=== PATIENT | male | born 1955 | race Caucasian/White ===

== ENCOUNTER → 2020-04-30 | Outpatient (CLI) | payer OTHER ==
[2020-04-30 15:14] LABS: HCT 44.2 % (39.0-53.0); HGB 14.6 gm/dL (13.0-17.5); MCV 100.1 fL (80.0-100.0); Mean Platelet Volume 7.8; Platelet Count 273 k/uL (150-450); RBC 4.41 m/uL (4.30-5.90); RDW 12.7 % (11.5-15.5); WBC 6.7 k/uL (3.8-10.6)
[2020-04-30 15:18] LABS: African American GFR (CKD) >90 (>60 ml/min/1.73 sqM); Anion Gap 7 mmol/L; Blood Urea Nitrogen 15 mg/dL (9-20); Carbon Dioxide 26 mmol/L (22-30); Chloride 104 mmol/L (98-107); Non-African American GFR(CKD) 88 (>60 ml/min/1.73 sqM); Potassium 4.6 mmol/L (3.5-5.1); Sodium 137 mmol/L (137-145)
== END | disposition home or self-care (01) ==
LOC: LABPAT 14:43
PROVIDERS: ATTEND Internal Medicine Interventional Cardiology
DX: Z01.818 Encounter for other preprocedural examination (principal); I65.21 Occlusion and stenosis of right carotid artery; I73.9 Peripheral vascular disease, unspecified; Z20.828 Contact with and (suspected) exposure to other viral communicable diseases
CPT/HCPCS: 80051; 82565; 84520; 85027; U0003

== ENCOUNTER 2020-05-05 06:26 | Inpatient (IN) | payer OTHER ==
[2020-05-03 09:01] VITALS: BMI 21.2
[~2020-05-05 06:26] MED LIST: ALPRAZolam 0.25 MG TAB PO PRN; ALPRAZolam 0.5 MG TAB PO PRN; CLOPIDOGREL 75 MG TAB PO STA; NITROGLYCERIN SL TABS 0.4 MG TAB SUBLINGUAL PRN; SODIUM CHLORIDE 0.9% 1,000 ML in EMPTY BAG 1 BAG IV ONE
[2020-05-05] MEDS ORDERED: ASPIRIN 325 MG TAB PO ONE (07:00)
[2020-05-05] MEDS: LIDOCAINE 1% INJ 10MG/ML (20 ML MDV) SQ ONE ×2 (08:19→08:21)
[2020-05-05] MEDS ORDERED: HEPARIN SODIUM 1,000 UN/ML (10ML VL) IV ONE (08:33)
[2020-05-05] MEDS ORDERED: fentaNYL (PF) 50 MCG/ML 2 ML AMP IVP ONE (09:03)
[2020-05-05] MEDS ORDERED: IOPAMIDOL-250 100ML BTL INTRAARTER ONE ×2 (10:04→10:07)
[2020-05-05] MEDS ORDERED: CLOPIDOGREL 75 MG TAB PO ONE (10:05)
[2020-05-05] MEDS ORDERED: MAG HYDROX/AL HYDROX/SIMETH 30 ML CUP PO PRN (10:22)
[2020-05-05] MEDS ORDERED: ATROPINE SULFATE 0.1 MG/ML 10ML SYRINGE IV PRN (10:22)
[2020-05-05] MEDS ORDERED: RX INFO: IV CONTRAST WAS GIVEN 1 EACH MISC MISCELLANE PRN (10:22)
[2020-05-05] MEDS ORDERED: SODIUM CHLORIDE 0.9% 1,000 ML IV SCH (10:30)
[2020-05-05 10:37] LABS: Glucose,Whole Blood 105 mg/dL (75-99)
--- NOTE | 2020-05-05 13:39 | P.PCN ---
Date of Procedure: 05/05/20 Operative Findings: CAROTID STENT PROCEDURE Performing physician Demarcus Caballero MD, RPVI Procedure performed 1. Successful stenting of the right internal carotid artery using 68 mm x 30 mm Acculink carotid stent with adjunctive use of Emboshield NAV6 (5.0mm) 2. Selective right common and right internal carotid angiogram 3. Intracranial angiogram 4. An aortic arch angiogram 5. 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 Approach Right femoral artery Complications None Level of sedation The procedure was performed without sedation. The procedure length was 108 minutes Procedure description After obtaining an informed consent the patient was brought to cardiac laborer [facility]. The right common femoral artery was cannulated using micropuncture technique, the micropuncture wire passed easily and subsequently I placed the 90 cm 6- [place] shuttle sheath where the sheath was advanced all the way to the descending aorta. At that point anticoagulation was initiated using heparin where the patient was given an 8000 of heparin at the beginning of the procedure with continuous ACT monitoring throughout the procedure. Subsequently I did an aortic arch angiogram which revealed type II-III aortic arch. At that point I had hard time advancing an 035 glide advantage wire into the right common carotid. I was able to engage the innominate better using VTK catheter and subsequently with the use of supercore wire and I was able to advance the sheath over the wire as well as the VTK catheter to the proximal right common carotid artery. At that point I didn't selective right common and right internal carotid angiogram which revealed critical lesion involving the right internal carotid artery right after the takeoff from the right common carotid artery. I decided to pursue with an intervention. At that point I did prep my equipment including initially the retrieval of the filter, the postdilatation balloon, the stent, the predilatation balloon, and the filter wire. After prepping the filter wire and making sure there is no bubbles, I did advance the filter wire all the way to the distal right internal carotid artery where I crossed the lesion. The filter I used was the Emboshield NAV6 system. After that I did a predilatation of the lesion using 4.0 x 20 mm balloon which was inflated under 8 cas for 5 seconds. Subsequently I deployed a 68 mm x 30 mm Acculink stent where the stent was positioned under fluoroscopy guidance and deployed under fluoroscopy guidance. Please note that careful attention of the wire and filter was performed throughout the procedure. Postdilatation of the stent was performed using 5.0 x 20 mm balloon which was inflated under 8 cas for 5 seconds. The following angiogram showed an excellent angiographic results. After that I did retrieve the filter under fluoroscopy guidance with careful crossing of the retrieval through the stent. The final angiogram showed excellent angiographic results and the procedure was completed without any complications Also by the end I did perform intracranial angiogram. Subsequently I did exchange my long sheath into short sheath using 035 glide advantage wire. The procedure was completed at that point without any complications When I did selective right common femoral artery angiogram and he noticed that there was no flow in the right common femoral artery. I was able to restore the flow by pulling the sheath about half length. The following angiogram showed an intermediate to severe lesion involving the right external iliac artery which I decided to treat medically. Postprocedure management #1 monitor the blood pressure and heart rate in the intensive care unit #2 standard groin care #3 dual antiplatelet therapy #4 discharged in the next 24 hours
--- NOTE | 2020-05-05 14:51 | IR ---
EXAMINATION TYPE: IR stent intravas non coronary DATE OF EXAM: 05/05/2020 COMPARISON: NONE HISTORY: Fluoroscopy time. Fluoroscopy was provided to the referring clinician.
[2020-05-05] MEDS ORDERED: HYDROmorphone 1 MG/ML 1 ML SYRINGE IVP PRN (17:39)
[2020-05-05] MEDS: HYDROmorphone 0.5 MG/0.5 ML SYRINGE IVP PRN ×2 (18:15→22:08)
[2020-05-05] MEDS ORDERED: ATORVASTATIN 40 MG TAB PO SCH (21:00)
[2020-05-06] MEDS: HYDROmorphone 0.5 MG/0.5 ML SYRINGE IVP PRN (05:13)
[2020-05-06 05:33] LABS: Basophils % (A) 1 %; Eosinophils # (A) 0.2 k/uL (0-0.7); Eosinophils % (A) 3 %; HCT 38.4 % (39.0-53.0); HGB 12.6 gm/dL (13.0-17.5); Lymphocytes # (A) 1.2 k/uL (1.0-4.8); Lymphocytes % (A) 23 %; MCH 32.8 pg (25.0-35.0); MCHC 32.8 g/dL (31.0-37.0); Mean Platelet Volume 8.3; Monocytes # (A) 0.4 k/uL (0-1.0); Monocytes % (A) 7 %; Neutrophils # (A) 3.6 k/uL (1.3-7.7); Neutrophils % (A) 65 %; Platelet Count 203 k/uL (150-450); RBC 3.84 m/uL (4.30-5.90); RDW 12.6 % (11.5-15.5); WBC 5.5 k/uL (3.8-10.6)
[2020-05-06 05:49] LABS: African American GFR (CKD) >90 (>60 ml/min/1.73 sqM); Anion Gap 4 mmol/L; Blood Urea Nitrogen 13 mg/dL (9-20); Calcium 8.8 mg/dL (8.4-10.2); Carbon Dioxide 25 mmol/L (22-30); Chloride 104 mmol/L (98-107); Glucose 99 mg/dL (74-99); Non-African American GFR(CKD) >90 (>60 ml/min/1.73 sqM); Potassium 4.1 mmol/L (3.5-5.1); Sodium 133 mmol/L (137-145)
[2020-05-06 08:46] VITALS: TEMP 97.4
[2020-05-06] MEDS ORDERED: ASPIRIN 325 MG TAB PO SCH (09:00)
--- NOTE | 2020-05-06 10:07 | P.DS ---
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 He underwent yesterday successful stenting of the right internal carotid artery from right groin approach. The patient was seen this morning. He is asymptomatic from the cardiovascular standpoint overview. The right groin is soft and nontender and without any bruises. The right foot is warm as well. He is going to be discharged home on dual antiplatelet therapy and I'll follow- up with the patient next week in the office Plan - Discharge Summary Discharge Rx Participant: No New Discharge Prescriptions: Continue Lisinopril [Zestril] 10 mg PO DAILY Atorvastatin [Lipitor] 20 mg PO HS Apixaban [Eliquis] 5 mg PO BID Folic Acid 1 mg PO DAILY amLODIPine [Norvasc] 5 mg PO DAILY Clopidogrel [Plavix] 75 mg PO DAILY Discharge Medication List Apixaban [Eliquis] 5 mg PO BID 05/03/20 [History] Atorvastatin [Lipitor] 20 mg PO HS 05/03/20 [History] Clopidogrel [Plavix] 75 mg PO DAILY 05/03/20 [History] Folic Acid 1 mg PO DAILY 05/03/20 [History] Lisinopril [Zestril] 10 mg PO DAILY 05/03/20 [History] amLODIPine [Norvasc] 5 mg PO DAILY 05/03/20 [History] Follow up Appointment(s)/Referral(s): Demarcus Caballero MD [STAFF PHYSICIAN] - 1 Week
[2020-05-06 10:12] VITALS: BP 115/65; PULSE 61; RESP 10
[2020-05-06] MEDS ORDERED: CLOPIDOGREL 75 MG TAB PO SCH (10:22)
== END 2020-05-06 11:04 | disposition home or self-care (01) | DRG 35 ==
LOC: 2ORMAIN 06:26 → 2SICU 10:15
PROVIDERS: ADMIT Internal Medicine Interventional Cardiology; ATTEND Internal Medicine Interventional Cardiology
PROC: 037K3DZ Dilation of Right Internal Carotid Artery with Intraluminal Device, Percutaneous Approach (ICD-10-PCS; principal; 2020-05-05 07:30)
PROC: B31R1ZZ Fluoroscopy of Intracranial Arteries using Low Osmolar Contrast (ICD-10-PCS; principal; 2020-05-05 07:30)
PROC: B4101ZZ Fluoroscopy of Abdominal Aorta using Low Osmolar Contrast (ICD-10-PCS; principal; 2020-05-05 07:30)
PROC: B3161ZZ Fluoroscopy of Right Internal Carotid Artery using Low Osmolar Contrast (ICD-10-PCS; principal; 2020-05-05 07:30)
DX: I65.21 Occlusion and stenosis of right carotid artery (principal); I82.B22 Chronic embolism and thrombosis of left subclavian vein; I73.9 Peripheral vascular disease, unspecified; I10 Essential (primary) hypertension; E78.5 Hyperlipidemia, unspecified; R40.2143 Coma scale, eyes open, spontaneous, at hospital admission; R40.2363 Coma scale, best motor response, obeys commands, at hospital admission; R40.2253 Coma scale, best verbal response, oriented, at hospital admission; Z79.01 Long term (current) use of anticoagulants; Z79.02 Long term (current) use of antithrombotics/antiplatelets; Z79.899 Other long term (current) drug therapy; Z87.891 Personal history of nicotine dependence; Z86.718 Personal history of other venous thrombosis and embolism; Z95.828 Presence of other vascular implants and grafts
CPT/HCPCS: 37215; 80048; 85025; 85347

== ENCOUNTER → 2020-05-24 | Day surgery (SDC) | payer OTHER ==
[2020-05-21 10:13] VITALS: BMI 21.2
[~2020-05-24] MED LIST changes: -ALPRAZolam 0.5 MG TAB PO PRN; +ASPIRIN 325 MG TAB PO ONE; -CLOPIDOGREL 75 MG TAB PO STA; +HEPARIN SODIUM 1,000 UN/ML (10ML VL) IV ONE; +IOPAMIDOL-250 100ML BTL INTRAARTER ONE; +IOPAMIDOL-250 50ML BTL INTRAARTER ONE; +LIDOCAINE 1% INJ 10MG/ML (20 ML MDV) SQ ONE; -NITROGLYCERIN SL TABS 0.4 MG TAB SUBLINGUAL PRN; +SODIUM CHLORIDE 0.9% 1,000 ML IV ONE; +SODIUM CHLORIDE 0.9% 1,000 ML IV SCH
[2020-05-24 07:13] VITALS: RESP 16; TEMP 98.5
[2020-05-24] MEDS: VERAPAMIL SYRINGE (5 MG/10 ML) INTRAARTER ONE ×2 (07:54→08:09)
--- NOTE | 2020-05-24 11:10 | AN ---
ANGIOGRAPHY REPORT DATE OF SERVICE: May 24, 2020 PERFORMING PHYSICIAN: Demarcus Caballero MD. PROCEDURE PERFORMED: 1. An abdominal aortogram. 2. Bilateral lower extremities runoff. INDICATION: This is a 64-year-old gentleman with peripheral arterial disease as well as carotid disease who underwent in the past out of the town at [facility], right common femoral endarterectomy as well as stenting of the right iliac artery was experiencing bilateral lower extremities intermittent claudication, Fontan class 2A, seems to be worse on the left side than the right side without any evidence of critical limb ischemia. An aortogram with runoff was advised. APPROACH: Right radial artery. COMPLICATION: None. LEVEL OF SEDATION: Moderate with sedation length of 20 minutes. PROCEDURE DESCRIPTION: After obtaining an informed consent, the patient was brought to the cardiac chemical laboratory chief. The. The right radial artery was cannulated using micropuncture technique, the micropuncture wire passed easily, then I placed a 5-Tamazight sheath at the right radial artery. An abdominal aortogram and bilateral lower extremities runoff performed using 5-Tamazight pigtail catheter which was initially placed at the level of the renal arteries, then it was advanced into the bifurcation of the aorta into right and left common iliac arteries. The procedure was completed without any complication. SELECTIVE PERIPHERAL ANGIOGRAM: 1. The aorta is appeared to be dilated. It appeared to have also mild occlusive disease. 2. Renal arteries: The right and left renal arteries appeared to have mild to moderate disease only. 3. Common iliac arteries: The right common iliac artery is stented and the stent is patent and the left common iliac artery appeared to have mild disease only. 4. Internal iliac arteries: The right and left internal iliac arteries were not opacified. The right internal iliac artery appeared to be small and the left internal iliac artery was working as a collateral. 5. External iliac arteries: The right external iliac artery appeared to have a tight lesion in the range of 70% to 80%. The left external iliac artery is occluded. 6. Common femoral arteries: The right common femoral artery appeared to have mild to moderate diffuse disease. 7. The left common femoral artery appeared to have mild to moderate diffuse disease as well. 8. Profunda: Both profunda are patent. 9. SFA: Both SFA are occluded. 10.Popliteal: The right and left popliteal appeared to be patent. 11.Below the knee: There are 3 vessel runoff below the knee bilaterally. CONCLUSION: 1. Mildly dilated infrarenal aorta. The CTA is recommended for further clarification. 2. Patent severe femoral-popliteal disease with severe disease involving the right external iliac artery and occluded left external iliac artery. 3. Severe femoral-popliteal disease with occluded bilateral SFA. 4. Three vessel runoff below the knee bilaterally. POSTPROCEDURE MANAGEMENT: The patient will need to undergo a FACIALIST of the right external iliac artery and left external iliac artery to be performed in the next few weeks. MMODL / IJN: [id number] /
[2020-05-24 13:24] VITALS: BP 90/62; PULSE 76
--- NOTE | 2020-05-24 17:00 | IR ---
Fluoroscopy HISTORY: Peripheral vascular disease 5minutes fluoroscopy time supplied to the referring clinician. 199 intraoperative C-arm images docum ent the procedure. See dictated report from cardiology.
== END ==
LOC: CATHCVL 06:23
PROVIDERS: ATTEND Internal Medicine Interventional Cardiology
DX: I70.213 Atherosclerosis of native arteries of extremities with intermittent claudication, bilateral legs (principal); I77.811 Abdominal aortic ectasia; I74.5 Embolism and thrombosis of iliac artery; I65.21 Occlusion and stenosis of right carotid artery; E78.5 Hyperlipidemia, unspecified; I10 Essential (primary) hypertension; Z95.820 Peripheral vascular angioplasty status with implants and grafts; Z95.828 Presence of other vascular implants and grafts; Z72.0 Tobacco use; Z79.899 Other long term (current) drug therapy; Z79.01 Long term (current) use of anticoagulants; Z79.02 Long term (current) use of antithrombotics/antiplatelets
CPT/HCPCS: 36200; 75625; 75716; C1769 ×5; C1894; J2001; J1644; Q9966 ×2

== ENCOUNTER → 2020-06-10 | Outpatient (CLI) | payer OTHER ==
[2020-06-10 11:16] LABS: HCT 43.1 % (39.0-53.0); HGB 14.1 gm/dL (13.0-17.5); MCH 32.1 pg (25.0-35.0); MCHC 32.7 g/dL (31.0-37.0); MCV 97.9 fL (80.0-100.0); Mean Platelet Volume 7.7; Platelet Count 275 k/uL (150-450); RDW 12.4 % (11.5-15.5); WBC 6.4 k/uL (3.8-10.6)
[2020-06-10 11:55] LABS: African American GFR (CKD) >90 (>60 ml/min/1.73 sqM); Anion Gap 5 mmol/L; Blood Urea Nitrogen 13 mg/dL (9-20); Carbon Dioxide 26 mmol/L (22-30); Chloride 103 mmol/L (98-107); Non-African American GFR(CKD) 79 (>60 ml/min/1.73 sqM); Potassium 4.9 mmol/L (3.5-5.1); Sodium 134 mmol/L (137-145)
== END | disposition home or self-care (01) ==
LOC: LABPAT 10:32
PROVIDERS: ATTEND Internal Medicine Interventional Cardiology
DX: Z01.818 Encounter for other preprocedural examination (principal); I70.213 Atherosclerosis of native arteries of extremities with intermittent claudication, bilateral legs
CPT/HCPCS: 80051; 82565; 84520; 85027

== ENCOUNTER 2020-06-16 08:24 | Observation (INO) | payer OTHER ==
[2020-06-10 11:52] VITALS: BMI 21.2
[~2020-06-16 08:24] MED LIST changes: -HEPARIN SODIUM 1,000 UN/ML (10ML VL) IV ONE; -IOPAMIDOL-250 100ML BTL INTRAARTER ONE; -IOPAMIDOL-250 50ML BTL INTRAARTER ONE; -LIDOCAINE 1% INJ 10MG/ML (20 ML MDV) SQ ONE; -SODIUM CHLORIDE 0.9% 1,000 ML IV ONE; -SODIUM CHLORIDE 0.9% 1,000 ML IV SCH
[2020-06-16] MEDS ORDERED: SODIUM CHLORIDE 0.9% 1,000 ML IV ONE (08:37)
[2020-06-16] MEDS: MIDAZOLAM 2 MG/2 ML VIAL IVP ONE ×2 (11:25→11:30)
[2020-06-16] MEDS ORDERED: LIDOCAINE 1% INJ 10MG/ML (20 ML MDV) SQ ONE (11:28)
[2020-06-16] MEDS ORDERED: VERAPAMIL SYRINGE (5 MG/10 ML) INTRAARTER ONE (11:30)
[2020-06-16] MEDS: HEPARIN SODIUM 1,000 UN/ML (10ML VL) IV ONE ×2 (11:32→13:25)
[2020-06-16] MEDS ORDERED: HYDROmorphone 1 MG/ML 1 ML SYRINGE IVP ONE (12:16)
[2020-06-16] MEDS ORDERED: fentaNYL (PF) 50 MCG/ML 2 ML AMP IVP ONE (12:55)
[2020-06-16] MEDS ORDERED: CLOPIDOGREL 75 MG TAB PO ONE (13:55)
[2020-06-16] MEDS ORDERED: IOPAMIDOL-370 100ML BTL INJ ONE (13:56)
[2020-06-16] MEDS ORDERED: SODIUM CHLORIDE 0.9% 1,000 ML IV SCH (13:56)
[2020-06-16] MEDS: HYDROmorphone 1 MG/ML 1 ML SYRINGE IVP PRN ×2 (16:30→20:12)
[2020-06-16 19:54] VITALS: RESP 18
[2020-06-16] MEDS ORDERED: ATORVASTATIN 20 MG TAB PO SCH (21:00)
--- NOTE | 2020-06-16 23:00 | AN ---
ANGIOGRAPHY REPORT DATE OF SERVICE: June 16, 2020. PERFORMING PHYSICIAN: Demarcus Caballero MD. PROCEDURE PERFORMED: 1. Successful stenting of the right common iliac artery using 8.0 x 60 mm Absolute Pro self expandable stent with an excellent angiographic results. 2. Successful balloon angioplasty of the right external iliac artery using 6 x 60 mm Impact drug-coated balloon with an excellent angiographic results. 3. Selective right common iliac artery and right external iliac artery and right common femoral artery. 4. Selective left common iliac artery. INDICATION: This is a 64-year-old gentleman with peripheral arterial disease who was experiencing bilateral lower extremities intermittent claudication and underwent an angiogram which revealed occluded left iliac and severe disease involving the right common and right external iliac artery. He was brought today to undergo an intervention. APPROACH: Right common femoral artery and right radial artery. COMPLICATION: None. LEVEL OF SEDATION: Moderate with sedation length of 137 minutes. PROCEDURE DESCRIPTION: After obtaining an informed consent, the patient was brought to the cardiac laboratory phlebotomist. I accessed the right radial artery using micropuncture technique, and I placed initially a 6-[place]izen [place] 11 cm sheath at the right radial artery. After that I did give the patient 2 mg of verapamil IA and 6000 units of heparin IV. I exchanged my 11 cm 6-[place] sheath into 110 cm 6-[place] sheath over a 035 super core wire. I advanced the sheath all the way to the distal aorta. Unfortunately, the sheath did not reach the bifurcation of the aorta into right and left common iliac arteries. 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 Multiple attempts were unsuccessful and I ended in the subintimal space. Because of that, I decided to fix the right iliac system. Because the sheath was not reaching the bifurcation and I was running short because of the length of the sheath and the length of the equipment, I decided to access the right femoral artery. At that point, the right common femoral artery was cannulated using micropuncture technique and a micropuncture wire passed easily. Then I placed 11 cm 6- [place] sheath in the right common femoral artery. That was performed under fluoroscopy guidance. After that I did selective right common and right external iliac artery angiogram. Balloon angioplasty at that point was performed using a Chocolate balloon which was 6 x 40 mm. After that, I did stenting of the right common iliac artery where I did deploy 8 x 60 mm Absolute Pro self expandable stent under fluoroscopy guidance and I post-dilated the stent using 7 mm balloon. For the right external iliac artery, I did balloon angioplasty using 6 x 60 mm Impact drug-coated balloon where the balloon was inflated under 3 minutes for 6 atmospheres. The final angiogram showed excellent angiographic results and the procedure was completed without any complication. By the end, I did selective right common femoral artery angiogram. After that, I did remove the right radial sheath and I placed a TR band. POSTPROCEDURE MANAGEMENT: 1. Dual anti-platelet therapy. 2. Risk factors modifications. 3. Follow up with the patient. MMODL / IJN: [id number] /
[2020-06-17] MEDS: HYDROmorphone 1 MG/ML 1 ML SYRINGE IVP PRN (06:01)
[2020-06-17 07:07] LABS: Basophils % (A) 1 %; Eosinophils # (A) 0.2 k/uL (0-0.7); Eosinophils % (A) 2 %; HCT 39.5 % (39.0-53.0); HGB 12.6 gm/dL (13.0-17.5); Lymphocytes # (A) 1.1 k/uL (1.0-4.8); Lymphocytes % (A) 16 %; MCH 31.5 pg (25.0-35.0); MCHC 31.8 g/dL (31.0-37.0); MCV 99.1 fL (80.0-100.0); Mean Platelet Volume 7.7; Monocytes # (A) 0.4 k/uL (0-1.0); Monocytes % (A) 7 %; Neutrophils # (A) 4.8 k/uL (1.3-7.7); Neutrophils % (A) 73 %; Platelet Count 211 k/uL (150-450); RBC 3.99 m/uL (4.30-5.90); RDW 12.6 % (11.5-15.5); WBC 6.7 k/uL (3.8-10.6)
[2020-06-17 07:25] LABS: African American GFR (CKD) >90 (>60 ml/min/1.73 sqM); Anion Gap 6 mmol/L; Blood Urea Nitrogen 10 mg/dL (9-20); Calcium 8.7 mg/dL (8.4-10.2); Carbon Dioxide 23 mmol/L (22-30); Chloride 105 mmol/L (98-107); Glucose 94 mg/dL (74-99); Non-African American GFR(CKD) >90 (>60 ml/min/1.73 sqM); Potassium 4.4 mmol/L (3.5-5.1); Sodium 134 mmol/L (137-145)
[2020-06-17 07:57] VITALS: PULSE 75; TEMP 98.8
[2020-06-17 07:59] VITALS: BP 97/54
--- NOTE | 2020-06-17 08:14 | P.CONS ---
History of Present Illness - Reason for Consult Consult date: 06/17/20 - Chief Complaint Athersclerosis - History of Present Illness The patient is a 64-year-old white male with known history of carotid stenosis who is postop day #1 for stenting. The patient states no new complaints. No significant chest pressure. No fever or chills. No nausea, vomiting or diarr hea. Consulted for medical management. We'll reconcile medications. The patient states no sleep issues no voiding difficulties. Review of Systems Constitutional: Denies chills, Denies fever Eyes: denies blurred vision, denies pain Ears, nose, mouth and throat: Denies headache, Denies sore throat Cardiovascular: Denies chest pain, Denies shortness of breath Respiratory: Denies cough Gastrointestinal: Denies abdominal pain, Denies diarrhea, Denies nausea, Denies vomiting Past Medical History Past Medical History: Cancer Additional Past Medical History / Comment(s): See Dr Caballero's H&P. SKIN CANCER. History of Any Multi-Drug Resistant Organisms: None Reported Past Surgical History: Heart Catheterization Additional Past Surgical History / Comment(s): "RIGHT LEG FOR CIRCULATION WITH 2 STENTS." Right internal carotid stent 05/05/20. Past Anesthesia/Blood Transfusion Reactions: No Reported Reaction Past Psychological History: No Psychological Hx Reported Smoking Status: Former smoker Past Alcohol Use History: Rare Additional Past Alcohol Use History / Comment(s): STARTED SMOKING AT AGE 17, QUIT 2019, SMOKED 1/2 - 1 PPD. Past Drug Use History: None Reported - Past Family History Father Family Medical History: Cancer Additional Family Medical History / Comment(s): THROAT CANCER. Brother(s) Family Medical History: Cancer Additional Family Medical History / Comment(s): THROAT CANCER. Medications and Allergies Home Medications Medication Instructions Recorded Confirmed Type Apixaban [Eliquis] 5 mg PO BID 05/03/20 06/16/20 History Atorvastatin [Lipitor] 20 mg PO HS 05/03/20 06/16/20 History Clopidogrel [Plavix] 75 mg PO DAILY 05/03/20 06/16/20 History Folic Acid 1 mg PO DAILY 05/03/20 06/16/20 History amLODIPine [Norvasc] 5 mg PO DAILY 05/03/20 06/16/20 History lisinopriL [Zestril] 10 mg PO DAILY 05/03/20 06/16/20 History Aspirin 325 mg PO DAILY 05/24/20 06/16/20 History Allergies Allergy/AdvReac Type Severity Reaction Status Date / Time No Known Allergies Allergy Verified 06/16/20 08:44 Physical Exam Vitals: Vital Signs Temp Pulse Pulse Resp BP BP BP 06/17/20 07:51 98.8 F 75 18 126/72 06/17/20 03:05 98.1 F 70 18 102/59 06/16/20 23:04 98 F 55 L 18 95/50 06/16/20 19:30 97.4 F L 65 18 96/57 06/16/20 18:45 65 16 98/58 06/16/20 18:15 65 16 97/54 06/16/20 17:45 65 16 105/61 06/16/20 17:30 66 16 101/56 06/16/20 17:15 96.6 F L 66 16 105/67 06/16/20 16:41 65 16 96/61 06/16/20 16:39 70 16 93/51 06/16/20 16:34 16 101/61 06/16/20 15:41 67 16 95/59 06/16/20 15:11 68 16 98/60 06/16/20 14:41 60 16 96/54 06/16/20 14:26 63 16 98/60 06/16/20 14:11 61 16 95/63 06/16/20 13:56 62 16 98/60 06/16/20 09:01 97.9 F 80 16 97/54 159/80 Pulse Ox 06/17/20 07:51 95 06/17/20 03:05 93 L 06/16/20 23:04 94 L 06/16/20 19:30 97 06/16/20 18:45 96 06/16/20 18:15 97 06/16/20 17:45 96 06/16/20 17:30 95 06/16/20 17:15 95 06/16/20 16:41 95 06/16/20 16:39 97 06/16/20 16:34 97 06/16/20 15:41 95 06/16/20 15:11 98 06/16/20 14:41 98 06/16/20 14:26 95 06/16/20 14:11 96 06/16/20 13:56 98 06/16/20 09:01 98 Intake and Output 06/16/20 06/17/20 06/17/20 22:59 06:59 14:59 Intake Total 800 Output Total 300 Balance 500 Intake: IV 500 Oral 300 Output: Urine 300 Other: Voiding Method Urinal Urinal # Voids 1 - Constitutional General appearance: no acute distress - EENT Eyes: EOMI - Neck Neck: no lymphadenopathy - Respiratory Respiratory: bilateral: CTA - Cardiovascular Rhythm: regular Heart sounds: normal: S1, S2 Abnormal Heart Sounds: no S3 Gallop - Gastrointestinal General gastrointestinal: soft, no tenderness - Integumentary Integumentary: normal - Neurologic Neurologic: CNII-XII intact Results CBC & Chem 7: 06/17/20 06:34 06/17/20 06:34 Labs: Abnormal Lab Results - Last 24 Hours (Table) 06/17/20 06/17/20 Range/Units 06:34 06:34 RBC 3.99 L (4.30-5.90) m/uL Hgb 12.6 L (13.0-17.5) gm/dL Sodium 134 L (137-145) mmol/L Assessment and Plan (1) Carotid stenosis Current Visit: No Status: Acute Code(s): I65.29 - OCCLUSION AND STENOSIS OF UNSPECIFIED CAROTID ARTERY SNOMED Code(s): 25546835 Plan: The patient is doing well postoperatively with no neurologic findings. Reconcile medications. Anticipate discharge later today.
--- NOTE | 2020-06-17 08:57 | IR ---
EXAMINATION TYPE: IR stent intravas non coronary DATE OF EXAM: 06/16/2020 CLINICAL HISTORY: Peripheral vascular disease. TECHNIQUE: Fluoroscopy. COMPARISON: None. FINDINGS: Fluoroscopic guidance was provided during angiogram with stent insertion procedure perform ed by Dr. Caballero. A total of 51.2 minutes of fluoroscopic time was utilized during the procedure and m ultiple cine images are acquired. Please refer to procedure note for further details as I was not pre sent nor performed procedure. IMPRESSION: As Above.
[2020-06-17] MEDS ORDERED: amLODIPine 5 MG TAB PO SCH (09:00)
[2020-06-17] MEDS ORDERED: FOLIC ACID 1 MG TAB PO SCH (09:00)
[2020-06-17] MEDS ORDERED: ASPIRIN 325 MG TAB PO SCH (09:00)
[2020-06-17] MEDS ORDERED: lisinopriL 10 MG TAB PO SCH (09:00)
[2020-06-17] MEDS ORDERED: APIXABAN 5 MG TAB PO SCH (09:00)
[2020-06-17] MEDS ORDERED: CLOPIDOGREL 75 MG TAB PO SCH (09:00)
--- NOTE | 2020-06-17 10:57 | P.DS ---
Providers Date of admission: 06/17/20 06:55 Attending physician: Demarcus Caballero Primary care physician: [facility] Course: This is a 64-year-old gentleman who underwent yesterday successful stenting of the right common and right external iliac artery. He was seen this morning. Overall he is asymptomatic from a cardiovascular standpoint of view. Both sites the right radial and right common femoral arteries are soft and nontender and without any bruises. The patient is going to discharge home on antiplatelet and anticoagulation as well as a statin. Plan - Discharge Summary Discharge Rx Participant: Yes New Discharge Prescriptions: Continue lisinopriL [Zestril] 10 mg PO DAILY Atorvastatin [Lipitor] 20 mg PO HS Apixaban [Eliquis] 5 mg PO BID Folic Acid 1 mg PO DAILY amLODIPine [Norvasc] 5 mg PO DAILY Clopidogrel [Plavix] 75 mg PO DAILY Aspirin 325 mg PO DAILY Discharge Medication List Apixaban [Eliquis] 5 mg PO BID 05/03/20 [History] Atorvastatin [Lipitor] 20 mg PO HS 05/03/20 [History] Clopidogrel [Plavix] 75 mg PO DAILY 05/03/20 [History] Folic Acid 1 mg PO DAILY 05/03/20 [History] amLODIPine [Norvasc] 5 mg PO DAILY 05/03/20 [History] lisinopriL [Zestril] 10 mg PO DAILY 05/03/20 [History] Aspirin 325 mg PO DAILY 05/24/20 [History] Follow up Appointment(s)/Referral(s): Demarcus Caballero MD [STAFF PHYSICIAN] - 06/25/20 4:45 pm (follow up is on Sunday at 4:45 PM) Patient Instructions/Handouts: *Surgery [facility] - Lung, Liver, Kidney, Adrenal Gland Biopsy Discharge Instructions, Percutaneous Liver Biopsy (DC) Activity/Diet/Wound Care/Special Instructions: Follow up as previously instructed Activity restrictions No changes with medications Rest for today Remove band-aid after 24 hours, may shower For discomfort Tylenol
== END 2020-06-17 12:20 | disposition home or self-care (01) ==
LOC: CATHCVL 08:24 → 3SCARD 13:42 → CATHCVL 06-17 06:49 → 3SCARD 06-17 06:55
PROVIDERS: ADMIT Internal Medicine Interventional Cardiology; ATTEND Internal Medicine Interventional Cardiology
DX: I70.8 Atherosclerosis of other arteries (principal); I65.21 Occlusion and stenosis of right carotid artery; I10 Essential (primary) hypertension; E78.5 Hyperlipidemia, unspecified; Z79.01 Long term (current) use of anticoagulants; Z79.02 Long term (current) use of antithrombotics/antiplatelets; Z79.82 Long term (current) use of aspirin; Z79.899 Other long term (current) drug therapy; Z95.820 Peripheral vascular angioplasty status with implants and grafts; Z86.718 Personal history of other venous thrombosis and embolism; Z87.891 Personal history of nicotine dependence; Z85.828 Personal history of other malignant neoplasm of skin; Z80.8 Family history of malignant neoplasm of other organs or systems
CPT/HCPCS: 37221; 37222; 85347; 80048; 85025; G0378; C1894 ×3; C1769 ×10; C1725 ×2; C1876; C1887; C2623; J2250; J2001; J3010; J1644; J1170 ×2; Q9967

== ENCOUNTER → 2020-07-14 | Outpatient (CLI) | payer OTHER | END | disposition home or self-care (01) | LOC: LABPAT 11:22 | PROVIDERS: ATTEND Internal Medicine Interventional Cardiology | DX: Z53.9 Procedure and treatment not carried out, unspecified reason (principal) ==

== ENCOUNTER 2020-07-21 07:48 | Day surgery (SDC) | payer OTHER ==
[2020-07-14 13:05] LABS: HCT 42.5 % (39.0-53.0); HGB 13.6 gm/dL (13.0-17.5); MCH 31.4 pg (25.0-35.0); MCV 98.1 fL (80.0-100.0); Mean Platelet Volume 7.4; Platelet Count 259 k/uL (150-450); RBC 4.33 m/uL (4.30-5.90); RDW 12.8 % (11.5-15.5); WBC 5.6 k/uL (3.8-10.6)
[2020-07-14 13:17] LABS: African American GFR (CKD) >90 (>60 ml/min/1.73 sqM); Anion Gap 6 mmol/L; Blood Urea Nitrogen 20 mg/dL (9-20); Carbon Dioxide 27 mmol/L (22-30); Chloride 104 mmol/L (98-107); Non-African American GFR(CKD) 80 (>60 ml/min/1.73 sqM); Potassium 4.9 mmol/L (3.5-5.1); Sodium 137 mmol/L (137-145)
[2020-07-15 11:10] VITALS: BMI 21.2
[~2020-07-21 07:48] MED LIST changes: -ASPIRIN 325 MG TAB PO ONE; +ASPIRIN 325 MG TAB PO STA; +ZOLPIDEM 5 MG TAB PO PRN
[2020-07-21] MEDS ORDERED: LIDOCAINE 1% INJ 10MG/ML (20 ML MDV) SQ ONE (09:22)
[2020-07-21] MEDS ORDERED: SODIUM CHLORIDE 0.9% 500 ML 500 ML with niCARdipine 6.25 MG, NITROGLYCERIN-D5W PMX 0.05... IV ONE ×8 (09:29→11:30)
[2020-07-21] MEDS ORDERED: MIDAZOLAM 2 MG/2 ML VIAL IVP ONE (09:36)
[2020-07-21] MEDS ORDERED: HYDROmorphone 1 MG/ML 1 ML SYRINGE IVP ONE ×2 (09:40→10:17)
[2020-07-21] MEDS ORDERED: HEPARIN SODIUM 1,000 UN/ML (10ML VL) IV ONE ×2 (09:40→11:52)
[2020-07-21] MEDS ORDERED: fentaNYL (PF) 50 MCG/ML 2 ML AMP IVP ONE (12:44)
[2020-07-21] MEDS ORDERED: SODIUM CHLORIDE 0.9% 1,000 ML in EMPTY BAG 1 BAG IV SCH (12:45)
[2020-07-21] MEDS ORDERED: hydrALAZINE HCL 20 MG/ML 1 ML VIAL IVP PRN (14:48)
[2020-07-21] MEDS ORDERED: fentaNYL (PF) 50 MCG/ML 2 ML AMP IVP PRN ×2 (14:48→14:49)
--- NOTE | 2020-07-21 15:41 | LTR ---
DATE OF SERVICE: 07/21/2020 RE: Cezar Terry Dear Dr. Obrien; Mr. Freddy Terry underwent today successful balloon angioplasty of the left iliac artery with an excellent angiographic results and without any complication. Thank you for allowing us to participate in his care and please do not hesitate to call if you have any question or concern. Sincerely, Demarcus Caballero MD MMARIS / PURNIMAN: [id number] /
[2020-07-21] MEDS: HYDROmorphone 0.5 MG/0.5 ML SYRINGE IVP PRN ×2 (15:55→20:56)
[2020-07-21] MEDS ORDERED: ATROPINE SULFATE 0.1 MG/ML 10ML SYRINGE ONE (16:34)
--- NOTE | 2020-07-21 17:14 | AN ---
ANGIOGRAPHY REPORT PERFORMING PHYSICIAN: Demarcus Caballero MD. PROCEDURE PERFORMED: 1. Successful stenting of the left common iliac artery using 8 x 59 balloon expandable stent with an excellent angiographic results. 2. Successful stenting of the left external iliac artery using 7 x 60 mm self expandable stent with an excellent angiographic results. 3. Selective left posterior tibial angiogram. 4. Selective left common iliac artery, external iliac artery and common femoral artery angiogram. 5. An aortogram. INDICATION: This is a very pleasant 64-year-old gentleman with peripheral arterial disease and prior peripheral angioplasty and stenting, who was experiencing bilateral lower extremities intermittent claudication, worse on the left side than the right side. He underwent an angiogram recently and that revealed occluded left iliac artery as well as occluded bilateral SFA. He underwent a few weeks ago an attempted balloon angioplasty of the left external iliac artery and that was unsuccessful. He was brought today to undergo an attempt from the retrograde approach. APPROACH: 1. Right common femoral artery. 2. Left common femoral artery. 3. Left posterior tibial artery. COMPLICATION: None. LEVEL OF SEDATION: Moderate with sedation length of 196 minutes. PROCEDURE DESCRIPTION: After obtaining an informed consent, the patient was brought to the cardiac greenskeeper laborer. Initially, I accessed the right common femoral artery and I placed a 5-Maldivian 11 cm sheath at the level of the right common femoral artery. At that point, I did place a 5- Maldivian pigtail catheter in the distal aorta just above the bifurcation of the aorta to right and left common iliac arteries. I did an aortogram and non selective bilateral iliac and femoral angiogram. The angiogram revealed that the left common femoral artery, re-opacify just to the level of the inguinal ligament on the left side. Because of that and because I was able to opacify the left common femoral artery, I decided to pursue with an intervention. I accessed the left posterior tibial artery under ultrasound guidance and I placed a slender 5/6-Maldivian sheath at the left posterior tibial artery. Subsequently, anticoagulation was initiated using heparin where the patient was given a weight-based heparin with continuous ACT monitoring throughout the procedure and then I did also connect the side-arm of the sheath with a cocktail containing heparin, nitroglycerin, as well as verapamil. Attempting crossing the SFA from a retrograde technique was unsuccessful using 0.18 wire as well as 0.35 wire because there was stented segment in the left SFA and the wire was going behind the stent struts. Because of that, I decided to abort the retrograde technique and try to the retrograde technique from left common femoral artery sheath. At that point, I placed the sheath at the left common femoral artery and the sheath was advanced only for about 2 cm and the rest of the sheath was outside the artery. After that, I did attempt crossing the MARKETING PROPOSAL COORDINATOR of the left external iliac artery and left common iliac artery using a 0.035 stiff Glidewire with 0.035 CXI catheter. That was unsuccessful where I ended in subintimal space. At that point, I decided to access the MARKETING PROPOSAL COORDINATOR in antegrade technique coming from the right side to the left side. That was performed using an Omni Flush catheter with 0.035 stiff Glidewire. With that, I was able to cross the MARKETING PROPOSAL COORDINATOR and I advanced the wire all the way to the left profunda. Subsequently, balloon angioplasty was performed using 6 mm balloon. After that, I deployed in the left common iliac artery, 8 x 60 mm balloon expandable stent and in the distal and in the left external iliac artery, I deployed the 7 x 60 mm balloon self expandable stents. After that post stent, I did both stents were dilated postdilated using a 7 mm balloon. The final angiogram showed excellent angiographic results and the procedure at that point was finished. Subsequently I did pull my long sheath, which was a 6-Maldivian Eduardo sheath all the way to the right common femoral artery and I did selective left external iliac artery angiogram because I had a concern about the stent in the right external iliac artery and that was patent and because of that I decided to stop. I did exchange my long sheath into short sheath and the procedure was completed without any complication. POSTPROCEDURE MANAGEMENT: 1. SHAFT TENDER of the left SFA. 2. Follow up with the patient. MMODL / IJN: [id number] /
[2020-07-21] MEDS ORDERED: ATORVASTATIN 20 MG TAB PO SCH (21:00)
[2020-07-22 06:48] LABS: Basophils % (A) 1 %; Eosinophils # (A) 0.1 k/uL (0-0.7); Eosinophils % (A) 2 %; HCT 40.6 % (39.0-53.0); HGB 13.3 gm/dL (13.0-17.5); Lymphocytes # (A) 1.1 k/uL (1.0-4.8); Lymphocytes % (A) 17 %; MCH 32.3 pg (25.0-35.0); MCHC 32.7 g/dL (31.0-37.0); MCV 98.8 fL (80.0-100.0); Mean Platelet Volume 7.9; Monocytes # (A) 0.5 k/uL (0-1.0); Monocytes % (A) 8 %; Neutrophils # (A) 4.6 k/uL (1.3-7.7); Neutrophils % (A) 72 %; Platelet Count 210 k/uL (150-450); RBC 4.11 m/uL (4.30-5.90); WBC 6.4 k/uL (3.8-10.6)
[2020-07-22 07:01] LABS: African American GFR (CKD) >90 (>60 ml/min/1.73 sqM); Anion Gap 8 mmol/L; Blood Urea Nitrogen 10 mg/dL (9-20); Calcium 8.9 mg/dL (8.4-10.2); Carbon Dioxide 24 mmol/L (22-30); Chloride 105 mmol/L (98-107); Glucose 83 mg/dL (74-99); Non-African American GFR(CKD) >90 (>60 ml/min/1.73 sqM); Sodium 137 mmol/L (137-145)
[2020-07-22] MEDS ORDERED: lisinopriL 10 MG TAB PO SCH (09:00)
[2020-07-22] MEDS ORDERED: amLODIPine 5 MG TAB PO SCH ×2 (09:00→21:00)
[2020-07-22] MEDS ORDERED: CLOPIDOGREL 75 MG TAB PO SCH (09:00)
[2020-07-22] MEDS ORDERED: FOLIC ACID 1 MG TAB PO SCH (09:00)
[2020-07-22] MEDS ORDERED: ASPIRIN 325 MG TAB PO SCH (09:00)
--- NOTE | 2020-07-22 10:07 | DS ---
DISCHARGE SUMMARY ADMISSION DATE: 07/21/2020 DISCHARGE DATE: 07/22/2020 BRIEF HISTORY: This is a 64-year-old gentleman who underwent yesterday successful stenting of the left iliac artery from right and left groin approach as well as left pedal approach. All sites are looking good and without any hematoma. The patient is going to be discharged home on dual anti-platelet therapy and I will follow up with the patient next week in the office. BRO / BRANDY: [id number] /
[2020-07-22] MEDS ORDERED: amLODIPine 5 MG TAB PO STA (11:08)
[2020-07-22 12:29] VITALS: BP 148/78; PULSE 84; RESP 12; TEMP 98
--- NOTE | 2020-07-22 15:56 | IR ---
EXAMINATION TYPE: IR cryptanalyst iliac DATE OF EXAM: 07/21/2020 COMPARISON: NONE HISTORY: Fluoroscopy time. Fluoroscopy was provided to the referring clinician. 76 minutes of fluoroscopy provided.
== END 2020-07-22 13:03 | disposition home or self-care (01) ==
LOC: CATHCVL 07:48 → 3SCARD 12:36 → CATHCVL 07-22 13:03
PROVIDERS: ATTEND Internal Medicine Interventional Cardiology
DX: I70.213 Atherosclerosis of native arteries of extremities with intermittent claudication, bilateral legs (principal); I10 Essential (primary) hypertension; E78.5 Hyperlipidemia, unspecified; Z72.0 Tobacco use; Z95.820 Peripheral vascular angioplasty status with implants and grafts; Z79.01 Long term (current) use of anticoagulants; Z79.02 Long term (current) use of antithrombotics/antiplatelets; Z79.818 Long term (current) use of other agents affecting estrogen receptors and estrogen levels; Z79.899 Other long term (current) drug therapy
CPT/HCPCS: 37221; 37223; 80051; 80048; 82565; 84520; 85025; 85027; 36415; C1894 ×5; C1769 ×9; C1725; C1876; C1874; J2250; J0360; J1644 ×2; J2001; J3010; J1170 ×2

== ENCOUNTER 2020-08-18 07:50 | Day surgery (SDC) | payer OTHER ==
[2020-08-13 14:34] VITALS: BMI 21.2
[2020-08-18] MEDS ORDERED: SODIUM CHLORIDE 0.9% 1,000 ML IV ONE (08:27)
[2020-08-18] MEDS ORDERED: SODIUM CHLORIDE 0.9% 500 ML 500 ML with niCARdipine 6.25 MG, NITROGLYCERIN-D5W PMX 0.05... IV ONE ×12 (09:51→12:50)
[2020-08-18] MEDS ORDERED: MIDAZOLAM 2 MG/2 ML VIAL IVP ONE (09:56)
[2020-08-18] MEDS: fentaNYL (PF) 50 MCG/ML 2 ML AMP IVP ONE ×2 (09:56→10:44)
[2020-08-18] MEDS: LIDOCAINE 1% INJ 10MG/ML (20 ML MDV) SQ ONE ×2 (09:56→10:57)
[2020-08-18] MEDS: HEPARIN SODIUM 1,000 UN/ML (10ML VL) IV ONE ×2 (09:59→13:33)
[2020-08-18] MEDS: MIDAZOLAM 2 MG/2 ML VIAL IVP ONE ×2 (10:56→11:24)
[2020-08-18] MEDS ORDERED: HYDROmorphone 0.5 MG/0.5 ML SYRINGE IVP ONE (12:06)
[2020-08-18] MEDS: fentaNYL (PF) 50 MCG/ML 2 ML AMP IV ONE ×2 (12:40→14:08)
[2020-08-18] MEDS ORDERED: SODIUM CHLORIDE 0.9% 500 ML 500 ML IV ONE (13:48)
[2020-08-18] MEDS ORDERED: NITROGLYCERIN 1000MCG/10ML SYRINGE INTRAARTER ONE (14:29)
[2020-08-18] MEDS ORDERED: SODIUM CHLORIDE 0.9% 1,000 ML in EMPTY BAG 1 BAG IV SCH (14:45)
[2020-08-18] MEDS ORDERED: CLOPIDOGREL 75 MG TAB PO ONE (14:50)
[2020-08-18] MEDS ORDERED: IOPAMIDOL-250 100ML BTL INTRAARTER ONE (14:51)
--- NOTE | 2020-08-18 15:29 | IR ---
EXAMINATION TYPE: IR stent intravas non coronary DATE OF EXAM: 08/18/2020 COMPARISON: NONE HISTORY: Peripheral vascular disease TECHNIQUE: Fluoroscopy. FINDINGS: Fluoroscopic guidance was provided during procedure performed by Dr. Caballero. A total of 109 .1 minutes of fluoroscopic time was utilized during the procedure and 533 images was acquired. Please see operative report for additional details. IMPRESSION: As Above.
[2020-08-18 15:30] LABS: Basophils # (A) 0.1 k/uL (0-0.2); Basophils % (A) 0 %; Eosinophils # (A) 0.2 k/uL (0-0.7); Eosinophils % (A) 1 %; HCT 37.7 % (39.0-53.0); Lymphocytes # (A) 1.8 k/uL (1.0-4.8); Lymphocytes % (A) 14 %; MCH 31.3 pg (25.0-35.0); MCHC 31.8 g/dL (31.0-37.0); MCV 98.4 fL (80.0-100.0); Mean Platelet Volume 7.9; Monocytes # (A) 0.7 k/uL (0-1.0); Monocytes % (A) 5 %; Neutrophils # (A) 10.4 k/uL (1.3-7.7); Neutrophils % (A) 78 %; Platelet Count 232 k/uL (150-450); RBC 3.83 m/uL (4.30-5.90); RDW 13.1 % (11.5-15.5); WBC 13.3 k/uL (3.8-10.6)
[2020-08-18 16:09] LABS: African American GFR (CKD) >90 (>60 ml/min/1.73 sqM); Anion Gap 8 mmol/L; Blood Urea Nitrogen 13 mg/dL (9-20); Carbon Dioxide 17 mmol/L (22-30); Chloride 113 mmol/L (98-107); Glucose 132 mg/dL (74-99); Non-African American GFR(CKD) >90 (>60 ml/min/1.73 sqM); Potassium 3.8 mmol/L (3.5-5.1); Sodium 138 mmol/L (137-145)
[2020-08-18] MEDS ORDERED: ATORVASTATIN 20 MG TAB PO SCH (21:00)
--- NOTE | 2020-08-18 21:02 | PCN ---
PROCEDURE NOTE DATE OF SERVICE: 08/18/2020 PERFORMING PHYSICIAN: Demarcus Caballero M.D. PROCEDURES PERFORMED: 1. Successful stenting of the right SFA using a 7 x 140 and 7 x 140 mm Zilver PTX drug- coated stent with an excellent angiographic result. 2. Successful balloon angioplasty of the right popliteal using a drug-coated balloon with an excellent angiographic result. 3. Atherectomy of the right SFA using the orbital atherectomy device and using 1.5 mm lorelei. 4. Intravascular ultrasound (IVUS) of the right SFA and right popliteal. INDICATION: This is a 64-year-old gentleman with peripheral arterial disease and known occluded bilateral SFA as well as severe disease involving the right iliac and occluded left iliac who underwent recently BUTTON MACHINE OPERATOR of the right and left iliac and was brought today to undergo a BUTTON MACHINE OPERATOR of the right SFA. APPROACH: Right brachial artery and right posterior tibial artery. COMPLICATIONS: None. LEVEL OF SEDATION: Moderate, with sedation length of 284 minutes. PROCEDURE DESCRIPTION: After obtaining informed consent, the patient was brought to the cardiac laboratory associate. I accessed the right posterior tibial artery using micropuncture technique under ultrasound guidance. The micropuncture wire passed easily. Then I placed a slender 6/5 Rwandan sheath in the right posterior tibial artery. At that point anticoagulation was initiated using heparin and also continuous infusion of heparin as well as verapamil and nitroglycerin was initiated. After that I attempted to cross the chronic total occlusion of the right SFA from pedal approach in retrograde technique, but that was unsuccessful because I ended in the subintimal space. That was attempted using an 0.014 wire, an 0.018 wire and an 0.035 system as well. Because of that I decided to access the SCALLOPER using an antegrade technique from a brachial approach. The patient does not have any right radial pulse. Because of that I accessed the right brachial artery using micropuncture technique under ultrasound guidance. The micropuncture wire passed easily. Then I placed a 6-Rwandan sheath 120 cm in the right brachial artery and the sheath was advanced all the way to the right common femoral artery. I attempted to access the chronic total occlusion of the right SFA using an antegrade technique and was successful. I advanced the wire all the way to the right popliteal. I did snare the wire from the right pedal artery, and the wire after that was exchanged for a new wire using a catheter. I did after that intravascular ultrasound of the right SFA where I was in the true lumen in the very proximal to mid portion and I was in subintimal space in the mid to distal portion. I did after that atherectomy of the right SFA using the orbital atherectomy device from [facility] and using 1.5 mm lorelei. After that I did balloon angioplasty using 4 mm and then 5 mm balloon. The following angiogram showed a long area of dissection in the proximal and mid SFA, but the popliteal had some dissection that did not seem to be flow-limiting. I did stent the proximal and mid right SFA using 7 x 140 mm Zilver PTX drug-coated stent where I placed 2 stents and the stents were dilated using a 6 mm balloon. For the right popliteal, I did place the Tack device where I placed 6 clips. Then I post- dilated using a 6 mm drug-coated balloon. The final angiogram showed good angiographic results. There was an area by the Inder canal that appeared to be diseased in the range of 50%, which I decided to leave alone. After that I pulled the pedal sheath and I did exchange my long sheath for a short sheath in the brachial artery using an 0.035 wire. The procedure was completed without any complication. POST-PROCEDURE MANAGEMENT: 1. Dual anti-platelet therapy. 2. Risk factor modifications. 3. Follow up with the patient. MMODL / IJN: [id number] /
[2020-08-19 07:58] VITALS: BP 141/70; PULSE 82; RESP 17; TEMP 98.1
[2020-08-19] MEDS ORDERED: CLOPIDOGREL 75 MG TAB PO SCH (09:00)
[2020-08-19] MEDS ORDERED: ASPIRIN 325 MG TAB PO SCH (09:00)
[2020-08-19] MEDS ORDERED: amLODIPine 5 MG TAB PO SCH (09:00)
[2020-08-19] MEDS ORDERED: lisinopriL 10 MG TAB PO SCH (09:00)
[2020-08-19] MEDS ORDERED: FOLIC ACID 1 MG TAB PO SCH (09:00)
[2020-08-19 09:10] LABS: Basophils % (A) 1 %; Eosinophils # (A) 0.1 k/uL (0-0.7); Eosinophils % (A) 1 %; HCT 34.2 % (39.0-53.0); HGB 10.8 gm/dL (13.0-17.5); Lymphocytes # (A) 1.2 k/uL (1.0-4.8); Lymphocytes % (A) 18 %; MCHC 31.6 g/dL (31.0-37.0); MCV 97.9 fL (80.0-100.0); Monocytes # (A) 0.5 k/uL (0-1.0); Monocytes % (A) 7 %; Neutrophils # (A) 5.1 k/uL (1.3-7.7); Neutrophils % (A) 72 %; Platelet Count 183 k/uL (150-450); RBC 3.49 m/uL (4.30-5.90); RDW 13.1 % (11.5-15.5); WBC 7.1 k/uL (3.8-10.6)
[2020-08-19 09:24] LABS: African American GFR (CKD) >90 (>60 ml/min/1.73 sqM); Anion Gap 3 mmol/L; Blood Urea Nitrogen 10 mg/dL (9-20); Calcium 8.4 mg/dL (8.4-10.2); Carbon Dioxide 28 mmol/L (22-30); Chloride 105 mmol/L (98-107); Glucose 100 mg/dL (74-99); Non-African American GFR(CKD) >90 (>60 ml/min/1.73 sqM); Potassium 4.1 mmol/L (3.5-5.1); Sodium 136 mmol/L (137-145)
--- NOTE | 2020-08-19 11:33 | DS ---
DISCHARGE SUMMARY DATE OF ADMISSION: 08/18/2020. DATE OF DISCHARGE: 08/19/2020 BRIEF HISTORY: This is a pleasant 64-year-old gentleman who underwent yesterday successful angioplasty of the right SFA with very complex and long procedure from right brachial and right pedal approach. He was seen this morning. Both sides are soft and nontender and without any bruises and with palpable pulse in the foot. The patient is going to be discharged home on dual anti-platelet therapy and I will follow up with the patient in the office. MMODL / IJN: [id number] /
== END 2020-08-19 10:35 | disposition home or self-care (01) ==
LOC: CATHCVL 07:50 → 3SCARD 15:04 → CATHCVL 08-19 10:35
PROVIDERS: ATTEND Internal Medicine Interventional Cardiology
DX: I70.213 Atherosclerosis of native arteries of extremities with intermittent claudication, bilateral legs (principal); I10 Essential (primary) hypertension; E78.5 Hyperlipidemia, unspecified; F17.210 Nicotine dependence, cigarettes, uncomplicated; Z79.01 Long term (current) use of anticoagulants; Z79.02 Long term (current) use of antithrombotics/antiplatelets; Z79.899 Other long term (current) drug therapy
CPT/HCPCS: 37227; 85347; 37252; 80048 ×2; 85025 ×2; C1773; C1894 ×3; C1769 ×9; C1714; C1725 ×4; C1887 ×2; C1753; C2623; C1874; C1876; J2250; J1644 ×2; J2001; J3010; J1170; Q9966

== ENCOUNTER → 2020-10-13 | Outpatient (CLI) | payer OTHER ==
[2020-10-13 11:46] LABS: HCT 45.5 % (39.0-53.0); MCH 31.5 pg (25.0-35.0); MCHC 32.3 g/dL (31.0-37.0); MCV 97.6 fL (80.0-100.0); Mean Platelet Volume 7.8; Platelet Count 266 k/uL (150-450); RBC 4.66 m/uL (4.30-5.90); RDW 12.9 % (11.5-15.5)
[2020-10-13 12:00] LABS: HGB 14.7 gm/dL (13.0-17.5)
== END | disposition home or self-care (01) ==
LOC: LABPAT 10:26
PROVIDERS: ATTEND Internal Medicine Interventional Cardiology
DX: Z01.818 Encounter for other preprocedural examination (principal); I73.9 Peripheral vascular disease, unspecified
CPT/HCPCS: 36415; 80051; 82565; 84520; 85027

== ENCOUNTER 2020-10-20 09:54 | Day surgery (SDC) | payer OTHER ==
[2020-10-18 12:28] VITALS: BMI 20.9
[~2020-10-20 09:54] MED LIST changes: +ASPIRIN 325 MG TAB PO PRN; -ASPIRIN 325 MG TAB PO STA; -ZOLPIDEM 5 MG TAB PO PRN
[2020-10-20] MEDS ORDERED: SODIUM CHLORIDE 0.9% 500 ML 500 ML with niCARdipine 6.25 MG, NITROGLYCERIN-D5W PMX 0.05... IV ONE ×8 (11:02→13:00)
[2020-10-20] MEDS ORDERED: MIDAZOLAM 2 MG/2 ML VIAL IV ONE ×2 (11:12→12:39)
[2020-10-20] MEDS ORDERED: LIDOCAINE 1% INJ 10MG/ML (20 ML MDV) SQ ONE (11:13)
[2020-10-20] MEDS: HEPARIN SODIUM 1,000 UN/ML (10ML VL) IV ONE ×2 (11:40→12:44)
[2020-10-20] MEDS: MIDAZOLAM 2 MG/2 ML VIAL IV ONE ×2 (11:43→12:28)
[2020-10-20] MEDS: fentaNYL (PF) 50 MCG/ML 2 ML AMP IV ONE ×2 (11:43→11:50)
[2020-10-20] MEDS ORDERED: NITROGLYCERIN 1000MCG/10ML SYRINGE INTRAARTER ONE (13:40)
[2020-10-20] MEDS ORDERED: niCARdipine Syringe (1,000 mcg/10 mL) INTRAARTER ONE (13:40)
[2020-10-20] MEDS ORDERED: IOPAMIDOL-250 100ML BTL INTRAARTER ONE (13:57)
[2020-10-20] MEDS ORDERED: CLOPIDOGREL 75 MG TAB PO ONE (14:04)
[2020-10-20] MEDS ORDERED: SODIUM CHLORIDE 0.9% 1,000 ML in EMPTY BAG 1 BAG IV SCH (14:30)
--- NOTE | 2020-10-20 14:38 | IR ---
EXAMINATION TYPE: IR stent intravas non coronary DATE OF EXAM: 10/20/2020 COMPARISON: NONE HISTORY: Fluoroscopy time. Fluoroscopy was provided to the referring clinician.
[2020-10-20] MEDS ORDERED: hydrALAZINE HCL 20 MG/ML 1 ML VIAL IVP PRN (15:08)
[2020-10-20] MEDS ORDERED: HYDROmorphone 0.5 MG/0.5 ML SYRINGE IVP STA (15:12)
[2020-10-20] MEDS ORDERED: ATROPINE SULFATE 0.1 MG/ML 10ML SYRINGE ONE (15:43)
--- NOTE | 2020-10-20 16:42 | LTR ---
October 20, 2020 To: Dr. Odin Obrien Re: Cezar Terry (57) Dear Dr. Obrien: Mr. Cezar Terry underwent successful angioplasty of the left femoral artery with good angiographic results and without any complication. I want to thank you for allowing us to participate in his care. Please do not hesitate to call if you have any question or concern. Sincerely, Demarcus Caballero M.D. BRO / BRANDY: [id number] /
--- NOTE | 2020-10-20 20:48 | PCN ---
PROCEDURE NOTE DATE OF SERVICE: 10/20/2020 PERFORMING PHYSICIAN: Demarcus Caballero M.D. PROCEDURES PERFORMED: 1. Atherectomy of the left SFA using the TurboHawk device. 2. Intravascular ultrasound (IVUS) of the left SFA and left popliteal as well as left common femoral artery. 3. Successful balloon angioplasty of the left popliteal and left SFA. 4. Successful stenting of the left SFA using a 7.0 x 140 mm Zilver PTX drug-coated stent with excellent angiographic results. 5. Successful balloon angioplasty of the left common femoral artery. 6. Left lower extremity angiogram. 7. Right common femoral artery angiogram. INDICATION: This is a 64-year-old gentleman with peripheral arterial disease as well as carotid disease as well as hypertension and dyslipidemia who underwent in the past an angioplasty of bilateral iliacs as well as right SFA, who continues to have left lower extremity intermittent claudication. He is known to have left SFA occlusion. He was brought today to undergo an intervention. APPROACH: Left anterior tibial artery and right common femoral artery. COMPLICATIONS: None. LEVEL OF SEDATION: Moderate, with sedation length of 113 minutes. PROCEDURE DESCRIPTION: After obtaining informed consent, the patient was brought to the cardiac laboratory technician. Initially I tried to access the left posterior tibial artery, but I was unsuccessful. But I was able to access the left anterior tibial artery using micropuncture technique under ultrasound guidance. The micropuncture wire passed easily. Then I placed a slender 5/6-Bahraini sheath at the left anterior tibial artery. I attempted crossing the chronic total occlusion of the left SFA in retrograde technique from the sheath in the left anterior tibial artery, but I was unsuccessful, and I ended in subintimal space. Because of that I decided to access the right common femoral artery. Please note that I tried an 0.018 shaft and an 0.035 shaft. I accessed the right common femoral artery using micropuncture technique under ultrasound guidance, and I placed a 6-Bahraini 70 cm sheath at the right common femoral artery. Subsequently I was able to go up and over using 5-Bahraini RIM catheter and 0.035 stiff Glidewire. Please note that anticoagulation was initiated at the beginning of the case and after the sheath was placed. I was able to advance the 70 cm 6-Bahraini Raabe sheath over the 0.[address] way to the left external iliac artery. I was able to cross the chronic total occlusion of the left SFA using an 0.018 vela- tipped Glidewire in antegrade technique. I did exchange my 0.018 wire for an 0.014 wire. Subsequently I performed intravascular ultrasound which showed that I was in subintimal space in the area of the left common femoral artery. I injected contrast and clearly it seemed that I was behind a plaque in the left common femoral artery. At that point I decided to pull the wire out all the way to the sheath and then try to cross the left common femoral artery in a true lumen, which I was able to do. Subsequently I was able to cross the CONCRETE PANEL INSTALLER of the left SFA using an 0.018 vela-tipped Glidewire, and I advanced the wire all the way to the left popliteal. Subsequently I advanced an 0.018 catheter following the wire to the left popliteal. I injected contrast through the catheter to prove that I was in the true lumen. Subsequently I exchanged my 0.018 wire for an 0.014 wire, and I did intravascular ultrasound which proved that I was in the true lumen. At that point I decided to do atherectomy, which I did using the TurboHawk device, with extraction of significant amount of plaque. Subsequently balloon angioplasty of the left SFA and left popliteal was performed using a 6 x 120 mm Chocolate balloon. After that, the angiogram showed that the distal left SFA and the proximal left popliteal appeared to be good. At that point I decided to stent the proximal left SFA. I deployed in the proximal to mid left SFA a 7.0 x 140 mm Zilver PTX drug-coated stent. In the mid left SFA I deployed 6F Tack device with 6 clips under fluoroscopic guidance. Post dilatation was performed using a 6 mm balloon. The SFA itself looks great. For the area in the left common femoral artery, I did balloon angioplasty using a Chocolate balloon which was 6 mm, and then I did a 6 mm drug-coated balloon. The following angiogram showed excellent angiographic results and the procedure was completed without any complication. After that I did exchange my long sheath for a short sheath using an 0.035 stiff Glidewire before I did selective right common femoral artery angiogram. Please note that a left lower extremity angiogram was performed and showed 3-vessel runoff below the knee. POST-PROCEDURE MANAGEMENT: 1. Anticoagulation and antiplatelet. 2. Risk factor modifications. 3. Follow up with the patient. MMODL / IJN: [id number] /
[2020-10-20] MEDS ORDERED: ATORVASTATIN 20 MG TAB PO SCH (21:00)
[2020-10-21 08:30] VITALS: BP 130/63; PULSE 91; RESP 20; TEMP 98.2
[2020-10-21 08:33] LABS: Basophils % (A) 1 %; Eosinophils # (A) 0.1 k/uL (0-0.7); Eosinophils % (A) 2 %; HCT 42.2 % (39.0-53.0); HGB 13.9 gm/dL (13.0-17.5); Lymphocytes % (A) 16 %; MCH 31.2 pg (25.0-35.0); MCHC 32.9 g/dL (31.0-37.0); MCV 94.7 fL (80.0-100.0); Mean Platelet Volume 7.5; Monocytes # (A) 0.5 k/uL (0-1.0); Monocytes % (A) 8 %; Neutrophils # (A) 4.7 k/uL (1.3-7.7); Neutrophils % (A) 73 %; Platelet Count 215 k/uL (150-450); RBC 4.46 m/uL (4.30-5.90); RDW 12.7 % (11.5-15.5); WBC 6.4 k/uL (3.8-10.6)
[2020-10-21 08:44] LABS: African American GFR (CKD) >90 (>60 ml/min/1.73 sqM); Anion Gap 5 mmol/L; Blood Urea Nitrogen 10 mg/dL (9-20); Calcium 8.8 mg/dL (8.4-10.2); Carbon Dioxide 24 mmol/L (22-30); Chloride 107 mmol/L (98-107); Glucose 139 mg/dL (74-99); Non-African American GFR(CKD) >90 (>60 ml/min/1.73 sqM); Potassium 4.1 mmol/L (3.5-5.1); Sodium 136 mmol/L (137-145)
[2020-10-21] MEDS ORDERED: CLOPIDOGREL 75 MG TAB PO SCH (09:00)
[2020-10-21] MEDS ORDERED: FOLIC ACID 1 MG TAB PO SCH (09:00)
[2020-10-21] MEDS ORDERED: amLODIPine 5 MG TAB PO SCH (09:00)
[2020-10-21] MEDS ORDERED: lisinopriL 10 MG TAB PO SCH (09:00)
--- NOTE | 2020-10-21 12:07 | DS ---
DISCHARGE SUMMARY ADMISSION DATE: 10/20/2020 DISCHARGE DATE: 10/21/2020 BRIEF HISTORY: This is a pleasant 64-year-old gentleman who underwent yesterday successful recanalizing, chronically occluded left SFA. The procedure was performed from the right groin. The right groin is soft and nontender and without any bruises. The patient is going to be discharged home and I will follow up with him next week in the office. MMARIS / PURNIMAN: [id number] /
== END 2020-10-21 10:51 | disposition home or self-care (01) ==
LOC: CATHCVL 09:54 → 3SCARD 14:00 → CATHCVL 10-21 10:51
PROVIDERS: ATTEND Internal Medicine Interventional Cardiology
DX: I70.213 Atherosclerosis of native arteries of extremities with intermittent claudication, bilateral legs (principal); I70.92 Chronic total occlusion of artery of the extremities; I65.21 Occlusion and stenosis of right carotid artery; I82.812 Embolism and thrombosis of superficial veins of left lower extremity; I10 Essential (primary) hypertension; E78.5 Hyperlipidemia, unspecified; Z87.891 Personal history of nicotine dependence; Z79.01 Long term (current) use of anticoagulants; Z79.02 Long term (current) use of antithrombotics/antiplatelets; Z79.899 Other long term (current) drug therapy; Z95.820 Peripheral vascular angioplasty status with implants and grafts
CPT/HCPCS: 37227; 85347; 37252; 80048; 85025; C1894 ×3; C1769 ×6; C1725 ×3; C1714; C1753; C2623; C1874; C1876; J2250; J0360; J1644 ×2; J2001; J3010; J1170; Q9966

== ENCOUNTER → 2021-01-04 | Outpatient (CLI) | payer OTHER ==
[2021-01-04 18:18] LABS: Chol/HDL Ratio 3.04; LDL Cholesterol,Calculated 81.4 mg/dL (0.0-131.0); VLDL Calculation 24.6 mg/dL (5.00-40.00)
== END | disposition home or self-care (01) ==
LOC: LABWHC1 09:40
PROVIDERS: ATTEND Nurse Practitioner Adult Health
DX: E78.5 Hyperlipidemia, unspecified (principal)
CPT/HCPCS: 36415; 80061

== ENCOUNTER 2021-09-19 15:14 | Inpatient (IN) | payer OTHER ==
[2021-09-19] MEDS ORDERED: MORPHINE SULFATE 4 MG/ML SYRINGE IV STA (16:01)
[2021-09-19] MEDS ORDERED: HEPARIN SODIUM 1,000 UN/ML (10ML VL) IV PRN (16:02)
[2021-09-19] MEDS ORDERED: HEPARIN SODIUM 1,000 UN/ML (10ML VL) IV ONE (16:02)
[2021-09-19] MEDS ORDERED: RX INFO: IV CONTRAST WAS GIVEN 1 EACH MISC MISCELLANE PRN (16:05)
--- NOTE | 2021-09-19 16:09 | ED ---
General Adult HPI - General Chief complaint: Extremity Problem,Nontraumatic Stated complaint: Right leg pain Time Seen by Provider: 09/19/21 15:37 Source: patient, RN/MD, RN notes reviewed Mode of arrival: wheelchair Limitations: no limitations - History of Present Illness Initial comments: Patient is a pleasant 61-year-old male presenting to the emergency Department with complaints of right leg pain. Onset of symptoms was 2 days ago. Patient did go see Dr. Caballero in the office. He did call. He does have concern for right leg: Below the knee and absent pulse. He would like CTA done as well as IV heparin and admission. He will consult. Patient states discomfort is mild to moderate at rest however somewhat severe with attempted ambulation. No chest pain or dyspnea. Patient does have history of similar symptoms previously including previous procedures. - Related Data Home Medications Medication Instructions Recorded Confirmed Apixaban [Eliquis] 2.5 mg PO BID 05/03/20 10/20/20 Atorvastatin [Lipitor] 20 mg PO HS 05/03/20 10/20/20 Clopidogrel [Plavix] 75 mg PO DAILY 05/03/20 10/20/20 Folic Acid 1 mg PO DAILY 05/03/20 10/18/20 amLODIPine [Norvasc] 5 mg PO DAILY 05/03/20 10/20/20 lisinopriL [Zestril] 10 mg PO DAILY 05/03/20 10/20/20 Allergies Allergy/AdvReac Type Severity Reaction Status Date / Time No Known Allergies Allergy Verified 09/19/21 15:33 Review of Systems ROS Statement: Those systems with pertinent positive or pertinent negative responses have been documented in the HPI. ROS Other: All systems not noted in ROS Statement are negative. Constitutional: Denies: fever Eyes: Denies: eye pain ENT: Denies: ear pain Respiratory: Denies: cough, dyspnea Cardiovascular: Denies: chest pain Endocrine: Denies: fatigue Gastrointestinal: Denies: abdominal pain Genitourinary: Denies: dysuria Musculoskeletal: Reports: as per HPI Skin: Denies: rash Neurological: Denies: weakness Past Medical History Past Medical History: Cancer, Hyperlipidemia, Hypertension, Vascular Disorder Additional Past Medical History / Comment(s): SKIN CANCER. 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 History of Any Multi-Drug Resistant Organisms: None Reported Past Surgical History: Heart Catheterization, Heart Catheterization With Stent Additional Past Surgical History / Comment(s): "RIGHT LEG FOR CIRCULATION WITH 2 STENTS " rt internal carotid stent 05/05/20, 07/21/20-PTBA, 08/18/2020 stent x3 left SFA Past Anesthesia/Blood Transfusion Reactions: No Reported Reaction Date of Last Stent Placement:: 08/18/2020 Past Psychological History: No Psychological Hx Reported Smoking Status: Former smoker Past Alcohol Use History: Rare Past Drug Use History: None Reported - Past Family History Father Family Medical History: Cancer Additional Family Medical History / Comment(s): throat cancer Brother(s) Family Medical History: Cancer Additional Family Medical History / Comment(s): THROAT CANCER. Mother Family Medical History: No Reported History General Exam Limitations: no limitations General appearance: alert, in no apparent distress Head exam: Present: normocephalic Eye exam: Present: normal appearance Neck exam: Present: normal inspection Respiratory exam: Present: normal lung sounds bilaterally Cardiovascular Exam: Present: tachycardia Expanded Peripheral pulses: 0: Femoral (R), Posterior Tibialis (R), Dorsalis Pedis (R), 1+: Posterior Tibialis (L), Dorsalis Pedis (L), 2+: Femoral (L) GI/Abdominal exam: Present: soft. Absent: tenderness, pulsatile mass Extremities exam: Present: other (Right lower leg below the knee with coolness and mild pallor.) Neurological exam: Present: alert. Absent: motor sensory deficit Psychiatric exam: Present: normal affect, normal mood Skin exam: Absent: erythema Course Vital Signs 09/19/21 15:28 Temperature 99.4 F Pulse Rate 122 H Respiratory 20 Rate Blood Pressure 163/91 O2 Sat by Pulse 97 Oximetry EKG Findings - EKG Comments: EKG Findings:: Neuro complex with tachycardia rate 123. This does appear regular. W[place] 148. QRS 78. QT 304. QTC 435. Normal axis. Right ventricular conduction delay. Nonspecific ST-T. Medical Decision Making - Medical Decision Making Patient made aware of plan. Case was also discussed with Dr. Obrien who will admit his patient. IV heparin has been started. - Lab Data Result diagrams: 09/19/21 16:42 09/19/21 16:42 Lab Results 09/19/21 09/19/21 09/19/21 Range/Units 16:42 16:42 16:42 WBC 9.9 (3.8-10.6) k/uL RBC 4.66 (4.30-5.90) m/uL Hgb 16.5 (13.0-17.5) gm/dL Hct 44.5 (39.0-53.0) % MCV 95.5 (80.0-100.0) fL MCH 35.5 H (25.0-35.0) pg MCHC 37.2 H (31.0-37.0) g/dL RDW 13.8 (11.5-15.5) % Plt Count 261 (150-450) k/uL MPV 7.8 Neutrophils % 78 % Lymphocytes % 13 % Monocytes % 6 % Eosinophils % 1 % Basophils % 0 % Neutrophils # 7.8 H (1.3-7.7) k/uL Lymphocytes # 1.3 (1.0-4.8) k/uL Monocytes # 0.6 (0-1.0) k/uL Eosinophils # 0.1 (0-0.7) k/uL Basophils # 0.0 (0-0.2) k/uL PT 9.8 (9.0-12.0) sec INR 0.9 (<1.2) APTT 23.3 (22.0-30.0) sec Sodium 135 L (137-145) mmol/L Potassium 4.4 (3.5-5.1) mmol/L Chloride 101 (98-107) mmol/L Carbon Dioxide 22 (22-30) mmol/L Anion Gap 12 mmol/L BUN 10 (9-20) mg/dL Creatinine 0.91 (0.66-1.25) mg/dL Est GFR (CKD-EPI)AfAm >90 (>60 ml/min/1.73 sqM) Est GFR (CKD-EPI)NonAf 89 (>60 ml/min/1.73 sqM) Glucose 113 H (74-99) mg/dL Plasma Lactic Acid Alex (0.7-2.0) mmol/L Calcium 9.7 (8.4-10.2) mg/dL Total Bilirubin 0.4 (0.2-1.3) mg/dL AST 70 H (17-59) U/L ALT 22 (4-49) U/L Alkaline Phosphatase 155 H (38-126) U/L Troponin I (0.000-0.034) ng/mL Total Protein 8.4 H (6.3-8.2) g/dL Albumin 4.4 (3.5-5.0) g/dL 09/19/21 09/19/21 Range/Units 16:42 16:52 WBC (3.8-10.6) k/uL RBC (4.30-5.90) m/uL Hgb (13.0-17.5) gm/dL Hct (39.0-53.0) % MCV (80.0-100.0) fL MCH (25.0-35.0) pg MCHC (31.0-37.0) g/dL RDW (11.5-15.5) % Plt Count (150-450) k/uL MPV Neutrophils % % Lymphocytes % % Monocytes % % Eosinophils % % Basophils % % Neutrophils # (1.3-7.7) k/uL Lymphocytes # (1.0-4.8) k/uL Monocytes # (0-1.0) k/uL Eosinophils # (0-0.7) k/uL Basophils # (0-0.2) k/uL PT (9.0-12.0) sec INR (<1.2) APTT (22.0-30.0) sec Sodium (137-145) mmol/L Potassium (3.5-5.1) mmol/L Chloride (98-107) mmol/L Carbon Dioxide (22-30) mmol/L Anion Gap mmol/L BUN (9-20) mg/dL Creatinine (0.66-1.25) mg/dL Est GFR (CKD-EPI)AfAm (>60 ml/min/1.73 sqM) Est GFR (CKD-EPI)NonAf (>60 ml/min/1.73 sqM) Glucose (74-99) mg/dL Plasma Lactic Acid Alex 1.4 (0.7-2.0) mmol/L Calcium (8.4-10.2) mg/dL Total Bilirubin (0.2-1.3) mg/dL AST (17-59) U/L ALT (4-49) U/L Alkaline Phosphatase (38-126) U/L Troponin I 0.023 (0.000-0.034) ng/mL Total Protein (6.3-8.2) g/dL Albumin (3.5-5.0) g/dL Critical Care Time Critical Care Time: Yes Total Critical Care Time: 34 Disposition Clinical Impression: Arterial occlusion Disposition: ADMITTED IP TO THIS HOSP Is patient prescribed a controlled substance at d/c from ED?: No Referrals: Odin Obrien MD [Primary Care Provider] - 1-2 days Decision Time: 17:30
[2021-09-19 16:58] LABS: ALT 22 U/L (4-49); AST 70 U/L (17-59); African American GFR (CKD) >90 (>60 ml/min/1.73 sqM); Albumin 4.4 g/dL (3.5-5.0); Alkaline Phosphatase 155 U/L (38-126); Anion Gap 12 mmol/L; Blood Urea Nitrogen 10 mg/dL (9-20); Calcium 9.7 mg/dL (8.4-10.2); Carbon Dioxide 22 mmol/L (22-30); Chloride 101 mmol/L (98-107); Glucose 113 mg/dL (74-99); Non-African American GFR(CKD) 89 (>60 ml/min/1.73 sqM); Potassium 4.4 mmol/L (3.5-5.1); Sodium 135 mmol/L (137-145); Total Bilirubin 0.4 mg/dL (0.2-1.3); Total Protein 8.4 g/dL (6.3-8.2)
[2021-09-19 17:00] LABS: INR 0.9 (<1.2); Partial Thromboplastin Time 23.3 sec (22.0-30.0); Prothrombin Time 9.8 sec (9.0-12.0)
[2021-09-19 17:01] LABS: Basophils % (A) 0 %; Eosinophils # (A) 0.1 k/uL (0-0.7); Eosinophils % (A) 1 %; HCT 44.5 % (39.0-53.0); HGB 16.5 gm/dL (13.0-17.5); Lymphocytes # (A) 1.3 k/uL (1.0-4.8); Lymphocytes % (A) 13 %; MCH 35.5 pg (25.0-35.0); MCHC 37.2 g/dL (31.0-37.0); MCV 95.5 fL (80.0-100.0); Mean Platelet Volume 7.8; Monocytes # (A) 0.6 k/uL (0-1.0); Monocytes % (A) 6 %; Neutrophils # (A) 7.8 k/uL (1.3-7.7); Neutrophils % (A) 78 %; Platelet Count 261 k/uL (150-450); RBC 4.66 m/uL (4.30-5.90); RDW 13.8 % (11.5-15.5); WBC 9.9 k/uL (3.8-10.6)
[2021-09-19] MEDS ORDERED: ACETAMINOPHEN TAB 325 MG TAB PO PRN (17:31)
[2021-09-19] MEDS ORDERED: NALOXONE 0.4 MG/ML 1 ML VIAL IV PRN (17:31)
[2021-09-19] MEDS: HEPARIN SOD,PORK IN 0.45% NACL 25,000 UNIT in 0.45% NACL 1 250ML.BAG IV SCH (17:49)
--- NOTE | 2021-09-19 18:36 | CT ---
EXAMINATION TYPE: CT angio abd aorta w/Runoff DATE OF EXAM: 09/19/2021 COMPARISON: HISTORY: Left leg cold and numb below knee. CT DLP: 1814.3 mGycm Automated exposure control for dose reduction was used. CONTRAST: Performed without and with IV Contrast, patient injected with 100 mL of Isovue 370. Images were obtained from the level of the kidneys to the bottom of the feet with IV contrast. There are 3-D post processed images. Additional noncontrast images were obtained from the kidneys to the fl oor the pelvis. FINDINGS: Visualized liver spleen stomach pancreas gallbladder appear intact. Bile ducts are nondilated. There is no adrenal mass. Kidneys show satisfactory contrast opacification. There is no hydronephrosis. Ure ters are not dilated. There is no retroperitoneal adenopathy. There is no evidence of a pelvic mass. Bladder distends smoothly. There is no free fluid in the pelvis. There is arterial flow in the superior mesenteric artery and the celiac artery with plaque formation at the origins and approximate 50% stenosis. There is bilateral arterial flow in the renal arteries. There is fusiform aneurysm of the lower abdominal aorta that measures up to 4.2 cm in diameter. There is thrombus on the wall that measures up to 2 cm. There are bilateral iliac artery stents noted. Lef t external iliac artery stent appears to show arterial flow. There is stent in the left proximal femo ral artery which is not opacified with contrast. There is arterial flow in the left profunda femoris artery and collateral vessels with reconstitution of the popliteal artery and the tibial artery at th e left knee. On the right side there is apparent thrombosis of the right common iliac artery stent. There are some collateral vessels in the pelvis reconstituting the right side profunda femoris artery. There is thr ombosis of the entire right femoral artery. There is thrombosis of the entire left femoral artery. There is arterial flow in the left tibial artery and the tibial artery trifurcation. There is apparen t contrast in the right posterior tibial artery at the ankle. There is suboptimal amount of contrast in the right lower leg for evaluation. On the left side there is arterial flow in the dorsalis pedis artery and the posterior tibial artery at the ankle. There is posterior tibial artery flow to the dis adan metatarsals. On the right side is arterial flow in the posterior tibial artery to the mid metatar sals. No significant flow demonstrated in the right dorsalis pedis artery. IMPRESSION: The exam shows thrombosis of the left iliac artery stent. There is patency of the right iliac artery stent. There is thrombosis of the right and left femoral artery stents with collateral vessels from t he profunda femoris artery reconstituting the tibial arteries bilaterally. There is diminished arteri al flow in the right lower leg compared to the left. There is fusiform aneurysm of the lower abdominal aorta.
[2021-09-19] MEDS: SODIUM CHLORIDE 0.9% 1,000 ML IV SCH (19:31)
[2021-09-19 20:06] LABS: Appearance,Urine Clear (Clear); Bilirubin,Urine Negative (Negative); Blood,Urine Trace (Negative); Color,Urine Yellow; Glucose,Urine (UA) Negative (Negative); Granular Casts,Urine 4 /lpf (0); Hyaline Casts,Urine 5 /lpf (0-2); Ketones,Urine Negative (Negative); Leukocyte Esterase,Urine Negative (Negative); Mucus,Urine Rare /hpf; Nitrite,Urine Negative (Negative); PH, Urine 5.5 (5.0-8.0); Protein,Urine Trace (Negative); RBC,Urine 1 /hpf (0-5); Urobilinogen,Urine <2.0 mg/dL (<2.0); WBC,Urine <1 /hpf (0-5)
[2021-09-19] MEDS: MORPHINE SULFATE 4 MG/ML SYRINGE IV PRN (22:04)
[2021-09-20 04:26] LABS: Basophils # (A) 0.1 k/uL (0-0.2); Basophils % (A) 1 %; Eosinophils # (A) 0.1 k/uL (0-0.7); Eosinophils % (A) 1 %; HCT 41.6 % (39.0-53.0); HGB 13.9 gm/dL (13.0-17.5); Lymphocytes # (A) 1.6 k/uL (1.0-4.8); Lymphocytes % (A) 24 %; MCH 32.6 pg (25.0-35.0); MCHC 33.3 g/dL (31.0-37.0); MCV 97.9 fL (80.0-100.0); Monocytes # (A) 0.5 k/uL (0-1.0); Monocytes % (A) 8 %; Neutrophils # (A) 4.5 k/uL (1.3-7.7); Neutrophils % (A) 65 %; Platelet Count 208 k/uL (150-450); RBC 4.25 m/uL (4.30-5.90); RDW 13.1 % (11.5-15.5); WBC 6.9 k/uL (3.8-10.6)
[2021-09-20] MEDS: MORPHINE SULFATE 4 MG/ML SYRINGE IV PRN ×3 (04:34→19:44)
[2021-09-20] MEDS: PANTOPRAZOLE 40 MG/10 ML VIAL IV SCH (09:41)
[2021-09-20] MEDS: HEPARIN SOD,PORK IN 0.45% NACL 25,000 UNIT in 0.45% NACL 1 250ML.BAG IV SCH (09:42)
[2021-09-20] MEDS: SODIUM CHLORIDE 0.9% 1,000 ML IV SCH ×2 (09:47→22:48)
[2021-09-20] MEDS ORDERED: ALPRAZolam 0.25 MG TAB PO PRN (14:43)
--- NOTE | 2021-09-20 15:32 | HP ---
HISTORY AND PHYSICAL I am covering for Dr. Obrien. DATE OF SERVICE: 09/20/2021 CHIEF COMPLAINT: Right leg pain. HISTORY OF PRESENT ILLNESS: This 65-year-old gentleman with a past medical history of multiple medical problems, including hypertension, hyperlipidemia, history of peripheral artery disease, history of bilateral peripheral neuropathy, history of CAD, stent, being followed by Dr. Obrien and Dr. Caballero in the outpatient setting, was complaining of right leg pain. The patient's symptoms are mostly in the calf area which started about 2 days ago, and the patient was admitted after a CT angio. Patient was started on IV heparin. The CT angio of the leg showed thrombosis of the left iliac artery stent. Some patency of the right iliac artery stent was also noted. There was some thrombosis of the right and left femoral artery stents with collaterals also noted. Please refer to the radiology note for further details. Patient was admitted for further evaluation and treatment. After heparin the patient had some relief. The right leg is still slightly colder to touch and also pulses are diminished. There is no history of any fever, rigors or chills. No history of headache, loss of consciousness, seizures. PAST MEDICAL HISTORY: History of hypertension, hyperlipidemia, history of vascular disorder, history of skin cancer, history of bilateral peripheral neuropathy, history of CAD, stent. HOME MEDICATIONS: Lisinopril, Norvasc, Plavix, Lipitor. Doses are reviewed. ALLERGIES: NONE. FAMILY HISTORY: History of throat cancer in the family. SOCIAL HISTORY: No history of current smoking. Previous history of smoking. No history of alcohol intake. REVIEW OF SYSTEMS: ENT: No diminished hearing. No diminished vision. CARDIOVASCULAR SYSTEM: No angina, palpitations. RESPIRATORY SYSTEM: As mentioned earlier. GI: As mentioned earlier. : No dysuria. NERVOUS SYSTEM: No numbness, weakness. ALLERGY/IMMUNOLOGY: No asthma or hay fever. MUSCULOSKELETAL: As mentioned earlier. HEMATOLOGY/ONCOLOGY: No history of anemia. ENDOCRINE: No history of diabetes. CONSTITUTIONAL: As mentioned earlier. DERMATOLOGY: Negative. RHEUMATOLOGY: Negative. PSYCHIATRY: As mentioned earlier. PHYSICAL EXAMINATION: Patient is alert, oriented x3. Pulse is 87, blood pressure 130/89, respiration 18, temperature 97.2, pulse ox 97% on room air. HEENT: Conjunctivae normal. NECK: No jugular venous distention. CARDIOVASCULAR: S1, S2 muffled. RESPIRATION: Breath sounds diminished at the bases. No rhonchi. No crackles. ABDOMEN: Soft, obese, non-tender. No mass palpable. LEGS: Right leg has some minimal pain, cold to touch. No discoloration noted. Pulses are diminished on the right side. NERVOUS SYSTEM: Higher functions as mentioned earlier. Moves all 4 limbs. No focal motor or sensory deficit. LYMPHATICS: No lymph node palpable in neck, axillae or groin. JOINTS: No active deforming arthropathy. LABS: WBC 6.9, hemoglobin 13.9. APTT 60.7. ASSESSMENT: 1. Peripheral vascular disease and acute ischemic of the right leg with some thrombosis of the left iliac artery stent and other findings on the CT scan. 2. Heparin monitoring. 3. History of hypertension. 4. Hyperlipidemia. 5. History of skin cancer. 6. History of bilateral peripheral neuropathy. 7. History of coronary artery disease, stent. 8. Remote history of nicotine dependence. 9. FULL CODE. RECOMMENDATIONS AND DISCUSSION: In this 65-year-old gentleman who presented with multiple complex medical issues, we will monitor the patient closely, continue the current medications, continue symptomatic treatment. I recommend continuing the IV heparin. Will resume the antiplatelet agents also. Otherwise, resume the home medications. The prognosis is guarded because of the multiple complex medical issues. Further recommendations to follow. A copy of this dictation is being forwarded to Dr. Obrien, who is the primary physician. BRO / BRANDY: [id number] / MTDD
[2021-09-20] MEDS: CLOPIDOGREL 75 MG TAB PO SCH (16:18)
[2021-09-20] MEDS: amLODIPine 5 MG TAB PO SCH (16:18)
[2021-09-20] MEDS: lisinopriL 10 MG TAB PO SCH (16:18)
[2021-09-20] MEDS: HYDROcodone/APAP 5-325MG 1 EACH TAB PO PRN ×2 (16:20→22:45)
[2021-09-20] MEDS ORDERED: TEMAZEPAM 15 MG CAP PO PRN (21:00)
[2021-09-20] MEDS: hydrALAZINE HCL 20 MG/ML 1 ML VIAL IVP PRN (22:46)
[2021-09-20] MEDS: ATORVASTATIN 10 MG TAB PO SCH (22:48)
[2021-09-21] MEDS: HEPARIN SOD,PORK IN 0.45% NACL 25,000 UNIT in 0.45% NACL 1 250ML.BAG IV SCH ×2 (02:24→09:19)
[2021-09-21] MEDS: MORPHINE SULFATE 4 MG/ML SYRINGE IV PRN ×3 (06:16→16:24)
[2021-09-21 06:29] LABS: Basophils % (A) 0 %; Eosinophils # (A) 0.1 k/uL (0-0.7); Eosinophils % (A) 1 %; HCT 42.7 % (39.0-53.0); HGB 14.1 gm/dL (13.0-17.5); Lymphocytes % (A) 12 %; MCH 32.4 pg (25.0-35.0); MCHC 33.1 g/dL (31.0-37.0); MCV 98.1 fL (80.0-100.0); Monocytes # (A) 0.5 k/uL (0-1.0); Monocytes % (A) 6 %; Neutrophils # (A) 6.8 k/uL (1.3-7.7); Neutrophils % (A) 80 %; Platelet Count 217 k/uL (150-450); RBC 4.35 m/uL (4.30-5.90); RDW 13.2 % (11.5-15.5); WBC 8.5 k/uL (3.8-10.6)
[2021-09-21 06:48] LABS: African American GFR (CKD) >90 (>60 ml/min/1.73 sqM); Anion Gap 11 mmol/L; Blood Urea Nitrogen 11 mg/dL (9-20); Calcium 9.1 mg/dL (8.4-10.2); Carbon Dioxide 22 mmol/L (22-30); Chloride 103 mmol/L (98-107); Glucose 91 mg/dL (74-99); Non-African American GFR(CKD) >90 (>60 ml/min/1.73 sqM); Potassium 3.7 mmol/L (3.5-5.1); Sodium 136 mmol/L (137-145)
[2021-09-21] MEDS ORDERED: IV FLUID CONTINUATION 950 ML IV ONE (07:25)
[2021-09-21] MEDS ORDERED: ALTEPLASE 2 MG VIAL (CATHFLO) IV STA (07:32)
[2021-09-21] MEDS ORDERED: MIDAZOLAM 2 MG/2 ML VIAL IV ONE (07:35)
[2021-09-21] MEDS ORDERED: fentaNYL (PF) 50 MCG/ML 2 ML AMP IV ONE (07:36)
[2021-09-21] MEDS ORDERED: LIDOCAINE 1% INJ 10MG/ML (20 ML MDV) SQ ONE (07:38)
[2021-09-21] MEDS ORDERED: HEPARIN SODIUM 1,000 UN/ML (10ML VL) IV ONE (07:52)
[2021-09-21] MEDS ORDERED: ALTEPLASE 10 MG in SODIUM CHLORIDE 0.9% 100 ML IA ONE (08:00)
[2021-09-21] MEDS ORDERED: SODIUM CHLORIDE 0.9% 500 ML 500 ML with niCARdipine 6.25 MG, NITROGLYCERIN-D5W PMX 0.05... IV ONE ×4 (08:22)
[2021-09-21] MEDS ORDERED: IOPAMIDOL-300 100ML BTL INJ ONE (09:18)
--- NOTE | 2021-09-21 09:27 | IR ---
EXAMINATION TYPE: IR transcath infusion therapy DATE OF EXAM: 09/21/2021 COMPARISON: NONE HISTORY: Fluoroscopy time. Fluoroscopy was provided to the referring clinician.
[2021-09-21 11:25] LABS: Glucose,Whole Blood 86 mg/dL (75-99)
[2021-09-21] MEDS: amLODIPine 5 MG TAB PO SCH (11:49)
[2021-09-21] MEDS: lisinopriL 10 MG TAB PO SCH (11:49)
[2021-09-21] MEDS: PANTOPRAZOLE 40 MG/10 ML VIAL IV SCH (12:00)
[2021-09-21] MEDS: CLOPIDOGREL 75 MG TAB PO SCH (12:00)
[2021-09-21] MEDS: hydrALAZINE HCL 20 MG/ML 1 ML VIAL IVP PRN ×2 (12:05→19:07)
[2021-09-21] MEDS: HYDROcodone/APAP 5-325MG 1 EACH TAB PO PRN ×2 (13:32→20:37)
[2021-09-21] MEDS: ALTEPLASE 10 MG in SODIUM CHLORIDE 0.9% 100 ML IA SCH (16:37)
[2021-09-21 18:02] LABS: Glucose,Whole Blood 125 mg/dL (75-99)
--- NOTE | 2021-09-21 20:16 | PN ---
PROGRESS NOTE I am covering for Dr. Obrien. DATE OF SERVICE: 09/21/2021 This 65-year-old gentleman who was admitted with significant vascular issues involving the right limb is being followed by Dr. Caballero. Patient underwent percutaneous vascular intervention as well as tPA. Creatine kinase is slightly elevated. Patient is being closely monitored in ICU at this time. The right limb is slightly colder with diminished pulse at this time. The mottling seems to be improving at this time. There is no history of any fever or rigors. Past medical history reviewed. REVIEW OF SYSTEMS: CARDIOVASCULAR SYSTEM: No angina. RESPIRATION: As mentioned earlier. GI: As mentioned earlier. : No dysuria. NERVOUS SYSTEM: No numbness, weakness. CURRENT MEDICATIONS: Reviewed. They include Tylenol, [place], Xanax, alteplase, Lipitor, Plavix. The rest of the medications and doses are reviewed. PHYSICAL EXAMINATION: Patient is alert and oriented x3. Pulse 106, blood pressure 159/88, respirations 16, temperature 98.8, pulse ox 91% on room air. HEENT: Conjunctivae normal. NECK: No jugular venous distention. CARDIOVASCULAR: S1, S2 muffled. RESPIRATION: Breath sounds diminished at the bases. A few scattered rhonchi. ABDOMEN: Soft, nontender. LEGS: Right leg mottling and diminished pulsations status post present. NERVOUS SYSTEM: No focal deficit. LABS AT THIS TIME: WBC 8.2, hemoglobin 14.1. APTT noted. Other labs are also noted. ASSESSMENT: 1. Peripheral vascular disease and acute ischemia of the right leg with some thrombosis of the left iliac artery and stent and other findings on the CT scan, status post percutaneous procedure. 2. Heparin monitoring. 3. Status post tPA. 4. History of hypertension. 5. Hyperlipidemia. 6. Elevated creatine kinase, possibly rhabdomyolysis, mild. 7. History of skin cancer. 8. History of bilateral peripheral neuropathy. 9. History of coronary artery disease, stent. 10.Remote history of nicotine dependence. 11.FULL CODE. RECOMMENDATIONS AND DISCUSSION: I recommend to continue current medications, continue with symptomatic treatment. Continue IV fluids. Continue with tPA infusion and heparin infusion per Dr. Caballero. Please refer to Dr. Caballero's notes for further details. Prognosis guarded. Further recommendations to follow. I also recommend close followup with Dr. Obrien after discharge. MMODL / IJN: [id number] / MTDD
--- NOTE | 2021-09-21 20:28 | PCN ---
PROCEDURE NOTE PERIPHERAL PROCEDURE: DATE OF SERVICE: 09/21/2021 PERFORMING PHYSICIAN: Demarcus Caballero M.D. PROCEDURES PERFORMED: 1. Successful placement of infusion catheter in the right SFA and right iliac artery. 2. Ultrasound-guided access of the left common femoral artery. INDICATION: Acute limb ischemia in this 65-year-old gentleman who underwent a CTA that revealed large thrombus burden involving the right iliac and right SFA. COMPLICATIONS: None. LEVEL OF SEDATION: Moderate, with sedation length of 73 minutes. PROCEDURE DESCRIPTION: After obtaining informed consent, the patient was brought to the cardiac dock or pier laborer. The left common femoral artery was cannulated using micropuncture technique under ultrasound guidance. The micropuncture wire passed easily. Then I placed a 6-Spanish sheath at the left common femoral artery. Subsequently, using an Omni Flush catheter, I was able to cross the occlusion of the right iliac and advance the wire all the way to the right SFA. Then I did exchange my long sheath for a short sheath using 0.035 stiff Glidewire. I did advance an 0.035 stiff Glidewire to the right popliteal artery and injected contrast to prove that I was in the true lumen. Attempting to advance an infusion catheter was unsuccessful, and I had to do balloon angioplasty using a 5 mm balloon. With that I was able to advance the infusion catheter to the right SFA and right iliac, where tPA will be started. The patient will be brought today to undergo a second look. MMODL / IJN: [id number] /
[2021-09-21] MEDS: ATORVASTATIN 10 MG TAB PO SCH (20:37)
[2021-09-22] MEDS: MORPHINE SULFATE 4 MG/ML SYRINGE IV PRN ×3 (00:13→23:20)
[2021-09-22] MEDS: ALTEPLASE 10 MG in SODIUM CHLORIDE 0.9% 100 ML IA SCH ×2 (02:40→16:05)
[2021-09-22] MEDS: HYDROcodone/APAP 5-325MG 1 EACH TAB PO PRN ×3 (03:45→18:52)
[2021-09-22 04:54] LABS: Basophils % (A) 0 %; Eosinophils # (A) 0.1 k/uL (0-0.7); Eosinophils % (A) 1 %; HCT 41.6 % (39.0-53.0); HGB 14.1 gm/dL (13.0-17.5); Lymphocytes # (A) 0.7 k/uL (1.0-4.8); Lymphocytes % (A) 8 %; MCH 32.6 pg (25.0-35.0); MCHC 33.9 g/dL (31.0-37.0); MCV 96.1 fL (80.0-100.0); Mean Platelet Volume 8.1; Monocytes # (A) 0.6 k/uL (0-1.0); Monocytes % (A) 7 %; Neutrophils # (A) 7.6 k/uL (1.3-7.7); Neutrophils % (A) 83 %; Platelet Count 207 k/uL (150-450); RBC 4.33 m/uL (4.30-5.90); RDW 13.9 % (11.5-15.5); WBC 9.1 k/uL (3.8-10.6)
[2021-09-22] MEDS: HEPARIN SOD,PORK IN 0.45% NACL 25,000 UNIT in 0.45% NACL 1 250ML.BAG IV SCH (05:23)
[2021-09-22 05:24] LABS: African American GFR (CKD) >90 (>60 ml/min/1.73 sqM); Anion Gap 12 mmol/L; Blood Urea Nitrogen 9 mg/dL (9-20); Calcium 8.7 mg/dL (8.4-10.2); Carbon Dioxide 19 mmol/L (22-30); Chloride 102 mmol/L (98-107); Glucose 98 mg/dL (74-99); Non-African American GFR(CKD) >90 (>60 ml/min/1.73 sqM); Potassium 3.6 mmol/L (3.5-5.1); Sodium 133 mmol/L (137-145)
[2021-09-22] MEDS: hydrALAZINE HCL 20 MG/ML 1 ML VIAL IVP PRN (05:29)
[2021-09-22] MEDS: POTASSIUM CHLORIDE 10 MEQ in WATER FOR INJECTION 1 100ML.BAG IVPB SCH ×2 (05:54→06:52)
[2021-09-22] MEDS ORDERED: IV FLUID CONTINUATION 1,000 ML IV ONE (07:25)
[2021-09-22] MEDS ORDERED: LIDOCAINE 1% INJ 10MG/ML (20 ML MDV) ONE (07:28)
[2021-09-22] MEDS ORDERED: HYDROmorphone 0.5 MG/0.5 ML SYRINGE IVP ONE (07:35)
[2021-09-22] MEDS ORDERED: MIDAZOLAM 2 MG/2 ML VIAL IV ONE (07:36)
--- NOTE | 2021-09-22 08:12 | XR ---
EXAMINATION TYPE: XR chest 1V portable DATE OF EXAM: 09/22/2021 COMPARISON: None INDICATION: Congestive heart failure TECHNIQUE: Single frontal view of the chest is obtained. FINDINGS: The heart size is normal. The pulmonary vasculature is normal. The lungs are clear. Scoliosis is present. IMPRESSION: 1. No acute pulmonary process.
[2021-09-22] MEDS ORDERED: fentaNYL (PF) 50 MCG/ML 2 ML AMP ONE (08:14)
[2021-09-22] MEDS ORDERED: niCARdipine Syringe (1,000 mcg/10 mL) INTRAARTER ONE (08:17)
[2021-09-22] MEDS ORDERED: NITROGLYCERIN 1000MCG/10ML SYRINGE INTRAARTER ONE (08:17)
[2021-09-22] MEDS ORDERED: fentaNYL (PF) 50 MCG/ML 2 ML AMP IV ONE (08:17)
[2021-09-22] MEDS ORDERED: IOPAMIDOL-250 100ML BTL INTRAARTER ONE (08:54)
--- NOTE | 2021-09-22 09:32 | IR ---
EXAMINATION TYPE: IR transcath infusion therapy DATE OF EXAM: 09/22/2021 COMPARISON: NONE HISTORY: Fluoroscopy time. Fluoroscopy was provided to the referring clinician.
[2021-09-22] MEDS: PANTOPRAZOLE 40 MG/10 ML VIAL IV SCH (10:36)
[2021-09-22] MEDS: lisinopriL 10 MG TAB PO SCH (10:36)
[2021-09-22] MEDS: CLOPIDOGREL 75 MG TAB PO SCH (10:36)
[2021-09-22] MEDS: amLODIPine 5 MG TAB PO SCH (10:37)
[2021-09-22] MEDS: SODIUM CHLORIDE 0.9% 1,000 ML in EMPTY BAG 1 BAG IV SCH ×2 (10:37→20:59)
--- NOTE | 2021-09-22 10:49 | AN ---
ANGIOGRAPHY REPORT DATE OF SERVICE: September 22, 2021 PERFORMING PHYSICIAN: Demarcus Caballero MD. PROCEDURE PERFORMED: 1. Right lower extremity angiogram. 2. Placement of infusion catheter in the right SFA. INDICATION: This is a 65-year-old gentleman who was diagnosed with acute limb ischemia recently and he was placed on tPA infusion in the right SFA through the catheter yesterday. He was brought today for second-look, but unfortunately he continues to have large thrombus burden and because of that, I want to continue the infusion for 1 more day. APPROACH: Left common femoral artery. COMPLICATION: None. LEVEL OF SEDATION: Moderate with sedation length of an hour and 14 minutes. PROCEDURE DESCRIPTION: Please refer to my procedure yesterday. I placed a 035 catheter in the infusion catheter and I pulled the catheter out. An angiogram revealed large thrombus burden in the right SFA and right popliteal. I did place a filter wire in the right popliteal artery and I did balloon angioplasty using 5 mm balloon with inadequate angiographic results. Because of that, I decided to place an infusion catheter in the SFA slightly lower than yesterday and drip him with tPA overnight. The procedure was completed without any complication. POSTPROCEDURE MANAGEMENT: 1. Continue the tPA along with heparin. 2. Continue monitoring the PTT. 3. Bring the patient tomorrow for second-look. MMODL / IJN: [id number] /
[2021-09-22] MEDS ORDERED: HEPARIN SODIUM 1,000 UN/ML (10ML VL) ONE (11:10)
[2021-09-22] MEDS ORDERED: DILTIAZEM DRIP BOLUS FROM BAG 1 MG SOLN IV ONE (16:57)
[2021-09-22] MEDS: DILTIAZEM 125 MG in SODIUM CHLORIDE 0.9% 100 ML IV SCH (17:26)
[2021-09-22 20:25] LABS: Creatine Kinase 4961 U/L (55-170)
--- NOTE | 2021-09-22 20:31 | PN ---
PROGRESS NOTE DATE OF SERVICE: 09/22/2021 I am covering for Dr. Obrien. This 65-year-old gentleman admitted with significant peripheral vascular disease, underwent angiogram. The patient received heparin and as well as alteplase. The patient underwent angiogram by Dr. Caballero and the patient also had an infusion catheter placed in the right SFA. The patient is closely monitored in ICU. The patient is receiving TPA along with heparin. The patient also has some mild rhabdomyolysis. CK elevated up to 4409. There is no history of fever, rigors or chills at this time. PAST MEDICAL HISTORY: Reviewed. REVIEW OF SYSTEMS: Cardiovascular: No angina. Respiration: As mentioned earlier. GI: As mentioned earlier. : No dysuria. Nervous system: No numbness or weakness. CURRENT MEDICATIONS: Reviewed and include: Tylenol, [place], Xanax, alteplase, Norvasc, Lipitor, dose and other medications reviewed. PHYSICAL EXAMINATION: Patient is alert, oriented times three. Pulse is 146, blood pressure is 150/84. Respirations 16. Temperature normal. HEENT: Conjunctivae normal. Neck: No JVD. Cardiovascular: S1, S2 muffled. Respiration: Breath sounds diminished in the bases. A few scattered rhonchi and crackles. Abdomen: Soft, nontender. Legs are no edema. No swelling. Nervous system: No focal deficits. LABS: Sodium 133. ASSESSMENT: 1. Peripheral vascular disease with acute ischemia of the right leg with some thrombosis of the left iliac artery and stent and other findings on the CT scan, status post percutaneous procedure and as well as infusion catheter placement SFA. 2. On TPN and heparin. 3. Heparin monitoring. 4. Tachycardia. 5. Elevated creatine kinase, possible rhabdomyolysis. 6. Hypertension. 7. Hyperlipidemia. 8. Elevated creatinine kinase and possibly rhabdomyolysis. 9. Skin cancer. 10.History of bilateral peripheral neuropathy. 11.History of coronary artery disease/ stent. 12.Remote history of nicotine dependence. 13.FULL CODE. RECOMMENDATIONS AND DISCUSSION: Recommend to continue current medications, symptomatic treatment. Otherwise, I would also recommend continue with tPA. Also recommend consultation with Dr. Silvestre for ICU management. The prognosis guarded because of multiple complex medical issues. Further recommendations to follow. Check a CT also tomorrow. I would also recommend repeat cultures as well. MMODL / IJN: [id number] /
[2021-09-22] MEDS: ATORVASTATIN 10 MG TAB PO SCH (20:59)
[2021-09-23] MEDS: DILTIAZEM 125 MG in SODIUM CHLORIDE 0.9% 100 ML IV SCH ×4 (00:08→23:34)
[2021-09-23] MEDS: ALTEPLASE 10 MG in SODIUM CHLORIDE 0.9% 100 ML IA SCH ×2 (00:10→18:18)
[2021-09-23] MEDS: HYDROcodone/APAP 5-325MG 1 EACH TAB PO PRN ×3 (01:49→16:28)
[2021-09-23] MEDS: MORPHINE SULFATE 4 MG/ML SYRINGE IV PRN ×2 (03:03→18:00)
[2021-09-23 06:35] LABS: Basophils % (A) 0 %; Eosinophils # (A) 0.1 k/uL (0-0.7); Eosinophils % (A) 1 %; HCT 39.3 % (39.0-53.0); HGB 12.9 gm/dL (13.0-17.5); Lymphocytes # (A) 1.1 k/uL (1.0-4.8); Lymphocytes % (A) 10 %; MCH 32.4 pg (25.0-35.0); MCHC 32.7 g/dL (31.0-37.0); Mean Platelet Volume 9.1; Monocytes # (A) 0.7 k/uL (0-1.0); Monocytes % (A) 7 %; Neutrophils # (A) 8.5 k/uL (1.3-7.7); Neutrophils % (A) 80 %; Platelet Count 169 k/uL (150-450); RBC 3.97 m/uL (4.30-5.90); RDW 13.3 % (11.5-15.5); WBC 10.6 k/uL (3.8-10.6)
[2021-09-23 06:52] LABS: African American GFR (CKD) >90 (>60 ml/min/1.73 sqM); Anion Gap 12 mmol/L; Blood Urea Nitrogen 10 mg/dL (9-20); Calcium 8.9 mg/dL (8.4-10.2); Carbon Dioxide 21 mmol/L (22-30); Chloride 103 mmol/L (98-107); Glucose 95 mg/dL (74-99); Non-African American GFR(CKD) >90 (>60 ml/min/1.73 sqM); Potassium 3.9 mmol/L (3.5-5.1); Sodium 136 mmol/L (137-145)
[2021-09-23 07:24] LABS: Creatine Kinase 2942 U/L (55-170)
[2021-09-23] MEDS: amLODIPine 5 MG TAB PO SCH (09:48)
[2021-09-23] MEDS: lisinopriL 10 MG TAB PO SCH (09:48)
[2021-09-23] MEDS: PANTOPRAZOLE 40 MG/10 ML VIAL IV SCH (09:48)
[2021-09-23] MEDS: HEPARIN SOD,PORK IN 0.45% NACL 25,000 UNIT in 0.45% NACL 1 250ML.BAG IV SCH ×2 (09:48→21:25)
--- NOTE | 2021-09-23 09:54 | P.CNPUL ---
History of Present Illness Consult date: 09/23/21 Requesting physician: Cat Alvares Reason for consult: other (Critical care management) Chief complaint: Right lower extremity pain History of present illness: This is a pleasant 65-year-old gentleman with a known history of hypertension, hyperlipidemia, coronary artery disease with previous stent placement, carotid artery disease with previous right stent placement, peripheral vascular disease with multiple stents in the left lower extremity SFA. He is a former smoker. He presented here to the emergency room on 09/19/2021 with right lower extremity pain. He apparently has been noncompliant with his anticoagulants in the form of Eliquis. He was found to have absent pulses from the knee on down. He was sent over from Dr. Caballero's office for CT angiogram and heparin infusion. CT raeann ogram revealed thrombosis of the left iliac artery stent. There is patency of the right iliac artery stent. There is thrombosis of the right and left femoral artery stents. Collateral circulation from the profunda femoris artery reconstituting the tibial arteries bilaterally. There is diminished arterial flow in the right lower extremity compared to the left. On 09/21/2021 he had undergone successful placement of infusion catheter in the right SFA and right iliac artery. Ultrasound-guided access of the left common femoral artery. He is receiving TPA infusion in the right SFA. He continued to have a large thrombus on angiogram yesterday. He also developed atrial fibrillation with rap id ventricular response and initiated on a Cardizem drip currently at any milligrams per hour. He is seen today in consultation in the ICU. He is currently resting flat in bed. Awake and alert in no acute distress. No worsening shortness of breath, cough or congestion. Maintaining O2 saturations in the 90s on 2 L/m per nasal cannula. He is afebrile. Hemodynamically stable. TPA is infusing at 1 mg per hour. Heparin drip remains. Rate is better controlled currently in the 80s. Plan is to return to the [facility] today for further evaluation and possible intervention. White count 10.6. Hemoglobin 12.9. Sodium 136. Potassium 3.9. Bicarb 21. Creatinine 0.80. CK level 2942. Review of Systems REVIEW OF SYSTEMS: CONSTITUTIONAL: Denies any recent significant weight loss or weight gain. EYES: Denies change in vision. EARS, NOSE, MOUTH, THROAT: Denies headaches, denies sore throat. CARDIOVASCULAR: Denies chest pain, palpitations or syncopal episodes. RESPIRATORY: Denies shortness of breath, cough, congestion or hemoptysis. GASTROINTESTINAL: Denies change in appetite, denies abdominal pain GENITOURINARY: Denies hematuria, denies infections. MUSKULOSKELETAL: Positive for right lower extremity pain INTEGUMENTARY: Denies rash, denies eczema. NEUROLOGICAL: Denies recent memory loss, no recent seizure activity. PSYCHIATRIC: Denies anxiety, denies depression. HEMATOLOGIC/LYMPHATIC: Denies anemia, denies enlarged lymph nodes. Past Medical History Past Medical History: Cancer, Hyperlipidemia, Hypertension, Vascular Disorder Additional Past Medical History / Comment(s): SKIN CANCER. 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 History of Any Multi-Drug Resistant Organisms: None Reported Past Surgical History: Heart Catheterization, Heart Catheterization With Stent Additional Past Surgical History / Comment(s): "RIGHT LEG FOR CIRCULATION WITH 2 STENTS " rt internal carotid stent 05/05/20, 07/21/20-PTBA, 08/18/2020 stent x3 left SFA Past Anesthesia/Blood Transfusion Reactions: No Reported Reaction Date of Last Stent Placement:: 08/18/2020 Past Psychological History: No Psychological Hx Reported Smoking Status: Former smoker Past Alcohol Use History: Rare Past Drug Use History: None Reported - Past Family History Father Family Medical History: Cancer Additional Family Medical History / Comment(s): throat cancer Brother(s) Family Medical History: Cancer Additional Family Medical History / Comment(s): THROAT CANCER. Mother Family Medical History: No Reported History Medications and Allergies Home Medications Medication Instructions Recorded Confirmed Type Atorvastatin [Lipitor] 10 mg PO HS 05/03/20 09/20/21 History Clopidogrel [Plavix] 75 mg PO DAILY 05/03/20 09/20/21 History amLODIPine [Norvasc] 5 mg PO DAILY 05/03/20 09/20/21 History lisinopriL [Zestril] 10 mg PO DAILY 05/03/20 09/20/21 History Apixaban [Eliquis] 5 mg PO BID 30 Days #60 tab 09/22/21 Rx Allergies Allergy/AdvReac Type Severity Reaction Status Date / Time No Known Allergies Allergy Verified 09/20/21 09:03 Physical Exam Vitals: Vital Signs Temp Pulse Resp BP Pulse Ox 09/23/21 07:45 97 09/23/21 07:00 95 13 132/74 92 L 09/23/21 06:00 101 H 15 120/68 98 09/23/21 05:00 90 11 L 138/72 97 09/23/21 04:00 98.4 F 89 18 160/95 95 09/23/21 03:00 114 H 19 147/76 98 09/23/21 02:00 96 18 107/74 98 09/23/21 01:00 99 12 151/88 98 09/23/21 00:00 98.8 F 117 H 12 127/93 97 09/22/21 23:00 123 H 18 131/95 99 09/22/21 22:30 135 H 20 131/95 92 L 09/22/21 22:00 112 H 18 141/84 94 L 09/22/21 21:30 130 H 20 141/84 95 09/22/21 21:00 133 H 22 112/79 91 L 09/22/21 20:30 140 H 11 L 112/79 92 L 09/22/21 20:00 99.2 F 149 H 17 150/95 91 L 09/22/21 19:30 149 H 22 93 L 09/22/21 19:00 142 H 14 150/95 93 L 09/22/21 18:30 146 H 16 92 L 09/22/21 18:00 152 H 19 153/84 92 L 09/22/21 17:30 142 H 16 93 L 09/22/21 17:00 147 H 16 126/80 92 L 09/22/21 16:30 152 H 11 L 91 L 09/22/21 16:00 141 H 18 161/93 90 L 09/22/21 15:30 15 91 L 09/22/21 15:00 101 H 10 L 156/87 90 L 09/22/21 14:30 105 H 9 L 88 L 09/22/21 14:00 107 H 9 L 165/82 92 L 09/22/21 13:30 105 H 11 L 169/105 90 L 09/22/21 13:00 107 H 14 178/83 93 L 09/22/21 12:30 106 H 15 159/97 92 L 09/22/21 12:00 117 H 14 154/94 94 L 09/22/21 11:30 105 H 15 149/96 92 L 09/22/21 11:00 109 H 19 194/93 92 L 09/22/21 10:30 100 9 L 177/96 93 L 09/22/21 10:00 103 H 17 183/89 91 L 09/22/21 09:45 14 Intake and Output 09/22/21 09/23/21 09/23/21 22:59 06:59 14:59 Intake Total 891.334 841.500 75 Output Total 425 375 0 Balance 466.334 466.500 75 Intake: IV 600 600 75 0.9 NS @ 75ml/hr 600 600 75 Intake, IV Titration 41.334 241.500 Amount Alteplase 10 mg In Sodium 80.833 Chloride 0.9% 100 ml @ 1 MG/HR 10 mls/hr IA .Q10H [facility] Rx#:[id number] Diltiazem 125 mg In 41.334 160.667 Sodium Chloride 0.9% 100 ml @ Per Protocol IV .Q0M [facility] Rx#:[id number] Oral 250 Output: Urine 425 375 0 Other: Voiding Method Urinal Urinal Weight 88.3 kg GENERAL EXAM: Alert, doesn't 65-year-old gentleman, on 2 L nasal cannula, comfortable in no apparent distress. HEAD: Normocephalic. EYES: Normal reaction of pupils, equal size. NOSE: Clear with pink turbinates. THROAT: No erythema or exudates. NECK: No masses, no JVD. CHEST: No chest wall deformity. LUNGS: Equal air entry with no crackles, wheeze, rhonchi or dullness. Diminished. CVS: S1 and S2 normal with no audible murmur, irregular rhythm. ABDOMEN: No hepatosplenomegaly, normal bowel sounds, no guarding or rigidity. SPINE: No scoliosis or deformity SKIN: No rashes CENTRAL NERVOUS SYSTEM: No focal deficits, tone is normal in all 4 extremities. EXTREMITIES: Left common femoral catheter in place across to the right lower extremity. Right lower extremity with Doppler posttibial pulses. No pedal pulses. Cool dusky foot. Left pedal pulse palpable. There is trace peripheral edema. No clubbing, no cyanosis. Results - Laboratory Findings CBC and BMP: 09/23/21 05:07 09/23/21 05:07 PT/INR, D-dimer PT 9.8 sec (9.0-12.0) 09/19/21 16:42 INR 0.9 (<1.2) 09/19/21 16:42 Abnormal lab findings: Abnormal Labs 09/19/21 09/19/21 09/19/21 16:42 16:42 19:34 RBC Hgb MCH 35.5 H MCHC 37.2 H Neutrophils # 7.8 H Lymphocytes # APTT Sodium 135 L Carbon Dioxide Glucose 113 H POC Glucose (mg/dL) AST 70 H Alkaline Phosphatase 155 H Creatine Kinase Total Protein 8.4 H Ur Specific Muir 1.050 H Urine Protein Trace H Urine Blood Trace H Hyaline Casts 5 H Urine Mucus Rare H 09/19/21 09/20/21 09/20/21 22:30 03:26 03:26 RBC 4.25 L Hgb MCH MCHC Neutrophils # Lymphocytes # APTT 60.7 H 45.6 H Sodium Carbon Dioxide Glucose POC Glucose (mg/dL) AST Alkaline Phosphatase Creatine Kinase Total Protein Ur Specific Muir Urine Protein Urine Blood Hyaline Casts Urine Mucus 09/21/21 09/21/21 09/21/21 05:51 05:51 05:57 RBC Hgb MCH MCHC Neutrophils # Lymphocytes # APTT 55.9 H Sodium 136 L Carbon Dioxide Glucose POC Glucose (mg/dL) AST Alkaline Phosphatase Creatine Kinase 4409 H* Total Protein Ur Specific Muir Urine Protein Urine Blood Hyaline Casts Urine Mucus 09/21/21 09/22/21 09/22/21 18:00 04:30 04:30 RBC Hgb MCH MCHC Neutrophils # Lymphocytes # 0.7 L APTT 33.9 H Sodium Carbon Dioxide Glucose POC Glucose (mg/dL) 125 H AST Alkaline Phosphatase Creatine Kinase Total Protein Ur Specific Muir Urine Protein Urine Blood Hyaline Casts Urine Mucus 09/22/21 09/22/21 09/23/21 04:30 04:30 05:07 RBC Hgb MCH MCHC Neutrophils # Lymphocytes # APTT 30.8 H Sodium 133 L Carbon Dioxide 19 L Glucose POC Glucose (mg/dL) AST Alkaline Phosphatase Creatine Kinase 4961 H* Total Protein Ur Specific Muir Urine Protein Urine Blood Hyaline Casts Urine Mucus 09/23/21 09/23/21 05:07 05:07 RBC 3.97 L Hgb 12.9 L MCH MCHC Neutrophils # 8.5 H Lymphocytes # APTT Sodium 136 L Carbon Dioxide 21 L Glucose POC Glucose (mg/dL) AST Alkaline Phosphatase Creatine Kinase 2942 H* Total Protein Ur Specific Muir Urine Protein Urine Blood Hyaline Casts Urine Mucus Assessment and Plan Assessment: 1 Acute ischemic right lower extremity as well as thrombus in the left iliac stent in a patient with known history of significant peripheral vascular disease and noncompliant with home Eliquis 2 Status post right lower extremity angiogram x 2 with placement of infusion catheter in the right SFA currently has TPA running. On 09/22/2021 there was still a large thrombus noted. To be returned to the [facility] today for further evaluation progress 3 Previous history of peripheral vascular occlusive disease in the right with 2 stent placements, stents 3 to a left SFA in August 2020 4 New onset atrial fibrillation, currently on a heparin drip, Cardizem drip 5 Carotid artery disease with previous right carotid stent placement in April 2020 6 History of coronary artery disease with previous stent placement 7 Hypertension 8 Hyperlipidemia 9 History of skin cancer 10 History of smoking 11 History of medication noncompliance Plan: The patient was seen and evaluated by Dr. Silvestre Chest x-ray and labs reviewed No acute pulmonary process Titrate the FiO2 as tolerated Remains on TPA infusion via the left groin to the right lower extremity Continue with heparin drip Continue Cardizem drip for rate control Plan is to return to the [facility] today We will continue to follow and make further recommendations based on his clinical status I, the cosigning physician, performed a history & physical examination of the patient. Lungs sounds are jonelle, diminished. Maintaining good O2 saturations in the 90s on 2 L/m per nasal cannula. I discussed the assessment and plan of care with my nurse practitioner, Aixa Glasgow. I attest to the above note as dictated by her. Time with Patient: Greater than 30
[2021-09-23] MEDS ORDERED: LIDOCAINE 1% INJ 10MG/ML (20 ML MDV) ONE (11:53)
[2021-09-23] MEDS ORDERED: fentaNYL (PF) 50 MCG/ML 2 ML AMP ONE (12:08)
[2021-09-23] MEDS ORDERED: fentaNYL (PF) 50 MCG/ML 2 ML AMP IV ONE (13:28)
[2021-09-23] MEDS ORDERED: HEPARIN SODIUM 1,000 UN/ML (10ML VL) ONE (13:36)
[2021-09-23] MEDS: HEPARIN SODIUM 1,000 UN/ML (10ML VL) IV ONE ×3 (13:37→15:00)
[2021-09-23] MEDS ORDERED: SODIUM CHLORIDE 0.9% 500 ML 500 ML with niCARdipine 6.25 MG, NITROGLYCERIN-D5W PMX 0.05... IV ONE ×4 (13:55)
[2021-09-23] MEDS ORDERED: LIDOCAINE 1% INJ 10MG/ML (20 ML MDV) SQ ONE ×2 (13:58→14:10)
[2021-09-23] MEDS ORDERED: MIDAZOLAM 2 MG/2 ML VIAL IV ONE (14:14)
--- NOTE | 2021-09-23 15:25 | P.PN ---
Subjective Progress Note Date: 09/23/21 65-year-old gentleman with a known history of hypertension, hyperlipidemia, coronary artery disease with previous stent placement, carotid artery disease with previous right stent placement, peripheral vascular disease with multiple stents in the left lower extremity SFA; presented here to the emergency room on 09/19/2021 with right lower extremity pain; has been noncompliant with his anticoagulants in the form of Eliquis. He was found to have absent pulses from the knee on down. He was sent over from Dr. Caballero's office for CT angiogram and heparin infusion. CT angiogram revealed thrombosis of the left iliac artery stent; thrombosis of the right and left femoral artery stents. Collateral circulation from the profunda femoris artery reconstituting the tibial arteries bilaterally. There is diminished arterial flow in the right lower extremity compared to the left. On 09/21/2021 he had undergone successful placement of infusion catheter in the right SFA and right iliac artery. Ultrasound-guided access of the left common femoral artery. He is receiving TPA infusion in the right SFA. He continued to have a large thrombus on angiogram yesterday. He also Patient developed atrial fibrillation with rapid ventricular response and initiated on a Cardizem drip currently at any milligrams per hour. Plan is to return to the [facility] today for further evaluation and possible intervention. Objective - Vital Signs Vital signs: Vital Signs Temp 98.4 F 09/23/21 04:00 Pulse 95 09/23/21 07:00 Resp 13 09/23/21 07:00 BP 132/74 09/23/21 07:00 Pulse Ox 97 09/23/21 07:45 Intake & Output 09/22/21 09/23/21 09/23/21 18:59 06:59 18:59 Intake Total 6024.865 5457.167 217.083 Output Total 425 375 0 Balance 876.667 801.167 217.083 Weight 88.3 kg Intake: IV 745 900 75 0.9 NS @ 75ml/hr 695 900 75 Intake, IV Titration 106.667 276.167 142.083 Amount Alteplase 10 mg In Sodium 100 80.833 Chloride 0.9% 100 ml @ 1 MG/HR 10 mls/hr IA .Q10H [facility] Rx#:[id number] Diltiazem 125 mg In 6.667 195.334 Sodium Chloride 0.9% 100 ml @ Per Protocol IV .Q0M [facility] Rx#:[id number] Heparin Sod,Pork in 0.45% 142.083 NaCl 25,000 unit In 0.45 % NaCl 1 250ml.bag @ 5 mls/hr IV .Q24H [facility] Rx#: [id number] Oral 450 Output: Urine 425 375 0 Other: Voiding Method Urinal Urinal - Exam PHYSICAL EXAMINATION: GENERAL: The patient is alert and oriented x3, not in any acute distress. Well developed, well nourished. HEENT: Pupils are round and equally reacting to light. EOMI. No scleral icterus. No conjunctival pallor. Normocephalic, atraumatic. No pharyngeal erythema. No thyromegaly. CARDIOVASCULAR: S1 and S2 present. No murmurs, rubs, or gallops. PULMONARY: Chest is clear to auscultation, no wheezing or crackles. ABDOMEN: Soft, nontender, nondistended, normoactive bowel sounds. No palpable organomegaly. MUSCULOSKELETAL: No joint swelling or deformity. EXTREMITIES: No cyanosis, clubbing, or pedal edema. NEUROLOGICAL: Gross neurological examination did not reveal any focal deficits. SKIN: No rashes. - Labs CBC & Chem 7: 09/23/21 05:07 09/23/21 05:07 Labs: Abnormal Lab Results - Last 24 Hours (Table) 09/22/21 09/23/21 09/23/21 Range/Units 04:30 05:07 05:07 RBC 3.97 L (4.30-5.90) m/uL Hgb 12.9 L (13.0-17.5) gm/dL Neutrophils # 8.5 H (1.3-7.7) k/uL APTT 30.8 H (22.0-30.0) sec Sodium (137-145) mmol/L Carbon Dioxide (22-30) mmol/L Creatine Kinase 4961 H* (55-170) U/L 09/23/21 Range/Units 05:07 RBC (4.30-5.90) m/uL Hgb (13.0-17.5) gm/dL Neutrophils # (1.3-7.7) k/uL APTT (22.0-30.0) sec Sodium 136 L (137-145) mmol/L Carbon Dioxide 21 L (22-30) mmol/L Creatine Kinase 2942 H* (55-170) U/L Assessment and Plan Assessment: 1. Ischemic Limb; significant PVD - Acute ischemia right lower extremity along with thrombosis of left iliac stent - patient is status post right lower extremity angiogram x 2 with placement of infusion catheter in the right SFA currently has TPA running. On 09/22/2021 there was still a large thrombus noted; patient is to return to the [facility] today for further evaluation progress - Previous history of peripheral vascular occlusive disease in the right with 2 stent placements, stents 3 to a left SFA in August 2020 2. New-onset atrial fibrillation; patient remains on Cardizem infusion along with IV heparin; remains adequately rate controlled 3. Hypertension; amlodipine 5 mg daily, lisinopril 10 mg daily, hydralazine 10 mg IV every 4 hours when necessary 4. Hyperlipidemia; Lipitor 10 mg by mouth daily at bedtime 5. CAD/previous stent placement; patient remains on Plavix 75 mg daily 6. History of carotid stenosis with previous right carotid stent placement DVT prophylaxis; SCDs/IV heparin CODE STATUS; full code
[2021-09-23] MEDS ORDERED: SODIUM CHLORIDE 0.9% 250 ML IV ONE (15:37)
[2021-09-23] MEDS ORDERED: IOPAMIDOL-370 100ML BTL INJ ONE (15:38)
[2021-09-23] MEDS ORDERED: SODIUM CHLORIDE 0.9% 1,000 ML in EMPTY BAG 1 BAG IV SCH (15:45)
[2021-09-23 16:04] LABS: Glucose,Whole Blood 102 mg/dL (75-99)
[2021-09-23] MEDS: SODIUM CHLORIDE 0.9% 1,000 ML in EMPTY BAG 1 BAG IV SCH (16:13)
[2021-09-23] MEDS: hydrALAZINE HCL 20 MG/ML 1 ML VIAL IVP PRN (16:45)
--- NOTE | 2021-09-23 18:27 | P.GSCN ---
History of Present Illness Consult date: 09/23/21 History of present illness: Cezar is a 65-year-old male we are asked to see regarding right lower extremity ischemia.He is a patient of Dr. Caballero who has performed multiple interventions for his peripheral arterial disease, the most recent on the lower extremities was approximate 1 year ago. He was recently seen in the office and was doing relatively well. Subsequently about 2 weeks ago he began having increasing pain in his lower extremity after discontinuing some of his medications that he had run out of and not refilled. He was seen in the office and was noted to have coolness to his right lower extremity. At that point he was sent in for CT and further anticoagulation and workup. He presented to the hospital with this on 2020. There was noted to be occlusion in his right iliac and femoral artery stents with decreased contrast flow to the right lower extremity. He was subsequently taken on 09/21/2021 for angiogram. At that time there was some noted difficulty in crossing the area of the stent however they were able to place a thrombolytic catheter. He was brought back to the [facility] for re- evaluation on 1111 and at that point there was noted to be continued area of thrombus therefore thrombolysis was continued. The iliac component was effectively open at that point. Repeat imaging today showed some improvement but continued lack of flow through the superficial femoral artery. There are images were the below-knee popliteal artery appears patent with the peroneal runoff, but difficult to see any further vessels. There are significant collateralizations. We are asked to see the patient regarding any further assistance or open therapies that may benefit the patient. The patient is currently in the ICU upon my consultation. He is laying flat and has a sheath still in his left groin. He states the pain in his right lower extremity is similar to that has been for the past few weeks. Per himself and his family member at the bedside, there is some improvement of the coloration of his foot. He is still able to move it although slightly diminished from his left lower extremity. There is some swelling into the foot as well. Past Medical History Past Medical History: Cancer, Hyperlipidemia, Hypertension, Vascular Disorder Additional Past Medical History / Comment(s): SKIN CANCER. 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 History of Any Multi-Drug Resistant Organisms: None Reported Past Surgical History: Heart Catheterization, Heart Catheterization With Stent Additional Past Surgical History / Comment(s): "RIGHT LEG FOR CIRCULATION WITH 2 STENTS " rt internal carotid stent 05/05/20, 07/21/20-PTBA, 08/18/2020 stent x3 left SFA Past Anesthesia/Blood Transfusion Reactions: No Reported Reaction Date of Last Stent Placement:: 08/18/2020 Past Psychological History: No Psychological Hx Reported Smoking Status: Former smoker Past Alcohol Use History: Rare Past Drug Use History: None Reported - Past Family History Father Family Medical History: Cancer Additional Family Medical History / Comment(s): throat cancer Brother(s) Family Medical History: Cancer Additional Family Medical History / Comment(s): THROAT CANCER. Mother Family Medical History: No Reported History Medications and Allergies Home Medications Medication Instructions Recorded Confirmed Type Atorvastatin [Lipitor] 10 mg PO HS 05/03/20 09/20/21 History Clopidogrel [Plavix] 75 mg PO DAILY 05/03/20 09/20/21 History amLODIPine [Norvasc] 5 mg PO DAILY 05/03/20 09/20/21 History lisinopriL [Zestril] 10 mg PO DAILY 05/03/20 09/20/21 History Apixaban [Eliquis] 5 mg PO BID 30 Days #60 tab 09/22/21 Rx Allergies Allergy/AdvReac Type Severity Reaction Status Date / Time No Known Allergies Allergy Verified 09/20/21 09:03 Surgical - Exam Vital Signs Temp Pulse Resp BP Pulse Ox 99.4 F 122 H 20 163/91 97 09/19/21 15:28 09/19/21 15:28 09/19/21 15:28 09/19/21 15:28 09/19/21 15:28 Gen. is a pleasant and cooperative male in no acute distress. HEENT is normocephalic, atraumatic, extraocular motion intact. Heart is irregularly irregular. Lungs are clear although diminished bilaterally. Abdomen is soft, nontender nondistended. Extremity show no clubbing. There is a sheath in the left femoral site. Left lower extremity is warm and dry. Right lower extremity slightly cool. Some ischemic-appearing changes to the distal toes however there is capillary refill although slightly delayed, 3-4 seconds. Calf and compartments are soft. Motor is intact although slightly diminished in the right lower extremity. There is a palpable femoral pulse. There is a strong monophasic to biphasic popliteal signal. There is a weak monophasic signal to the posterior tibial and dorsalis pedis. Results Computed tomography scan as well as catheter directed images are reviewed - Labs 09/23/21 05:07 09/23/21 05:07 Abnormal Lab Results - Last 24 Hours (Table) 09/22/21 09/23/21 09/23/21 Range/Units 04:30 05:07 05:07 RBC 3.97 L (4.30-5.90) m/uL Hgb 12.9 L (13.0-17.5) gm/dL Neutrophils # 8.5 H (1.3-7.7) k/uL APTT 30.8 H (22.0-30.0) sec Sodium (137-145) mmol/L Carbon Dioxide (22-30) mmol/L POC Glucose (mg/dL) (75-99) mg/dL Creatine Kinase 4961 H* (55-170) U/L 09/23/21 09/23/21 Range/Units 05:07 16:02 RBC (4.30-5.90) m/uL Hgb (13.0-17.5) gm/dL Neutrophils # (1.3-7.7) k/uL APTT (22.0-30.0) sec Sodium 136 L (137-145) mmol/L Carbon Dioxide 21 L (22-30) mmol/L POC Glucose (mg/dL) 102 H (75-99) mg/dL Creatine Kinase 2942 H* (55-170) U/L Diabetes panel 09/23/21 Range/Units 05:07 Sodium 136 L (137-145) mmol/L Potassium 3.9 (3.5-5.1) mmol/L Chloride 103 (98-107) mmol/L Carbon Dioxide 21 L (22-30) mmol/L BUN 10 (9-20) mg/dL Creatinine 0.80 (0.66-1.25) mg/dL Glucose 95 (74-99) mg/dL Calcium 8.9 (8.4-10.2) mg/dL Thyroid panel 09/22/21 Range/Units 04:30 TSH 2.920 (0.465-4.680) mIU/L Calcium panel 09/23/21 Range/Units 05:07 Calcium 8.9 (8.4-10.2) mg/dL Pituitary panel 09/22/21 09/23/21 Range/Units 04:30 05:07 Sodium 136 L (137-145) mmol/L Potassium 3.9 (3.5-5.1) mmol/L Chloride 103 (98-107) mmol/L Carbon Dioxide 21 L (22-30) mmol/L BUN 10 (9-20) mg/dL Creatinine 0.80 (0.66-1.25) mg/dL Glucose 95 (74-99) mg/dL Calcium 8.9 (8.4-10.2) mg/dL TSH 2.920 (0.465-4.680) mIU/L Adrenal panel 09/23/21 Range/Units 05:07 Sodium 136 L (137-145) mmol/L Potassium 3.9 (3.5-5.1) mmol/L Chloride 103 (98-107) mmol/L Carbon Dioxide 21 L (22-30) mmol/L BUN 10 (9-20) mg/dL Creatinine 0.80 (0.66-1.25) mg/dL Glucose 95 (74-99) mg/dL Calcium 8.9 (8.4-10.2) mg/dL Assessment and Plan Assessment: right lower extremity ischemia Status post partial revascularization Atrial fibrillation with RVR Elevated creatine kinase, improving Plan: At this point the patient does not complain of any worsened pain. He continues to stated a similar to what it was a few weeks ago. He is still motor sensory intact. Questionable regarding the timing of our involvement in the case if his pain and discoloration is due to the ischemic time versus the partial revascularization pain. We will need to keep a close eye and monitor him for possible compartment syndrome versus worsening of his foot ischemia. Per the family does sound his coloration is improving. We still discussed the po ssibility of need for surgical intervention in the form of a possible femoral to below-knee popliteal bypass, a possibility of a fasciotomy as well as a possibility of needing some degree of amputation given his limb ischemia. He seemingly understand all of these possiblities. We will heparinize him at this point we will evaluate his veins shell the need arise for a below-knee bypass and again closely monitor him for signs of worsening. He is to move his ankle as much as possible and utilize a sheet to help move through the range of motion.
[2021-09-23 19:20] LABS: Basophils % (A) 0 %; Eosinophils # (A) 0.1 k/uL (0-0.7); Eosinophils % (A) 1 %; HCT 38.1 % (39.0-53.0); HGB 12.6 gm/dL (13.0-17.5); Lymphocytes # (A) 0.8 k/uL (1.0-4.8); Lymphocytes % (A) 9 %; MCH 32.9 pg (25.0-35.0); MCHC 33.1 g/dL (31.0-37.0); MCV 99.2 fL (80.0-100.0); Mean Platelet Volume 8.9; Monocytes # (A) 0.6 k/uL (0-1.0); Monocytes % (A) 6 %; Neutrophils # (A) 7.3 k/uL (1.3-7.7); Neutrophils % (A) 81 %; Platelet Count 177 k/uL (150-450); RBC 3.84 m/uL (4.30-5.90); RDW 13.2 % (11.5-15.5)
[2021-09-23 19:37] LABS: INR 1.1 (<1.2); Partial Thromboplastin Time 29.3 sec (22.0-30.0); Prothrombin Time 11.5 sec (9.0-12.0)
[2021-09-23] MEDS: CLOPIDOGREL 75 MG TAB PO SCH (20:00)
[2021-09-23] MEDS: ATORVASTATIN 10 MG TAB PO SCH (20:00)
[2021-09-24] MEDS: SODIUM CHLORIDE 0.9% 1,000 ML in EMPTY BAG 1 BAG IV SCH ×2 (01:20→14:25)
[2021-09-24] MEDS: HYDROcodone/APAP 5-325MG 1 EACH TAB PO PRN ×4 (02:16→23:11)
[2021-09-24 05:29] LABS: Basophils % (A) 0 %; Eosinophils # (A) 0.1 k/uL (0-0.7); Eosinophils % (A) 1 %; HCT 34.9 % (39.0-53.0); HGB 11.9 gm/dL (13.0-17.5); Lymphocytes # (A) 0.9 k/uL (1.0-4.8); Lymphocytes % (A) 10 %; MCHC 34.1 g/dL (31.0-37.0); MCV 96.8 fL (80.0-100.0); Mean Platelet Volume 8.6; Monocytes # (A) 0.6 k/uL (0-1.0); Monocytes % (A) 6 %; Neutrophils # (A) 7.4 k/uL (1.3-7.7); Neutrophils % (A) 80 %; Platelet Count 214 k/uL (150-450); RBC 3.61 m/uL (4.30-5.90); RDW 13.9 % (11.5-15.5); WBC 9.2 k/uL (3.8-10.6)
[2021-09-24 05:37] LABS: African American GFR (CKD) >90 (>60 ml/min/1.73 sqM); Non-African American GFR(CKD) >90 (>60 ml/min/1.73 sqM)
[2021-09-24] MEDS: DILTIAZEM 125 MG in SODIUM CHLORIDE 0.9% 100 ML IV SCH ×2 (05:47→17:05)
[2021-09-24] MEDS: HEPARIN SODIUM 1,000 UN/ML (10ML VL) IV PRN ×2 (05:47→14:19)
[2021-09-24] MEDS: MORPHINE SULFATE 4 MG/ML SYRINGE IV PRN (06:59)
--- NOTE | 2021-09-24 08:13 | P.PN ---
Subjective Progress Note Date: 09/24/21 This is a pleasant 65-year-old gentleman with a known history of hypertension, hyperlipidemia, coronary artery disease with previous stent placement, carotid artery disease with previous right stent placement, peripheral vascular disease with multiple stents in the left lower extremity SFA. He is a former smoker. He presented here to the emergency room on 09/19/2021 with right lower extremity pain. He apparently has been noncompliant with his anticoagulants in the form of Eliquis. He was found to have absent pulses from the knee on down. He was sent over from Dr. Caballero's office for CT angiogram and heparin infusion. CT angiogram revealed thrombosis of the left iliac artery stent. There is patency of the right iliac artery stent. There is thrombosis of the right and left femoral artery stents. Collateral circulation from the profunda femoris artery reconstituting the tibial arteries bilaterally. There is diminished arterial flow in the right lower extremity compared to the left. On 09/21/2021 he had undergone successful placement of infusion catheter in the right SFA and right iliac artery. Ultrasound-guided access of the left common femoral artery. He is receiving TPA infusion in the right SFA. He continued to have a large thrombus on angiogram yesterday. He also developed atrial fibrillation with rapid ventricular response and initiated on a Cardizem drip currently at any milligrams per hour. He is seen today in consultation in the ICU. He is currently resting flat in bed. Awake and alert in no acute distress. No worsening shortness of breath, cough or congestion. Maintaining O2 saturations in the 90s on 2 L/m per nasal cannula. He is afebrile. Hemodynamically stable. TPA is infusing at 1 mg per hour. Heparin drip remains. Rate is better controlled currently in the 80s. Plan is to return to the [facility] today for further evaluation and possible intervention. White count 10.6. Hemoglobin 12.9. Sodium 136. Potassium 3.9. Bicarb 21. Creatinine 0.80. CK level 2942. 05/24/2021, the patient is being seen for a follow-up. As mentioned earlier, the patient has diffuse atherosclerosis with severe peripheral vascular disease and an ischemic limb involving the right lower extremity. The patient was receiving local intra-arterial thrombolytic therapy. The patient had a subsequent angiogram yesterday by Dr. Hewitt and the findings were essentially unchanged. Based on that, a vascular surgery consultation was obtained. The patient was seen by Dr. Brown. The patient will be considered for fem-pop bypass at the later stage with a possible fissurectomy and subsequent amputation of some of the ischemic toes. Nevertheless, the timing of the procedure has not been set yet. The patient is still being treated medically. The patient is still on IV heparin. He continues to have pain in his so and the toes are essentially ischemic mottled and cyanotic at this point in time. In terms of his pedal pulses, the patient does not have any pulses are than some posterior tibialis that can be obtained by Doppler signal on the right. His CPK level was elevated. White cell count is at 9.2. Hemoglobin is 11.5. In terms of his cardiac status, the patient cardiac rhythm is sinus. He seems to have converted from atrial fibrillation. He was on a Cardizem drip at 20 mg an hour. His blood work from today showing a white cell count 9.2 with a hemoglobin of 11.9. Platelet counts are stable at 214. PTT is subtherapeutic and needs to be adjusted. Renal function is stable for now. Objective - Vital Signs Vital signs: Vital Signs Temp 98.2 F 09/24/21 04:00 Pulse 92 09/24/21 07:00 Resp 14 09/24/21 07:00 BP 147/81 09/24/21 07:00 Pulse Ox 98 09/24/21 07:00 Intake & Output 09/23/21 09/24/21 09/24/21 18:59 06:59 18:59 Intake Total 9967.173 7307.200 75 Output Total 200 325 375 Balance 1020.083 945.200 -300 Weight 87.6 kg Intake: IV 853 900 75 0.9 NS @ 75ml/hr 603 900 75 Intake, IV Titration 267.083 320.200 Amount Diltiazem 125 mg In 125 235.333 Sodium Chloride 0.9% 100 ml @ Per Protocol IV .Q0M [facility] Rx#:[id number] Heparin Sod,Pork in 0.45% 84.867 NaCl 25,000 unit In 0.45 % NaCl 1 250ml.bag @ 11. 33 UNITS/KG/HR 10.004 mls /hr IV .Q24H [facility] Rx#: [id number] Heparin Sod,Pork in 0.45% 142.083 NaCl 25,000 unit In 0.45 % NaCl 1 250ml.bag @ 5 mls/hr IV .Q24H [facility] Rx#: [id number] Oral 100 50 Output: Urine 200 325 375 Other: Voiding Method Urinal Urinal # Voids 1 1 - Exam GENERAL EXAM: Alert, doesn't 65-year-old gentleman, on 2 L nasal cannula, comfortable in no apparent distress. HEAD: Normocephalic. EYES: Normal reaction of pupils, equal size. NOSE: Clear with pink turbinates. THROAT: No erythema or exudates. NECK: No masses, no JVD. CHEST: No chest wall deformity. LUNGS: Equal air entry with no crackles, wheeze, rhonchi or dullness. Diminished. CVS: S1 and S2 normal with no audible murmur, regular rhythm. ABDOMEN: No hepatosplenomegaly, normal bowel sounds, no guarding or rigidity. SPINE: No scoliosis or deformity SKIN: No rashes CENTRAL NERVOUS SYSTEM: No focal deficits, tone is normal in all 4 extremities. EXTREMITIES: Left common femoral catheter in place across to the right lower extremity. Right lower extremity with Doppler posttibial pulses. No pedal pulses. Cool dusky foot. Left pedal pulse palpable. There is trace peripheral edema. No clubbing, no cyanosis. - Labs CBC & Chem 7: 09/24/21 04:27 09/24/21 04:27 Labs: Abnormal Lab Results - Last 24 Hours (Table) 09/23/21 09/23/21 09/24/21 Range/Units 16:02 19:08 04:27 RBC 3.84 L (4.30-5.90) m/uL Hgb 12.6 L (13.0-17.5) gm/dL Hct 38.1 L (39.0-53.0) % Lymphocytes # 0.8 L (1.0-4.8) k/uL APTT (22.0-30.0) sec Creatinine 0.63 L (0.66-1.25) mg/dL POC Glucose (mg/dL) 102 H (75-99) mg/dL 09/24/21 09/24/21 Range/Units 04:27 04:27 RBC 3.61 L (4.30-5.90) m/uL Hgb 11.9 L (13.0-17.5) gm/dL Hct 34.9 L (39.0-53.0) % Lymphocytes # 0.9 L (1.0-4.8) k/uL APTT 32.3 H (22.0-30.0) sec Creatinine (0.66-1.25) mg/dL POC Glucose (mg/dL) (75-99) mg/dL Microbiology - Last 24 Hours (Table) 09/22/21 19:51 Blood Culture - Preliminary Blood No Growth after 24 hours Assessment and Plan Plan: 1 Acute ischemic right lower extremity as well as thrombus in the left iliac stent in a patient with known history of significant peripheral vascular disease and noncompliant with home Eliquis. 2 Status post right lower extremity angiogram x 2 with placement of infusion catheter in the right SFA currently has TPA running. On 09/22/2021 there was still a large thrombus noted. The patient was taken to the [facility] again in the subsequent angiogram showed suboptimal slow improvement in the right lower extremity. Clinically the condition the patient continues to have ischemia to his right foot with ongoing pain, cyanosis and development of toe necrosis. As such, ultimately, the patient will need a vascular bypass surgery, possibly a fem-pop bypass with amputation of the ischemic digits. Currently, the patient is under care of cardiology and vascular surgery and the patient remains on IV heparin. 3 Previous history of peripheral vascular occlusive disease in the right with 2 stent placements, stents 3 to a left SFA in August 2020 4 New onset atrial fibrillation, currently on a heparin drip, Cardizem drip, Cardizem drip is still running at 20 mg an hour and the patient converted into normal sinus rhythm. 5 Carotid artery disease with previous right carotid stent placement in April 2020 6 History of coronary artery disease with previous stent placement 7 Hypertension 8 Hyperlipidemia 9 History of skin cancer 10 History of smoking 11 History of medication noncompliance Plan: Continue with heparin drip Continue Cardizem drip for rate control and start the patient on metoprolol 25 mg by mouth 2 times a day and gradually wean off the Cardizem drip. The patient is currently on a sinus rhythm for now. Continue IV heparin. Monitor CPK Monitor the progression of the ischemic right foot, clinically, in my opinion, the patient's foot is less ischemic compared to yesterday and is more warm on today's examination. The toes are less pale and ischemic seemed to be better confused compared to yesterday. Pulses are still absent except for a significant in the dorsalis pedis We will continue to follow and make further recommendations based on his clinical status
[2021-09-24] MEDS: CLOPIDOGREL 75 MG TAB PO SCH (08:39)
[2021-09-24] MEDS: PANTOPRAZOLE 40 MG/10 ML VIAL IV SCH (08:39)
[2021-09-24] MEDS: lisinopriL 10 MG TAB PO SCH (08:39)
[2021-09-24] MEDS: amLODIPine 5 MG TAB PO SCH (08:39)
[2021-09-24] MEDS: METOPROLOL TARTRATE 25 MG TAB PO SCH ×2 (08:39→20:04)
[2021-09-24 10:05] LABS: INR 1.1 (<1.2); Prothrombin Time 11.6 sec (9.0-12.0)
--- NOTE | 2021-09-24 13:21 | P.PN ---
Subjective Progress Note Date: 09/24/21 Principal diagnosis: right lower extremity arterial occlusion Patient seen and examined. Complaining of pain at the right calf and foot. Per nursing patients foot and toes color is improving and motor has improved since the procedure. He denies any fevers, chills, chest pain or shortness of breath. Objective - Vital Signs Vital signs: Vital Signs Temp 99.1 F 09/24/21 12:00 Pulse 93 09/24/21 12:00 Resp 16 09/24/21 12:00 BP 148/75 09/24/21 12:00 Pulse Ox 96 09/24/21 12:00 Intake & Output 09/23/21 09/24/21 09/24/21 18:59 06:59 18:59 Intake Total 5540.683 9958.200 559.667 Output Total 200 325 375 Balance 1020.083 945.200 184.667 Weight 87.6 kg Intake: IV 853 900 510 0.9 NS @ 75ml/hr 603 900 450 Diltiazem 125 mg In 60 Sodium Chloride 0.9% 100 ml @ Per Protocol IV .Q0M [facility] Rx#:[id number] Intake, IV Titration 267.083 320.200 49.667 Amount Diltiazem 125 mg In 125 235.333 49.667 Sodium Chloride 0.9% 100 ml @ Per Protocol IV .Q0M [facility] Rx#:[id number] Heparin Sod,Pork in 0.45% 84.867 NaCl 25,000 unit In 0.45 % NaCl 1 250ml.bag @ 11. 33 UNITS/KG/HR 10.004 mls /hr IV .Q24H [facility] Rx#: [id number] Heparin Sod,Pork in 0.45% 142.083 NaCl 25,000 unit In 0.45 % NaCl 1 250ml.bag @ 5 mls/hr IV .Q24H [facility] Rx#: [id number] Oral 100 50 Output: Urine 200 325 375 Other: Voiding Method Urinal Urinal Urinal # Voids 1 1 - Exam Gen. is a pleasant and cooperative male in no acute distress. HEENT is normocephalic, atraumatic, extraocular motion intact. Heart is irregularly irregular. Lungs are clear although diminished bilaterally. Abdomen is soft, nontender nondistended. Right lower extremity with slowed capillary refill. Biphasic PT signal. Tenderness to palpation at the right calft but soft. 3-5th toes are purple colored with slow refill. Minimal tenderness. Left lower extremity is warm and dry and multiphasic PT signal noted. - Labs CBC & Chem 7: 09/24/21 04:27 09/24/21 04:27 Labs: Abnormal Lab Results - Last 24 Hours (Table) 09/23/21 09/23/21 09/24/21 Range/Units 16:02 19:08 04:27 RBC 3.84 L (4.30-5.90) m/uL Hgb 12.6 L (13.0-17.5) gm/dL Hct 38.1 L (39.0-53.0) % Lymphocytes # 0.8 L (1.0-4.8) k/uL APTT (22.0-30.0) sec Creatinine 0.63 L (0.66-1.25) mg/dL POC Glucose (mg/dL) 102 H (75-99) mg/dL Creatine Kinase (55-170) U/L 09/24/21 09/24/21 09/24/21 Range/Units 04:27 04:27 04:27 RBC 3.61 L (4.30-5.90) m/uL Hgb 11.9 L (13.0-17.5) gm/dL Hct 34.9 L (39.0-53.0) % Lymphocytes # 0.9 L (1.0-4.8) k/uL APTT 32.3 H (22.0-30.0) sec Creatinine (0.66-1.25) mg/dL POC Glucose (mg/dL) (75-99) mg/dL Creatine Kinase 1406 H* (55-170) U/L Microbiology - Last 24 Hours (Table) 09/22/21 19:51 Blood Culture - Preliminary Blood No Growth after 24 hours Assessment and Plan Assessment: 1. acute right lower extremity ischemia 2. status post right Iliac artery revascularization and attempted SFA instent thrombolysis 3. Atrial fibrillation with RVR Plan: continue current management with anti-coagulation. Agree that patient may need femoral to below-knee bypass but as of now his foot is improving and we will continue to monitor.
[2021-09-24] MEDS: HEPARIN SOD,PORK IN 0.45% NACL 25,000 UNIT in 0.45% NACL 1 250ML.BAG IV SCH (17:06)
[2021-09-24] MEDS: ATORVASTATIN 10 MG TAB PO SCH (20:04)
[2021-09-25] MEDS: SODIUM CHLORIDE 0.9% 1,000 ML in EMPTY BAG 1 BAG IV SCH ×2 (03:05→16:46)
[2021-09-25] MEDS: HYDROcodone/APAP 5-325MG 1 EACH TAB PO PRN ×3 (05:34→21:57)
--- NOTE | 2021-09-25 07:28 | P.PN ---
Subjective Progress Note Date: 09/25/21 This is a pleasant 65-year-old gentleman with a known history of hypertension, hyperlipidemia, coronary artery disease with previous stent placement, carotid artery disease with previous right stent placement, peripheral vascular disease with multiple stents in the left lower extremity SFA. He is a former smoker. He presented here to the emergency room on 09/19/2021 with right lower extremity pain. He apparently has been noncompliant with his anticoagulants in the form of Eliquis. He was found to have absent pulses from the knee on down. He was sent over from Dr. Caballero's office for CT angiogram and heparin infusion. CT angiogram revealed thrombosis of the left iliac artery stent. There is patency of the right iliac artery stent. There is thrombosis of the right and left femoral artery stents. Collateral circulation from the profunda femoris artery reconstituting the tibial arteries bilaterally. There is diminished arterial flow in the right lower extremity compared to the left. On 09/21/2021 he had undergone successful placement of infusion catheter in the right SFA and right iliac artery. Ultrasound-guided access of the left common femoral artery. He is receiving TPA infusion in the right SFA. He continued to have a large thrombus on angiogram yesterday. He also developed atrial fibrillation with rapid ventricular response and initiated on a Cardizem drip currently at any milligrams per hour. He is seen today in consultation in the ICU. He is currently resting flat in bed. Awake and alert in no acute distress. No worsening shortness of breath, cough or congestion. Maintaining O2 saturations in the 90s on 2 L/m per nasal cannula. He is afebrile. Hemodynamically stable. TPA is infusing at 1 mg per hour. Heparin drip remains. Rate is better controlled currently in the 80s. Plan is to return to the [facility] today for further evaluation and possible intervention. White count 10.6. Hemoglobin 12.9. Sodium 136. Potassium 3.9. Bicarb 21. Creatinine 0.80. CK level 2942. 05/24/2021, the patient is being seen for a follow-up. As mentioned earlier, the patient has diffuse atherosclerosis with severe peripheral vascular disease and an ischemic limb involving the right lower extremity. The patient was receiving local intra-arterial thrombolytic therapy. The patient had a subsequent angiogram yesterday by Dr. Hewitt and the findings were essentially unchanged. Based on that, a vascular surgery consultation was obtained. The patient was seen by Dr. Brown. The patient will be considered for fem-pop bypass at the later stage with a possible fissurectomy and subsequent amputation of some of the ischemic toes. Nevertheless, the timing of the procedure has not been set yet. The patient is still being treated medically. The patient is still on IV heparin. He continues to have pain in his so and the toes are essentially ischemic mottled and cyanotic at this point in time. In terms of his pedal pulses, the patient does not have any pulses are than some posterior tibialis that can be obtained by Doppler signal on the right. His CPK level was elevated. White cell count is at 9.2. Hemoglobin is 11.5. In terms of his cardiac status, the patient cardiac rhythm is sinus. He seems to have converted from atrial fibrillation. He was on a Cardizem drip at 20 mg an hour. His blood work from today showing a white cell count 9.2 with a hemoglobin of 11.9. Platelet counts are stable at 214. PTT is subtherapeutic and needs to be adjusted. Renal function is stable for now. 09/25/2021, the patient is still having pain in his right foot. Examination of the right foot and the right lower extremity essentially the same. The foot remains stable. There is some cyanosis involving the fourth and the fifth toe on the right. There is Doppler significant and the posterior tibialis of the right foot. Otherwise, no other significant interval change. No skin breakdown. Vascular surgery is on the case and there are some plans to consider a vascular bypass surgery probably from and distal bypass to the right lower extremity. He may ultimately need probably some amputation of The toes depending on the extent of necrosis. His CPK levels today have not resulted yet. His CPK levels were improving. He is afebrile. His current blood pressure is elevated and the patient is currently on Cardizem drip at 5 mg an hour and he remains in atrial fibrillation/flutter. He is also on IV heparin and PTT is therapeutic for now. No signs of any bleeding. No signs of any hematoma in his left groin area. Vascular surgeries on the case. Cardiology on the case. Overall respiratory status is stable. Is currently on oxygen at 2 L per minute nasal cannula. No chest pain. No angina. He has severe atherosclerosis including carotid artery disease, coronary artery disease and severe peripheral vascular disease. Objective - Vital Signs Vital signs: Vital Signs Temp 98.2 F 09/25/21 04:00 Pulse 97 09/25/21 07:00 Resp 11 L 09/25/21 07:00 BP 157/79 09/25/21 07:00 Pulse Ox 93 L 09/25/21 07:00 Intake & Output 09/24/21 09/25/21 09/25/21 18:59 06:59 18:59 Intake Total 5261.154 7000.833 75 Output Total 875 725 0 Balance 409.175 474.833 75 Weight 87.9 kg Intake: IV 1010 900 75 0.9 NS @ 75ml/hr 900 900 75 Diltiazem 125 mg In 110 Sodium Chloride 0.9% 100 ml @ Per Protocol IV .Q0M [facility] Rx#:[id number] Intake, IV Titration 274.175 49.833 Amount Diltiazem 125 mg In 125.000 49.833 Sodium Chloride 0.9% 100 ml @ Per Protocol IV .Q0M [facility] Rx#:[id number] Heparin Sod,Pork in 0.45% 149.175 NaCl 25,000 unit In 0.45 % NaCl 1 250ml.bag @ 11. 33 UNITS/KG/HR 10.004 mls /hr IV .Q24H [facility] Rx#: [id number] Oral 250 Output: Urine 875 725 0 Other: Voiding Method Urinal Urinal - Exam GENERAL EXAM: Alert, doesn't 65-year-old gentleman, on 2 L nasal cannula, comfortable in no apparent distress. HEAD: Normocephalic. EYES: Normal reaction of pupils, equal size. NOSE: Clear with pink turbinates. THROAT: No erythema or exudates. NECK: No masses, no JVD. CHEST: No chest wall deformity. LUNGS: Equal air entry with no crackles, wheeze, rhonchi or dullness. Diminished. CVS: S1 and S2 normal with no audible murmur, regular rhythm. ABDOMEN: No hepatosplenomegaly, normal bowel sounds, no guarding or rigidity. SPINE: No scoliosis or deformity SKIN: No rashes CENTRAL NERVOUS SYSTEM: No focal deficits, tone is normal in all 4 extremities. EXTREMITIES: Left common femoral catheter in place across to the right lower extremity. Right lower extremity with Doppler posttibial pulses. No pedal pulses. Cool dusky foot. Left pedal pulse palpable. There is trace peripheral edema. No clubbing, no cyanosis. - Labs CBC & Chem 7: 09/24/21 04:27 09/24/21 04:27 Labs: Abnormal Lab Results - Last 24 Hours (Table) 09/24/21 09/24/21 09/24/21 Range/Units 04:27 13:30 20:50 APTT 34.9 H 45.4 H (22.0-30.0) sec Creatine Kinase 1406 H* (55-170) U/L 09/25/21 Range/Units 04:48 APTT 48.6 H (22.0-30.0) sec Creatine Kinase (55-170) U/L Microbiology - Last 24 Hours (Table) 09/22/21 19:51 Blood Culture - Preliminary Blood No Growth after 48 hours Assessment and Plan Plan: 1 Status post right lower extremity angiogram x 2 with placement of infusion catheter in the right SFA currently has TPA running. On 09/22/2021 there was still a large thrombus noted. The patient was taken to the [facility] again in the subsequent angiogram showed suboptimal slow improvement in the right lower extremity. Clinically the condition the patient continues to have ischemia to his right foot with ongoing pain, cyanosis and development of toe necrosis. As such, ultimately, the patient will need a vascular bypass surgery, possibly a fem-pop bypass with amputation of the ischemic digits. Currently, the patient is under care of cardiology and vascular surgery and the patient remains on IV heparin. For now, his condition is stable. Pulses are unchanged lower extre mity. Vascular surgery is on the case. The patient remains on IV heparin. He continues to have pain in the right lower extremity. At a level needs to be rechecked. 2 Acute ischemic right lower extremity as well as thrombus in the left iliac stent in a patient with known history of significant peripheral vascular disease 3 Previous history of peripheral vascular occlusive disease in the right with 2 stent placements, stents 3 to a left SFA in August 2020 4 New onset atrial fibrillation/flutter and the rate is controlled, currently on a heparin drip, Cardizem drip, Cardizem drip is still running at 5 mg an hour and the patient converted into normal sinus rhythm. 5 Carotid artery disease with previous right carotid stent placement in April 2020 6 History of coronary artery disease with previous stent placement 7 Hypertension 8 Hyperlipidemia 9 History of skin cancer 10 History of smoking 11 History of medication noncompliance Plan: Continue with heparin drip Increase Norvasc up to 10 mg by mouth daily Continue lisinopril 10 mg by mouth daily Increase metoprolol to 50 mg by mouth twice a day and discontinue the Cardizem drip Continue IV heparin. Monitor CPK Monitor the progression of the ischemic right foot, clinically, in my opinion, the patient's foot is less ischemic compared to yesterday and is more warm on today's examination. The toes are less pale and ischemic seemed to be better confused compared to yesterday. Pulses are still absent except for a significant in the dorsalis pedis We will continue to follow and make further recommendations based on his clinical status
[2021-09-25] MEDS: CLOPIDOGREL 75 MG TAB PO SCH (07:54)
[2021-09-25] MEDS: lisinopriL 10 MG TAB PO SCH (07:54)
[2021-09-25] MEDS: PANTOPRAZOLE 40 MG/10 ML VIAL IV SCH (07:54)
[2021-09-25] MEDS: METOPROLOL TARTRATE 50 MG TAB PO SCH ×2 (07:56→20:16)
[2021-09-25] MEDS ORDERED: amLODIPine 10 MG TAB PO SCH (09:00)
[2021-09-25] MEDS ORDERED: amLODIPine 5 MG TAB PO SCH (09:00)
[2021-09-25] MEDS: APIXABAN 5 MG TAB PO SCH (12:27)
--- NOTE | 2021-09-25 12:57 | PN ---
PROGRESS NOTE Mr. Terry has a known case of hypertension, hyperlipidemia, coronary artery disease, carotid disease with previous stent placement, peripheral vascular disease with multiple stents in the left lower extremity SFA. The patient presented with right lower extremity pain. Patient has been noncompliant with anticoagulation therapy. Patient had a CT angiogram that showed thrombus of the left iliac artery stent, thrombosis of the right and left femoral artery stents. Patient had tPA infusion for the right SFA. He had a repeat angiogram and apparently patient still has significant clot. He was continued on heparin. Today patient's leg seems to be slightly better. There seems to be some evidence of pulse in the posterior tibials. Patient is still having some discomfort. He was seen by vascular surgeon and they are planning to do possible bypass surgery. Meanwhile, we will continue with the anticoagulation therapy. Will continue heparin until tomorrow and switch to Eliquis. Subsequently patient will be discharged home to have the procedure done as an outpatient. Physical examination reveals a gentleman who was alert and does not appear to be in acute distress. Blood pressure is running in the range of 148/75, pulse is about 93. Respirations are 16. Neck is supple. No JVD. Heart: S1 and S2 heard; regular heart sounds. Abdomen is soft. Extremities: No cyanosis, clubbing or edema. His CPK was high initially, but it is coming down from almost 3000 to 1500 range. His hemoglobin is 11.9. His renal function from yesterday showed a creatinine of 0.8, and today his creatinine is 0.63. PLAN: Continue with the heparin and switch to p.o. anticoagulants tomorrow. Follow the advice of Vascular Surgery. Continue the rest of the medications. I may also increase the dose of the amlodipine to 10 mg for better control of blood pressure. MMODL / IJN: [id number] / NADJA
[2021-09-25] MEDS: DILTIAZEM ORAL 60 MG TAB PO SCH ×3 (13:21→21:57)
--- NOTE | 2021-09-25 14:32 | P.PN ---
Subjective Progress Note Date: 09/25/21 this patient was brought for treatment of ischemic right leg. Patient had an angiogram by Dr. Hewitt and was noted to have thrombosis of the previously stented in the right SFA. Patient has been on thrombotic and also anticoagulant agents. Angiographically there doesn't seem to be significant improvement. Clinically patient did develop some pulse in the dorsalis pedis area. Patient is currently on heparin. He still complaining of discomfort in the leg. We are going to switch from IV heparin to by mouth anticoagulants. Patient is also being followed by vascular surgeon. They're planning for outpatient revascularization procedure. Patient is in atrial fibrillation. His heart rate has gone up since discontinuing IV Cardizem. I'm going to restart by mouth Cardizem at 60 mg by mouth 3 times a day. The dose of the metoprolol is already increased. Further recommendations depend upon the clinical course Objective - Vital Signs Vital signs: Vital Signs Temp 98.0 F 09/25/21 08:00 Pulse 101 H 09/25/21 13:00 Resp 16 09/25/21 13:00 BP 120/77 09/25/21 13:00 Pulse Ox 91 L 09/25/21 13:00 Intake & Output 09/24/21 09/25/21 09/25/21 18:59 06:59 18:59 Intake Total 2132.549 6481.833 825 Output Total 875 725 475 Balance 409.175 474.833 350 Weight 87.9 kg Intake: IV 1010 900 525 0.9 NS @ 75ml/hr 900 900 525 Diltiazem 125 mg In 110 Sodium Chloride 0.9% 100 ml @ Per Protocol IV .Q0M [facility] Rx#:[id number] Intake, IV Titration 274.175 49.833 Amount Diltiazem 125 mg In 125.000 49.833 Sodium Chloride 0.9% 100 ml @ Per Protocol IV .Q0M [facility] Rx#:[id number] Heparin Sod,Pork in 0.45% 149.175 NaCl 25,000 unit In 0.45 % NaCl 1 250ml.bag @ 11. 33 UNITS/KG/HR 10.004 mls /hr IV .Q24H [facility] Rx#: [id number] Oral 250 300 Output: Urine 875 725 475 Other: Voiding Method Urinal Urinal Urinal # Voids 1 - Exam GENERAL EXAM: Patient is alert and oriented and appears to be in mild pain HEENT: Normocephalic. Normal reaction of pupils, equal size, normal range of extraocular motion. No erythema or exudates in the throat. NECK: No masses, no nuchal rigidity. CHEST: No chest wall deformity. LUNGS: diminished breath sounds HEART: [rapid irregular heart sounds ABDOMEN: No hepatosplenomegaly, normal bowel sounds, no guarding or rigidity. SKIN: No rashes CENTRAL NERVOUS SYSTEM: No focal deficits. EXTREMITIES: [ischemic right leg and foot - Labs CBC & Chem 7: 09/24/21 04:27 09/24/21 04:27 Labs: Abnormal Lab Results - Last 24 Hours (Table) 09/24/21 09/25/21 Range/Units 20:50 04:48 APTT 45.4 H 48.6 H (22.0-30.0) sec Microbiology - Last 24 Hours (Table) 09/22/21 19:51 Blood Culture - Preliminary Blood No Growth after 48 hours Assessment and Plan (1) Atrial fibrillation with RVR Current Visit: Yes Status: Acute Code(s): I48.91 - UNSPECIFIED ATRIAL FIBRILLATION SNOMED Code(s): 329593040018194 (2) Arterial occlusion Current Visit: Yes Status: Acute Code(s): I70.90 - UNSPECIFIED ATHEROSCLEROSIS SNOMED Code(s): 0570628 (3) Carotid stenosis Current Visit: No Status: Acute Code(s): I65.29 - OCCLUSION AND STENOSIS OF UNSPECIFIED CAROTID ARTERY SNOMED Code(s): 81956220 Plan: switch from IV heparin to Eliquis 5 mg twice daily. Start on by mouth Cardizem. Increase the dose of the metoprolol. Further recommendations will depend upon the clinical course
[2021-09-25] MEDS: HEPARIN SOD,PORK IN 0.45% NACL 25,000 UNIT in 0.45% NACL 1 250ML.BAG IV SCH (14:44)
[2021-09-25] MEDS: ATORVASTATIN 10 MG TAB PO SCH (20:16)
--- NOTE | 2021-09-25 20:36 | P.PN ---
Subjective Progress Note Date: 09/24/21 Principal diagnosis: Ischemic limb- RLE /significant PVD Status post infusion catheter placement for intra-arterial thrombolytics New-onset atrial fibrillation/RVR 65-year-old gentleman with a known history of hypertension, hyperlipidemia, coronary artery disease with previous stent placement, carotid artery disease with previous right stent placement, peripheral vascular disease with multiple stents in the left lower extremity SFA; presented here to the emergency room on 09/19/2021 with right lower extremity pain; has been noncompliant with his a nticoagulants in the form of Eliquis. He was found to have absent pulses from the knee on down. He was sent over from Dr. Caballero's office for CT angiogram and heparin infusion. CT angiogram revealed thrombosis of the left iliac artery stent; thrombosis of the right and left femoral artery stents. Collateral circulation from the profunda femoris artery reconstituting the tibial arteries bilaterally. There is diminished arterial flow in the right lower extremity compared to the left. On 09/21/2021 he had undergone successful placement of infusion catheter in the right SFA and right iliac artery. Ultrasound-guided access of the left common femoral artery. He is receiving TPA infusion in the right SFA. He continued to have a large thrombus on angiogram yesterday. He also Patient developed atrial fibrillation with rapid ventricular response and initiated on a Cardizem drip currently at any milligrams per hour. Plan is to return to the [facility] today for further evaluation and possible intervention. 09/24/2021 patient is seen and evaluated in follow-up. - patient has severe peripheral vascular disease and an ischemic limb involving the right lower extremity; eceiving local intra-arterial thrombolytic therapy. Repeat angiogram remained essentially unchanged. Vascular surgery consultation was obtained. The patient will be considered for fem-pop bypass at the later stage with a possible fissurectomy and subsequent amputation of some of the ischemic toes once clinically stable; patient remains on IV heparin at this time. His CPK level was elevated. White cell count is at 9.2. Hemoglobin is 11.5. In terms of his cardiac status, the patient cardiac rhythm is sinus. He seems to have converted from atrial fibrillation. He was on a Cardizem drip at 20 mg an hour. His blood work from today showing a white cell count 9.2 with a hem oglobin of 11.9. Platelet counts are stable at 214. PTT is subtherapeutic and needs to be adjusted. Renal function is stable for now. We will continue with IV heparin infusion for ischemic limb; remains on IV Cardizem infusion and oral metoprolol at 25 mg twice a day for atrial fibrillation Objective - Vital Signs Vital signs: Vital Signs Temp 99.1 F 09/24/21 12:00 Pulse 93 09/24/21 12:00 Resp 16 09/24/21 12:00 BP 148/75 09/24/21 12:00 Pulse Ox 96 09/24/21 12:00 Intake & Output 09/23/21 09/24/21 09/24/21 18:59 06:59 18:59 Intake Total 8529.276 2026.200 559.667 Output Total 200 325 375 Balance 1020.083 945.200 184.667 Weight 87.6 kg Intake: IV 853 900 510 0.9 NS @ 75ml/hr 603 900 450 Diltiazem 125 mg In 60 Sodium Chloride 0.9% 100 ml @ Per Protocol IV .Q0M [facility] Rx#:[id number] Intake, IV Titration 267.083 320.200 49.667 Amount Diltiazem 125 mg In 125 235.333 49.667 Sodium Chloride 0.9% 100 ml @ Per Protocol IV .Q0M [facility] Rx#:[id number] Heparin Sod,Pork in 0.45% 84.867 NaCl 25,000 unit In 0.45 % NaCl 1 250ml.bag @ 11. 33 UNITS/KG/HR 10.004 mls /hr IV .Q24H [facility] Rx#: [id number] Heparin Sod,Pork in 0.45% 142.083 NaCl 25,000 unit In 0.45 % NaCl 1 250ml.bag @ 5 mls/hr IV .Q24H [facility] Rx#: [id number] Oral 100 50 Output: Urine 200 325 375 Other: Voiding Method Urinal Urinal Urinal # Voids 1 1 - Exam PHYSICAL EXAMINATION: GENERAL: The patient is alert and oriented x3, not in any acute distress. Well developed, well nourished. HEENT: Pupils are round and equally reacting to light. EOMI. No scleral icterus. No conjunctival pallor. Normocephalic, atraumatic. No pharyngeal erythema. No thyromegaly. CARDIOVASCULAR: S1 and S2 present. No murmurs, rubs, or gallops. PULMONARY: Chest is clear to auscultation, no wheezing or crackles. ABDOMEN: Soft, nontender, nondistended, normoactive bowel sounds. No palpable organomegaly. MUSCULOSKELETAL: No joint swelling or deformity. EXTREMITIES: No cyanosis, clubbing, or pedal edema. NEUROLOGICAL: Gross neurological examination did not reveal any focal deficits. SKIN: No rashes. - Labs CBC & Chem 7: 09/24/21 04:27 09/24/21 04:27 Labs: Abnormal Lab Results - Last 24 Hours (Table) 09/23/21 09/23/21 09/24/21 Range/Units 16:02 19:08 04:27 RBC 3.84 L (4.30-5.90) m/uL Hgb 12.6 L (13.0-17.5) gm/dL Hct 38.1 L (39.0-53.0) % Lymphocytes # 0.8 L (1.0-4.8) k/uL APTT (22.0-30.0) sec Creatinine 0.63 L (0.66-1.25) mg/dL POC Glucose (mg/dL) 102 H (75-99) mg/dL Creatine Kinase (55-170) U/L 09/24/21 09/24/21 09/24/21 Range/Units 04:27 04:27 04:27 RBC 3.61 L (4.30-5.90) m/uL Hgb 11.9 L (13.0-17.5) gm/dL Hct 34.9 L (39.0-53.0) % Lymphocytes # 0.9 L (1.0-4.8) k/uL APTT 32.3 H (22.0-30.0) sec Creatinine (0.66-1.25) mg/dL POC Glucose (mg/dL) (75-99) mg/dL Creatine Kinase 1406 H* (55-170) U/L Microbiology - Last 24 Hours (Table) 09/22/21 19:51 Blood Culture - Preliminary Blood No Growth after 24 hours Assessment and Plan Assessment: 1. Ischemic Limb; significant PVD - Acute ischemia right lower extremity along with thrombosis of left iliac stent - patient is status post right lower extremity angiogram x 2 with placement of infusion catheter in the right SFA currently has TPA running. On 09/22/2021 there was still a large thrombus noted; patient is to return to the [facility] today for further evaluation progress - Previous history of peripheral vascular occlusive disease in the right with 2 stent placements, stents 3 to a left SFA in August 2020 2. New-onset atrial fibrillation; patient remains on Cardizem infusion along with IV heparin; remains adequately rate controlled 3. Hypertension; amlodipine 5 mg daily, lisinopril 10 mg daily, hydralazine 10 mg IV every 4 hours when necessary 4. Hyperlipidemia; Lipitor 10 mg by mouth daily at bedtime 5. CAD/previous stent placement; patient remains on Plavix 75 mg daily 6. History of carotid stenosis with previous right carotid stent placement DVT prophylaxis; SCDs/IV heparin CODE STATUS; full code
--- NOTE | 2021-09-25 20:38 | P.PN ---
Subjective Progress Note Date: 09/25/21 Principal diagnosis: Ischemic limb- RLE /significant PVD Status post infusion catheter placement for intra-arterial thrombolytics New-onset atrial fibrillation/RVR 65-year-old gentleman with a known history of hypertension, hyperlipidemia, coronary artery disease with previous stent placement, carotid artery disease with previous right stent placement, peripheral vascular disease with multiple stents in the left lower extremity SFA; presented here to the emergency room on 09/19/2021 with right lower extremity pain; has been noncompliant with his a nticoagulants in the form of Eliquis. He was found to have absent pulses from the knee on down. He was sent over from Dr. Caballero's office for CT angiogram and heparin infusion. CT angiogram revealed thrombosis of the left iliac artery stent; thrombosis of the right and left femoral artery stents. Collateral circulation from the profunda femoris artery reconstituting the tibial arteries bilaterally. There is diminished arterial flow in the right lower extremity compared to the left. On 09/21/2021 he had undergone successful placement of infusion catheter in the right SFA and right iliac artery. Ultrasound-guided access of the left common femoral artery. He is receiving TPA infusion in the right SFA. He continued to have a large thrombus on angiogram yesterday. He also Patient developed atrial fibrillation with rapid ventricular response and initiated on a Cardizem drip currently at any milligrams per hour. Plan is to return to the [facility] today for further evaluation and possible intervention. 09/24/2021 patient is seen and evaluated in follow-up. - patient has severe peripheral vascular disease and an ischemic limb involving the right lower extremity; eceiving local intra-arterial thrombolytic therapy. Repeat angiogram remained essentially unchanged. Vascular surgery consultation was obtained. The patient will be considered for fem-pop bypass at the later stage with a possible fissurectomy and subsequent amputation of some of the ischemic toes once clinically stable; patient remains on IV heparin at this time. His CPK level was elevated. White cell count is at 9.2. Hemoglobin is 11.5. In terms of his cardiac status, the patient cardiac rhythm is sinus. He seems to have converted from atrial fibrillation. He was on a Cardizem drip at 20 mg an hour. His blood work from today showing a white cell count 9.2 with a hem oglobin of 11.9. Platelet counts are stable at 214. PTT is subtherapeutic and needs to be adjusted. Renal function is stable for now. We will continue with IV heparin infusion for ischemic limb; remains on IV Cardizem infusion and oral metoprolol at 25 mg twice a day for atrial fibrillation 09/25/2021 patient is seen and evaluated in room at bedside; still having pain in his right foot. Vital signs review reveals elevated blood pressure; she does currently on IV Ca rdizem infusion at 5 mg an hour for atrial fibrillation; Cardizem could be titrated for improved blood pressure control Examination of the right foot and the right lower extremity essentially the same ; cyanosis involving the fourth and the fifth toe on the right. Vascular surgery is on the case and there are some plans to consider a vascular bypass surgery probably from and distal bypass to the right lower extremity. He may ultimately need probably some amputation of The toes depending on the extent of necrosis. His CPK levels were improving. He is afebrile. patient is currently on Cardizem drip at 5 mg an hour and he remains in atrial fibrillation/flutter. He is also on IV heparin and PTT is therapeutic for now. Objective - Vital Signs Vital signs: Vital Signs Temp 98.0 F 09/25/21 08:00 Pulse 97 09/25/21 09:00 Resp 18 09/25/21 09:00 BP 155/86 09/25/21 09:00 Pulse Ox 91 L 09/25/21 09:00 Intake & Output 09/24/21 09/25/21 09/25/21 18:59 06:59 18:59 Intake Total 5948.247 0679.833 325 Output Total 875 725 0 Balance 409.175 474.833 325 Weight 87.9 kg Intake: IV 1010 900 225 0.9 NS @ 75ml/hr 900 900 225 Diltiazem 125 mg In 110 Sodium Chloride 0.9% 100 ml @ Per Protocol IV .Q0M [facility] Rx#:[id number] Intake, IV Titration 274.175 49.833 Amount Diltiazem 125 mg In 125.000 49.833 Sodium Chloride 0.9% 100 ml @ Per Protocol IV .Q0M [facility] Rx#:[id number] Heparin Sod,Pork in 0.45% 149.175 NaCl 25,000 unit In 0.45 % NaCl 1 250ml.bag @ 11. 33 UNITS/KG/HR 10.004 mls /hr IV .Q24H [facility] Rx#: [id number] Oral 250 100 Output: Urine 875 725 0 Other: Voiding Method Urinal Urinal Urinal - Exam PHYSICAL EXAMINATION: GENERAL: The patient is alert and oriented x3, not in any acute distress. Well developed, well nourished. HEENT: Pupils are round and equally reacting to light. EOMI. No scleral icterus. No conjunctival pallor. Normocephalic, atraumatic. No pharyngeal erythema. No thyromegaly. CARDIOVASCULAR: S1 and S2 present. No murmurs, rubs, or gallops. PULMONARY: Chest is clear to auscultation, no wheezing or crackles. ABDOMEN: Soft, nontender, nondistended, normoactive bowel sounds. No palpable organomegaly. MUSCULOSKELETAL: No joint swelling or deformity. EXTREMITIES: No cyanosis, clubbing, or pedal edema. NEUROLOGICAL: Gross neurological examination did not reveal any focal deficits. SKIN: No rashes. - Labs CBC & Chem 7: 09/24/21 04:27 09/24/21 04:27 Labs: Abnormal Lab Results - Last 24 Hours (Table) 09/24/21 09/24/21 09/25/21 Range/Units 13:30 20:50 04:48 APTT 34.9 H 45.4 H 48.6 H (22.0-30.0) sec Microbiology - Last 24 Hours (Table) 09/22/21 19:51 Blood Culture - Preliminary Blood No Growth after 48 hours Assessment and Plan Assessment: 1. Ischemic Limb; significant PVD - Acute ischemia right lower extremity along with thrombosis of left iliac stent - patient is status post right lower extremity angiogram x 2 with placement of infusion catheter in the right SFA currently has TPA running. On 09/22/2021 there was still a large thrombus noted; patient is to return to the [facility] today for further evaluation progress - Previous history of peripheral vascular occlusive disease in the right with 2 stent placements, stents 3 to a left SFA in August 2020 2. New-onset atrial fibrillation; patient remains on Cardizem infusion along with IV heparin; remains adequately rate controlled 3. Hypertension; amlodipine 5 mg daily, lisinopril 10 mg daily, hydralazine 10 mg IV every 4 hours when necessary 4. Hyperlipidemia; Lipitor 10 mg by mouth daily at bedtime 5. CAD/previous stent placement; patient remains on Plavix 75 mg daily 6. History of carotid stenosis with previous right carotid stent placement DVT prophylaxis; SCDs/IV heparin CODE STATUS; full code
--- NOTE | 2021-09-26 04:24 | XR ---
EXAM: XR Chest, 1 View CLINICAL HISTORY: ITS.REASON XR Reason: sob low o2 TECHNIQUE: Frontal view of the chest. COMPARISON: 09/22/2021. FINDINGS: Lungs: There is consolidative change at the right lower lobe most suggestive of right lower lobe pneumonia. Pleural space: Unremarkable. No pneumothorax. Heart: Heart is top normal in size per Mediastinum: Unremarkable. Bones/joints: Osteopenia. Dextroscoliosis of the thoracic spine. Vasculature: Atherosclerotic disease of the aortic knob. IMPRESSION: Findings most compatible with right lower lobe pneumonia. Clinical correlation and short-term imaging follow-up is advised to document resolution.
[2021-09-26] MEDS ORDERED: FUROSEMIDE 10 MG/ML 4 ML VIAL IV STA (04:44)
[2021-09-26] MEDS ORDERED: AZITHROMYCIN 500 MG in SODIUM CHLORIDE 0.9% 250 ML IVPB ONE (05:00)
[2021-09-26 08:19] LABS: HCT 30.9 % (39.0-53.0); HGB 10.3 gm/dL (13.0-17.5); MCH 32.4 pg (25.0-35.0); MCHC 33.4 g/dL (31.0-37.0); MCV 96.9 fL (80.0-100.0); Mean Platelet Volume 7.9; Platelet Count 273 k/uL (150-450); RBC 3.19 m/uL (4.30-5.90); WBC 11.7 k/uL (3.8-10.6)
[2021-09-26] MEDS: SODIUM CHLORIDE 0.9% 1,000 ML in EMPTY BAG 1 BAG IV SCH (08:26)
[2021-09-26 08:31] LABS: African American GFR (CKD) >90 (>60 ml/min/1.73 sqM); Anion Gap 9 mmol/L; Blood Urea Nitrogen 6 mg/dL (9-20); Calcium 8.2 mg/dL (8.4-10.2); Carbon Dioxide 30 mmol/L (22-30); Chloride 93 mmol/L (98-107); Glucose 116 mg/dL (74-99); Non-African American GFR(CKD) >90 (>60 ml/min/1.73 sqM); Potassium 3.1 mmol/L (3.5-5.1); Sodium 132 mmol/L (137-145)
[2021-09-26] MEDS ORDERED: POTASSIUM CHLORIDE ER 20 MEQ TAB.ER PO STA (08:56)
--- NOTE | 2021-09-26 09:21 | IR ---
EXAMINATION TYPE: IR stent intravas non coronary DATE OF EXAM: 09/23/2021 COMPARISON: NONE HISTORY: Fluoroscopy time. Fluoroscopy was provided to the referring clinician.
[2021-09-26] MEDS: DILTIAZEM ORAL 60 MG TAB PO SCH ×3 (09:42→21:44)
[2021-09-26] MEDS: PANTOPRAZOLE 40 MG/10 ML VIAL IV SCH (09:43)
[2021-09-26] MEDS: APIXABAN 5 MG TAB PO SCH ×2 (09:43→21:45)
[2021-09-26] MEDS: METOPROLOL TARTRATE 50 MG TAB PO SCH (09:43)
[2021-09-26] MEDS: CLOPIDOGREL 75 MG TAB PO SCH (09:43)
[2021-09-26] MEDS: lisinopriL 10 MG TAB PO SCH (09:43)
[2021-09-26] MEDS: HYDROcodone/APAP 5-325MG 1 EACH TAB PO PRN (09:45)
--- NOTE | 2021-09-26 12:43 | P.PN ---
Subjective Progress Note Date: 09/26/21 Patient seen and examined lying in bed. He does state however his leg color has improved since admission. No acute changes through the night. Objective - Vital Signs Vital signs: Vital Signs Temp 98.1 F 09/26/21 08:00 Pulse 134 H 09/26/21 08:00 Resp 18 09/26/21 08:00 BP 108/67 09/26/21 08:00 Pulse Ox 97 09/26/21 08:00 Intake & Output 09/25/21 09/26/21 09/26/21 18:59 06:59 18:59 Intake Total 1450 40 Output Total 950 1250 1550 Balance 500 -1210 -1550 Weight 91.5 kg Intake: IV 900 0.9 NS @ 75ml/hr 900 Intake, IV Titration 250 Amount Heparin Sod,Pork in 0.45% 250 NaCl 25,000 unit In 0.45 % NaCl 1 250ml.bag @ 11. 33 UNITS/KG/HR 10.004 mls /hr IV .Q24H [facility] Rx#: [id number] Oral 300 40 Output: Urine 950 1250 1550 Other: Voiding Method Urinal Urinal # Voids 1 - Exam General appearance: The patient is alert, oriented, in no acute distress. HET: Head is normocephalic and atraumatic. Neck: Supple without lymphadenopathy. Trachea midline. Extremities: Right lower extremity with normal capillary refill. Biphasic PT signal. Tenderness to palpation along the calf to the midfoot. Some redness noted to along the hoyt. Of lower extremity warm, good capillary refill with a multiphasic PT signal. Neurological: No focal deficits. Numbness in the right toes. - Labs CBC & Chem 7: 09/26/21 07:29 09/26/21 07:29 Labs: Abnormal Lab Results - Last 24 Hours (Table) 09/26/21 09/26/21 09/26/21 Range/Units 07:29 07:29 07:29 WBC 11.7 H (3.8-10.6) k/uL RBC 3.19 L (4.30-5.90) m/uL Hgb 10.3 L (13.0-17.5) gm/dL Hct 30.9 L (39.0-53.0) % APTT 33.8 H (22.0-30.0) sec Sodium 132 L (137-145) mmol/L Potassium 3.1 L (3.5-5.1) mmol/L Chloride 93 L (98-107) mmol/L BUN 6 L (9-20) mg/dL Glucose 116 H (74-99) mg/dL Calcium 8.2 L (8.4-10.2) mg/dL Microbiology - Last 24 Hours (Table) 09/22/21 19:51 Blood Culture - Preliminary Blood No Growth after 72 hours Assessment and Plan Assessment: 1. Acute right lower extremity ischemia 2. Status post right iliac artery revascularization and attempted SFA a in- stent thromboliasis 3. Atrial fibrillation with RVR Plan: Continue current management with anticoagulation. Patient will likely need a femoral to below the knee bypass. We will continue to follow. The impression and plan of care has been dictated as directed. I performed a history and examination of this patient, discussed the same with the dictator. I agree with the dictator's note ,documented as a scribe. Any additional findings or plans will be noted.
--- NOTE | 2021-09-26 13:06 | ECHOF ---
Referral Reason:LV function MEASUREMENTS -------- HEIGHT: 190.5 cm WEIGHT: 91.2 kg BP: 108/67 RVIDd: 1.8 cm (< 3.3) IVSd: 1.4 cm (0.6 - 1.1) LVIDd: 4.3 cm (3.9 - 5.3) LVPWd: 1.4 cm (0.6 - 1.1) IVSs: 1.8 cm LVIDs: 3.3 cm LVPWs: 1.7 cm LAESV Index (A-L): 25.71 ml/m Ao Diam: 2.9 cm (2.0 - 3.7) AV Cusp: 2.0 cm (1.5 - 2.6) FINDINGS -------- Sinus rhythm. This was a technically difficult study with suboptimal views. The left ventricular size is normal. There is moderate concentric left ventricular hypertrophy. O verall left ventricular systolic function is low-normal with, an EF between 50 - 55 %. The right ventricle is normal in size. Normal LA size by volume 22+/-6 ml/m2. The right atrial size is normal. 5.0mg of Lumason was utilized for enhancement of images Interatrial and interventricular septum intact. There is moderate to severe aortic sclerosis with decreased cusp mobility however only mild aortic st enosis by Doppler. Mild mitral regurgitation is present. Mild tricuspid regurgitation present. There is no evidence of pulmonary hypertension. The right v entricular systolic pressure, as measured by Doppler, is {RVSP}. There is no pulmonic regurgitation present. The aortic root size is normal. IVC Not well visulized. There is no pericardial effusion. CONCLUSIONS -------- 1. The left ventricular size is normal. 2. There is moderate concentric left ventricular hypertrophy. 3. Overall left ventricular systolic function is low-normal with, an EF between 50 - 55 %. 4. There is moderate to severe aortic sclerosis with decreased cusp mobility however only mild aortic stenosis by Doppler. 5. Mild mitral regurgitation is present. 6. Mild tricuspid regurgitation present. [employer]: [facility] [address] [facility]
[2021-09-26 13:20] VITALS: BMI 25.2
--- NOTE | 2021-09-26 13:37 | P.PN ---
Subjective This is a 65-year-old male past medical history peripheral artery disease with prior angioplasty of both iliac in both SFA, carotid disease status post 19 the right carotid artery, chronic nicotine dependence, hypertension, dyslipidemia. He follows with Dr. Caballero. Patient presented to the emergency room on 09/19/2021 with right lower extremity pain; has been noncompliant with his anticoagulants in the form of Eliquis. He was found to have absent pulses from the knee on down. He was sent over from Dr. Caballero's office for CT angiogram and heparin infusion. Patient had an angiogram by Dr. Caballero 09/23/21 and was noted to have thrombosis of the previously stented in the right SFA. Patient had an infusion catheter to right SFA and right iliac tPA was started and patient was also on IV heparin. He has now been transitioned to PO Eliquis. Vascular has seen the patient and is recommending the patient may need femoral to below-knee bypass, but no time has been discussed on when this will be done. During this hospitalization patient also went into atrial fibrillation with RVR. Echocardiogram revealed EF 5055 percent, moderate to severe aortic sclerosis decreased cusp mobility however only mild aortic stenosis, mild mitral regurgitation, mild tricuspid regurgitation. Patient seen at bedside, no acute distress. His pain is controlled. He's currently maintained on Eliquis 5 mg twice a day, atorvastatin 10 mg nightly, Plavix and 4 mg daily, Cardizem 60 mg 3 times a day, lisinopril 10 mg daily, metoprolol tartrate 50 mg twice a day. Telemetry reviewed patient in atrial fibrillation with heart rates in the 130s. Labs reviewed, WBC 11.7, hemoglobin 10.3, platelets 273, sodium 132, potassium 3.1, BUN 6, serum creatinine 0.7. GENERAL: Well-appearing, well-nourished and in no acute distress. NECK: Supple without JVD or thyromegaly. LUNGS: Breath sounds clear to auscultation bilaterally. Respiration equal and unlabored. No wheezes, rales or rhonchi. HEART: Regular rate and rhythm without murmurs, rubs or gallops. S1 and S2 heard. EXTREMITIES: Normal range of motion, no edema. No clubbing or cyanosis. Peripheral pulses intact. ASSESSMENT Acute right lower extremity ischemia Status post right iliac artery revascularization and attempted SFA a in-stent thrombolisis on 09/23/21 Paroxysmal atrial fibrillation with RVR [id number] score 2 History of hypertension Chronic nicotine dependence Dyslipidemia PLAN We will increase beta shirley to 75mg TID for rate control Continue PO Cardizem 60mg TID Continue Eliquis 5mg BID Continue statin, Plavix, lisinopril Further recommendations based on clinical course Patient will follow up with Dr. Caballero Nurse Practitioner note has been reviewed, I agree with a documented findings and plan of care. Patient was seen and examined. Objective - Vital Signs Vital signs: Vital Signs Temp 97.8 F 09/26/21 11:20 Pulse 74 09/26/21 11:20 Resp 20 09/26/21 11:20 BP 153/61 09/26/21 11:20 Pulse Ox 97 09/26/21 08:00 Intake & Output 09/25/21 09/26/21 09/26/21 18:59 06:59 18:59 Intake Total 1450 40 300 Output Total 950 1250 3750 Balance 500 -1210 -3450 Weight 91.5 kg 91.5 kg Intake: IV 900 0.9 NS @ 75ml/hr 900 Intake, IV Titration 250 Amount Heparin Sod,Pork in 0.45% 250 NaCl 25,000 unit In 0.45 % NaCl 1 250ml.bag @ 11. 33 UNITS/KG/HR 10.004 mls /hr IV .Q24H AVELINO Rx#: [id number] Oral 300 40 Hemodialysis 300 Output: Urine 950 1250 1550 Hemodialysis 2200 Other: Voiding Method Urinal Urinal # Voids 1 - Labs CBC & Chem 7: 09/26/21 07:29 09/26/21 07:29 Labs: Abnormal Lab Results - Last 24 Hours (Table) 09/26/21 09/26/21 09/26/21 Range/Units 07:29 07:29 07:29 WBC 11.7 H (3.8-10.6) k/uL RBC 3.19 L (4.30-5.90) m/uL Hgb 10.3 L (13.0-17.5) gm/dL Hct 30.9 L (39.0-53.0) % APTT 33.8 H (22.0-30.0) sec Sodium 132 L (137-145) mmol/L Potassium 3.1 L (3.5-5.1) mmol/L Chloride 93 L (98-107) mmol/L BUN 6 L (9-20) mg/dL Glucose 116 H (74-99) mg/dL Calcium 8.2 L (8.4-10.2) mg/dL Microbiology - Last 24 Hours (Table) 09/22/21 19:51 Blood Culture - Preliminary Blood No Growth after 72 hours
[2021-09-26] MEDS: METOPROLOL TARTRATE 25 MG TAB PO SCH ×2 (16:25→21:44)
--- NOTE | 2021-09-26 21:34 | P.PN ---
Subjective Principal diagnosis: The patient is here essentially for lower extremity PAD but he has developed new onset atrial fibrillation. This morning he seems quite fatigued. No overt chest pressure. No voiding symptoms. The patient otherwise needs to increase activity Objective - Vital Signs Vital signs: Vital Signs Temp 97.8 F 09/26/21 16:00 Pulse 103 H 09/26/21 16:00 Resp 18 09/26/21 16:00 BP 104/74 09/26/21 16:00 Pulse Ox 94 L 09/26/21 16:00 Intake & Output 09/26/21 09/26/21 09/27/21 06:59 18:59 06:59 Intake Total 40 420 40 Output Total 1250 3950 Balance -1210 -3530 40 Weight 91.5 kg 91.5 kg Intake: Oral 40 120 40 Hemodialysis 300 Output: Urine 1250 1750 Hemodialysis 2200 Other: Voiding Method Urinal - Constitutional General appearance: Present: average body habitus - EENT Eyes: Absent: abnormal pupil - Respiratory Respiratory: bilateral: diminished - Cardiovascular Rhythm: irregularly irregular Heart sounds: normal: S1, S2 Abnormal Heart Sounds: Absent: S3 Gallop - Gastrointestinal General gastrointestinal: Present: soft. Absent: tenderness - Psychiatric Psychiatric: Present: A&O x's 3 - Labs CBC & Chem 7: 09/26/21 07:29 09/26/21 07:29 Labs: Abnormal Lab Results - Last 24 Hours (Table) 09/26/21 09/26/21 09/26/21 Range/Units 07:29 07:29 07:29 WBC 11.7 H (3.8-10.6) k/uL RBC 3.19 L (4.30-5.90) m/uL Hgb 10.3 L (13.0-17.5) gm/dL Hct 30.9 L (39.0-53.0) % APTT 33.8 H (22.0-30.0) sec Sodium 132 L (137-145) mmol/L Potassium 3.1 L (3.5-5.1) mmol/L Chloride 93 L (98-107) mmol/L BUN 6 L (9-20) mg/dL Glucose 116 H (74-99) mg/dL Calcium 8.2 L (8.4-10.2) mg/dL Microbiology - Last 24 Hours (Table) 09/22/21 19:51 Blood Culture - Preliminary Blood No Growth after 72 hours Assessment and Plan (1) Arterial occlusion Current Visit: Yes Status: Acute Code(s): I70.90 - UNSPECIFIED A THEROSCLEROSIS SNOMED Code(s): 9641747 (2) Atrial fibrillation with RVR Current Visit: Yes Status: Acute Code(s): I48.91 - UNSPECIFIED ATRIAL FIBRILLATION SNOMED Code(s): 600217800305512 Plan: The patient will need to watch heart Rate. The patient hopefully will anticipate discharge in the next 24 hours. Increase activity. See orders otherwise. Time with Patient: Less than 30
[2021-09-26] MEDS: ATORVASTATIN 10 MG TAB PO SCH (21:44)
[2021-09-27] MEDS: HYDROcodone/APAP 5-325MG 1 EACH TAB PO PRN ×3 (01:44→13:15)
[2021-09-27] MEDS: SODIUM CHLORIDE 0.9% 1,000 ML in EMPTY BAG 1 BAG IV SCH ×3 (08:38→21:48)
[2021-09-27] MEDS: DILTIAZEM ORAL 60 MG TAB PO SCH ×3 (08:44→21:32)
[2021-09-27] MEDS: CLOPIDOGREL 75 MG TAB PO SCH (08:45)
[2021-09-27] MEDS: APIXABAN 5 MG TAB PO SCH ×2 (08:45→20:10)
[2021-09-27] MEDS: PANTOPRAZOLE 40 MG/10 ML VIAL IV SCH (08:45)
[2021-09-27] MEDS: METOPROLOL TARTRATE 25 MG TAB PO SCH ×3 (08:45→21:32)
[2021-09-27] MEDS ORDERED: AMIODARONE 200 MG TAB PO SCH (10:00)
[2021-09-27] MEDS: AMIODARONE 200 MG TAB PO SCH ×2 (10:17→20:11)
--- NOTE | 2021-09-27 11:29 | P.PN ---
Subjective Progress Note Date: 09/27/21 Patient seen and examined lying in bed. He is reporting has improved since admission. Still has some pain in the right lower leg and foot. States he cannot walk without pain. No acute changes through the night. Objective - Vital Signs Vital signs: Vital Signs Temp 98.3 F 09/27/21 04:00 Pulse 109 H 09/27/21 04:00 Resp 18 09/27/21 04:00 BP 137/88 09/27/21 04:00 Pulse Ox 90 L 09/27/21 04:00 Intake & Output 09/26/21 09/27/21 09/27/21 18:59 06:59 18:59 Intake Total 420 40 Output Total 3950 250 Balance -3530 -210 Weight 91.5 kg 88 kg Intake: Oral 120 40 Hemodialysis 300 Output: Urine 1750 250 Hemodialysis 2200 Other: Voiding Method Urinal - Exam General appearance: The patient is alert, oriented, in no acute distress. HET: Head is normocephalic and atraumatic. Neck: Supple without lymphadenopathy. Trachea midline. Extremities: Right lower extremity with normal capillary refill, warm to the touch. Biphasic PT signal. Tenderness to palpation along the calf to the midfoot. Redness noted to along the hoyt, improving. Left lower extremity warm, good capillary refill with a multiphasic PT signal. Neurological: No focal deficits. Numbness in the right toes. - Labs CBC & Chem 7: 09/26/21 07:29 09/26/21 07:29 Labs: Microbiology - Last 24 Hours (Table) 09/22/21 19:51 Blood Culture - Preliminary Blood No Growth after 96 hours Assessment and Plan Assessment: 1. Acute right lower extremity ischemia, improved 2. Status post right iliac artery revascularization and attempted SFA a in- stent thromboliasis 3. Atrial fibrillation with RVR Plan: Continue current management with anticoagulation. Patient will likely need a femoral to below the knee bypass, this will be scheduled as an outpatient. Patient instructed to follow-up in the office in the next 1-2 weeks. The patient is cleared for discharge from vascular surgery.. The impression and plan of care has been dictated as directed. I performed a history and examination of this patient, discussed the same with the dictator. I agree with the dictator's note ,documented as a scribe. Any additional findings or plans will be noted.
--- NOTE | 2021-09-27 12:05 | PN ---
PROGRESS NOTE Mr. Terry had significant ischemia of right lower extremity, but today his legs feels warmer. He feels better. Pain is less, although he still has some pain. He remains in atrial fibrillation. Rate is moderately rapid. I am going to add amiodarone 200 mg b.i.d. Vitals are stable. JVD 1 cm. No carotid bruit. S1-S2 heard normally. Tachycardia noted. Short systolic murmur noted. Lungs reveal diminished air entry. Abdomen is soft. Lower extremities reveal diminished pulses, not palpable, being seen by Dr. Ramirez. RECOMMENDATIONS: I am recommending that we add amiodarone 200 mg b.i.d. and he can be discharged whenever okay with Vascular Surgery. Follow up with Dr. Caballero in a week or so and we will make further recommendations. Prognosis remains guarded. MMODL / IJN: [id number] /
[2021-09-27] MEDS: lisinopriL 10 MG TAB PO SCH (12:25)
--- NOTE | 2021-09-27 13:27 | P.PN ---
Subjective Principal diagnosis: The patient is here essentially for lower extremity PAD but he has developed new onset atrial fibrillation. This morning he seems quite fatigued. No overt chest pressure. No voiding symptoms. The patient otherwise needs to increase activity Heart rate still is not controlled below 100 for most of the time. Objective - Vital Signs Vital signs: Vital Signs Temp 98.9 F 09/27/21 12:00 Pulse 116 H 09/27/21 12:28 Resp 19 09/27/21 12:00 BP 109/80 09/27/21 12:00 Pulse Ox 94 L 09/27/21 12:00 Intake & Output 09/26/21 09/27/21 09/27/21 18:59 06:59 18:59 Intake Total 420 40 118 Output Total 3950 250 300 Balance -3530 -210 -182 Weight 91.5 kg 88 kg Intake: Oral 120 40 118 Hemodialysis 300 Output: Urine 1750 250 300 Hemodialysis 2200 Other: Voiding Method Urinal Urinal # Voids 1 - Constitutional General appearance: Present: average body habitus - EENT Eyes: Absent: abnormal pupil - Respiratory Respiratory: bilateral: diminished - Cardiovascular Rhythm: irregularly irregular Heart sounds: normal: S1, S2 Abnormal Heart Sounds: Absent: S3 Gallop - Gastrointestinal General gastrointestinal: Present: soft. Absent: tenderness - Psychiatric Psychiatric: Present: A&O x's 3 - Labs CBC & Chem 7: 09/26/21 07:29 09/26/21 07:29 Labs: Microbiology - Last 24 Hours (Table) 09/22/21 19:51 Blood Culture - Preliminary Blood No Growth after 96 hours Assessment and Plan (1) Arterial occlusion Current Visit: Yes Status: Acute Code(s): I70.90 - UNSPECIFIED ATHEROSCLEROSIS SNOMED Code(s): 9083450 (2) Atrial fibrillation with RVR Current Visit: Yes Status: Acute Code(s): I48.91 - UNSPECIFIED ATRIAL FIBRILLATION SNOMED Code(s): 805497002521566 Plan: The patient will need to watch heart Rate. The patient hopefully will anticipate discharge in the next 24-48 hours. Increase activity. See orders otherwise. Appreciate cardiology input.
--- NOTE | 2021-09-27 13:39 | P.CONS ---
History of Present Illness - Chief Complaint Walking difficulty - History of Present Illness I had the opportunity to see patient for inpatient rehab consultation with regard to walking difficulty. Patient admitted to [facility] September 19 with right leg DVT which is seen by Dr. Brown. Must have added recent revascularization procedure. Seen by Dr. Amaya and for pulmonary, no acute pulmonary process. Computed tomography scan angiogram demonstrate thrombus left iliac and patent right iliac stent. Chest x-ray negative. Vascular stent procedure. Chest x-ray with right lower lobe infiltrate. Seen by PT reports supervision for bed mobility 2 person moderate assistance to stand and gait 5 feet, hand-held. Note poor balance in with pain. OT reports supervision for upper dressing, moderate assistance for lower dressing minimal assistance for bathing, toileting, toilet transfer. Moderate assistance for tub transfer. Previous functional history as elicited from patient: 65-year-old right-handed white male who is single lives in one floor home alone. Retired. Patient describes independent with own cooking, laundry, driving, standing shower and gait without device previously. PCP Dr. Obrien. Denies tobacco or alcohol. Review of Systems Review of systems: ENT: Denies sneezes or discharge. Eyes: Denies discharge or photophobia. Cardiac: Denies chest pain or palpitation. Pulmonary: Denies cough or shortness of breath. Gastrointestinal: Denies nausea, emesis, constipation, diarrhea. Genitourinary: Denies discharge or frequency. Musculoskeletal: Right foreleg and foot discomfort. Neurologic: Denies motor or sensory change. Endocrine: Denies shakes or sweats. Oncology: Denies cancers. Dermatologic: Denies rash, itching, pruritus. ALLERGY/immunology: Denies sneezes, rashes. Past Medical History Past Medical History: Cancer, Hyperlipidemia, Hypertension, Vascular Disorder Additional Past Medical History / Comment(s): SKIN CANCER. 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 History of Any Multi-Drug Resistant Organisms: None Reported Past Surgical History: Heart Catheterization, Heart Catheterization With Stent Additional Past Surgical History / Comment(s): "RIGHT LEG FOR CIRCULATION WITH 2 STENTS " rt internal carotid stent 05/05/20, 07/21/20-[facility]BA, 08/18/2020 stent x3 left SFA Past Anesthesia/Blood Transfusion Reactions: No Reported Reaction Date of Last Stent Placement:: 08/18/2020 Past Psychological History: No Psychological Hx Reported Smoking Status: Former smoker Past Alcohol Use History: Rare Past Drug Use History: None Reported - Past Family History Father Family Medical History: Cancer Additional Family Medical History / Comment(s): throat cancer Brother(s) Family Medical History: Cancer Additional Family Medical History / Comment(s): THROAT CANCER. Mother Family Medical History: No Reported History Medications and Allergies Home Medications Medication Instructions Recorded Confirmed Type Atorvastatin [Lipitor] 10 mg PO HS 05/03/20 09/20/21 History Clopidogrel [Plavix] 75 mg PO DAILY 05/03/20 09/20/21 History amLODIPine [Norvasc] 5 mg PO DAILY 05/03/20 09/20/21 History lisinopriL [Zestril] 10 mg PO DAILY 05/03/20 09/20/21 History Apixaban [Eliquis] 5 mg PO BID 30 Days #60 tab 09/22/21 Rx Allergies Allergy/AdvReac Type Severity Reaction Status Date / Time No Known Allergies Allergy Verified 09/20/21 09:03 Physical Exam Vitals: Vital Signs Temp Pulse Resp BP Pulse Ox 09/27/21 12:28 116 H 09/27/21 12:00 98.9 F 98 19 109/80 94 L 09/27/21 10:18 98/66 09/27/21 08:00 97.7 F 118 H 18 81/55 92 L 09/27/21 04:00 98.3 F 109 H 18 137/88 90 L 09/27/21 02:00 101 H 18 09/27/21 00:00 100.2 F H 101 H 18 92/58 91 L 09/26/21 20:00 99.7 F H 107 H 18 94/62 92 L 09/26/21 16:00 97.8 F 103 H 18 104/74 94 L Intake and Output 09/26/21 09/27/21 09/27/21 22:59 06:59 14:59 Intake Total 160 236 Output Total 200 250 300 Balance -40 -250 -64 Intake: Oral 160 236 Output: Urine 200 250 300 Other: Voiding Method Urinal Urinal Urinal # Voids 1 Weight 88 kg Skin: Intact, atrophic. General: Medium build and comfortable appearance. Head: Normocephalic, atraumatic. Eyes: Symmetric. Pupils equal round. Ears: Symmetric. Hearing within normal limits. Mouth: Clear. Neck: Supple. Carotid without bruit. Cardiac: Regular rate and rhythm. Lungs: Clear anteriorly and posteriorly. Abdomen: Soft active nontender. Extremities: Normal tone. Redness/pinkness right foreleg and foot. Neurological: Mental status: Alert, cooperative, pleasant. Cranial nerves: Symmetric facial tone and trapezius. Motor: Normal strength and isolation arms. Able to elevate legs off of Lilly chair, left better than right but less than antigravity. Sensation: Intact throughout. DTRs: Symmetric and equal throughout. Mobility: Requires assistance to stand and for any in room mobility. Results CBC & Chem 7: 09/26/21 07:29 09/26/21 07:29 Labs: Microbiology - Last 24 Hours (Table) 09/22/21 19:51 Blood Culture - Preliminary Blood No Growth after 96 hours Assessment and Plan (1) Arterial occlusion Current Visit: Yes Status: Acute Code(s): I70.90 - UNSPECIFIED ATHEROSCLEROSIS SNOMED Code(s): 5378853 (2) Atrial fibrillation with RVR Current Visit: Yes Status: Acute Code(s): I48.91 - UNSPECIFIED ATRIAL F IBRILLATION SNOMED Code(s): 753331847279550 Plan: Impression: 1. Walking only. 2. DVT right leg. 3. Vascular disease with a history of noncompliance. 4. A. fib with RVR. 5. Hypertension. 6. Dyslipidemia. 7. History of cancer. Plan: At this time PT and OT are ongoing. At this time, symmetric endurance issues noted with regard to therapies. Not currently ready for full inpatient rehab. We'll continue follow closely with yourself for possible ability to benefit from inpatient rehab.
[2021-09-27] MEDS: ATORVASTATIN 10 MG TAB PO SCH (20:10)
[2021-09-28] MEDS: HYDROcodone/APAP 5-325MG 1 EACH TAB PO PRN ×3 (01:07→15:55)
[2021-09-28] MEDS: lisinopriL 10 MG TAB PO SCH (07:38)
[2021-09-28] MEDS: DILTIAZEM ORAL 60 MG TAB PO SCH (07:38)
[2021-09-28] MEDS: AMIODARONE 200 MG TAB PO SCH ×2 (07:38→19:50)
[2021-09-28] MEDS: METOPROLOL TARTRATE 25 MG TAB PO SCH (07:38)
[2021-09-28] MEDS: CLOPIDOGREL 75 MG TAB PO SCH (07:38)
[2021-09-28] MEDS: APIXABAN 5 MG TAB PO SCH ×2 (07:38→19:49)
[2021-09-28] MEDS: PANTOPRAZOLE 40 MG/10 ML VIAL IV SCH (07:39)
[2021-09-28] MEDS ORDERED: DILTIAZEM ORAL 30 MG TAB PO STA (08:35)
--- NOTE | 2021-09-28 08:40 | P.PN ---
Subjective Principal diagnosis: The patient is here essentially for lower extremity PAD but he has developed new onset atrial fibrillation. This morning he seems quite fatigued. No overt chest pressure. No voiding symptoms. The patient otherwise needs to increase activity Heart rate still is not controlled below 100 for most of the time. Overall though his heart rate has been improved. Still with significant ambulatory shortness breath stated Objective - Vital Signs Vital signs: Vital Signs Temp 98.5 F 09/28/21 07:32 Pulse 130 H 09/28/21 07:32 Resp 19 09/28/21 07:32 BP 138/74 09/28/21 07:32 Pulse Ox 92 L 09/28/21 07:32 Intake & Output 09/27/21 09/28/21 09/28/21 18:59 06:59 18:59 Intake Total 476 Output Total 300 350 Balance 176 -350 Weight 87.1 kg Intake: Oral 476 Output: Urine 300 350 Other: Voiding Method Urinal Urinal # Voids 1 1 # Bowel Movements 1 - Constitutional General appearance: Present: average body habitus - EENT Eyes: Absent: abnormal pupil - Neck Neck: Absent: lymphadenopathy - Respiratory Respiratory: bilateral: diminished - Cardiovascular Rhythm: irregularly irregular Heart sounds: normal: S1, S2 Abnormal Heart Sounds: Absent: S3 Gallop - Gastrointestinal General gastrointestinal: Present: soft. Absent: tenderness - Integumentary Integumentary: Absent: cellulitis - Labs CBC & Chem 7: 09/26/21 07:29 09/27/21 19:27 Labs: Microbiology - Last 24 Hours (Table) 09/22/21 19:51 Blood Culture - Preliminary Blood No Growth after 120 hours Assessment and Plan (1) Arterial occlusion Current Visit: Yes Status: Acute Code(s): I70.90 - UNSPECIFIED ATHEROSCLEROSIS SNOMED Code(s): 2938325 (2) Atrial fibrillation with RVR Current Visit: Yes Status: Acute Code(s): I48.91 - UNSPECIFIED ATRIAL FIBRILLATION SNOMED Code(s): 448421465759800 Plan: Continue to try to ascertain rate control properly. Appreciate cardiology input. See orders otherwise
[2021-09-28] MEDS ORDERED: METOPROLOL TARTRATE 25 MG TAB PO STA (08:42)
[2021-09-28] MEDS: METOPROLOL TARTRATE 50 MG TAB PO SCH ×3 (08:43→20:37)
--- NOTE | 2021-09-28 09:21 | P.PN ---
Subjective This is a pleasant 65-year-old male currently being treated for right lower extremity ischemia and A. fib with RVR. He is seen and examined resting comfortably lying flat in bed in no acute distress. He continues to complain of right lower extremity pain. His legs are warm however no palpable pulse. Heart rate continues to be rapid in the 120 to 130 range. Lopressor was increased this morning. Blood pressure 138/74. GENERAL: Well-appearing, well-nourished and in no acute distress. NECK: Supple without JVD or thyromegaly. LUNGS: Expiratory wheezes. Respiration equal and unlabored. No rales or rhonchi. HEART: Irregular rate and rhythm with systoilc ejection murmur at the base, rubs or gallops. S1 and S2 heard. EXTREMITIES: Normal range of motion, no edema. No clubbing or cyanosis. Right lower extremity warm to touch and erythematous. ASSESSMENT Right lower extremity ischemia Atrial fibrillation with rapid ventricular rate Hypertension Dyslipidemia Peripheral vascular disease PLAN Continue increased dose of lopressor. Increase cardizem to 90 mg TID. Initiate lasix 20 mg PO daily. Heart rates will be difficult to control when he is in pain. Nurse Practitioner note has been reviewed, I agree with a documented findings and plan of care. Patient was seen and examined. Objective - Vital Signs Vital signs: Vital Signs Temp 98.5 F 09/28/21 07:32 Pulse 130 H 09/28/21 07:32 Resp 19 09/28/21 07:32 BP 138/74 09/28/21 07:32 Pulse Ox 92 L 09/28/21 07:32 Intake & Output 09/27/21 09/28/21 09/28/21 18:59 06:59 18:59 Intake Total 476 Output Total 300 350 Balance 176 -350 Weight 87.1 kg Intake: Oral 476 Output: Urine 300 350 Other: Voiding Method Urinal Urinal # Voids 1 1 # Bowel Movements 1 - Labs CBC & Chem 7: 09/26/21 07:29 09/27/21 19:27 Labs: Microbiology - Last 24 Hours (Table) 09/22/21 19:51 Blood Culture - Preliminary Blood No Growth after 120 hours
[2021-09-28] MEDS: FUROSEMIDE 20 MG TAB PO SCH (09:33)
--- NOTE | 2021-09-28 14:34 | P.VSCSTY ---
Greater Saphenous Vein Mapping This is bilateral lower extremity greater saphenous vein mapping. Date of service: 09/23/2021 Vein quality and ultrasound appearance: We see no intraluminal thrombus or obvious wall changes. Vein size groin right : 5.2 x 6.0 groin left: 5.7 x 5.7 High thigh right: 3.6 x 3.5 high thigh left: 4.8 x 4.3 Mid thigh right: 3.0 x 3.1 mid thigh left: 3.7 x 3.4 Above-knee right: 2.6 x 2.8 above- knee left: 2.9 x 2.7 Below knee right: 2.4 x 2.4 below-knee left: 3 x 3.4 Mid calf right: 2.8 x 3.5 mid calf left: 3.3 x 2.9 Ankle right: 2.9 x 3.1 ankle left: 1.9 x 2.4 Impression: Usable bilateral greater saphenous vein.
--- NOTE | 2021-09-28 15:53 | P.PN ---
Subjective Progress Note Date: 09/28/21 Patient seen and examined. Still with some pain in his right lower extremity as previous, increased ability for motor and sensory. Planning for discharge to rehabilitation. Objective - Vital Signs Vital signs: Vital Signs Temp 98.2 F 09/28/21 11:28 Pulse 108 H 09/28/21 14:00 Resp 20 09/28/21 14:00 BP 91/65 09/28/21 11:28 Pulse Ox 92 L 09/28/21 11:28 Intake & Output 09/27/21 09/28/21 09/28/21 18:59 06:59 18:59 Intake Total 476 118 Output Total 300 350 1 Balance 176 -350 117 Weight 87.1 kg Intake: Oral 476 118 Output: Urine 300 350 Stool 1 Other: Voiding Method Urinal Urinal Urinal # Voids 1 1 1 # Bowel Movements 1 - Exam Pleasant cooperative male in no acute distress. HEENT is normocephalic, atraumatic, excellent motion intact. Heart appears regular at this time. Lungs are clear. Abdomen is soft. Right lower extremity warm and dry. Motor sensory intact. Mild erythema likely reperfusion versus ischemic changes. Compartments soft - Labs CBC & Chem 7: 09/26/21 07:29 09/27/21 19:27 Labs: Microbiology - Last 24 Hours (Table) 09/22/21 19:51 Blood Culture - Preliminary Blood No Growth after 120 hours Assessment and Plan Assessment: right lower extremity ischemia Status post partial revascularization Atrial fibrillation with RVR Elevated creatine kinase, improving Plan: Continue plan as previous. Will need follow-up if patient is to have signifi cant pain for possible femoral to below-knee bypass. Vein mapping performed, appears adequate for use greater saphenous vein
[2021-09-28] MEDS: DILTIAZEM ORAL 30 MG TAB PO SCH ×2 (15:55→20:38)
[2021-09-28] MEDS: ATORVASTATIN 10 MG TAB PO SCH (19:50)
[2021-09-29 03:47] VITALS: PULSE 100
[2021-09-29 03:48] VITALS: RESP 18
[2021-09-29] MEDS: HYDROcodone/APAP 5-325MG 1 EACH TAB PO PRN (04:08)
[2021-09-29 04:13] LABS: Basophils % (A) 0 %; Eosinophils # (A) 0.2 k/uL (0-0.7); Eosinophils % (A) 2 %; HCT 32.1 % (39.0-53.0); HGB 10.5 gm/dL (13.0-17.5); Lymphocytes # (A) 1.1 k/uL (1.0-4.8); Lymphocytes % (A) 11 %; MCH 31.9 pg (25.0-35.0); MCHC 32.8 g/dL (31.0-37.0); MCV 97.4 fL (80.0-100.0); Monocytes # (A) 0.6 k/uL (0-1.0); Monocytes % (A) 6 %; Neutrophils % (A) 79 %; Platelet Count 493 k/uL (150-450); WBC 10.2 k/uL (3.8-10.6)
[2021-09-29 04:31] LABS: African American GFR (CKD) >90 (>60 ml/min/1.73 sqM); Anion Gap 9 mmol/L; Blood Urea Nitrogen 11 mg/dL (9-20); Calcium 8.4 mg/dL (8.4-10.2); Carbon Dioxide 31 mmol/L (22-30); Chloride 89 mmol/L (98-107); Glucose 110 mg/dL (74-99); Non-African American GFR(CKD) >90 (>60 ml/min/1.73 sqM); Potassium 3.2 mmol/L (3.5-5.1); Sodium 129 mmol/L (137-145)
--- NOTE | 2021-09-29 07:29 | P.PN ---
Progress Note - Text Sister apparently supportive for discharge plan. Doing well in therapies. Would accept fro inpatient rehab.
[2021-09-29 08:10] VITALS: BP 172/85; TEMP 97.7
[2021-09-29] MEDS: CLOPIDOGREL 75 MG TAB PO SCH (08:11)
[2021-09-29] MEDS: METOPROLOL TARTRATE 50 MG TAB PO SCH (08:11)
[2021-09-29] MEDS: APIXABAN 5 MG TAB PO SCH (08:11)
[2021-09-29] MEDS: FUROSEMIDE 20 MG TAB PO SCH (08:12)
[2021-09-29] MEDS: DILTIAZEM ORAL 30 MG TAB PO SCH (08:12)
[2021-09-29] MEDS: AMIODARONE 200 MG TAB PO SCH (08:12)
[2021-09-29] MEDS: PANTOPRAZOLE 40 MG/10 ML VIAL IV SCH (08:12)
[2021-09-29] MEDS: lisinopriL 10 MG TAB PO SCH (08:12)
[2021-09-29] MEDS ORDERED: Potassium Replacement Protocol 1 EACH MISC MISCELLANE PRN (08:25)
--- NOTE | 2021-09-29 08:29 | P.DS ---
Providers Date of admission: 09/19/21 17:31 Attending physician: Odin Obrien Consults: 09/19/21 17:31 Consult Physician Urgent Consulting Provider: Demarcus Caballero Consult Reason/Comments: Arterial occlusion Do you want consulting provider notified?: Yes 09/22/21 19:40 Consult Physician Routine Consulting Provider: Destinee Silvestre Consult Reason/Comments: icu mx Do you want consulting provider notified?: Yes 09/23/21 16:28 Consult Physician Urgent Consulting Provider: Yolanda Brown Consult Reason/Comments: RIGHT LEG COLD Do you want consulting provider notified?: Yes 09/27/21 13:23 Consult Physician Routine Consulting Provider: Osorio Rosales Consult Reason/Comments: eval for IPR Do you want consulting provider notified?: Yes Primary care physician: Odin Obrien - Discharge Diagnosis(es) (1) Arterial occlusion Current Visit: Yes Status: Acute (2) Atrial fibrillation with RVR Current Visit: Yes Status: Acute Hospital Course: This discharge summary 65-year-old white male essentially admitted for severe PAD which ended up having stent placement. The patient had postoperative atrial fibrillation and he was essentially admitted for this. Difficult to control. He is placed on appropriate anticoagulation and because of his overall weakness. He still had significant ambulatory difficulty. The patient will be transferred to rehab. We will continue appropriate anticoagulation and rate control. He is to follow-up with me in about a week. No fever or chills. No sniffing nausea, vomiting or diarrhea Patient Condition at Discharge: Stable Plan - Discharge Summary New Discharge Prescriptions: New Apixaban [Eliquis] 5 mg PO BID 30 Days #60 tab Metoprolol Tartrate [Lopressor] 100 mg PO TID #270 tab Amiodarone [Cordarone] 200 mg PO BID 60 Days #120 tab Diltiazem Oral [Cardizem*] 90 mg PO TID #270 tab Furosemide [Lasix] 20 mg PO DAILY #30 tab Continue lisinopriL [Zestril] 10 mg PO DAILY Atorvastatin [Lipitor] 10 mg PO HS Clopidogrel [Plavix] 75 mg PO DAILY Discontinued amLODIPine [Norvasc] 5 mg PO DAILY Discharge Medication List Atorvastatin [Lipitor] 10 mg PO HS 05/03/20 [History] Clopidogrel [Plavix] 75 mg PO DAILY 05/03/20 [History] lisinopriL [Zestril] 10 mg PO DAILY 05/03/20 [History] Apixaban [Eliquis] 5 mg PO BID 30 Days #60 tab 09/22/21 [Rx] Amiodarone [Cordarone] 200 mg PO BID 60 Days #120 tab 09/27/21 [Rx] Diltiazem Oral [Cardizem*] 90 mg PO TID #270 tab 09/29/21 [Rx] Furosemide [Lasix] 20 mg PO DAILY #30 tab 09/29/21 [Rx] Metoprolol Tartrate [Lopressor] 100 mg PO TID #270 tab 09/29/21 [Rx] Follow up Appointment(s)/Referral(s): [facility], [NON-STAFF] - 1-2 Days Demarcus Caballero MD [STAFF PHYSICIAN] - 1 Week Odin Obrien MD [Primary Care Provider] - 1 Week Discharge Disposition: TRANSFER TO SNF/ECF
[2021-09-29] MEDS: POTASSIUM CHLORIDE ER 20 MEQ TAB.ER PO SCH ×2 (09:33→09:34)
--- NOTE | 2021-09-29 12:47 | PN ---
PROGRESS NOTE Mr. Terry has converted to sinus rhythm. He has significant peripheral arterial disease and he has thrombosis on the stented area and was seen by Dr. Caballero and Dr. Ramirez. Patient will be discharged to a rehab facility today. He will go home on a combination of beta shirley and amiodarone along with anticoagulation. No Cardizem. He is maintaining sinus rhythm, hemodynamically stable. No chest pain or shortness of breath. The LV function is well preserved by echo. Vitals are stable. No JVD. S1, S2 heard normally. Short, systolic murmur noted. Lungs reveal improved air entry. Abdomen is soft. Lower extremity is actually slightly warmer although pulses not felt. The patient can be discharged on current medicines. We will see him as needed. MMODL / IJN: [id number] /
== END 2021-09-29 12:58 | DRG 253 ==
LOC: EC 15:14 → 3SCARD 17:31 → 2SICU 09-21 09:28 → 3SCARD 09-25 18:12
PROVIDERS: ADMIT Family Medicine; ATTEND Family Medicine
DX: T82.868A Thrombosis due to vascular prosthetic devices, implants and grafts, initial encounter (principal); I74.3 Embolism and thrombosis of arteries of the lower extremities; I74.5 Embolism and thrombosis of iliac artery; M62.82 Rhabdomyolysis; I48.0 Paroxysmal atrial fibrillation; E78.5 Hyperlipidemia, unspecified; G62.9 Polyneuropathy, unspecified; I70.221 Atherosclerosis of native arteries of extremities with rest pain, right leg; Z20.822 Contact with and (suspected) exposure to COVID-19; I65.21 Occlusion and stenosis of right carotid artery; I10 Essential (primary) hypertension; I25.10 Atherosclerotic heart disease of native coronary artery without angina pectoris; T45.516A Underdosing of anticoagulants, initial encounter; Z91.128 Patient's intentional underdosing of medication regimen for other reason; Z79.02 Long term (current) use of antithrombotics/antiplatelets; Z79.899 Other long term (current) drug therapy; Z87.891 Personal history of nicotine dependence; Z85.828 Personal history of other malignant neoplasm of skin; Z95.828 Presence of other vascular implants and grafts; Z74.1 Need for assistance with personal care; Z95.5 Presence of coronary angioplasty implant and graft; Y83.1 Surgical operation with implant of artificial internal device as the cause of abnormal reaction of the patient, or of later complication, without mention of misadventure at the time of the procedure; Z80.8 Family history of malignant neoplasm of other organs or systems
CPT/HCPCS: 36415; 37211; 37213; 37214; 37224; 37226; 71045; 75635; 80048; 80053; 81001; 82550; 82565; 83605; 84132; 84443; 84484; 85025; 85027; 85610; 85730; 87040; 87635; 90935; 93005; 93306; 93970; 94760; 99291

== ENCOUNTER 2021-10-07 13:55 | Inpatient (IN) | payer OTHER ==
[2021-10-07] MEDS ORDERED: HYDROmorphone 0.5 MG/0.5 ML SYRINGE IVP STA (16:03)
[2021-10-07] MEDS ORDERED: ONDANSETRON 4 MG/2 ML VIAL IVP STA (16:03)
[2021-10-07 16:37] LABS: Basophils # (A) 0.1 k/uL (0-0.2); Basophils % (A) 1 %; Eosinophils # (A) 0.2 k/uL (0-0.7); Eosinophils % (A) 2 %; HCT 37.4 % (39.0-53.0); HGB 12.6 gm/dL (13.0-17.5); Lymphocytes # (A) 1.7 k/uL (1.0-4.8); Lymphocytes % (A) 12 %; MCH 31.5 pg (25.0-35.0); MCHC 33.7 g/dL (31.0-37.0); MCV 93.4 fL (80.0-100.0); Mean Platelet Volume 7.4; Monocytes # (A) 0.7 k/uL (0-1.0); Monocytes % (A) 5 %; Neutrophils # (A) 11.6 k/uL (1.3-7.7); Neutrophils % (A) 81 %; Platelet Count 538 k/uL (150-450); RDW 13.3 % (11.5-15.5); WBC 14.4 k/uL (3.8-10.6)
[2021-10-07 16:46] LABS: Partial Thromboplastin Time 26.3 sec (22.0-30.0); Prothrombin Time 11.1 sec (9.0-12.0)
[2021-10-07 17:08] LABS: Albumin 3.5 g/dL (3.5-5.0); Potassium 4.6 mmol/L (3.5-5.1); Total Bilirubin 0.7 mg/dL (0.2-1.3); Total Protein 7.9 g/dL (6.3-8.2)
--- NOTE | 2021-10-07 17:37 | ED ---
General Adult HPI - General Chief complaint: Extremity Problem,Nontraumatic Stated complaint: Right foot issue Time Seen by Provider: 10/07/21 14:50 Source: patient, RN notes reviewed Mode of arrival: ambulatory Limitations: no limitations - History of Present Illness Initial comments: Jolly 5-year-old male presents to the emergency department for evaluation of right lower extremity discoloration. Patient states he was sent from [facility] for evaluation of wounds on the right foot. Called ECF to speak with nurse who reports that when the patient arrived at their facility last week his right lower extremity was pink and warm, however has had worsening discoloration of the right lower extremity including dusky-purpleish hue to the third, fourth, and fifth digits on the right foot. The nurse reports concern that the follow-up appointment with vascular surgeon scheduled for next week is too long for the patient to wait. Patient does complain of moderate amount of discomfort to the right foot. Denies loss of sensation. Patient does have wounds on the right foot, however, facility staff state that these are unchanged and that he is receiving wound care. Patient denies fever, chills, headache, chest pain, shortness of breath, difficulty breathing, abdominal pain, nausea, vomiting, dysuria, or hematuria. - Related Data Home Medications Medication Instructions Recorded Confirmed Atorvastatin [Lipitor] 10 mg PO HS 05/03/20 10/07/21 Clopidogrel [Plavix] 75 mg PO DAILY 05/03/20 10/07/21 lisinopriL [Zestril] 10 mg PO DAILY 05/03/20 10/07/21 Amiodarone [Cordarone] 200 mg PO DAILY 10/07/21 10/07/21 HYDROcodone/APAP 5-325MG [[place] 1 tab PO Q6HR PRN 10/07/21 10/07/21 5-325] Metoprolol Tartrate [Lopressor] 100 mg PO TID@0500,1300,2100 10/07/21 10/07/21 Multivitamins, Thera [Multivitamin 1 tab PO DAILY 10/07/21 10/07/21 (formulary)] Previous Rx's Medication Instructions Recorded Apixaban [Eliquis] 5 mg PO BID 30 Days #60 tab 09/22/21 Furosemide [Lasix] 20 mg PO DAILY #30 tab 09/29/21 Allergies Allergy/AdvReac Type Severity Reaction Status Date / Time No Known Allergies Allergy Verified 10/07/21 15:47 Review of Systems ROS Statement: Those systems with pertinent positive or pertinent negative responses have been documented in the HPI. ROS Other: All systems not noted in ROS Statement are negative. Past Medical History Past Medical History: Cancer, Hyperlipidemia, Hypertension, Vascular Disorder Additional Past Medical History / Comment(s): SKIN CANCER. 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 History of Any Multi-Drug Resistant Organisms: None Reported Past Surgical History: Heart Catheterization, Heart Catheterization With Stent Additional Past Surgical History / Comment(s): "RIGHT LEG FOR CIRCULATION WITH 2 STENTS " rt internal carotid stent 05/05/20, 07/21/20-PTBA, 08/18/2020 stent x3 left SFA Past Anesthesia/Blood Transfusion Reactions: No Reported Reaction Date of Last Stent Placement:: 08/18/2020 Past Psychological History: No Psychological Hx Reported Smoking Status: Former smoker Past Alcohol Use History: Rare Past Drug Use History: None Reported - Past Family History Father Family Medical History: Cancer Additional Family Medical History / Comment(s): throat cancer Brother(s) Family Medical History: Cancer Additional Family Medical History / Comment(s): THROAT CANCER. Mother Family Medical History: No Reported History General Exam Limitations: no limitations General appearance: alert, in no apparent distress, other (Well-developed, well- nourished male in no acute distress. Initial temperature 98.5, pulse 89, respirations 18, blood pressure 138/76, pulse ox 92% on room air.) Head exam: Present: atraumatic, normocephalic, normal inspection Neck exam: Present: normal inspection. Absent: tenderness, meningismus, lymp hadenopathy Respiratory exam: Present: normal lung sounds bilaterally. Absent: respiratory distress, wheezes, rales, rhonchi, stridor GI/Abdominal exam: Present: soft, normal bowel sounds. Absent: distended, tenderness, guarding, rebound, rigid Left Lower Leg exam: Present: normal inspection. Absent: swelling, erythema Foot/Toe exam: Present: normal inspection. Absent: tenderness, swelling, erythema Neurovascular tendon exam: Present: pulse deficit (Pedal and posttibial pulses obtained with Doppler; unable to palpate). Absent: motor deficit, sensory deficit, extremity cold to touch Right Lower Leg exam: Present: normal inspection (Right lower extremity slightly pinker than left), full ROM. Absent: tenderness Foot/Toe exam: Absent: normal inspection (Digits 3, 4, & 5 of the foot are dusky with markedly diminished cap refill. Digits 1 and 2 are more pink with slightly dusky nailbed. Wounds on the dorsal surface of right foot.), full ROM Neurovascular tendon exam: Present: pulse deficit (Unable to obtain pedal or posttibial pulse), abnormal cap refill. Absent: motor deficit, sensory deficit Neurological exam: Present: alert, oriented X3 (Patient is a poor historian), CN II-XII intact Psychiatric exam: Present: normal affect, normal mood Course Vital Signs 10/07/21 10/07/21 10/07/21 14:00 16:23 18:49 Temperature 98.5 F Pulse Rate 89 89 92 Respiratory 18 18 18 Rate Blood Pressure 138/76 108/50 134/76 O2 Sat by Pulse 92 L 92 L 93 L Oximetry - Reevaluation(s) Reevaluation #1: 10/07/21 18:23 Patient resting comfortably; states pain level as tolerable. Updated on the plan of care. Medical Decision Making - Medical Decision Making This is a 65-year-old male with a history of PAD, CAD, and A.Fib presents to the emergency department from [facility] for re-evaluation and treatment of vascular compromise to the right lower extremity. Upon exam, patient has a dusky appearance to the third, fourth, and fifth digits on the right foot. First and second digits on the right foot are somewhat reddened with slightly dusky nailbeds. Pedal and posttibial pulses are not palpable, nor audible with Doppler. Patient also has wounds on the dorsal surface of the foot. This extremity is warm to touch. Left lower extremity is pale and warm, pedal and posttibial pulse present upon Doppler. I spoke with the assisted nurse who reports the patient's toes were pink when the patient arrival to their facility, however has had increased discoloration that worsened today. States the wounds on his feet are stable and unchanged. CT of the abdomen and pelvis with runoff was obtained. There is arterial flow in the right iliac artery stent which is a change compared to last exam. There is also apparent bilateral thrombosis of the femoral artery stents. There are collateral vessels from the profunda femoris artery bilaterally with reconstitution of the tibial artery trifurcation bilaterally. There is arterial flow in the anterior tibial artery and posterior tibial artery at the ankles bilaterally. Laboratory studies were reviewed; mild leukocytosis noted. Patient will be admitted to the hospital for further evaluation and treatment. Spoke with [facility] provider Channing Watson who agrees to accept this admission. Dr. Ramirez, Vascular, will be consulted. This patient's care was reviewed with my attending Dr. Payton. - Lab Data Result diagrams: 10/07/21 16:18 10/07/21 16:18 Lab Results 10/07/21 10/07/21 10/07/21 Range/Units 16:18 16:18 16:18 WBC 14.4 H (3.8-10.6) k/uL RBC 4.00 L (4.30-5.90) m/uL Hgb 12.6 L (13.0-17.5) gm/dL Hct 37.4 L (39.0-53.0) % MCV 93.4 (80.0-100.0) fL MCH 31.5 (25.0-35.0) pg MCHC 33.7 (31.0-37.0) g/dL RDW 13.3 (11.5-15.5) % Plt Count 538 H (150-450) k/uL MPV 7.4 Neutrophils % 81 % Lymphocytes % 12 % Monocytes % 5 % Eosinophils % 2 % Basophils % 1 % Neutrophils # 11.6 H (1.3-7.7) k/uL Lymphocytes # 1.7 (1.0-4.8) k/uL Monocytes # 0.7 (0-1.0) k/uL Eosinophils # 0.2 (0-0.7) k/uL Basophils # 0.1 (0-0.2) k/uL PT 11.1 (9.0-12.0) sec INR 1.0 (<1.2) APTT 26.3 (22.0-30.0) sec Sodium 133 L (137-145) mmol/L Potassium 4.6 (3.5-5.1) mmol/L Chloride 96 L (98-107) mmol/L Carbon Dioxide 29 (22-30) mmol/L Anion Gap 8 mmol/L BUN 17 (9-20) mg/dL Creatinine 1.07 (0.66-1.25) mg/dL Est GFR (CKD-EPI)AfAm 85 (>60 ml/min/1.73 sqM) Est GFR (CKD-EPI)NonAf 74 (>60 ml/min/1.73 sqM) Glucose 107 H (74-99) mg/dL Calcium 9.0 (8.4-10.2) mg/dL Total Bilirubin 0.7 (0.2-1.3) mg/dL AST 25 (17-59) U/L ALT 17 (4-49) U/L Alkaline Phosphatase 102 (38-126) U/L Total Protein 7.9 (6.3-8.2) g/dL Albumin 3.5 (3.5-5.0) g/dL Coronavirus (PCR) (Not Detectd) 10/07/21 Range/Units 18:36 WBC (3.8-10.6) k/uL RBC (4.30-5.90) m/uL Hgb (13.0-17.5) gm/dL Hct (39.0-53.0) % MCV (80.0-100.0) fL MCH (25.0-35.0) pg MCHC (31.0-37.0) g/dL RDW (11.5-15.5) % Plt Count (150-450) k/uL MPV Neutrophils % % Lymphocytes % % Monocytes % % Eosinophils % % Basophils % % Neutrophils # (1.3-7.7) k/uL Lymphocytes # (1.0-4.8) k/uL Monocytes # (0-1.0) k/uL Eosinophils # (0-0.7) k/uL Basophils # (0-0.2) k/uL PT (9.0-12.0) sec INR (<1.2) APTT (22.0-30.0) sec Sodium (137-145) mmol/L Potassium (3.5-5.1) mmol/L Chloride (98-107) mmol/L Carbon Dioxide (22-30) mmol/L Anion Gap mmol/L BUN (9-20) mg/dL Creatinine (0.66-1.25) mg/dL Est GFR (CKD-EPI)AfAm (>60 ml/min/1.73 sqM) Est GFR (CKD-EPI)NonAf (>60 ml/min/1.73 sqM) Glucose (74-99) mg/dL Calcium (8.4-10.2) mg/dL Total Bilirubin (0.2-1.3) mg/dL AST (17-59) U/L ALT (4-49) U/L Alkaline Phosphatase (38-126) U/L Total Protein (6.3-8.2) g/dL Albumin (3.5-5.0) g/dL Coronavirus (PCR) Not Detected (Not Detectd) - EKG Data EKG shows normal: sinus rhythm Rate: normal EKG Comments: EKG was obtained at 1846 and shows normal sinus rhythm. Ventricular rate 86, AK interval 152, QRS duration 80, QT/QTC 368/440. Nonspecific ST abnormality. - Radiology Data Radiology results: report reviewed, image reviewed CT of the abdomen and pelvis with runoffs was obtained. Report was reviewed in its entirety. Impression per Dr. 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 There is arterial flow in the right iliac artery stent which is a change com pared to last exam. There is apparent bilateral thrombosis of the femoral artery stents. There are collateral vessels from the profunda femoris artery bilaterally with reconstitution of the tibial artery trifurcation bilaterally. There is arterial flow in the anterior tibial artery and posterior tibial artery at the ankles bilaterally. Disposition Clinical Impression: Ischemia of right lower extremity, Foot ulcer, right Disposition: [facility] Condition: Serious Referrals: Odin Obrien MD [Primary Care Provider] - 1-2 days Decision Date: 10/07/21 Decision Time: 19:47
--- NOTE | 2021-10-07 18:52 | CT ---
CT angiogram of the abdomen and pelvis. With runoffs. CT angiogram of the chest. History right leg is chemia. TECHNIQUE: Images obtained from the thoracic inlet to the bottom of the feet with IV contrast Isovue 100 mL. FINDINGS: There are 3-D post processed images. There is thoracic dextroscoliotic deformity. The lungs are clear of consolidation. There is no pleura l effusion. Thoracic aorta is atheromatous. There is 3.6 cm ascending aorta. There is atheromatous ch myron in the thoracic aorta. There is coronary artery calcification. There is no evidence of filling defect in the pulmonary arteries. There is no aortic dissection. Liver spleen stomach pancreas gallbladder appear intact. The bile ducts are not dilated. There is no adrenal mass. Kidneys show satisfactory contrast opacification. There is no hydronephrosis. There is aneurysm of the lower abdominal aorta with variable plaque. Aneurysm measures up to 4.1 cm. Plaque fo rmation measures up to 1.3 cm. There is arterial flow in the superior mesenteric artery and the lavonne c artery. There is arterial flow in the renal and iliac and femoral arteries. Is approximate 35% sten osis of the celiac artery at the origin. There is plaque formation and approximate 50% stenosis of th e proximal right femoral artery. There are bilateral apparent femoral artery stents. No definite flow seen in the stents. There are some small collateral vessels at the knees apparently filling from the profunda femoris artery bilaterally. Collaterals appear to fill the anterior posterior tibial arteri es bilaterally. There is arterial flow in the peroneal arteries bilaterally. There is arterial flow i n the posterior tibial arteries at the ankles bilaterally. There is arterial flow in the dorsalis ped is artery of both feet. There is no contrast extravasation. There is no mesenteric edema. There is no ascites or free air. There is no bowel obstruction. 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 There is arterial flow in the right iliac artery stent which is a change compared to last exam. There is apparent bilateral thrombosis of the femoral artery stents. There are collateral vessels fro m the profunda femoris artery bilaterally with reconstitution of the tibial artery trifurcation bilat erally. There is arterial flow in the anterior tibial artery and posterior tibial artery at the ankle s bilaterally.
[2021-10-07] MEDS ORDERED: ONDANSETRON 4 MG/2 ML VIAL IVP PRN (19:41)
[2021-10-07] MEDS ORDERED: NALOXONE 0.4 MG/ML 1 ML VIAL IV PRN (19:41)
[2021-10-07] MEDS ORDERED: ACETAMINOPHEN TAB 325 MG TAB PO PRN (19:41)
[2021-10-07] MEDS: ATORVASTATIN 10 MG TAB PO SCH (20:34)
[2021-10-07] MEDS: HYDROmorphone 0.5 MG/0.5 ML SYRINGE IVP PRN ×2 (20:34→23:19)
[2021-10-07] MEDS: APIXABAN 5 MG TAB PO SCH (20:34)
[2021-10-07] MEDS: METOPROLOL TARTRATE 50 MG TAB PO SCH (20:34)
[2021-10-07] MEDS: SODIUM CHLORIDE 0.9% 1,000 ML IV SCH (20:35)
[2021-10-08] MEDS: HYDROmorphone 0.5 MG/0.5 ML SYRINGE IVP PRN ×7 (02:12→23:18)
[2021-10-08] MEDS: METOPROLOL TARTRATE 50 MG TAB PO SCH ×3 (05:06→20:18)
[2021-10-08 07:21] LABS: Basophils # (A) 0.1 k/uL (0-0.2); Basophils % (A) 1 %; Eosinophils # (A) 0.2 k/uL (0-0.7); Eosinophils % (A) 1 %; HCT 34.9 % (39.0-53.0); HGB 11.6 gm/dL (13.0-17.5); Lymphocytes # (A) 1.7 k/uL (1.0-4.8); Lymphocytes % (A) 14 %; MCH 31.8 pg (25.0-35.0); MCHC 33.2 g/dL (31.0-37.0); MCV 95.9 fL (80.0-100.0); Mean Platelet Volume 7.3; Monocytes # (A) 0.7 k/uL (0-1.0); Monocytes % (A) 6 %; Neutrophils # (A) 9.1 k/uL (1.3-7.7); Neutrophils % (A) 77 %; Platelet Count 511 k/uL (150-450); RBC 3.64 m/uL (4.30-5.90); RDW 14.1 % (11.5-15.5); WBC 11.9 k/uL (3.8-10.6)
[2021-10-08] MEDS: AMIODARONE 200 MG TAB PO SCH (08:35)
[2021-10-08] MEDS: FUROSEMIDE 20 MG TAB PO SCH (08:35)
[2021-10-08] MEDS: lisinopriL 10 MG TAB PO SCH (08:35)
[2021-10-08] MEDS: SODIUM CHLORIDE 0.9% 1,000 ML IV SCH ×2 (08:37→20:18)
[2021-10-08 11:38] LABS: African American GFR (CKD) 91.8 (60.0-200.0); Albumin/Globulin Ratio 0.79 (1.60-3.17); Anion Gap 9.9 mmol/L (10.00-18.00); Calcium 8.6 mg/dL (8.7-10.3); Carbon Dioxide 24.1 mmol/L (20.0-27.5); Globulin 3.8 g/dL (1.6-3.3); Non-African American GFR(CKD) 79.2 (60.0-200.0); Total Bilirubin 0.5 mg/dL (0.30-1.20); Total Protein 6.8 g/dL (6.2-8.2)
[2021-10-08] MEDS: CLOPIDOGREL 75 MG TAB PO SCH (13:49)
[2021-10-08] MEDS: APIXABAN 5 MG TAB PO SCH ×2 (13:49→20:19)
--- NOTE | 2021-10-08 14:07 | P.GSCN ---
History of Present Illness Consult date: 10/08/21 Reason for Consult: right lower extremity ischemia History of present illness: 65 year old male with history of PAD, claudication, right SFA and common iliac artery stenting was previously in the hospital recently for occlusion of the iliac and SFA stents. He had intervention at that time and was able to open the iliac stent but not the SFA stent. He had improvement and followed in the office where his pain worsened and was recommended to undergo bypass. He was in the process of being scheduled when he presents to the hospital yesterday for worsening pain in foot and toes. He states he is having more difficulty with pain and his toes are back to becoming discolored. He denies any fevers, chills, chest pain or shortness of breath. He underwent CTA which demonstrated occlusion of the SFA stent with recon below knee tibial arteries. Review of Systems All systems: negative (what is mentioned in the PMH or HPI) Past Medical History Past Medical History: Cancer, Hyperlipidemia, Hypertension, Vascular Disorder Additional Past Medical History / Comment(s): SKIN CANCER. 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 History of Any Multi-Drug Resistant Organisms: None Reported Past Surgical History: Heart Catheterization, Heart Catheterization With Stent Additional Past Surgical History / Comment(s): "RIGHT LEG FOR CIRCULATION WITH 2 STENTS " rt internal carotid stent 05/05/20, 07/21/20-PTBA, 08/18/2020 stent x3 left SFA Past Anesthesia/Blood Transfusion Reactions: No Reported Reaction Date of Last Stent Placement:: 08/18/2020 Past Psychological History: No Psychological Hx Reported Smoking Status: Former smoker Past Alcohol Use History: Rare Additional Past Alcohol Use History / Comment(s): STARTED SMOKING AT AGE 17 QUIT 2019 SMOKED 1/2 - 1 PPD Past Drug Use History: None Reported - Past Family History Father Family Medical History: Cancer Additional Family Medical History / Comment(s): throat cancer Brother(s) Family Medical History: Cancer Additional Family Medical History / Comment(s): THROAT CANCER. Mother Family Medical History: No Reported History Medications and Allergies Home Medications Medication Instructions Recorded Confirmed Type Atorvastatin [Lipitor] 10 mg PO HS 05/03/20 10/07/21 History Clopidogrel [Plavix] 75 mg PO DAILY 05/03/20 10/07/21 History lisinopriL [Zestril] 10 mg PO DAILY 05/03/20 10/07/21 History Apixaban [Eliquis] 5 mg PO BID 30 Days #60 tab 09/22/21 10/07/21 Rx Furosemide [Lasix] 20 mg PO DAILY #30 tab 09/29/21 10/07/21 Rx Amiodarone [Cordarone] 200 mg PO DAILY 10/07/21 10/07/21 History HYDROcodone/APAP 5-325MG [[place] 1 tab PO Q6HR PRN 10/07/21 10/07/21 History 5-325] Metoprolol Tartrate [Lopressor] 100 mg PO TID@0500,1300,2100 10/07/21 10/07/21 History Multivitamins, Thera [Multivitamin 1 tab PO DAILY 10/07/21 10/07/21 History (formulary)] Allergies Allergy/AdvReac Type Severity Reaction Status Date / Time No Known Allergies Allergy Verified 10/07/21 15:47 Surgical - Exam Vital Signs Temp Pulse Resp BP Pulse Ox 98.5 F 89 18 138/76 92 L 10/07/21 14:00 10/07/21 14:00 10/07/21 14:00 10/07/21 14:00 10/07/21 14:00 non palpable dp and pt pulses, monophasic dp and pt signal with slowed capillary refill on the right. Right toes are ischemic with blister formation at the dorsal aspect of the foot. +tenderness to palpation of the foot and toes. - General well developed, well nourished, moderate distress - Eyes PERRL, normal ocular movement - ENT normal pinna - Neck no masses - Respiratory normal expansion - Cardiovascular Rhythm: regular - Abdomen Abdomen: soft, non tender - Psychiatric oriented to time, oriented to person, oriented to place, speech is normal Results - Labs 10/08/21 06:12 10/08/21 06:12 Abnormal Lab Results - Last 24 Hours (Table) 10/07/21 10/07/21 10/08/21 Range/Units 16:18 16:18 06:12 WBC 14.4 H 11.9 H (3.8-10.6) k/uL RBC 4.00 L 3.64 L (4.30-5.90) m/uL Hgb 12.6 L 11.6 L (13.0-17.5) gm/dL Hct 37.4 L 34.9 L (39.0-53.0) % Plt Count 538 H 511 H (150-450) k/uL Neutrophils # 11.6 H 9.1 H (1.3-7.7) k/uL Sodium 133 L (137-145) mmol/L Chloride 96 L (98-107) mmol/L Anion Gap (10.00-18.00) mmol/L Glucose 107 H (74-99) mg/dL Calcium (8.7-10.3) mg/dL AST (14-35) U/L Albumin (3.8-4.9) g/dL Globulin (1.6-3.3) g/dL Albumin/Globulin Ratio (1.60-3.17) g/dL 10/08/21 Range/Units 06:12 WBC (3.8-10.6) k/uL RBC (4.30-5.90) m/uL Hgb (13.0-17.5) gm/dL Hct (39.0-53.0) % Plt Count (150-450) k/uL Neutrophils # (1.3-7.7) k/uL Sodium 132 L (137-145) mmol/L Chloride (98-107) mmol/L Anion Gap 9.90 L (10.00-18.00) mmol/L Glucose (74-99) mg/dL Calcium 8.6 L (8.7-10.3) mg/dL AST 13 L (14-35) U/L Albumin 3.0 L (3.8-4.9) g/dL Globulin 3.8 H (1.6-3.3) g/dL Albumin/Globulin Ratio 0.79 L (1.60-3.17) g/dL Diabetes panel 10/07/21 10/08/21 Range/Units 16:18 06:12 Sodium 133 L 132 L (137-145) mmol/L Potassium 4.6 5.0 (3.5-5.1) mmol/L Chloride 96 L 98 (98-107) mmol/L Carbon Dioxide 29 24.1 (22-30) mmol/L BUN 17 12.0 (9-20) mg/dL Creatinine 1.07 1.0 (0.66-1.25) mg/dL Glucose 107 H 92 (74-99) mg/dL Calcium 9.0 8.6 L (8.4-10.2) mg/dL AST 25 13 L (17-59) U/L ALT 17 14 (4-49) U/L Alkaline Phosphatase 102 84 (38-126) U/L Total Protein 7.9 6.8 (6.3-8.2) g/dL Albumin 3.5 3.0 L (3.5-5.0) g/dL Calcium panel 10/07/21 10/08/21 Range/Units 16:18 06:12 Calcium 9.0 8.6 L (8.4-10.2) mg/dL Albumin 3.5 3.0 L (3.5-5.0) g/dL Pituitary panel 10/07/21 10/08/21 Range/Units 16:18 06:12 Sodium 133 L 132 L (137-145) mmol/L Potassium 4.6 5.0 (3.5-5.1) mmol/L Chloride 96 L 98 (98-107) mmol/L Carbon Dioxide 29 24.1 (22-30) mmol/L BUN 17 12.0 (9-20) mg/dL Creatinine 1.07 1.0 (0.66-1.25) mg/dL Glucose 107 H 92 (74-99) mg/dL Calcium 9.0 8.6 L (8.4-10.2) mg/dL Adrenal panel 10/07/21 10/08/21 Range/Units 16:18 06:12 Sodium 133 L 132 L (137-145) mmol/L Potassium 4.6 5.0 (3.5-5.1) mmol/L Chloride 96 L 98 (98-107) mmol/L Carbon Dioxide 29 24.1 (22-30) mmol/L BUN 17 12.0 (9-20) mg/dL Creatinine 1.07 1.0 (0.66-1.25) mg/dL Glucose 107 H 92 (74-99) mg/dL Calcium 9.0 8.6 L (8.4-10.2) mg/dL Total Bilirubin 0.7 0.50 (0.2-1.3) mg/dL AST 25 13 L (17-59) U/L ALT 17 14 (4-49) U/L Alkaline Phosphatase 102 84 (38-126) U/L Total Protein 7.9 6.8 (6.3-8.2) g/dL Albumin 3.5 3.0 L (3.5-5.0) g/dL - Imaging Additional studies: CTA with runoff reviewed. Assessment and Plan Assessment: 1. Critical limb ischemia right lower extremity 2. Right SFA occlusion 3. history of AFib 4. s/p partial revascularization Plan: Patient will need femoral-tibial artery bypass. He is on Eliquis which we are holding at this time and will schedule surgery for tomorrow with Dr. Nunes.
--- NOTE | 2021-10-08 18:05 | P.HPIM ---
History of Present Illness H&P Date: 10/08/21 Chief Complaint: Right foot pain 65 year-old male, history of PAD, CAD, and A.Fib, presents to the emergency department for evaluation of right lower extremity discoloration. Patient states he was sent from [facility] for evaluation of wounds on the right foot. Called [facility] to speak with nurse who reports that when the patient arrived at their facility last week his right lower extremity was pink and warm, however has had worsening discoloration of the right lower extremity including dusky-purplish hue to the third, fourth, and fifth digits on the right foot. The nurse reports concern that the follow-up appointment with vascular surgeon scheduled for next week is too long for the patient to wait. Patient does complain of moderate amount of discomfort to the right foot. Denies loss of sensation. Patient does have wounds on the right foot, however, facility staff state that these are unchanged and that he is receiving wound care. Patient denies fever, chills, headache, chest pain, shortness of breath, difficulty breathing, abdominal pain, nausea, vomiting CT of the abdomen and pelvis with runoff was obtained. There is arterial flow in the right iliac artery stent which is a change compared to last exam. There is also apparent bilateral thrombosis of the femoral artery stents. There are collateral vessels from the profunda femoris artery bilaterally with reconstitution of the tibial artery trifurcation bilaterally. There is arterial flow in the anterior tibial artery and posterior tibial artery at the ankles bilaterally. Laboratory studies were reviewed; mild leukocytosis noted. Patient will be admitted to the hospital for further evaluation and treatment. Review of Systems REVIEW OF SYSTEMS: CONSTITUTIONAL: No fever, no malaise, no fatigue. HEENT: No recent visual problems or hearing problems. Denied any sore throat. CARDIOVASCULAR: No chest pain, orthopnea, PND, no palpitations, no syncope. PULMONARY: No shortness of breath, no cough, no hemoptysis. GASTROINTESTINAL: No diarrhea, no nausea, no vomiting, no abdominal pain. NEUROLOGICAL: No headaches, no weakness, no numbness. HEMATOLOGICAL: Denies any bleeding or petechiae. GENITOURINARY: Denies any burning micturition, frequency, or urgency. MUSCULOSKELETAL/RHEUMATOLOGICAL: Denies any joint pain, swelling, or any muscle pain. ENDOCRINE: Denies any polyuria or polydipsia. The rest of the 14-point review of systems is negative. Past Medical History Past Medical History: Cancer, Hyperlipidemia, Hypertension, Vascular Disorder Additional Past Medical History / Comment(s): SKIN CANCER. 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 History of Any Multi-Drug Resistant Organisms: None Reported Past Surgical History: Heart Catheterization, Heart Catheterization With Stent Additional Past Surgical History / Comment(s): "RIGHT LEG FOR CIRCULATION WITH 2 STENTS " rt internal carotid stent 05/05/20, 07/21/20-[facility]BA, 08/18/2020 stent x3 left SFA Past Anesthesia/Blood Transfusion Reactions: No Reported Reaction Date of Last Stent Placement:: 08/18/2020 Past Psychological History: No Psychological Hx Reported Smoking Status: Former smoker Past Alcohol Use History: Rare Additional Past Alcohol Use History / Comment(s): STARTED SMOKING AT AGE 17 QUIT 2019 SMOKED 1/2 - 1 PPD Past Drug Use History: None Reported - Past Family History Father Family Medical History: Cancer Additional Family Medical History / Comment(s): throat cancer Brother(s) Family Medical History: Cancer Additional Family Medical History / Comment(s): THROAT CANCER. Mother Family Medical History: No Reported History Medications and Allergies Home Medications Medication Instructions Recorded Confirmed Type Atorvastatin [Lipitor] 10 mg PO HS 05/03/20 10/07/21 History Clopidogrel [Plavix] 75 mg PO DAILY 05/03/20 10/07/21 History lisinopriL [Zestril] 10 mg PO DAILY 05/03/20 10/07/21 History Apixaban [Eliquis] 5 mg PO BID 30 Days #60 tab 09/22/21 10/07/21 Rx Furosemide [Lasix] 20 mg PO DAILY #30 tab 09/29/21 10/07/21 Rx Amiodarone [Cordarone] 200 mg PO DAILY 10/07/21 10/07/21 History HYDROcodone/APAP 5-325MG [[employer] 1 tab PO Q6HR PRN 10/07/21 10/07/21 History 5-325] Metoprolol Tartrate [Lopressor] 100 mg PO TID@0500,1300,2100 10/07/21 10/07/21 History Multivitamins, Thera [Multivitamin 1 tab PO DAILY 10/07/21 10/07/21 History (formulary)] Allergies Allergy/AdvReac Type Severity Reaction Status Date / Time No Known Allergies Allergy Verified 10/07/21 15:47 Physical Exam Vitals: Vital Signs Temp Pulse Pulse Resp BP BP Pulse Ox 10/08/21 08:34 69 112/70 10/08/21 08:25 69 20 10/08/21 04:40 98 F 68 20 117/67 94 L 10/07/21 22:22 98.1 F 96 20 99/59 96 10/07/21 20:36 99 18 159/59 94 L 10/07/21 18:49 92 18 134/76 93 L 10/07/21 16:23 89 18 108/50 92 L 10/07/21 14:00 98.5 F 89 18 138/76 92 L Intake and Output 10/07/21 10/08/21 10/08/21 22:59 06:59 14:59 Intake Total 100 200 Balance 100 200 Intake: Oral 100 200 Other: Voiding Method Toilet Urinal # Voids 1 Weight 83.915 kg PHYSICAL EXAMINATION: GENERAL: The patient is alert and oriented x3, not in any acute distress. Well developed, well nourished. HEENT: Pupils are round and equally reacting to light. EOMI. No scleral icterus. No conjunctival pallor. Normocephalic, atraumatic. No pharyngeal erythema. No thyromegaly. CARDIOVASCULAR: S1 and S2 present. No murmurs, rubs, or gallops. PULMONARY: Chest is clear to auscultation, no wheezing or crackles. ABDOMEN: Soft, nontender, nondistended, normoactive bowel sounds. No palpable organomegaly. MUSCULOSKELETAL: No joint swelling or deformity. EXTREMITIES: No cyanosis, clubbing, or pedal edema. NEUROLOGICAL: Gross neurological examination did not reveal any focal deficits. SKIN: patient has a dusky appearance to the third, fourth, and fifth digits on the right foot. First and second digits on the right foot are somewhat reddened with slightly dusky nailbeds. Pedal and posttibial pulses are not palpable, nor audible with Doppler. Patient also has wounds on the dorsal surface of the foot. This extremity is warm to touch. Left lower extremity is pale and warm, pedal and posttibial pulse present upon Doppler. . Results CBC & Chem 7: 10/08/21 06:12 10/08/21 06:12 Labs: Abnormal Lab Results - Last 24 Hours (Table) 10/07/21 10/07/21 10/08/21 Range/Units 16:18 16:18 06:12 WBC 14.4 H 11.9 H (3.8-10.6) k/uL RBC 4.00 L 3.64 L (4.30-5.90) m/uL Hgb 12.6 L 11.6 L (13.0-17.5) gm/dL Hct 37.4 L 34.9 L (39.0-53.0) % Plt Count 538 H 511 H (150-450) k/uL Neutrophils # 11.6 H 9.1 H (1.3-7.7) k/uL Sodium 133 L (137-145) mmol/L Chloride 96 L (98-107) mmol/L Glucose 107 H (74-99) mg/dL Thrombosis Risk Factor Assmnt - Choose All That Apply Any of the Below Risk Factors Present?: No Other Risk Factors: Yes Each Risk Factor Represents 2 Points: Age 61-74 years Other congenital or acquired thrombophilia - If yes, enter type in comment: No Thrombosis Risk Factor Assessment Total Risk Factor Score: 2 Thrombosis Risk Factor Assessment Level: Low Risk Assessment and Plan Assessment: 1. Critical limb ischemia right lower extremity - CT of the abdomen and pelvis with runoff was obtained. There is arterial flow in the right iliac artery stent which is a change compared to last exam. There is also apparent bilateral thrombosis of the femoral artery stents. There are collateral vessels from the profunda femoris artery bilaterally with reconstitution of the tibial artery trifurcation bilaterally. There is arterial flow in the anterior tibial artery and posterior tibial artery at the ankles bilaterally. - Patient has been evaluated by vascular surgery and is recommended femoral tibial bypass; patient has been placed on anticoagulation with Eliquis in ED; vascular surgery is recommending to hold anticoagulation for planned surgery tomorrow morning 2. Mild leukocytosis; no signs of infection; we will monitor CBC, CMP and pro-calcitonin with plans to treat for infection if elevated 3. Atrial fibrillation; patient remains on amiodarone 200 mg daily and Eliquis 5 mg by mouth twice a day 4. Hypertension; metoprolol 100 mg by mouth 3 times a day; lisinopril 10 mg daily 5. Hyperlipidemia; Lipitor 10 mg 2 daily at bedtime 6. CAD/CHF; patient remains on Plavix, Lipitor, metoprolol along with Eliquis for anticoagulation which has been placed on hold for surgery tomorrow morning DVT prophylaxis; SCDs/Eliquis CODE STATUS; full code
[2021-10-08] MEDS: ATORVASTATIN 10 MG TAB PO SCH (20:18)
[2021-10-09] MEDS: METOPROLOL TARTRATE 50 MG TAB PO SCH ×3 (01:23→19:50)
[2021-10-09] MEDS: HYDROmorphone 0.5 MG/0.5 ML SYRINGE IVP PRN ×3 (02:04→22:39)
[2021-10-09 05:49] LABS: Basophils # (A) 0.1 k/uL (0-0.2); Basophils % (A) 1 %; Eosinophils # (A) 0.2 k/uL (0-0.7); Eosinophils % (A) 2 %; HCT 33.6 % (39.0-53.0); HGB 11.4 gm/dL (13.0-17.5); Lymphocytes # (A) 1.6 k/uL (1.0-4.8); Lymphocytes % (A) 13 %; MCH 31.6 pg (25.0-35.0); MCHC 33.8 g/dL (31.0-37.0); MCV 93.5 fL (80.0-100.0); Mean Platelet Volume 7.5; Monocytes # (A) 0.7 k/uL (0-1.0); Monocytes % (A) 6 %; Neutrophils # (A) 9.5 k/uL (1.3-7.7); Neutrophils % (A) 78 %; Platelet Count 473 k/uL (150-450); RBC 3.59 m/uL (4.30-5.90); RDW 13.4 % (11.5-15.5); WBC 12.2 k/uL (3.8-10.6)
[2021-10-09] MEDS ORDERED: PROPOFOL 10 MG/ML 20 ML VIAL IV ONE (08:05)
[2021-10-09] MEDS ORDERED: MIDAZOLAM 2 MG/2 ML VIAL ONE (08:05)
[2021-10-09] MEDS ORDERED: LIDOCAINE 1% INJ 10MG/ML (20 ML MDV) ONE (08:05)
[2021-10-09] MEDS ORDERED: PHENYLEPHRINE-0.9% NACL SYG 1,000 MCG/10 ML SYRINGE ONE (08:05)
[2021-10-09] MEDS ORDERED: fentaNYL (PF) 50 MCG/ML 2 ML AMP ONE (08:05)
[2021-10-09] MEDS ORDERED: LACTATED RINGERS 1,000 ML IV ONE ×3 (08:05→12:13)
[2021-10-09] MEDS ORDERED: HYDROmorphone (PF) 1 MG/ML ONE (08:05)
[2021-10-09] MEDS ORDERED: SUCCINYLCHOLINE CHLORIDE 100 MG/5 ML SYR IV ONE (08:05)
[2021-10-09] MEDS ORDERED: ROCURONIUM 10 MG/ML (5 ML VIAL) IV ONE (08:05)
[2021-10-09] MEDS ORDERED: HEPARIN SODIUM,PORCINE 10,000 UNIT in SODIUM CHLORIDE 0.9% 1,000 ML IRRIGATION ONE (08:46)
[2021-10-09] MEDS ORDERED: SODIUM CHLORIDE 0.9% 1,000 ML with ceFAZolin 4,000 MG IRRIGATION ONE ×2 (08:47)
[2021-10-09 11:01] LABS: African American GFR (CKD) 94.9 (60.0-200.0); Anion Gap 11.2 mmol/L (10.00-18.00); BUN/Creat Ratio 11.82 Ratio (12.00-20.00); Blood Urea Nitrogen 11.5 mg/dL (9.0-27.0); Calcium 8.7 mg/dL (8.7-10.3); Carbon Dioxide 24.3 mmol/L (20.0-27.5); Non-African American GFR(CKD) 81.9 (60.0-200.0); Potassium 4.6 mmol/L (3.5-5.5)
[2021-10-09 11:02] LABS: C Reactive Protein 5.4 mg/dL (0.00-0.80)
--- NOTE | 2021-10-09 12:45 | P.OP ---
Date of Procedure: 10/09/21 Preoperative Diagnosis: #1: Right superficial femoral popliteal artery occlusive disease was secondary ischemic rest pain and ulcerations of the right foot. Postoperative Diagnosis: Same. Procedure(s) Performed: #1: Right femoral to tibial peroneal trunk in situ vein bypass graft. #2: Right common femoral endarterectomy. Implants: None. Anesthesia: OFELIA Surgeon: Urbano Nunes Estimated Blood Loss (ml): 100 Pathology: none sent Condition: stable Disposition: no change Indications for Procedure: Patient is a 65-year-old male who had undergone a venous percutaneous revascularization which ultimately failed. Patient was experiencing ischemic re st pain and skin changes. Angiogram demonstrated complete occlusion of the superficial femoral popliteal arterial segments with tibial vessel runoff. The patient had undergone vein mapping and vein was adequate for bypass purposes. Patient is offered femoral to tibial bypass for limb salvage. The procedure, risk and benefits were discussed with the patient. Patient wished to proceed. Description of Procedure: Patient was brought to the operating room and placed in the supine position and administered general endotracheal anesthesia delivered by the department anes thesiology. Brown catheter is placed to gravity drainage. The patient received intravenously administered Ancef prophylactic therapy in the perioperative phase. Patient's right lower extremity and lower abdominal areas were sterilely prepped and draped in usual manner. Skin incision was made overlying the femoral artery and carried down through the subcutaneous tissues. Hemostasis was achieved using electrocautery. Lymphatic layer was divided laterally swept medially exposing the femoral sheath. Large amount of scar tissue was encountered due to previous interventions. The superficial femoral artery identified at its origin and encircled Vesseloops as was the profundus femoris. The common femoral artery was dissected free of investing tissues and encircled Vesseloops at its proximal segment. Attention was turned to the great saphenous vein. The vein was identified in its confluence with the femoral vein form in the common femoral vein. I branches were ligated with silk suture and divided. Anabolic-soaked gauze was then placed in the wound. Attention was turned to the proximal calf area where an incision was made along the medial aspect of the leg just below the popliteal level. The incision was deepened through the subcutaneous tissues. Care was taken to avoid injuring the great saphenous vein. Popliteal space was identified and entered. The distal popliteal artery was dissected free of investing tissues as was the origin of the anterior tibial as well as the tibial peroneal trunk. Vesseloops were placed about the origins of these vessels. The great saphenous vein at the proximal thigh level was identified and dissected free of investing tissues. The vein was felt to be adequate for bypass purposes. Wound was then packed with anabolic-soaked gauze. The patient was systemically heparinized and ACT is were drawn and further doses of heparin were administered based on ACT values. The confluence of the great saphenous vein and the femoral vein was identified. The great saphenous vein was then clamped at this level and then divided. The femoral vein was then oversewn with 6-0 Prolene suture. The vein was mobilized and did reach the distal common femoral segment. The Vesseloops surrounding the profundus and superficial femoral arteries were drawn closed and the common femoral artery was occluded with a vascular clamp. Arteriotomy was made in the distal femoral artery and extended with Camp scissors. A stent was encountered at the origin of the superficial femoral artery and some of the stent material was removed. To improve flow into the profundus an endarterectomy of the distal common femoral was performed. Once performed this allowed for much improved backbleeding through the profundus system. The profundus was flushed with heparinized saline solution and reoccluded. The vein a was spatulated and end-to-side anastomosis between the vein and the artery was completed with 6-0 Prolene suture. Just prior to completion of the anastomotic line the profundus was backbled and the femoral artery was flushed and no thrombus was retrieved. The anastomotic line was completed and flow restored into the profundus and into the bypass conduit. Excellent pulse was identified within the bypass conduit to the first patent valve as well as the profundus The distal end of the vein was ligated and the vein was then transected. A LeMaitre valvulotome was then passed from distal to proximal, eventually this was performed 3 separate times. Once performed arterial flow was noted at the distal end of the vein graft. The vein graft was then occluded. Vessel loops surrounding the tibial vessels were drawn closed and arteriotomy in the tibial peroneal trunk was made and extended with Pott Mata scissors. Backbleeding through the anterior tibial and tibioperoneal trunk was noted. The vein was cut the appropriate length and spatulated to match the arteriotomy. 2 mm dilators were passed down the tibial peroneal trunk as well as the anterior tibial artery. End-to-side anastomosis between the vein and the artery is completed with 6-0 Prolene suture. Just prior to completion of the anastomotic line backbleeding through the bois forte vessels was allowed to occur and no thrombus was retrieved. The anastomotic line was then completed. Ultrasound was then employed to identify side branches. Difficulty was experienced running all the side branches necessitating an extension of the incision in the medial thigh. Once this was performed all side branches were identified and ligated or clipped as appropriate. This resulted in marked improvement in pulsatility of the vein graft. Continuous-wave handheld Doppler was utilized to interrogate the vein graft. Biphasic flow was identified. With completion of this of the foot was noted to pink in markedly a. With the above findings noted all wounds were irrigated with antibiotic taking solution. The thigh and upper calf area wounds were closed with 3-0 Vicryl and then with skin samantha. The groin wound was closed in multiple layers with Vicryl and skin was reapproximated with 4-0 Monocryl placed in running intradermal fashion. Appropriate dressings were applied. Patient tolerated the procedure well and was taken to the recovery area in satisfactory and stable condition.
[2021-10-09] MEDS ORDERED: MAG HYDROX/AL HYDROX/SIMETH 30 ML CUP PO PRN (13:11)
[2021-10-09] MEDS ORDERED: MORPHINE SULFATE 2 MG/ML SYRINGE IVP PRN (13:11)
[2021-10-09] MEDS: FUROSEMIDE 20 MG TAB PO SCH (16:24)
[2021-10-09] MEDS: APIXABAN 5 MG TAB PO SCH ×2 (16:24→19:51)
[2021-10-09] MEDS: SODIUM CHLORIDE 0.9% 1,000 ML IV SCH ×2 (16:27→23:35)
[2021-10-09] MEDS: lisinopriL 10 MG TAB PO SCH (16:47)
[2021-10-09] MEDS: AMIODARONE 200 MG TAB PO SCH (16:47)
[2021-10-09] MEDS: ASPIRIN 325 MG TAB PO SCH (16:48)
[2021-10-09] MEDS: CLOPIDOGREL 75 MG TAB PO SCH (16:48)
[2021-10-09] MEDS: LACTATED RINGERS 1,000 ML IV SCH ×2 (16:49→23:37)
[2021-10-09] MEDS: HYDROcodone/APAP 5-325MG 1 EACH TAB PO PRN (19:49)
[2021-10-09] MEDS: ATORVASTATIN 10 MG TAB PO SCH (19:51)
--- NOTE | 2021-10-09 20:12 | P.PN ---
Subjective Progress Note Date: 10/09/21 Principal diagnosis: Critical limb ischemia right lower extremity 65 year-old male, history of PAD, CAD, and A.Fib, presents to the emergency department for evaluation of right lower extremity discoloration. Patient states he was sent from [facility] for evaluation of wounds on the right foot. Called [facility] to speak with nurse who reports that when the patient arrived at their facility last week his right lower extremity was pink and warm, however has had worsening discoloration of the right lower extremity including dusky-purplish hue to the third, fourth, and fifth digits on the right foot. The nurse reports concern that the follow-up appointment with vascular surgeon scheduled for next week is too long for the patient to wait. Patient does complain of moderate amount of discomfort to the right foot. Denies loss of sensation. Patient does have wounds on the right foot, however, facility staff state that these are unchanged and that he is receiving wound care. Patient denies fever, chills, headache, chest pain, shortness of breath, difficulty br eathing, abdominal pain, nausea, vomiting CT of the abdomen and pelvis with runoff was obtained. There is arterial flow in the right iliac artery stent which is a change compared to last exam. There is also apparent bilateral thrombosis of the femoral artery stents. There are collateral vessels from the profunda femoris artery bilaterally with reconstitution of the tibial artery trifurcation bilaterally. There is arterial flow in the anterior tibial artery and posterior tibial artery at the ankles bilaterally. Laboratory studies were reviewed; mild leukocytosis noted. Patient will be admitted to the hospital for further evaluation and treatment. 10/09/2021 Patient is seen and evaluated in room at bedside; patient is status post right lower extremity revascularization Vital signs are reviewed temperature stable, pulse 76, respiration 18 blood pressure 144/70 Last set reviewed reveals WBC 12.2, hemoglobin 11.4, platelet count of 473, sod ium 134, potassium 4.6, BUN/creatinine of 11.5/1.0 Patient was taken to surgery for right superficial femoral artery occlusive disease with secondary just pain and ulcerations of right foot and is status post right femoral to tibial peroneal trunk in situ vein bypass graft and right common femoral endarterectomy Objective - Vital Signs Vital signs: Vital Signs Temp 97 F L 10/09/21 12:28 Pulse 80 10/09/21 12:43 Resp 16 10/09/21 12:43 BP 144/67 10/09/21 12:43 Pulse Ox 99 10/09/21 12:43 Intake & Output 10/08/21 10/09/21 10/09/21 18:59 06:59 18:59 Intake Total 0023 245 9488 Output Total 600 Balance 3889 163 3942 Intake: IV 2001 Oral 1280 360 Output: Urine 500 Estimated Blood Loss 100 Other: Voiding Method Toilet Toilet Urinal Urinal # Voids 2,100 1 - Exam GENERAL: The patient is alert and oriented x3, not in any acute distress. Well developed, well nourished. HEENT: Pupils are round and equally reacting to light. EOMI. No scleral icterus. No conjunctival pallor. Normocephalic, atraumatic. No pharyngeal erythema. No thyromegaly. CARDIOVASCULAR: S1 and S2 present. No murmurs, rubs, or gallops. PULMONARY: Chest is clear to auscultation, no wheezing or crackles. ABDOMEN: Soft, nontender, nondistended, normoactive bowel sounds. No palpable organomegaly. MUSCULOSKELETAL: No joint swelling or deformity. EXTREMITIES: No cyanosis, clubbing, or pedal edema. NEUROLOGICAL: Gross neurological examination did not reveal any focal deficits. SKIN: patient has a dusky appearance to the third, fourth, and fifth digits on the right foot. First and second digits on the right foot are somewhat reddened with slightly dusky nailbeds. Pedal and posttibial pulses are not palpable, nor audible with Doppler. Patient also has wounds on the dorsal surface of the foot. This extremity is warm to touch. Left lower extremity is pale and warm, pedal and posttibial pulse present upon Doppler. . - Labs CBC & Chem 7: 10/09/21 05:26 10/09/21 05:26 Labs: Abnormal Lab Results - Last 24 Hours (Table) 10/09/21 10/09/21 Range/Units 05:26 05:26 WBC 12.2 H (3.8-10.6) k/uL RBC 3.59 L (4.30-5.90) m/uL Hgb 11.4 L (13.0-17.5) gm/dL Hct 33.6 L (39.0-53.0) % Plt Count 473 H (150-450) k/uL Neutrophils # 9.5 H (1.3-7.7) k/uL Sodium 134 L (135-145) mmol/L BUN/Creatinine Ratio 11.82 L (12.00-20.00) Ratio C-Reactive Protein 5.40 H (0.00-0.80) mg/dL Assessment and Plan Assessment: 1. Critical limb ischemia right lower extremity - CT of the abdomen and pelvis with runoff was obtained. There is arterial flow in the right iliac artery stent which is a change compared to last exam. There is also apparent bilateral thrombosis of the femoral artery stents. There are collateral vessels from the profunda femoris artery bilaterally with reconstitution of the tibial artery trifurcation bilaterally. There is arterial flow in the anterior tibial artery and posterior tibial artery at the ankles bi laterally. - Patient has been evaluated by vascular surgery and is recommended femoral t ibial bypass; patient has been placed on anticoagulation with Eliquis in ED; vascular surgery is recommending to hold anticoagulation for planned surgery tomorrow morning 2. Mild leukocytosis; no signs of infection; we will monitor CBC, CMP and pro- calcitonin with plans to treat for infection if elevated 3. Atrial fibrillation; patient remains on amiodarone 200 mg daily and Eliquis 5 mg by mouth twice a day 4. Hypertension; metoprolol 100 mg by mouth 3 times a day; lisinopril 10 mg daily 5. Hyperlipidemia; Lipitor 10 mg 2 daily at bedtime 6. CAD/CHF; patient remains on Plavix, Lipitor, metoprolol along with Eliquis for anticoagulation which has been placed on hold for surgery tomorrow morning DVT prophylaxis; SCDs/Eliquis CODE STATUS; full code
[2021-10-10] MEDS: HYDROcodone/APAP 5-325MG 1 EACH TAB PO PRN ×5 (02:41→21:24)
[2021-10-10] MEDS: METOPROLOL TARTRATE 50 MG TAB PO SCH ×3 (04:32→20:00)
[2021-10-10 05:48] LABS: Basophils % (A) 0 %; Eosinophils # (A) 0.1 k/uL (0-0.7); Eosinophils % (A) 1 %; HCT 32.7 % (39.0-53.0); HGB 10.9 gm/dL (13.0-17.5); Lymphocytes % (A) 9 %; MCH 31.8 pg (25.0-35.0); MCHC 33.4 g/dL (31.0-37.0); MCV 95.2 fL (80.0-100.0); Mean Platelet Volume 7.3; Monocytes # (A) 0.4 k/uL (0-1.0); Monocytes % (A) 4 %; Neutrophils # (A) 9.3 k/uL (1.3-7.7); Neutrophils % (A) 85 %; Platelet Count 430 k/uL (150-450); RBC 3.43 m/uL (4.30-5.90); WBC 10.9 k/uL (3.8-10.6)
[2021-10-10] MEDS: ASPIRIN 325 MG TAB PO SCH (07:53)
[2021-10-10] MEDS: CLOPIDOGREL 75 MG TAB PO SCH (07:53)
[2021-10-10] MEDS: DOCUSATE 100 MG CAP PO SCH (07:53)
[2021-10-10] MEDS: APIXABAN 5 MG TAB PO SCH ×2 (07:54→20:00)
[2021-10-10] MEDS: FUROSEMIDE 20 MG TAB PO SCH (07:54)
[2021-10-10] MEDS: lisinopriL 10 MG TAB PO SCH (07:54)
[2021-10-10] MEDS: AMIODARONE 200 MG TAB PO SCH (07:54)
--- NOTE | 2021-10-10 08:32 | P.PN ---
Subjective Progress Note Date: 10/10/21 Principal diagnosis: Rest pain with right lower extremity ischemia The patient is postop day #1's SFA bypass secondary to right lower extremity ischemia. History of atrial fibrillation which is stabilizing. The patient states he feels much better today. Objective - Vital Signs Vital signs: Vital Signs Temp 97.8 F 10/10/21 04:26 Pulse 73 10/10/21 04:26 Resp 18 10/10/21 04:26 BP 147/74 10/10/21 04:26 Pulse Ox 96 10/10/21 04:26 Intake & Output 10/09/21 10/10/21 10/10/21 18:59 06:59 18:59 Intake Total 2292 400 Output Total 1200 750 Balance 1092 -350 Intake: IV 2052 Oral 240 400 Output: Urine 1100 750 Estimated Blood Loss 100 Other: Voiding Method Toilet Toilet Urinal Urinal # Voids 2 - Constitutional General appearance: Present: average body habitus - EENT Eyes: Absent: abnormal pupil - Neck Neck: Absent: lymphadenopathy - Respiratory Respiratory: bilateral: CTA - Cardiovascular Rhythm: regular Heart sounds: normal: S1, S2 Abnormal Heart Sounds: Absent: S3 Gallop - Gastrointestinal General gastrointestinal: Present: soft. Absent: tenderness - Integumentary Integumentary: Present: cellulitis - Labs CBC & Chem 7: 10/10/21 05:03 10/09/21 05:26 Labs: Abnormal Lab Results - Last 24 Hours (Table) 10/09/21 10/10/21 Range/Units 05:26 05:03 WBC 10.9 H (3.8-10.6) k/uL RBC 3.43 L (4.30-5.90) m/uL Hgb 10.9 L (13.0-17.5) gm/dL Hct 32.7 L (39.0-53.0) % Neutrophils # 9.3 H (1.3-7.7) k/uL Sodium 134 L (135-145) mmol/L BUN/Creatinine Ratio 11.82 L (12.00-20.00) Ratio C-Reactive Protein 5.40 H (0.00-0.80) mg/dL Assessment and Plan (1) Atrial fibrillation Current Visit: Yes Status: Acute Code(s): I48.91 - UNSPECIFIED ATRIAL FIBRILLATION SNOMED Code(s): 16140787 (2) Foot ulcer, right Current Visit: Yes Status: Acute Code(s): L97.519 - NON-PRS CHRONIC ULCER OTH PRT RIGHT FOOT W UNSP SEVERITY SNOMED Code(s): 380037984 (3) Ischemia of right lower extremity Current Visit: Yes Status: Acute Code(s): I99.8 - OTHER DISORDER OF CIRCULATORY SYSTEM SNOMED Code(s): 999943889 Plan: Significant improvement noted clinically. We'll continue to follow. Check CBC and CMP in a.m. Continue anticoagulation otherwise.
[2021-10-10 11:01] LABS: African American GFR (CKD) 91.8 (60.0-200.0); Anion Gap 12.2 mmol/L (10.00-18.00); BUN/Creat Ratio 8.9 Ratio (12.00-20.00); Blood Urea Nitrogen 8.9 mg/dL (9.0-27.0); Calcium 8.3 mg/dL (8.7-10.3); Carbon Dioxide 22.8 mmol/L (20.0-27.5); Non-African American GFR(CKD) 79.2 (60.0-200.0); Potassium 4.3 mmol/L (3.5-5.5)
--- NOTE | 2021-10-10 11:26 | P.PN ---
Subjective Progress Note Date: 10/10/21 Patient is seen and examined sitting up at the bedside. Patient is postop day #1 for right femoral to tibial artery bypass and right common femoral artery endarterectomy. Patient states pain is greatly improved. He is able to move his foot and ankle. Still not able to move his toes other than his great toe. Patient's been afebrile. WBC 10.9 hemoglobin 10.9. Objective - Vital Signs Vital signs: Vital Signs Temp 97.8 F 10/10/21 04:26 Pulse 73 10/10/21 04:26 Resp 18 10/10/21 04:26 BP 147/74 10/10/21 04:26 Pulse Ox 96 10/10/21 04:26 Intake & Output 10/09/21 10/10/21 10/10/21 18:59 06:59 18:59 Intake Total 2292 400 Output Total 1200 750 Balance 1092 -350 Intake: IV 2052 Oral 240 400 Output: Urine 1100 750 Estimated Blood Loss 100 Other: Voiding Method Toilet Toilet Urinal Urinal # Voids 2 - Exam General appearance: The patient is alert, oriented, appears in no acute distress. HET: Head is normocephalic and atraumatic. Neck: Supple without lymphadenopathy. Trachea midline. Heart: S1 S2. Regular rate and rhythm. Lungs: Her to auscultation. Abdomen: Soft, nontender, nondistended. Extremities: Right lower extremity warm to touch, good capillary refill. Right groin incision well approximated with glue mild ecchymosis. Right lower extremity incision well approximated with samantha, clean dry and intact. Patient with positive posterior tibialis and dorsalis pedis Doppler signal. Right toes ischemic, blister on dorsal aspect of right foot. Patient is able to move his right leg, ankle, foot, slight movement of the right great toe. Neurological: No focal deficits. Strength and sensation are grossly intact. - Labs CBC & Chem 7: 10/10/21 05:03 10/10/21 05:03 Labs: Abnormal Lab Results - Last 24 Hours (Table) 10/09/21 10/10/21 Range/Units 05:26 05:03 WBC 10.9 H (3.8-10.6) k/uL RBC 3.43 L (4.30-5.90) m/uL Hgb 10.9 L (13.0-17.5) gm/dL Hct 32.7 L (39.0-53.0) % Neutrophils # 9.3 H (1.3-7.7) k/uL Sodium 134 L (135-145) mmol/L BUN/Creatinine Ratio 11.82 L (12.00-20.00) Ratio C-Reactive Protein 5.40 H (0.00-0.80) mg/dL Assessment and Plan Assessment: 1. Postop day #1 for right femoral to tibial bypass graft, right common femoral artery endarterectomy 2. Critical limb ischemia right lower extremity 3. Right SFA occlusion 4. History of atrial fibrillation Plan: 1. Consult to physical therapy 2. Coverlet to right lower extremity samantha 3. Continue Plavix 4. Encourage ambulation The impression and plan of care has been dictated as directed. Dr. Ramirez I performed a history and examination of this patient, discussed the same with the dictator. I agree with the dictator's note ,documented as a scribe. Any additional findings or plans will be noted.
[2021-10-10] MEDS: SODIUM CHLORIDE 0.9% 1,000 ML IV SCH (11:52)
[2021-10-10 13:14] VITALS: RESP 16
[2021-10-10] MEDS: LACTATED RINGERS 1,000 ML IV SCH (14:47)
[2021-10-10] MEDS: ATORVASTATIN 10 MG TAB PO SCH (20:00)
[2021-10-11] MEDS: HYDROmorphone 0.5 MG/0.5 ML SYRINGE IVP PRN (02:10)
[2021-10-11] MEDS: SODIUM CHLORIDE 0.9% 1,000 ML IV SCH (03:40)
[2021-10-11] MEDS: HYDROcodone/APAP 5-325MG 1 EACH TAB PO PRN ×2 (05:39→10:10)
[2021-10-11] MEDS: METOPROLOL TARTRATE 50 MG TAB PO SCH ×2 (05:40→13:22)
[2021-10-11 06:22] LABS: HGB 10.5 gm/dL (13.0-17.5); MCH 31.1 pg (25.0-35.0); MCHC 32.8 g/dL (31.0-37.0); MCV 94.9 fL (80.0-100.0); Mean Platelet Volume 7.6; Platelet Count 400 k/uL (150-450); RBC 3.37 m/uL (4.30-5.90); RDW 13.5 % (11.5-15.5); WBC 11.9 k/uL (3.8-10.6)
--- NOTE | 2021-10-11 08:32 | P.PN ---
Subjective Principal diagnosis: Rest pain with right lower extremity ischemia The patient is postop day #2s SFA bypass secondary to right lower extremity ischemia. History of atrial fibrillation which is stabilizing. The patient states he feels much better today. Discharge planning for probable ECF placement. Objective - Vital Signs Vital signs: Vital Signs Temp 97.8 F 10/11/21 04:39 Pulse 72 10/11/21 04:39 Resp 16 10/11/21 04:39 BP 178/80 10/11/21 04:39 Pulse Ox 96 10/11/21 04:39 Intake & Output 10/10/21 10/11/21 10/11/21 18:59 06:59 18:59 Output Total 1050 Balance -1050 Output: Urine 1050 Other: Voiding Method Toilet Urinal # Voids 1 - Constitutional General appearance: Present: cooperative, no acute distress - EENT Eyes: Absent: abnormal pupil - Respiratory Respiratory: bilateral: CTA - Cardiovascular Rhythm: regular Heart sounds: normal: S1, S2 Abnormal Heart Sounds: Absent: S3 Gallop - Gastrointestinal General gastrointestinal: Present: soft. Absent: tenderness - Integumentary Integumentary: Present: cellulitis, ulcer - Psychiatric Psychiatric: Present: A&O x's 3 - Labs CBC & Chem 7: 10/11/21 05:43 10/10/21 05:03 Labs: Abnormal Lab Results - Last 24 Hours (Table) 10/10/21 10/11/21 Range/Units 05:03 05:43 WBC 11.9 H (3.8-10.6) k/uL RBC 3.37 L (4.30-5.90) m/uL Hgb 10.5 L (13.0-17.5) gm/dL Hct 32.0 L (39.0-53.0) % Sodium 134 L (135-145) mmol/L BUN 8.9 L (9.0-27.0) mg/dL BUN/Creatinine Ratio 8.90 L (12.00-20.00) Ratio Glucose 160 H (70-110) mg/dL Calcium 8.3 L (8.7-10.3) mg/dL Assessment and Plan (1) Atrial fibrillation Current Visit: Yes Status: Acute Code(s): I48.91 - UNSPECIFIED ATRIAL FIBRILLATION SNOMED Code(s): 39838218 (2) Foot ulcer, right Current Visit: Yes Status: Acute Code(s): L97.519 - NON-PRS CHRONIC ULCER OTH PRT RIGHT FOOT W UNSP SEVERITY SNOMED Code(s): 628792616 (3) Ischemia of right lower extremity Current Visit: Yes Status: Acute Code(s): I99.8 - OTHER DISORDER OF CIRCULATORY SYSTEM SNOMED Code(s): 764549261 Plan: Significant improvement noted clinically. We'll continue to follow. Anticipate patient would benefit from rehab continued. Continue anticoagulation otherwise.
[2021-10-11] MEDS: APIXABAN 5 MG TAB PO SCH (08:44)
[2021-10-11] MEDS: CLOPIDOGREL 75 MG TAB PO SCH (08:44)
[2021-10-11] MEDS: FUROSEMIDE 20 MG TAB PO SCH (08:44)
[2021-10-11] MEDS: AMIODARONE 200 MG TAB PO SCH (08:44)
[2021-10-11] MEDS: DOCUSATE 100 MG CAP PO SCH (08:44)
[2021-10-11] MEDS: ASPIRIN 325 MG TAB PO SCH (08:44)
[2021-10-11] MEDS: lisinopriL 10 MG TAB PO SCH (08:45)
[2021-10-11 09:32] LABS: African American GFR (CKD) 101.6 (60.0-200.0); Albumin 2.9 g/dL (3.8-4.9); Albumin/Globulin Ratio 0.78 (1.60-3.17); Anion Gap 8.2 mmol/L (10.00-18.00); Blood Urea Nitrogen 7.4 mg/dL (9.0-27.0); Calcium 8.5 mg/dL (8.7-10.3); Globulin 3.7 g/dL (1.6-3.3); Non-African American GFR(CKD) 87.7 (60.0-200.0); Potassium 4.5 mmol/L (3.5-5.5); Total Bilirubin 0.4 mg/dL (0.30-1.20); Total Protein 6.6 g/dL (6.2-8.2)
[2021-10-11 12:04] VITALS: BP 125/62; PULSE 70; TEMP 98.1
--- NOTE | 2021-10-11 14:14 | P.PN ---
Subjective Progress Note Date: 10/11/21 Patient is seen and examined sitting up at the bedside. Patient is postop day #2 for right femoral to tibial artery bypass and right common femoral artery endarterectomy. He continues to have improved pain in the right lower extremity. He was up and ambulating with assistance of physical therapy today. Denies any acute changes through the night. No fever. Objective - Vital Signs Vital signs: Vital Signs Temp 97.8 F 10/11/21 04:39 Pulse 72 10/11/21 04:39 Resp 16 10/11/21 04:39 BP 178/80 10/11/21 04:39 Pulse Ox 96 10/11/21 04:39 Intake & Output 10/10/21 10/11/21 10/11/21 18:59 06:59 18:59 Output Total 1050 Balance -1050 Output: Urine 1050 Other: Voiding Method Toilet Urinal # Voids 1 - Exam General appearance: The patient is alert, oriented, appears in no acute distress. HET: Head is normocephalic and atraumatic. Neck: Supple without lymphadenopathy. Trachea midline. Heart: S1 S2. Regular rate and rhythm. Lungs: Her to auscultation. Abdomen: Soft, nontender, nondistended. Extremities: Right lower extremity warm to touch, good capillary refill. Right groin incision well approximated with glue mild ecchymosis. Right lower extremity incision well approximated with samantha, clean dry and intact. Patient with positive posterior tibialis and dorsalis pedis Doppler signal. Right toes ischemic demarcation, blister on dorsal aspect of right foot. Patient is able to move his right leg, ankle, foot, and great toe. Neurological: No focal deficits. Strength and sensation are grossly intact. - Labs CBC & Chem 7: 10/11/21 05:43 10/11/21 05:43 Labs: Abnormal Lab Results - Last 24 Hours (Table) 10/11/21 10/11/21 Range/Units 05:43 05:43 WBC 11.9 H (3.8-10.6) k/uL RBC 3.37 L (4.30-5.90) m/uL Hgb 10.5 L (13.0-17.5) gm/dL Hct 32.0 L (39.0-53.0) % Sodium 134 L (135-145) mmol/L Anion Gap 8.20 L (10.00-18.00) mmol/L BUN 7.4 L (9.0-27.0) mg/dL BUN/Creatinine Ratio 8.00 L (12.00-20.00) Ratio Calcium 8.5 L (8.7-10.3) mg/dL AST 11 L (14-35) U/L ALT 8 L (10-49) U/L Albumin 2.9 L (3.8-4.9) g/dL Globulin 3.7 H (1.6-3.3) g/dL Albumin/Globulin Ratio 0.78 L (1.60-3.17) g/dL Assessment and Plan Assessment: 1. Postop day #2 for right femoral to tibial bypass graft, right common femoral artery endarterectomy 2. Critical limb ischemia right lower extremity 3. Right SFA occlusion 4. History of atrial fibrillation Plan: 1. Consult to physical therapy 2. Coverlet to right lower extremity samantha 3. Continue Plavix 4. Encourage ambulation 5. Patient is cleared for discharge from vascular surgery. Follow up with Dr. Mendoza 1 week. The impression and plan of care has been dictated as directed. Dr. Ramirez I performed a history and examination of this patient, discussed the same with the dictator. I agree with the dictator's note ,documented as a scribe. Any additional findings or plans will be noted.
== END 2021-10-11 15:01 | disposition home health service (06) | DRG 253 ==
LOC: EC 13:55 → 5NMEDONC 19:47
PROVIDERS: ADMIT Family Medicine; ATTEND Family Medicine
PROC: 04CK0ZZ Extirpation of Matter from Right Femoral Artery, Open Approach (ICD-10-PCS; 2021-10-09)
PROC: 06BP0ZZ Excision of Right Saphenous Vein, Open Approach (ICD-10-PCS; 2021-10-09)
PROC: 041K09L Bypass Right Femoral Artery to Popliteal Artery with Autologous Venous Tissue, Open Approach (ICD-10-PCS; principal; 2021-10-09 08:00)
DX: I70.221 Atherosclerosis of native arteries of extremities with rest pain, right leg (principal); T82.868A Thrombosis due to vascular prosthetic devices, implants and grafts, initial encounter; L97.519 Non-pressure chronic ulcer of other part of right foot with unspecified severity; D72.829 Elevated white blood cell count, unspecified; E78.5 Hyperlipidemia, unspecified; I11.0 Hypertensive heart disease with heart failure; I50.9 Heart failure, unspecified; Z20.822 Contact with and (suspected) exposure to COVID-19; I25.10 Atherosclerotic heart disease of native coronary artery without angina pectoris; I48.91 Unspecified atrial fibrillation; Y83.8 Other surgical procedures as the cause of abnormal reaction of the patient, or of later complication, without mention of misadventure at the time of the procedure; Z79.02 Long term (current) use of antithrombotics/antiplatelets; Z79.899 Other long term (current) drug therapy; Z80.8 Family history of malignant neoplasm of other organs or systems; Z85.828 Personal history of other malignant neoplasm of skin; Z87.891 Personal history of nicotine dependence
CPT/HCPCS: 36415; 71275; 75635; 80048; 80053; 84145; 85025; 85027; 85610; 85730; 86140; 86850; 86900; 86901; 87635; 93005; 96374; 96375; 99285

== ENCOUNTER 2021-10-18 16:48 | Inpatient (IN) | payer OTHER ==
--- NOTE | 2021-10-18 19:27 | XR ---
EXAMINATION TYPE: XR foot complete RT DATE OF EXAM: 10/18/2021 COMPARISON: NONE HISTORY: Foot infection TECHNIQUE: 3 views FINDINGS: Metatarsals appear intact. The toes appear intact. There is plantar and Achilles calcaneal spurring. IMPRESSION: Calcaneal spurring. No fracture seen.
[2021-10-18] MEDS ORDERED: VANCOMYCIN IV PER PHARMACY 1 EACH MISC MISCELLANE PRN (20:30)
[2021-10-18] MEDS ORDERED: PIPERACILLIN-TAZOBACTAM 3.375 GM in SODIUM CHLORIDE 0.9% 100 ML IVPB STA (20:30)
[2021-10-18] MEDS ORDERED: HYDROcodone/APAP 10-325MG 1 EACH TAB PO ONE (20:33)
--- NOTE | 2021-10-18 20:33 | ED ---
Extremity Problem HPI - General Chief complaint: Extremity Problem,Nontraumatic Stated complaint: foot problems, no circulation Time Seen by Provider: 10/18/21 20:13 Source: patient, RN notes reviewed Mode of arrival: ambulatory Limitations: no limitations - History of Present Illness Initial comments: 65-year-old male presents emergency Department chief complaint of right foot infection. Patient sent over here by PCP. Patient states that he's had ongoing issues over the last several months. Patient states she's had a stent placed in his right leg by Dr. Mendoza. Patient states that symptoms are getting worse and, there is black discoloration drainage from his foot. Increasing pain. Patient reports no recent fever no pain into his calf no other complaints. - Related Data Previous Rx's Medication Instructions Recorded Amiodarone [Cordarone] 200 mg PO DAILY #30 tab 10/11/21 Apixaban [Eliquis] 5 mg PO BID 30 Days #60 tab 10/11/21 Aspirin 325 mg PO DAILY tab 10/11/21 Atorvastatin [Lipitor] 10 mg PO HS #90 tab 10/11/21 Cephalexin [Keflex] 500 mg PO Q8HR 1 Days #30 cap 10/11/21 Clopidogrel [Plavix] 75 mg PO DAILY #30 tab 10/11/21 Docusate [Colace] 100 mg PO DAILY #30 cap 10/11/21 Furosemide [Lasix] 20 mg PO DAILY #30 tab 10/11/21 HYDROcodone/APAP 5-325MG [[place] 2 each PO Q4HR PRN #60 tab 10/11/21 5-325] Metoprolol Tartrate [Lopressor] 100 mg PO TID@0500,1300,2100 #90 10/11/21 tab Multivitamins, Thera [Multivitamin 1 tab PO DAILY #30 tab 10/11/21 (formulary)] lisinopriL [Zestril] 10 mg PO DAILY #30 tab 10/11/21 Allergies Allergy/AdvReac Type Severity Reaction Status Date / Time No Known Allergies Allergy Verified 10/07/21 15:47 Review of Systems ROS Statement: Those systems with pertinent positive or pertinent negative responses have been documented in the HPI. ROS Other: All systems not noted in ROS Statement are negative. Past Medical History Past Medical History: Cancer, Hyperlipidemia, Hypertension, Vascular Disorder Additional Past Medical History / Comment(s): SKIN CANCER. 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 History of Any Multi-Drug Resistant Organisms: None Reported Past Surgical History: Heart Catheterization, Heart Catheterization With Stent Additional Past Surgical History / Comment(s): "RIGHT LEG FOR CIRCULATION WITH 2 STENTS " rt internal carotid stent 05/05/20, 07/21/20-PTBA, 08/18/2020 stent x3 left SFA Past Anesthesia/Blood Transfusion Reactions: No Reported Reaction Date of Last Stent Placement:: 08/18/2020 Past Psychological History: No Psychological Hx Reported Smoking Status: Former smoker Past Alcohol Use History: Rare Past Drug Use History: None Reported - Past Family History Father Family Medical History: Cancer Additional Family Medical History / Comment(s): throat cancer Brother(s) Family Medical History: Cancer Additional Family Medical History / Comment(s): THROAT CANCER. Mother Family Medical History: No Reported History General Exam Limitations: no limitations General appearance: alert, in no apparent distress Head exam: Present: atraumatic, normocephalic, normal inspection Respiratory exam: Present: normal lung sounds bilaterally. Absent: respiratory distress, wheezes, rales, rhonchi, stridor Cardiovascular Exam: Present: regular rate, normal rhythm, normal heart sounds. Absent: systolic murmur, diastolic murmur, rubs, gallop, clicks Extremities exam: Present: other (Right foot there is gangrenous eschar, purulent drainage gangrene digits 3.5, lateral foot region) Course Vital Signs 10/18/21 10/18/21 17:04 20:03 Temperature 98.1 F Pulse Rate 82 84 Respiratory 16 16 Rate Blood Pressure 92/46 97/66 O2 Sat by Pulse 100 91 L Oximetry Medical Decision Making - Medical Decision Making Patient has right foot cellulitis, peripheral vascular disease, gangrene. Patient will be admitted for antibiotics, vascular evaluation Disposition Clinical Impression: Gangrene of right foot, Cellulitis of right foot, Peripheral vascular disease Disposition: ADMITTED IP TO THIS HOSP Condition: Fair Referrals: Odin Obrien MD [Primary Care Provider] - 1-2 days
[2021-10-18] MEDS ORDERED: ONDANSETRON 4 MG/2 ML VIAL IVP PRN (20:34)
[2021-10-18] MEDS ORDERED: ACETAMINOPHEN TAB 325 MG TAB PO PRN (20:34)
[2021-10-18] MEDS ORDERED: HYDROmorphone 1 MG/ML 1 ML SYRINGE IVP PRN (20:34)
[2021-10-18] MEDS ORDERED: HYDROmorphone 0.5 MG/0.5 ML SYRINGE IVP PRN (20:34)
[2021-10-18] MEDS ORDERED: NALOXONE 0.4 MG/ML 1 ML VIAL IV PRN (20:34)
[2021-10-18 20:53] LABS: Basophils # (A) 0.1 k/uL (0-0.2); Basophils % (A) 1 %; Eosinophils # (A) 0.5 k/uL (0-0.7); Eosinophils % (A) 5 %; HCT 36.3 % (39.0-53.0); HGB 11.5 gm/dL (13.0-17.5); Lymphocytes # (A) 1.5 k/uL (1.0-4.8); Lymphocytes % (A) 15 %; MCH 31.4 pg (25.0-35.0); MCHC 31.8 g/dL (31.0-37.0); MCV 98.8 fL (80.0-100.0); Mean Platelet Volume 7.5; Monocytes # (A) 0.5 k/uL (0-1.0); Monocytes % (A) 5 %; Neutrophils # (A) 7.8 k/uL (1.3-7.7); Neutrophils % (A) 75 %; Platelet Count 495 k/uL (150-450); RBC 3.68 m/uL (4.30-5.90); RDW 14.1 % (11.5-15.5); WBC 10.4 k/uL (3.8-10.6)
[2021-10-18] MEDS: SODIUM CHLORIDE 0.9% 1,000 ML IV SCH (20:56)
[2021-10-18] MEDS ORDERED: VANCOMYCIN 1,500 MG in SODIUM CHLORIDE 0.9% 250 ML IVPB ONE (21:00)
[2021-10-18 21:09] LABS: Partial Thromboplastin Time 23.7 sec (22.0-30.0)
[2021-10-18 21:15] LABS: Albumin 3.3 g/dL (3.5-5.0); C Reactive Protein 1.4 mg/dL (<1.0); Calcium 8.9 mg/dL (8.4-10.2); Potassium 4.6 mmol/L (3.5-5.1); Total Bilirubin 0.4 mg/dL (0.2-1.3); Total Protein 7.2 g/dL (6.3-8.2)
[2021-10-18] MEDS ORDERED: HYDROmorphone 0.5 MG/0.5 ML SYRINGE ONE (23:43)
[2021-10-19] MEDS: HYDROcodone/APAP 5-325MG 1 EACH TAB PO PRN ×5 (03:51→20:12)
[2021-10-19] MEDS: PIPERACILLIN-TAZOBACTAM 3.375 GM in SODIUM CHLORIDE 0.9% 100 ML IVPB SCH ×2 (05:36→13:37)
[2021-10-19] MEDS: SODIUM CHLORIDE 0.9% 1,000 ML IV SCH (07:17)
[2021-10-19] MEDS: VANCOMYCIN 1,500 MG in SODIUM CHLORIDE 0.9% 250 ML IVPB SCH ×2 (08:41→18:07)
--- NOTE | 2021-10-19 08:46 | P.HPIM ---
History of Present Illness H&P Date: 10/26/21 Chief Complaint: Cellulitis of the right foot This is a history and physical an 65-year-old white male who's had failed stent and had recent femoral bypass. The patient came to my office yesterday with significant worsening of the right foot. Gangrenous toes are now noted which is new. The patient states minimal pain. He is essentially admitted for worsening wound of the right foot. The patient states compliance with all medications since last discharge. Underlying history of paroxysmal atrial fibrillation Review of Systems Constitutional: Denies chills, Denies fever Eyes: denies blurred vision, denies pain Ears, nose, mouth and throat: Denies headache, Denies sore throat Cardiovascular: Denies chest pain, Denies shortness of breath Past Medical History Past Medical History: Atrial Fibrillation, Cancer, Hyperlipidemia, Hypertension, Vascular Disorder Additional Past Medical History / Comment(s): SKIN CANCER. 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 History of Any Multi-Drug Resistant Organisms: None Reported Past Surgical History: Heart Catheterization, Heart Catheterization With Stent Additional Past Surgical History / Comment(s): 10/07/21 Pt had a Right femoral to tibial peroneal trunk in situ vein bypass graft and right common femoral endarterectomy "RIGHT LEG FOR CIRCULATION WITH 2 STENTS " rt internal carotid stent 05/05/20, 07/21/20-PTBA, 08/18/2020 stent x3 left SFA Past Anesthesia/Blood Transfusion Reactions: No Reported Reaction Date of Last Stent Placement:: 08/18/2020 Past Psychological History: No Psychological Hx Reported Smoking Status: Former smoker Past Alcohol Use History: Rare Additional Past Alcohol Use History / Comment(s): STARTED SMOKING AT AGE 17 QUIT 2019 SMOKED 1/2 - 1 PPD Past Drug Use History: None Reported - Past Family History Father Family Medical History: Cancer Additional Family Medical History / Comment(s): throat cancer Brother(s) Family Medical History: Cancer Additional Family Medical History / Comment(s): THROAT CANCER. Mother Family Medical History: No Reported History Medications and Allergies Home Medications Medication Instructions Recorded Confirmed Type Amiodarone [Cordarone] 200 mg PO DAILY #30 tab 10/11/21 10/18/21 Rx Apixaban [Eliquis] 5 mg PO BID 30 Days #60 tab 10/11/21 10/18/21 Rx Aspirin 325 mg PO DAILY tab 10/11/21 10/18/21 Rx Atorvastatin [Lipitor] 10 mg PO HS #90 tab 10/11/21 10/18/21 Rx Clopidogrel [Plavix] 75 mg PO DAILY #30 tab 10/11/21 10/18/21 Rx Furosemide [Lasix] 20 mg PO DAILY #30 tab 10/11/21 10/18/21 Rx Multivitamins, Thera [Multivitamin 1 tab PO DAILY #30 tab 10/11/21 10/18/21 Rx (formulary)] lisinopriL [Zestril] 10 mg PO DAILY #30 tab 10/11/21 10/18/21 Rx HYDROcodone/APAP 5-325MG [[place] 2 tab PO Q4HR PRN 10/18/21 10/18/21 History 5-325] Metoprolol Tartrate [Lopressor] 100 mg PO BID@0500,1300,2100 10/18/21 10/18/21 History Allergies Allergy/AdvReac Type Severity Reaction Status Date / Time No Known Allergies Allergy Verified 10/18/21 21:32 Physical Exam Vitals: Vital Signs Temp Pulse Pulse Resp BP BP BP 10/19/21 06:54 98.2 F 60 18 97/63 10/19/21 02:25 97.8 F 77 17 133/68 10/18/21 23:20 97.8 F 72 16 100/63 10/18/21 22:47 98.2 F 81 18 100/71 10/18/21 20:03 84 16 97/66 10/18/21 17:04 98.1 F 82 16 92/46 Pulse Ox 10/19/21 06:54 98 10/19/21 02:25 93 L 10/18/21 23:20 96 10/18/21 22:47 95 10/18/21 20:03 91 L 10/18/21 17:04 100 Intake and Output 10/18/21 10/19/21 10/19/21 22:59 06:59 14:59 Other: Voiding Method Urinal # Voids 2 Weight 79.379 kg 79.379 kg - Constitutional General appearance: no acute distress - EENT Eyes: EOMI - Neck Neck: no lymphadenopathy - Respiratory Respiratory: bilateral: CTA - Cardiovascular Rhythm: regular Heart sounds: normal: S1, S2 Abnormal Heart Sounds: no S3 Gallop - Gastrointestinal General gastrointestinal: soft, no tenderness - Integumentary Gangrenous fourth and fifth digit significant foot ulceration of the dorsum. Integumentary: cellulitis - Neurologic Neurologic: CNII-XII intact Results CBC & Chem 7: 10/18/21 20:31 10/18/21 20:31 Labs: Abnormal Lab Results - Last 24 Hours (Table) 10/18/21 10/18/21 Range/Units 20:31 20:31 RBC 3.68 L (4.30-5.90) m/uL Hgb 11.5 L (13.0-17.5) gm/dL Hct 36.3 L (39.0-53.0) % Plt Count 495 H (150-450) k/uL Neutrophils # 7.8 H (1.3-7.7) k/uL BUN 25 H (9-20) mg/dL Glucose 112 H (74-99) mg/dL AST 16 L (17-59) U/L C-Reactive Protein 1.4 H (<1.0) mg/dL Albumin 3.3 L (3.5-5.0) g/dL Thrombosis Risk Factor Assmnt - Choose All That Apply Any of the Below Risk Factors Present?: Yes Each Factor Represents 1 point: Age 41-60 years Each Risk Factor Represents 2 Points: Age 61-74 years Thrombosis Risk Factor Assessment Total Risk Factor Score: 3 Thrombosis Risk Factor Assessment Level: Moderate Risk Assessment and Plan (1) Cellulitis of right foot Current Visit: Yes Status: Acute Code(s): L03.115 - CELLULITIS OF RIGHT LOWER LIMB SNOMED Code(s): 998337860 (2) Gangrene of right foot Current Visit: Yes Status: Acute Code(s): I96 - GANGRENE, NOT ELSEWHERE CLASSIFIED SNOMED Code(s): 78544957179433151 (3) Peripheral vascular disease Current Visit: Yes Status: Acute Code(s): I73.9 - PERIPHERAL VASCULAR DISE ASE, UNSPECIFIED SNOMED Code(s): 557949589 (4) Arterial occlusion Current Visit: No Status: Acute Code(s): I70.90 - UNSPECIFIED ATHEROSCLEROSIS SNOMED Code(s): 3859401 (5) Atrial fibrillation Current Visit: No Status: Acute Code(s): I48.91 - UNSPECIFIED ATRIAL FIBRILLATION SNOMED Code(s): 40717547 (6) Foot ulcer, right Current Visit: No Status: Acute Code(s): L97.519 - NON-PRS CHRONIC ULCER OTH PRT RIGHT FOOT W UNSP SEVERITY SNOMED Code(s): 113702111 (7) Ischemia of right lower extremity Current Visit: No Status: Acute Code(s): I99.8 - OTHER DISORDER OF CIRCULATORY SYSTEM SNOMED Code(s): 381302789 Plan: Vascular surgery and infectious disease to be consulted. Check CBC and CMP in a.m. per [facility] antibiotic treatment. Discussed possible and potential possibilities of treatment including amputation. The patient understands. CODE STATUS changed to CPR only. No mechanical ventilation.
--- NOTE | 2021-10-19 12:30 | P.GSCN ---
History of Present Illness Consult date: 10/19/21 Reason for Consult: gangrene foot Requesting physician: Odin Obrien History of present illness: Cezar is a 65-year-old male we are asked to see regarding right lower extremity pain and dry gangrene. He is a patient of Dr. Caballero who has performed multiple interventions for his peripheral arterial disease, the most recent on the lower extremities was approximate 1 year ago. He was recently seen in the office and was doing relatively well. Subsequently about 4 weeks ago he began having increasing pain in his lower extremity after discontinuing some of his medications that he had run out of and not refilled. He was seen in the office and was noted to have coolness to his right lower extremity. At that point he was sent in for CT and further anticoagulation and workup. He presented to the hospital on 2020. There was noted to be occlusion in his right iliac and femoral artery stents with decreased contrast flow to the right lower extremity. He was subsequently taken on 09/21/2021 for angiogram. At that time there was some noted difficulty in crossing the area of the stent however they were able to place a thrombolytic catheter. He was brought back to the [facility] for re- evaluation on 09/22/12 and at that point there was noted to be continued area of thrombus therefore thrombolysis was continued. The iliac component was effectively open at that point. Repeat imaging today showed some improvement but continued lack of flow through the superficial femoral artery. There are images were the below-knee popliteal artery appears patent with the peroneal runoff, but difficult to see any further vessels. There are significant collateralizations. The patient was subsequently discharged and supposed to follow-up with vascular surgery for possible bypass however patient stated pain had been increasing and he was readmitted on 10/07/2021. On 10/01/2018 he underwent a right femoral to tibial peroneal trunk in situ vein bypass graft with a right common femoral endarterectomy. The patient states he was supposed to follow-up with Dr. Mendoza tomorrow however he was called yesterday and the appointment had to be rescheduled. He states he was concerned for possible infection and decided to come to the emergency department for evaluation. He denied any fevers or chills at home. He denies any shortness of breath or chest pain. States no significant pain in the right lower extremity however it does get uncomfortable at times especially with increased ambulation. He states he was concerned for the black toes and if things were getting worse. He has been afebrile. No evidence of leukocytosis. Review of Systems a 14 point review of systems was completed all pertinent positives and negatives as stated in the HPI. Past Medical History Past Medical History: Atrial Fibrillation, Cancer, Hyperlipidemia, Hypertension, Vascular Disorder Additional Past Medical History / Comment(s): SKIN CANCER. 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 History of Any Multi-Drug Resistant Organisms: None Reported Past Surgical History: Heart Catheterization, Heart Catheterization With Stent Additional Past Surgical History / Comment(s): 10/07/21 Pt had a Right femoral to tibial peroneal trunk in situ vein bypass graft and right common femoral endarterectomy "RIGHT LEG FOR CIRCULATION WITH 2 STENTS " rt internal carotid stent 05/05/20, 07/21/20-PTBA, 08/18/2020 stent x3 left SFA Past Anesthesia/Blood Transfusion Reactions: No Reported Reaction Date of Last Stent Placement:: 08/18/2020 Past Psychological History: No Psychological Hx Reported Smoking Status: Former smoker Past Alcohol Use History: Rare Additional Past Alcohol Use History / Comment(s): STARTED SMOKING AT AGE 17 QUIT 2019 SMOKED 1/2 - 1 PPD Past Drug Use History: None Reported - Past Family History Father Family Medical History: Cancer Additional Family Medical History / Comment(s): throat cancer Brother(s) Family Medical History: Cancer Additional Family Medical History / Comment(s): THROAT CANCER. Mother Family Medical History: No Reported History Medications and Allergies Home Medications Medication Instructions Recorded Confirmed Type Amiodarone [Cordarone] 200 mg PO DAILY #30 tab 10/11/21 10/18/21 Rx Apixaban [Eliquis] 5 mg PO BID 30 Days #60 tab 10/11/21 10/18/21 Rx Aspirin 325 mg PO DAILY tab 10/11/21 10/18/21 Rx Atorvastatin [Lipitor] 10 mg PO HS #90 tab 10/11/21 10/18/21 Rx Clopidogrel [Plavix] 75 mg PO DAILY #30 tab 10/11/21 10/18/21 Rx Furosemide [Lasix] 20 mg PO DAILY #30 tab 10/11/21 10/18/21 Rx Multivitamins, Thera [Multivitamin 1 tab PO DAILY #30 tab 10/11/21 10/18/21 Rx (formulary)] lisinopriL [Zestril] 10 mg PO DAILY #30 tab 10/11/21 10/18/21 Rx HYDROcodone/APAP 5-325MG [[place] 2 tab PO Q4HR PRN 10/18/21 10/18/21 History 5-325] Metoprolol Tartrate [Lopressor] 100 mg PO BID@0500,1300,2100 10/18/21 10/18/21 History Allergies Allergy/AdvReac Type Severity Reaction Status Date / Time No Known Allergies Allergy Verified 10/18/21 21:32 Surgical - Exam Vital Signs Temp Pulse Resp BP Pulse Ox 98.1 F 82 16 92/46 100 10/18/21 17:04 10/18/21 17:04 10/18/21 17:04 10/18/21 17:04 10/18/21 17:04 General appearance: The patient is alert, oriented, appears in no acute dist ress. HET: Head is normocephalic and atraumatic. Neck: Supple without lymphadenopathy. Trachea midline. Heart: S1 S2. Regular rate and rhythm. Lungs: Clear to auscultation. Abdomen: Soft, nontender, nondistended. Extremities: Palpable bilateral femoral pulses. Right groin incision was small area opened, also noted is a seroma above right groin incision. Right lower extremity with samantha intact, incision well approximated without any drainage. Palpable pulse at bypass. Multiphasic posterior tibialis and dorsalis pedis Doppler signal. There is a wound that is necrotic to the dorsal aspect of his right foot along with dry gangrene of his third through fifth toes. Great toe has some discoloration and swelling. He able to wiggle his first and second toes. There is no foul odor or drainage noted. Neurological: No focal deficits. He is alert and oriented 3 Results - Labs 10/18/21 20:31 10/18/21 20:31 Abnormal Lab Results - Last 24 Hours (Table) 10/18/21 10/18/21 Range/Units 20:31 20:31 RBC 3.68 L (4.30-5.90) m/uL Hgb 11.5 L (13.0-17.5) gm/dL Hct 36.3 L (39.0-53.0) % Plt Count 495 H (150-450) k/uL Neutrophils # 7.8 H (1.3-7.7) k/uL BUN 25 H (9-20) mg/dL Glucose 112 H (74-99) mg/dL AST 16 L (17-59) U/L C-Reactive Protein 1.4 H (<1.0) mg/dL Albumin 3.3 L (3.5-5.0) g/dL Diabetes panel 10/18/21 Range/Units 20:31 Sodium 139 (137-145) mmol/L Potassium 4.6 (3.5-5.1) mmol/L Chloride 101 (98-107) mmol/L Carbon Dioxide 27 (22-30) mmol/L BUN 25 H (9-20) mg/dL Creatinine 1.12 (0.66-1.25) mg/dL Glucose 112 H (74-99) mg/dL Calcium 8.9 (8.4-10.2) mg/dL AST 16 L (17-59) U/L ALT 12 (4-49) U/L Alkaline Phosphatase 97 (38-126) U/L Total Protein 7.2 (6.3-8.2) g/dL Albumin 3.3 L (3.5-5.0) g/dL Calcium panel 10/18/21 Range/Units 20:31 Calcium 8.9 (8.4-10.2) mg/dL Albumin 3.3 L (3.5-5.0) g/dL Pituitary panel 10/18/21 Range/Units 20:31 Sodium 139 (137-145) mmol/L Potassium 4.6 (3.5-5.1) mmol/L Chloride 101 (98-107) mmol/L Carbon Dioxide 27 (22-30) mmol/L BUN 25 H (9-20) mg/dL Creatinine 1.12 (0.66-1.25) mg/dL Glucose 112 H (74-99) mg/dL Calcium 8.9 (8.4-10.2) mg/dL Adrenal panel 10/18/21 Range/Units 20:31 Sodium 139 (137-145) mmol/L Potassium 4.6 (3.5-5.1) mmol/L Chloride 101 (98-107) mmol/L Carbon Dioxide 27 (22-30) mmol/L BUN 25 H (9-20) mg/dL Creatinine 1.12 (0.66-1.25) mg/dL Glucose 112 H (74-99) mg/dL Calcium 8.9 (8.4-10.2) mg/dL Total Bilirubin 0.4 (0.2-1.3) mg/dL AST 16 L (17-59) U/L ALT 12 (4-49) U/L Alkaline Phosphatase 97 (38-126) U/L Total Protein 7.2 (6.3-8.2) g/dL Albumin 3.3 L (3.5-5.0) g/dL - Imaging Comments: X-ray of right foot shows metatarsals appear intact. There is plantar and Achilles calcaneal spurring. No fracture seen. Assessment and Plan Assessment: 1. Dry gangrene third through fifth toes, demarcated from previous right lower extremity critical limb ischemia 2. Wound to dorsal aspect right foot 3. Peripheral arterial disease status post recent revascularization with right femoral to tibial peroneal trunk in situ vein bypass graft and right common femoral endarterectomy 4. History of atrial fibrillation Plan: 1. Continue symptomatic and supportive care 2. Continue IV antibiotics as ordered 3. Hold Eliquis and Plavix 4. Further recommendations forthcoming per vascular surgeon Thank you for this consultation and allowing us to take part in the plan of care of your patient during his hospital stay. The impression and plan of care has been dictated as directed. I performed a history and examination of this patient, discussed the same with the dictator. I agree with the dictator's note ,documented as a scribe. Any additional findings or plans will be noted.
[2021-10-19 14:17] VITALS: BMI 21.9
[2021-10-19] MEDS: ATORVASTATIN 10 MG TAB PO SCH (20:13)
[2021-10-19] MEDS: METOPROLOL TARTRATE 50 MG TAB PO SCH (20:13)
[2021-10-20] MEDS: HYDROcodone/APAP 5-325MG 1 EACH TAB PO PRN ×2 (00:16→07:25)
[2021-10-20] MEDS: PIPERACILLIN-TAZOBACTAM 3.375 GM in SODIUM CHLORIDE 0.9% 100 ML IVPB SCH ×4 (00:16→20:57)
[2021-10-20] MEDS: SODIUM CHLORIDE 0.9% 1,000 ML IV SCH ×2 (04:11→11:34)
[2021-10-20] MEDS: METOPROLOL TARTRATE 50 MG TAB PO SCH ×3 (05:42→20:57)
[2021-10-20] MEDS: AMIODARONE 200 MG TAB PO SCH (07:26)
[2021-10-20] MEDS: lisinopriL 10 MG TAB PO SCH (07:26)
[2021-10-20] MEDS: FUROSEMIDE 20 MG TAB PO SCH (07:26)
[2021-10-20] MEDS: MULTIVITAMINS, THERA 1 EACH TAB PO SCH (07:26)
--- NOTE | 2021-10-20 08:22 | P.PN ---
Subjective Principal diagnosis: Gangrene and cellulitis of the right foot The patient 65-year-old white male with PAD with element of gangrene and cellulitis. Scheduled for debridement status post arterial bypass. Objective - Vital Signs Vital signs: Vital Signs Temp 98.3 F 10/20/21 02:18 Pulse 70 10/20/21 05:38 Resp 16 10/20/21 02:18 BP 140/67 10/20/21 05:38 Pulse Ox 93 L 10/20/21 02:18 Intake & Output 10/19/21 10/20/21 10/20/21 18:59 06:59 18:59 Intake Total 236 Balance 236 Weight 79.379 kg Intake: Oral 236 Other: Voiding Method Urinal Urinal # Voids 1 2 - Constitutional General appearance: Present: average body habitus - EENT Eyes: Absent: abnormal pupil - Neck Neck: Absent: lymphadenopathy - Respiratory Respiratory: bilateral: CTA - Cardiovascular Rhythm: regular Heart sounds: normal: S1, S2 Abnormal Heart Sounds: Absent: S3 Gallop - Gastrointestinal General gastrointestinal: Present: soft. Absent: tenderness - Integumentary Integumentary Comment(s): Gangrene of the dorsum of the right foot Integumentary: Present: cellulitis - Labs CBC & Chem 7: 10/18/21 20:31 10/18/21 20:31 Labs: Microbiology - Last 24 Hours (Table) 10/18/21 20:31 Blood Culture - Preliminary Blood No Growth after 24 hours 10/18/21 20:31 Blood Culture - Preliminary Blood No Growth after 24 hours Assessment and Plan (1) Cellulitis of right foot Current Visit: Yes Status: Acute Code(s): L03.115 - CELLULITIS OF RIGHT LOWER LIMB SNOMED Code(s): 934069507 (2) Gangrene of right foot Current Visit: Yes Status: Acute Code(s): I96 - GANGRENE, NOT ELSEWHERE CLASSIFIED SNOMED Code(s): 40970707562538531 (3) Peripheral vascular disease Current Visit: Yes Status: Acute Code(s): I73.9 - PERIPHERAL VASCULAR DISEASE, UNSPECIFIED SNOMED Code(s): 616409240 (4) Arterial occlusion Current Visit: No Status: Acute Code(s): I70.90 - UNSPECIFIED ATHEROSCLEROSIS SNOMED Code(s): 6405793 (5) Atrial fibrillation Current Visit: No Status: Acute Code(s): I48.91 - UNSPECIFIED ATRIAL FIBRILLATION SNOMED Code(s): 78065147 (6) Foot ulcer, right Current Visit: No Status: Acute Code(s): L97.519 - NON-PRS CHRONIC ULCER OTH PRT RIGHT FOOT W UNSP SEVERITY SNOMED Code(s): 767527029 (7) Ischemia of right lower extremity Current Visit: No Status: Acute Code(s): I99.8 - OTHER DISORDER OF CIRCULATORY SYSTEM SNOMED Code(s): 587474900 Plan: Debridement scheduled for today. Continue current regimen of antibiotic treatment. New. Check CBC and CMP in a.m.
--- NOTE | 2021-10-20 08:48 | P.CONS ---
History of Present Illness - Reason for Consult Consult date: 10/19/21 right foot ganagrene/cellulitis Requesting physician: Odin Obrien - Chief Complaint right foot pain and discoloration x weeks - History of Present Illness History of present illness : Patient is 65-year-old male presenting to the hospital last evening for evaluation of right foot infection and discoloration, and this patient will be dealing with the right lower extremity pain and gangrene of the last few months patient did have a multiple duration for his peripheral arterial disease by his general purchasing agent about a year ago 4 weeks ago patient having wheezing pain and discoloration at that point repeat did have a CT abdomen noted to have occlusion in the right iliac and femoral artery patient did have an angiogram done on September 21, 2021 and did have a th rombolytic catheter the patient was subsequently discharged and was supposed to follow-up for possible bypass however patient now presenting back to the hospital with worsening discoloration of the right foot and having increasing pain patient recently been to be more of a sharp intensity is almost 10 out of 10 when severe with associated swelling minimal drainage patient denies high- grade fever on presentation to the hospital the patient was afebrile and no fever has been recorded subsequently patient has been believed to have a normal white count kidney function has been normal hyatt PCR was negative blood culture has been obtained which are currently pending patient did have x-rays of the foot calcaneal spurring no fracture seen patient was started on vancomycin and Zosyn infectious disease was consulted for further management of antibiotic therapy Review of system: CONSTITUTIONAL: Positive for weakness denies high-grade fever. EYES: No complaint. ENT: No complaint. RESPIRATORY: No complaint. CARDIOVASCULAR: No complaint. GENITOURINARY: No complaint. GASTROINTESTINAL: No complaint. MUSCULOSKELETAL as per history of present illness. INTEGUMENTARY: No complaint. PSYCHOLOGIC: No complaint. ENDOCRINE: No complaint. NEUROLOGIC: No complaint. Past medical history : Reviewed, documented below Past surgical history : Reviewed, documented below Social history: Reviewed, documented below Medications: Reviewed, as documented below EXAMINATION: Vital sigans= Reviewed and documented below GENERAL DESCRIPTION: Middle-aged male lying in bed, no distress. No tachypnea or accessory muscle of respiration use. HEENT: Shows Pallor , no scleral icterus. Oral mucous membrane is dry. NECK: Trachea central, no thyromegaly. LUNGS: Unlabored breathing. Clear to auscultation anteriorly. No wheeze or crackle. HEART: S1, S2, regular rate and rhythm. ABDOMEN: Soft, no tenderness , guarding or rigidity EXTREMITIES: Right foot gangrene with the necrotic toes subluxation on the dorsum aspect of the right foot minimal surrounding redness no foul-smelling drainage. SKIN: No rash, no masses palpable. NEUROLOGICAL: The patient is awake, alert, oriented x3, mood and affect normal. LABS AND RADIOLOGY: Reviewed results see below Assessment : Patient with right foot gangrene in this patient with underlying peripheral arterial disease with multiple intervention now with evidence of mostly dry gangrene to the toes and some extension to the dorsum of the right foot with minimal erythema no evidence of any abscess patient with no fever or elevated white count Plan: 1-discontinue vancomycin to decrease risk of nephrotoxicity with Zosyn combination 2-await surgical intervention hopefully tomorrow and possible culture 3-May continue Zosyn empirically We will follow on clinical condition and cultures to further adjust medication if needed Thank you for this consultation we will follow the patient along with you Past Medical History Past Medical History: Atrial Fibrillation, Cancer, Hyperlipidemia, Hypertension, Vascular Disorder Additional Past Medical History / Comment(s): SKIN CANCER. 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 History of Any Multi-Drug Resistant Organisms: None Reported Past Surgical History: Heart Catheterization, Heart Catheterization With Stent Additional Past Surgical History / Comment(s): 10/07/21 Pt had a Right femoral to tibial peroneal trunk in situ vein bypass graft and right common femoral endarterectomy "RIGHT LEG FOR CIRCULATION WITH 2 STENTS " rt internal carotid stent 05/05/20, 07/21/20-PTBA, 08/18/2020 stent x3 left SFA Past Anesthesia/Blood Transfusion Reactions: No Reported Reaction Date of Last Stent Placement:: 08/18/2020 Past Psychological History: No Psychological Hx Reported Smoking Status: Former smoker Past Alcohol Use History: Rare Additional Past Alcohol Use History / Comment(s): STARTED SMOKING AT AGE 17 QUIT 2019 SMOKED 1/2 - 1 PPD Past Drug Use History: None Reported - Past Family History Father Family Medical History: Cancer Additional Family Medical History / Comment(s): throat cancer Brother(s) Family Medical History: Cancer Additional Family Medical History / Comment(s): THROAT CANCER. Mother Family Medical History: No Reported History Medications and Allergies Home Medications Medication Instructions Recorded Confirmed Type Amiodarone [Cordarone] 200 mg PO DAILY #30 tab 10/11/21 10/18/21 Rx Apixaban [Eliquis] 5 mg PO BID 30 Days #60 tab 10/11/21 10/18/21 Rx Aspirin 325 mg PO DAILY tab 10/11/21 10/18/21 Rx Atorvastatin [Lipitor] 10 mg PO HS #90 tab 10/11/21 10/18/21 Rx Clopidogrel [Plavix] 75 mg PO DAILY #30 tab 10/11/21 10/18/21 Rx Furosemide [Lasix] 20 mg PO DAILY #30 tab 10/11/21 10/18/21 Rx Multivitamins, Thera [Multivitamin 1 tab PO DAILY #30 tab 10/11/21 10/18/21 Rx (formulary)] lisinopriL [Zestril] 10 mg PO DAILY #30 tab 10/11/21 10/18/21 Rx HYDROcodone/APAP 5-325MG [[place] 2 tab PO Q4HR PRN 10/18/21 10/18/21 History 5-325] Metoprolol Tartrate [Lopressor] 100 mg PO TID@0500,1300,2100 10/18/21 10/19/21 History Allergies Allergy/AdvReac Type Severity Reaction Status Date / Time No Known Allergies Allergy Verified 10/18/21 21:32 Physical Exam Vitals: Vital Signs Temp Pulse Pulse Resp BP BP BP 10/19/21 14:00 98.3 F 73 16 149/74 10/19/21 06:54 98.2 F 60 18 97/63 10/19/21 02:25 97.8 F 77 17 133/68 10/18/21 23:20 97.8 F 72 16 100/63 10/18/21 22:47 98.2 F 81 18 100/71 10/18/21 20:03 84 16 97/66 10/18/21 17:04 98.1 F 82 16 92/46 Pulse Ox 10/19/21 14:00 97 10/19/21 06:54 98 10/19/21 02:25 93 L 10/18/21 23:20 96 10/18/21 22:47 95 10/18/21 20:03 91 L 12/07/21 17:04 100 Intake and Output 10/18/21 10/19/21 10/19/21 22:59 06:59 14:59 Other: Voiding Method Urinal Urinal # Voids 2 Weight 79.379 kg 79.379 kg 79.379 kg Results CBC & Chem 7: 10/18/21 20:31 10/18/21 20:31 Labs: Abnormal Lab Results - Last 24 Hours (Table) 10/18/21 10/18/21 Range/Units 20:31 20:31 RBC 3.68 L (4.30-5.90) m/uL Hgb 11.5 L (13.0-17.5) gm/dL Hct 36.3 L (39.0-53.0) % Plt Count 495 H (150-450) k/uL Neutrophils # 7.8 H (1.3-7.7) k/uL BUN 25 H (9-20) mg/dL Glucose 112 H (74-99) mg/dL AST 16 L (17-59) U/L C-Reactive Protein 1.4 H (<1.0) mg/dL Albumin 3.3 L (3.5-5.0) g/dL
[2021-10-20] MEDS ORDERED: IV FLUID CONTINUATION 1,000 ML IV ONE ×2 (15:51→17:46)
[2021-10-20] MEDS ORDERED: ONDANSETRON 4 MG/2 ML VIAL IVP ONE (15:57)
--- NOTE | 2021-10-20 16:20 | P.PN ---
Progress Note - Text Progress Note Date: 10/20/21 Patient seen and examined. No questions at this time. We'll plan to go forward with third through fifth toe amputation with wound VAC placement and await further demarcation of the distal tip of the great toe with appropriate local wound care. Also at the time of discussion and preoperative area, we discussed the status. Patient is willing and understanding of being full code while in the operating room and resuming his status with instructions following the surgical intervention
[2021-10-20] MEDS ORDERED: MIDAZOLAM 2 MG/2 ML VIAL ONE (16:26)
[2021-10-20] MEDS ORDERED: PROPOFOL 10 MG/ML 20 ML VIAL IV ONE (16:26)
[2021-10-20] MEDS ORDERED: SUCCINYLCHOLINE CHLORIDE 100 MG/5 ML SYR IV ONE (16:26)
[2021-10-20] MEDS ORDERED: .fentaNYL (PF) 50 MCG/ML 2 ML AMP ONE (16:26)
[2021-10-20] MEDS ORDERED: ePHEDrine 50 MG/ML 1 ML AMP ONE (16:26)
[2021-10-20] MEDS ORDERED: METOPROLOL TARTRATE 5 MG/5 ML VIAL IVP ONE (16:26)
[2021-10-20] MEDS ORDERED: LIDOCAINE 1% INJ 10MG/ML (20 ML MDV) ONE (16:26)
[2021-10-20] MEDS ORDERED: PHENYLEPHRINE-0.9% NACL SYG 1,000 MCG/10 ML SYRINGE ONE (16:26)
--- NOTE | 2021-10-20 17:47 | P.OP ---
Date of Procedure: 10/20/21 Description of Procedure: Preoperative diagnosis: Gangrene right third through fifth toes, peripheral arterial disease, previous bypass Postoperative diagnosis: Same Procedure: [Ray amputation right third through fifth toes Wound VAC placement] Surgeon: Yolanda Brown D.O. EBL: [50 mL] IV fluids: [See records] Urine output: [Not measured] Drains: [None] Complications: [None immediately apparent] Condition: [Stable to recovery] Operative indication and findings: [Patient is a 65-year-old male who previously had ischemia to his lower extremity subsequently underwent a femoral to popliteal bypass. At that time he had some areas ischemia to his toes are delineated out and he does have dry gangrene of his right third through fifth toes. There is no evidence of wet gangrene however since he was admitted the hospital was decided he should undergo the ray amputations at this time. There is some degree of ischemia to the distal great toe however will allow for further delineation and possible continued improvement. At this time it does not appear to be wet. Risks and benefits were discussed. The patient was made full code for the operative course and will be transitioned back to no code with instructions as previous.] Procedure in detail: [Patient was taken to the operative suite and placed in supine position. The right lower extremity is prepped and draped in usual sterile fashion. A preprocedure timeout was performed, all parties were in agreement. Using a scalpel the third through fifth toes were excised. The gangrenous portions of the first one plantar portions of the foot were sharply excised carried down to the level of the metatarsal. the phalanges removed. At that point the subcutaneous tissues cleared from the metatarsals and they were transected with an oscillating saw. The area was then copiously irrigated. Hemostasis was achieved with electrocautery and interrupted sutures of 3-0 Vicryl. Given the amount of defect or was no ability to reapproximate the wound therefore wound VAC was placed. It had good seal. The patient was allowed awaken from anesthesia and transferred to recovery in stable condition having tolerated his procedure well. the resultant wound measured 11.5 x 6 x 3.0 cm the level of bone]
[2021-10-20] MEDS: HYDROmorphone 0.5 MG/0.5 ML SYRINGE IVP ONE ×2 (17:55→18:09)
[2021-10-20] MEDS: ATORVASTATIN 10 MG TAB PO SCH (20:57)
[2021-10-21] MEDS: HYDROcodone/APAP 5-325MG 1 EACH TAB PO PRN ×5 (00:34→20:01)
--- NOTE | 2021-10-21 01:12 | PN ---
PROGRESS NOTE DATE OF SERVICE: 10/20/2021 REASON FOR FOLLOWUP: Right diabetic foot infection with gangrene. INTERVAL HISTORY: The patient is afebrile. The patient was taken to the OR this evening. This patient who is status post amputation right 3rd, 4th and 5th toe. The patient denies having any chest pain, shortness of breath or cough. No abdominal pain, no diarrhea. PHYSICAL EXAMINATION: Blood pressure 94/62 with a pulse of 72, temperature 98.1. He is 93% on room air. General description is a middle-aged male lying in bed in no distress. Respiratory system: Unlabored breathing, clear to auscultation anteriorly. Heart S1, S2. Regular rate and rhythm. Abdomen soft, no tenderness. Right foot is currently dressed. No obvious drainage on the dressing. LABS: No new labs have been obtained today. DIAGNOSTIC IMPRESSION AND PLAN: Patient with right foot gangrene status post right 3rd through 5th toe amputation. No cultures. Patient currently covered with Zosyn, to continue while monitoring clinical course closely. MMODL / IJN: [id number] /
[2021-10-21] MEDS: SODIUM CHLORIDE 0.9% 1,000 ML IV SCH ×2 (03:54→11:47)
[2021-10-21] MEDS: METOPROLOL TARTRATE 50 MG TAB PO SCH ×3 (05:53→20:51)
[2021-10-21] MEDS: PIPERACILLIN-TAZOBACTAM 3.375 GM in SODIUM CHLORIDE 0.9% 100 ML IVPB SCH ×3 (05:53→22:29)
[2021-10-21] MEDS: FUROSEMIDE 20 MG TAB PO SCH (08:31)
[2021-10-21] MEDS: lisinopriL 10 MG TAB PO SCH (08:31)
[2021-10-21] MEDS: MULTIVITAMINS, THERA 1 EACH TAB PO SCH (08:31)
[2021-10-21] MEDS: AMIODARONE 200 MG TAB PO SCH (08:31)
--- NOTE | 2021-10-21 08:41 | P.PN ---
Subjective Principal diagnosis: Gangrene and cellulitis of the right foot The patient 65-year-old white male with PAD with element of gangrene and cellulitis. The patient is now postop day #1 for debridement with amputation. Objective - Vital Signs Vital signs: Vital Signs Temp 98.7 F 10/21/21 00:28 Pulse 74 10/21/21 05:51 Resp 15 10/21/21 00:28 BP 160/78 10/21/21 05:51 Pulse Ox 95 10/21/21 00:28 Intake & Output 10/20/21 10/21/21 10/21/21 18:59 06:59 18:59 Intake Total 1000 Output Total 10 50 Balance 990 -50 Intake: IV 1000 Output: Drainage 50 Right Toe 50 Estimated Blood Loss 10 Other: Voiding Method Urinal Urinal # Voids 1 - Constitutional General appearance: Present: average body habitus - EENT Eyes: Absent: abnormal pupil - Neck Neck: Absent: lymphadenopathy - Respiratory Respiratory: bilateral: CTA - Cardiovascular Rhythm: regular Heart sounds: normal: S1, S2 Abnormal Heart Sounds: Absent: S3 Gallop - Gastrointestinal General gastrointestinal: Present: soft. Absent: tenderness - Integumentary Integumentary Comment(s): Status post amputation Integumentary: Present: cellulitis - Neurologic Neurologic: Present: CNII-XII intact - Labs CBC & Chem 7: 10/18/21 20:31 10/18/21 20:31 Labs: Microbiology - Last 24 Hours (Table) 10/18/21 20:31 Blood Culture - Preliminary Blood No Growth after 48 hours 10/18/21 20:31 Blood Culture - Preliminary Blood No Growth after 48 hours Assessment and Plan (1) Cellulitis of right foot Current Visit: Yes Status: Acute Code(s): L03.115 - CELLULITIS OF RIGHT LOWER LIMB SNOMED Code(s): 352143756 (2) Gangrene of right foot Current Visit: Yes Status: Acute Code(s): I96 - GANGRENE, NOT ELSEWHERE CLASSIFIED SNOMED Code(s): 24231818835030952 (3) Peripheral vascular disease Current Visit: Yes Status: Acute Code(s): I73.9 - PERIPHERAL VASCULAR DISEASE, UNSPECIFIED SNOMED Code(s): 551446122 (4) Arterial occlusion Current Visit: No Status: Acute Code(s): I70.90 - UNSPECIFIED ATHEROSCLEROSIS SNOMED Code(s): 0521806 (5) Atrial fibrillation Current Visit: No Status: Acute Code(s): I48.91 - UNSPECIFIED ATRIAL FIBRILLATION SNOMED Code(s): 37454246 (6) Foot ulcer, right Current Visit: No Status: Acute Code(s): L97.519 - NON-PRS CHRONIC ULCER OTH PRT RIGHT FOOT W UNSP SEVERITY SNOMED Code(s): 302081695 (7) Ischemia of right lower extremity Current Visit: No Status: Acute Code(s): I99.8 - OTHER DISORDER OF CIRCULATORY SYSTEM SNOMED Code(s): 236238266 Plan: Postop day #1 for debridement and amputation. Continue current antibiotic treatment. Check CBC and CMP in a.m. Continue current regimen of antibiotic treatment. .
[2021-10-21 09:18] LABS: HCT 32.8 % (39.6-50.0); HGB 9.9 g/dL (13.0-17.0); MCHC 30.2 g/dL (32.0-37.0); MCV 102.8 fL (80.0-97.0); Mean Platelet Volume 9.5 fL (9.5-12.2); Platelet Count 389 X 10*3/uL (140-440); RBC 3.19 X 10*6/uL (4.40-5.60); RDW 14.3 % (11.5-14.5); WBC 8.11 X 10*3/uL (4.50-10.00)
--- NOTE | 2021-10-21 09:34 | P.CONS ---
History of Present Illness - Reason for Consult Consult date: 10/21/21 wound care - History of Present Illness This is a 65-year-old gentleman who underwent a second third fourth fifth digit amputation of the right foot. At this time patient has a negative pressure wound VAC with black foam in place at 125 mmHg. Patient is tolerating the wound VAC without any difficulties. Patient also has a ulceration to the plantar aspect of the right great toe that is limited to skin breakdown. He does have some ischemia noted to the dorsal and distal tip of the right toe. Patient underwent a revascularization of the right lower extremity. Patient's past medical history significant for her fibrillation, hyperlipidemia, peripheral vascular disease, neuropathy to bilateral feet, skin cancer. Review Of Systems: Constitutional: No fever, no chills, no night sweats. No weight change. No weakness, fatigue or lethargy. No daytime sleepiness. Integumentary:reports wounds, no lesions. No rash or pruritus. No unusual bruising. No change in hair or nails. Physical exam: General Appearance: Alert, cooperative, no distress, appears stated age. Skin: See HPI all other Skin color, texture, tugor normal, no rashes or lesions. Neurologic: Alert oriented x3 Assessment: 1. Atherosclerosis of [place] vessel with gangrene and ulceration of the right forefoot 2. Nonhealing ulceration of the right foot with muscle involvement without necrosis 3. Ulceration of the right foot with fatty layer exposure Plan: 1.right great toe: apply honey gel, dry gauze, rolled gauze and secure with paper tape. Right foot amputation site: Apply negative pressure wound vac @ 125 mmhg continuous, black foam. May apply absorptive silver to the site when d/c until wound vac. is available. Patient is agreeable to continue wound care in the wound care center. We will be happy to see him and schedule him within the week. Thank you for the consultation any questions please contact the wound care center DNP note has been reviewed and discussed with Dr. Pelaez and the impression and plan of care has been directed as dictated. Past Medical History Past Medical History: Atrial Fibrillation, Cancer, Hyperlipidemia, Hypertension, Vascular Disorder Additional Past Medical History / Comment(s): SKIN CANCER. 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 History of Any Multi-Drug Resistant Organisms: None Reported Past Surgical History: Heart Catheterization, Heart Catheterization With Stent Additional Past Surgical History / Comment(s): 10/07/21 Pt had a Right femoral to tibial peroneal trunk in situ vein bypass graft and right common femoral endarterectomy "RIGHT LEG FOR CIRCULATION WITH 2 STENTS " rt internal carotid stent 05/05/20, 07/21/20-PTBA, 08/18/2020 stent x3 left SFA Past Anesthesia/Blood Transfusion Reactions: No Reported Reaction Date of Last Stent Placement:: 08/18/2020 Past Psychological History: No Psychological Hx Reported Smoking Status: Former smoker Past Alcohol Use History: Rare Additional Past Alcohol Use History / Comment(s): STARTED SMOKING AT AGE 17 QUIT 2018 SMOKED 1/2 - 1 PPD Past Drug Use History: None Reported - Past Family History Father Family Medical History: Cancer Additional Family Medical History / Comment(s): throat cancer Brother(s) Family Medical History: Cancer Additional Family Medical History / Comment(s): THROAT CANCER. Mother Family Medical History: No Reported History Medications and Allergies Home Medications Medication Instructions Recorded Confirmed Type Amiodarone [Cordarone] 200 mg PO DAILY #30 tab 10/11/21 10/18/21 Rx Apixaban [Eliquis] 5 mg PO BID 30 Days #60 tab 10/11/21 10/18/21 Rx Aspirin 325 mg PO DAILY tab 10/11/21 10/18/21 Rx Atorvastatin [Lipitor] 10 mg PO HS #90 tab 10/11/21 10/18/21 Rx Clopidogrel [Plavix] 75 mg PO DAILY #30 tab 10/11/21 10/18/21 Rx Furosemide [Lasix] 20 mg PO DAILY #30 tab 10/11/21 10/18/21 Rx Multivitamins, Thera [Multivitamin 1 tab PO DAILY #30 tab 10/11/21 10/18/21 Rx (formulary)] lisinopriL [Zestril] 10 mg PO DAILY #30 tab 10/11/21 10/18/21 Rx HYDROcodone/APAP 5-325MG [[place] 2 tab PO Q4HR PRN 10/18/21 10/18/21 History 5-325] Metoprolol Tartrate [Lopressor] 100 mg PO TID@0500,1300,2100 10/18/21 10/19/21 H istory Allergies Allergy/AdvReac Type Severity Reaction Status Date / Time No Known Allergies Allergy Verified 10/18/21 21:32 Physical Exam Vitals: Vital Signs Temp Pulse Pulse Resp BP BP Pulse Ox 10/21/21 08:00 98.8 F 60 18 97/63 95 10/21/21 05:51 74 160/78 10/21/21 00:28 98.7 F 72 15 146/79 95 10/20/21 20:57 72 15 10/20/21 20:40 96 122/66 10/20/21 20:25 96 125/64 10/20/21 20:10 94 105/60 10/20/21 19:55 94 98/60 10/20/21 19:40 94 108/57 10/20/21 19:25 93 124/69 10/20/21 19:10 89 136/76 10/20/21 18:55 98.1 F 72 15 94/62 93 L 10/20/21 18:31 87 16 96/66 94 L 10/20/21 18:15 80 16 98/66 92 L 10/20/21 18:00 89 16 92/62 98 10/20/21 17:44 97.8 F 100 16 104/76 100 10/20/21 15:54 97.7 F 80 18 111/62 96 10/20/21 14:03 98.5 F 72 18 94/59 94 L 10/20/21 09:40 98.1 F 81 18 139/73 95 Intake and Output 10/20/21 10/21/21 10/21/21 22:59 06:59 14:59 Intake Total 1000 Output Total 10 50 Balance 990 -50 Intake: IV 1000 Output: Drainage 50 Right Toe 50 Estimated Blood Loss 10 Other: Voiding Method Urinal # Voids 1 Results CBC & Chem 7: 10/21/21 05:42 10/18/21 20:31 Labs: Abnormal Lab Results - Last 24 Hours (Table) 10/21/21 Range/Units 05:42 RBC 3.19 L (4.40-5.60) X 10*6/uL Hgb 9.9 L (13.0-17.0) g/dL Hct 32.8 L (39.6-50.0) % MCV 102.8 H (80.0-97.0) fL MCHC 30.2 L (32.0-37.0) g/dL Microbiology - Last 24 Hours (Table) 10/18/21 20:31 Blood Culture - Preliminary Blood No Growth after 48 hours 10/18/21 20:31 Blood Culture - Preliminary Blood No Growth after 48 hours Assessment and Plan (1) Atherosclerosis of [place] arteries of right leg with ulceration of other part of foot Current Visit: Yes Status: Acute Code(s): I70.235 - ATHSCL ABSENTEE-SHAWNEE ARTERIES OF RIGHT LEG W ULCER OTH PRT FOOT SNOMED Code(s): 637405271 (2) Non-pressure chronic ulcer of other part of right foot with fat layer exposed Current Visit: Yes Status: Acute Code(s): L97.512 - NON-PRS CHRONIC ULCER OTH PRT RIGHT FOOT W FAT LAYER EXPOSED SNOMED Code(s): 975503391 (3) Non-pressure chronic ulcer of other part of right foot with muscle involvement without evidence of necrosis Current Visit: Yes Status: Acute Code(s): L97.515 - NON-PRS CHR ULC OTH PRT R FOOT WITH MSL INVL W/O EVD OF NECR SNOMED Code(s): 603772964
[2021-10-21 10:27] LABS: African American GFR (CKD) 73.6 (60.0-200.0); Albumin/Globulin Ratio 0.97 (1.60-3.17); Anion Gap 10.9 mmol/L (10.00-18.00); BUN/Creat Ratio 9.75 Ratio (12.00-20.00); Blood Urea Nitrogen 11.7 mg/dL (9.0-27.0); Calcium 8.8 mg/dL (8.7-10.3); Carbon Dioxide 27.1 mmol/L (20.0-27.5); Globulin 3.1 g/dL (1.6-3.3); Non-African American GFR(CKD) 63.5 (60.0-200.0); Potassium 5.2 mmol/L (3.5-5.5); Total Bilirubin 0.4 mg/dL (0.30-1.20); Total Protein 6.1 g/dL (6.2-8.2)
--- NOTE | 2021-10-21 13:34 | P.PN ---
Subjective Progress Note Date: 10/21/21 Patient was seen and examined sitting up in bed. He is postop day #1 for right third through fifth toe amputation with wound VAC placement. He denies any pain. He's been afebrile. Objective - Vital Signs Vital signs: Vital Signs Temp 98.8 F 10/21/21 08:00 Pulse 60 10/21/21 08:00 Resp 18 10/21/21 08:00 BP 97/63 10/21/21 08:00 Pulse Ox 95 10/21/21 08:00 Intake & Output 10/20/21 10/21/21 10/21/21 18:59 06:59 18:59 Intake Total 1000 Output Total 10 50 Balance 990 -50 Intake: IV 1000 Output: Drainage 50 Right Toe 50 Estimated Blood Loss 10 Other: Voiding Method Urinal Urinal # Voids 1 - Exam General appearance: The patient is alert, oriented, in no acute distress. HET: Head is normocephalic and atraumatic. Pupils are equal and reactive. Oropharynx is clear without lesions. Neck: Supple without lymphadenopathy. Trachea midline. Extremities: Right lower extremity wound VAC in place with good suction. Right great toe with superficial wound to the plantar aspect. Previous surgical incision with [place] will approximated. Leo removed. Neurological: No focal deficits. Strength and sensation are grossly intact. - Labs CBC & Chem 7: 10/21/21 05:42 10/21/21 05:42 Labs: Microbiology - Last 24 Hours (Table) 10/18/21 20:31 Blood Culture - Preliminary Blood No Growth after 48 hours 10/18/21 20:31 Blood Culture - Preliminary Blood No Growth after 48 hours Assessment and Plan Assessment: 1. Postop day #1 right third through fifth toe amputation with wound VAC application 2. Dry gangrene third through fifth toes, demarcated from previous right lower extremity critical limb ischemia 3. Wound to dorsal aspect right foot 4. Peripheral arterial disease status post recent revascularization with right femoral to tibial peroneal trunk in situ vein bypass graft and right common femoral endarterectomy 5. History of atrial fibrillation Plan: 1. Continue symptomatic and supportive care 2. Continue IV antibiotics as ordered 3. May resume Eliquis and plavix 4. Consult to wound care for outpatient follow up 5. Patient is cleared for discharge by vascular surgery The impression and plan of care has been dictated as directed. Dr.Brown I performed a history and examination of this patient, discussed the same with the dictator. I agree with the dictator's note ,documented as a scribe. Any additional findings or plans will be noted.
--- NOTE | 2021-10-21 13:39 | CDI ---
Documentation Clarification Form Date: 10/21/2021 01:18:48 PM From: Atiya Hsieh RN, CCDS Admit Date: 10/18/2021 08:35:00 PM Patient Name: Cezar Terry Visit Number: [id number] Discharge Date: ATTENTION: The Clinical Documentation Specialists (CDI) and [facility] Coding Staff appreciate your assistance in clarifying documentation. Please respond to the clarification below the line at the bottom and electronically sign. The CDI & [facility] Coding staff will review the response and follow-up if needed. Please note: Queries are made part of the Legal Health Record. If you have any questions, please contact the author of this message via ITS. Dr. Tali Turner Right diabetic foot infection with gangrene is documented in your progress note on 10/21/21, which may lack sufficient clinical evidence/support in the medical record. Additional clarification is requested. Home Medication list: Cordarone, Eliquis, Asprin, Lipitor, Keflex, Plavix, Colace, Lasix, Narco, Lopressor, Multivitamin, Zestril History/Risk Factors: Hypertension, Hyperlipidemia, Vascular disorder, Skin cancer, Former smoker Clinical Indicators: 65-year-old male present to ED with right foot cellulitis with gangrene, peripheral vascular disease. The right foot there is gangrenous eschar, purulent drainage, digits 3-5. 12/7 Glucose 112. Treatment Complete blood count w/o Diff daily (start 10/22) Comprehensive metabolic panel daily (start 10/22) Please clarify if Diabetes is a valid diagnosis? [ ] Yes, Diabetes is present as evidence by (additional clinical support): [ ] No, Diabetes is ruled out [ ] Other (please specify diagnosis) [ ] Unable to determine (Template Last Revised: January 2021) ____pt is not diabetic , right foot gangrene from underlying vascular disorder and NOT diabetes MTDD
[2021-10-21] MEDS: APIXABAN 5 MG TAB PO SCH (20:51)
[2021-10-21] MEDS: ATORVASTATIN 10 MG TAB PO SCH (20:51)
--- NOTE | 2021-10-21 23:32 | PN ---
PROGRESS NOTE DATE OF SERVICE: 10/21/2021 REASON FOR FOLLOWUP: Right ischemic foot. INTERVAL COURSE: The patient pain to the right foot is currently controlled. Denies having any chest pain. No shortness of breath or cough. No abdominal pain. No diarrhea. PHYSICAL EXAMINATION: Blood pressure 143/72 with a pulse of 78, temperature 99, he is 98% on room air. General description is a middle-aged male lying in bed in no distress. Respiratory system: Unlabored breathing, clear to auscultation anteriorly. Heart S1, S2. Regular rate and rhythm. Abdomen soft, no tenderness. Right foot wound is currently covered with a wound VAC. LABS: Hemoglobin is 9.8, white count 8.1, creatinine 1.2. Blood culture has been negative. DIAGNOSTIC IMPRESSION AND PLAN: Patient with right ischemic foot status post right third and fifth toe amputation. No cultures. Patient empirically covered with Zosyn to continue while monitoring clinical course closely. Continue supportive care. MMODL / IJN: [id number] /
[2021-10-22] MEDS: HYDROcodone/APAP 5-325MG 1 EACH TAB PO PRN ×6 (00:01→20:26)
[2021-10-22] MEDS: METOPROLOL TARTRATE 50 MG TAB PO SCH ×3 (05:58→20:26)
[2021-10-22] MEDS: PIPERACILLIN-TAZOBACTAM 3.375 GM in SODIUM CHLORIDE 0.9% 100 ML IVPB SCH ×3 (05:59→20:26)
[2021-10-22] MEDS: SODIUM CHLORIDE 0.9% 1,000 ML IV SCH ×2 (06:00→16:26)
[2021-10-22] MEDS: FUROSEMIDE 20 MG TAB PO SCH (08:07)
[2021-10-22] MEDS: CLOPIDOGREL 75 MG TAB PO SCH (08:07)
[2021-10-22] MEDS: MULTIVITAMINS, THERA 1 EACH TAB PO SCH (08:07)
[2021-10-22] MEDS: lisinopriL 10 MG TAB PO SCH (08:07)
[2021-10-22] MEDS: APIXABAN 5 MG TAB PO SCH ×2 (08:07→20:26)
[2021-10-22] MEDS: AMIODARONE 200 MG TAB PO SCH (08:07)
[2021-10-22 11:38] LABS: HCT 31.7 % (39.6-50.0); HGB 9.5 g/dL (13.0-17.0); MCH 30.5 pg (27.0-32.0); MCV 101.9 fL (80.0-97.0); Mean Platelet Volume 9.5 fL (9.5-12.2); Platelet Count 384 X 10*3/uL (140-440); RBC 3.11 X 10*6/uL (4.40-5.60); RDW 14.6 % (11.5-14.5); WBC 7.47 X 10*3/uL (4.50-10.00)
[2021-10-22 12:37] LABS: African American GFR (CKD) 104.2 (60.0-200.0); Albumin/Globulin Ratio 0.97 (1.60-3.17); Anion Gap 9.2 mmol/L (10.00-18.00); BUN/Creat Ratio 10.89 Ratio (12.00-20.00); Blood Urea Nitrogen 9.8 mg/dL (9.0-27.0); Calcium 8.4 mg/dL (8.7-10.3); Carbon Dioxide 25.8 mmol/L (20.0-27.5); Globulin 3.1 g/dL (1.6-3.3); Non-African American GFR(CKD) 89.9 (60.0-200.0); Potassium 4.1 mmol/L (3.5-5.5); Total Bilirubin 0.3 mg/dL (0.30-1.20); Total Protein 6.1 g/dL (6.2-8.2)
--- NOTE | 2021-10-22 14:18 | P.PN ---
Subjective This is a pleasant 65 years old male with past medical history of atrial fibrillation on Eliquis, history of coronary artery disease status post stent and peripheral vascular disease status post recent femoral bypass, he was on aspirin and Eliquis at home. Also he has history of hypertension, hyperlipidemia. Presents with right foot cellulitis and dry gangrene of the third to fourth and possible also fifth toe gangrene status post third and fourth toe amputation on 10/20. Clinically his doing well. His toe has [address] with surrounding cellulitis. He remains on Zosyn and normal saline Vascular surgery were consulted and the place him on Plavix instead of home dose of aspirin Objective - Vital Signs Vital signs: Vital Signs Temp 98.2 F 10/22/21 07:59 Pulse 59 L 10/22/21 07:59 Resp 16 10/22/21 07:59 BP 156/78 10/22/21 07:59 Pulse Ox 95 10/22/21 07:59 Intake & Output 10/21/21 10/22/21 10/22/21 18:59 06:59 18:59 Intake Total 686 700 Output Total 50 375 Balance 636 325 Intake: Intake, IV Titration 700 Amount Piperacillin-Tazobactam 3 100 .375 gm In Sodium Chloride 0.9% 100 ml @ 25 mls/hr IVPB Q8H AVELINO Rx#: [id number] Sodium Chloride 0.9% 1, 600 000 ml @ 75 mls/hr IV . [id number] AVELINO Rx#:[id number] Oral 686 Output: Drainage 50 Right Toe 50 Urine 375 Other: Voiding Method Urinal Urinal Urinal # Voids 3 1 # Bowel Movements 2 1 - Exam GENERAL: The patient is alert and oriented x3, not in any acute distress. Well developed, well nourished. HEENT: Pupils are round and equally reacting to light. EOMI. No scleral icterus. No conjunctival pallor. Normocephalic, atraumatic. No pharyngeal erythema. No thyromegaly. CARDIOVASCULAR: S1 and S2 present. No murmurs, rubs, or gallops. PULMONARY: Chest is clear to auscultation, no wheezing or crackles. ABDOMEN: Soft, nontender, nondistended, normoactive bowel sounds. No palpable organomegaly. MUSCULOSKELETAL: No joint swelling or deformity. -EXTREMITIES: No cyanosis, clubbing, or pedal edema. Surgical wound of the right foot is with wound VAC and surrounding cellulitis. Status post amputation of the right third and fourth toes NEUROLOGICAL: Gross neurological examination did not reveal any focal deficits. SKIN: No rashes. no petechiae. - Labs CBC & Chem 7: 10/22/21 07:24 10/22/21 07:24 Labs: Abnormal Lab Results - Last 24 Hours (Table) 10/22/21 Range/Units 07:24 RBC 3.11 L (4.40-5.60) X 10*6/uL Hgb 9.5 L (13.0-17.0) g/dL Hct 31.7 L (39.6-50.0) % MCV 101.9 H (80.0-97.0) fL MCHC 30.0 L (32.0-37.0) g/dL RDW 14.6 H (11.5-14.5) % Microbiology - Last 24 Hours (Table) 10/18/21 20:31 Blood Culture - Preliminary Blood No Growth after 72 hours 10/18/21 20:31 Blood Culture - Preliminary Blood No Growth after 72 hours Assessment and Plan Assessment: Right foot cellulitis and dry gangrene of the 3 to fifth toes. Status post amputation of the right third and fourth toes Recent history of peripheral vascular disease status post recent femoral bypass procedure History of ALuciana yu on Eliqupamela History of coronary artery disease status post stent Hypertension Hyperlipidemia Plan: this Is 65 years old male who presents with right foot cellulitis status post amputation of the third and fourth right toes continue with Zosyn and normal saline Infectious disease and vascular surgery team on the case Labs and medication were reviewed.. Continue same treatment. Continue with symptomatic treatment. Resume home medication. Monitor lytes and vitals. DVT and GI prophylaxis. Further recommendationsas per clinical course of the patient DVT prophylaxis: Machellequpamela
[2021-10-22] MEDS: ATORVASTATIN 10 MG TAB PO SCH (20:26)
[2021-10-23] MEDS: HYDROcodone/APAP 5-325MG 1 EACH TAB PO PRN ×6 (00:29→20:22)
--- NOTE | 2021-10-23 01:30 | PN ---
PROGRESS NOTE DATE OF SERVICE: 10/22/2021 REASON FOR FOLLOWUP: Right ischemic wound gangrene and a question of cellulitis. INTERVAL HISTORY: Patient is afebrile. The patient is breathing comfortably. Still complaining of pain to the right foot amputation site, but no worsening. No chest pain, shortness of breath or cough. No abdominal pain. No diarrhea. PHYSICAL EXAMINATION: Blood pressure 126/72 with a pulse of 65, temperature of 98.6. He is 96% on room air. General description is a middle-aged male lying in bed in no distress. Respiratory system: Unlabored breathing, clear to auscultation anteriorly. Heart S1, S2. Regular rate and rhythm. Abdomen soft, no tenderness. Right foot wound is currently covered with a wound VAC. LABS: Hemoglobin 9.5, white count 7.47, creatinine 0.9. DIAGNOSTIC IMPRESSION AND PLAN: Patient with right ischemic foot with gangrene status post right third to fifth toe ray amputation. Patient at this time to continue with the empiric Zosyn while monitoring clinical course closely. Continue supportive care. MMODL / IJN: [id number] /
[2021-10-23] MEDS: METOPROLOL TARTRATE 50 MG TAB PO SCH ×3 (04:59→20:21)
[2021-10-23] MEDS: PIPERACILLIN-TAZOBACTAM 3.375 GM in SODIUM CHLORIDE 0.9% 100 ML IVPB SCH ×3 (04:59→20:21)
[2021-10-23] MEDS: APIXABAN 5 MG TAB PO SCH ×2 (08:04→20:21)
[2021-10-23] MEDS: CLOPIDOGREL 75 MG TAB PO SCH (08:04)
[2021-10-23] MEDS: AMIODARONE 200 MG TAB PO SCH (08:04)
[2021-10-23] MEDS: MULTIVITAMINS, THERA 1 EACH TAB PO SCH (08:04)
[2021-10-23] MEDS: lisinopriL 10 MG TAB PO SCH (08:04)
[2021-10-23] MEDS: FUROSEMIDE 20 MG TAB PO SCH (08:04)
[2021-10-23] MEDS: SODIUM CHLORIDE 0.9% 1,000 ML IV SCH ×2 (08:05→20:22)
--- NOTE | 2021-10-23 14:21 | P.PN ---
Subjective This is a pleasant 65 years old male with past medical history of atrial fibrillation on Eliquis, history of coronary artery disease status post stent and peripheral vascular disease status post recent femoral bypass, he was on aspirin and Eliquis at home. Also he has history of hypertension, hyperlipidemia. Presents with right foot cellulitis and dry gangrene of the third to fourth and possible also fifth toe gangrene status post third and fourth toe amputation on 10/20. Clinically his doing well. His toe has [address] with surrounding cellulitis. He remains on Zosyn and normal saline Vascular surgery were consulted and the place him on Plavix instead of home dose of aspirin 10/23/2021 Patient clinically normal change from yesterday, been treated for his right foot cellulitis status post amputation of the gangrenous third and fourth toe. On IV Zosyn and gentle hydration. Also he is on home dose of Eliquis. But aspirin was switched to Plavix by vascular surgery team. He is hemodynamically stable. Objective - Vital Signs Vital signs: Vital Signs Temp 97.6 F 10/23/21 07:42 Pulse 60 10/23/21 07:42 Resp 20 10/23/21 07:42 BP 146/74 10/23/21 07:42 Pulse Ox 98 10/23/21 07:42 Intake & Output 10/22/21 10/23/21 10/23/21 18:59 06:59 18:59 Output Total 725 Balance -725 Output: Urine 725 Other: Voiding Method Urinal Urinal # Voids 2 - Exam GENERAL: The patient is alert and oriented x3, not in any acute distress. Well developed, well nourished. HEENT: Pupils are round and equally reacting to light. EOMI. No scleral icterus. No conjunctival pallor. Normocephalic, atraumatic. No pharyngeal erythema. No thyromegaly. CARDIOVASCULAR: S1 and S2 present. No murmurs, rubs, or gallops. PULMONARY: Chest is clear to auscultation, no wheezing or crackles. ABDOMEN: Soft, nontender, nondistended, normoactive bowel sounds. No palpable organomegaly. MUSCULOSKELETAL: No joint swelling or deformity. -EXTREMITIES: No cyanosis, clubbing, or pedal edema. Surgical wound of the right foot is with wound VAC and surrounding cellulitis. Status post amputation of the right third and fourth toes NEUROLOGICAL: Gross neurological examination did not reveal any focal deficits. SKIN: No rashes. no petechiae. - Labs CBC & Chem 7: 10/22/21 07:24 10/22/21 07:24 Labs: Abnormal Lab Results - Last 24 Hours (Table) 10/22/21 10/22/21 Range/Units 07:24 07:24 RBC 3.11 L (4.40-5.60) X 10*6/uL Hgb 9.5 L (13.0-17.0) g/dL Hct 31.7 L (39.6-50.0) % MCV 101.9 H (80.0-97.0) fL MCHC 30.0 L (32.0-37.0) g/dL RDW 14.6 H (11.5-14.5) % Anion Gap 9.20 L (10.00-18.00) mmol/L BUN/Creatinine Ratio 10.89 L (12.00-20.00) Ratio Calcium 8.4 L (8.7-10.3) mg/dL AST 12 L (14-35) U/L ALT 9 L (10-49) U/L Total Protein 6.1 L (6.2-8.2) g/dL Albumin 3.0 L (3.8-4.9) g/dL Albumin/Globulin Ratio 0.97 L (1.60-3.17) g/dL Microbiology - Last 24 Hours (Table) 10/18/21 20:31 Blood Culture - Preliminary Blood No Growth after 96 hours 10/18/21 20:31 Blood Culture - Preliminary Blood No Growth after 96 hours Assessment and Plan Assessment: Right foot cellulitis and dry gangrene of the 3 to fifth toes. Status post amputation of the right third and fourth toes Recent history of peripheral vascular disease status post recent femoral bypass procedure History of A. fib on Eliquis History of coronary artery disease status post stent Hypertension Hyperlipidemia Plan: this Is 65 years old male who presents with right foot cellulitis status post amputation of the third and fourth right toes continue with Zosyn and normal saline Infectious disease and vascular surgery team on the case Labs and medication were reviewed.. Continue same treatment. Continue with s ymptomatic treatment. Resume home medication. Monitor lytes and vitals. DVT and GI prophylaxis. Further recommendationsas per clinical course of the patient DVT prophylaxis: Aleja
[2021-10-23] MEDS: ATORVASTATIN 10 MG TAB PO SCH (20:21)
--- NOTE | 2021-10-23 23:07 | PN ---
PROGRESS NOTE DATE OF SERVICE: 10/23/2021 REASON FOR FOLLOWUP: Right ischemic foot gangrene and a question of cellulitis. INTERVAL HISTORY: The patient is afebrile. The patient is currently breathing comfortably. Denies having any chest pain, shortness of breath or cough. No abdominal pain or worsening pain in the right foot. PHYSICAL EXAMINATION: Blood pressure 155/80 with a pulse of 61, temperature 97.8. He is 98% on room air. General description is a middle-aged male lying in bed in no distress. Respiratory system: Unlabored breathing. Clear to auscultation anteriorly. Heart S1, S2. Regular rate and rhythm. Abdomen soft, no tenderness. Right foot wound is currently covered with a wound V.A.C. LABS: Hemoglobin is 9.8, white count 7.47, creatinine 0.9. DIAGNOSTIC IMPRESSION AND PLAN: Patient with right foot ischemia with gangrene, status post right third to fifth toe amputation with infected part removed. Patient not bacteremic. Will not need long-term antibiotics. Continue with empiric Zosyn. Continue with supportive care. MMODL / IJN: [id number] /
[2021-10-24] MEDS: HYDROcodone/APAP 5-325MG 1 EACH TAB PO PRN ×6 (00:32→21:07)
[2021-10-24] MEDS: PIPERACILLIN-TAZOBACTAM 3.375 GM in SODIUM CHLORIDE 0.9% 100 ML IVPB SCH ×3 (04:49→19:54)
[2021-10-24] MEDS: METOPROLOL TARTRATE 50 MG TAB PO SCH ×3 (04:49→19:54)
--- NOTE | 2021-10-24 08:20 | P.DS ---
Providers Date of admission: 10/18/21 20:35 Attending physician: Odin Obrien Consults: 10/18/21 20:34 Consult Physician Urgent Consulting Provider: Yolanda Brown Consult Reason/Comments: Right foot gangrene Do you want consulting provider notified?: Yes Consult Physician Urgent Consulting Provider: Tali Turner Consult Reason/Comments: Gangrene Do you want consulting provider notified?: Yes Primary care physician: Odin Obrien - Discharge Diagnosis(es) (1) Cellulitis of right foot Current Visit: Yes Status: Acute (2) Gangrene of right foot Current Visit: Yes Status: Acute (3) Peripheral vascular disease Current Visit: Yes Status: Acute (4) Arterial occlusion Current Visit: No Status: Acute (5) Atrial fibrillation Current Visit: No Status: Acute (6) Foot ulcer, right Current Visit: No Status: Acute (7) Ischemia of right lower extremity Current Visit: No Status: Acute Hospital Course: This discharge summary on a 65-year-old white male who is essentially admitted because of gangrenous toes. He recently had arterial bypass and stent. Due to his worsening symptoms, he ended up having partial habitation of the dorsum and the digits of his foot. He is now to be discharged on wound care with antibiotic treatment once cleared by consultants of infectious disease and vascular surgery. This patient states minimal pain. No significant diarrhea stated. He is tolerating diet Patient Condition at Discharge: Fair Plan - Discharge Summary Discharge Rx Participant: Yes New Discharge Prescriptions: New Apixaban [Eliquis] 5 mg PO BID #0 tab Continue Aspirin 325 mg PO DAILY tab Amiodarone [Cordarone] 200 mg PO DAILY #30 tab Apixaban [Eliquis] 5 mg PO BID 30 Days #60 tab Furosemide [Lasix] 20 mg PO DAILY #30 tab Multivitamins, Thera [Multivitamin (formulary)] 1 tab PO DAILY #30 tab lisinopriL [Zestril] 10 mg PO DAILY #30 tab HYDROcodone/APAP 5-325MG [[place] 5-325] 2 tab PO Q4HR PRN PRN Reason: Pain Scale 8 To 10 Atorvastatin [Lipitor] 10 mg PO HS #90 tab Clopidogrel [Plavix] 75 mg PO DAILY #30 tab Metoprolol Tartrate [Lopressor] 100 mg PO TID@0500,1300,2100 Discharge Medication List Amiodarone [Cordarone] 200 mg PO DAILY #30 tab 10/11/21 [Rx] Apixaban [Eliquis] 5 mg PO BID 30 Days #60 tab 10/11/21 [Rx] Aspirin 325 mg PO DAILY tab 10/11/21 [Rx] Atorvastatin [Lipitor] 10 mg PO HS #90 tab 10/11/21 [Rx] Clopidogrel [Plavix] 75 mg PO DAILY #30 tab 10/11/21 [Rx] Furosemide [Lasix] 20 mg PO DAILY #30 tab 10/11/21 [Rx] Multivitamins, Thera [Multivitamin (formulary)] 1 tab PO DAILY #30 tab 10/11/21 [Rx] lisinopriL [Zestril] 10 mg PO DAILY #30 tab 10/11/21 [Rx] HYDROcodone/APAP 5-325MG [[place] 5-325] 2 tab PO Q4HR PRN 10/18/21 [History] Metoprolol Tartrate [Lopressor] 100 mg PO TID@0500,1300,2100 10/18/21 [History] Apixaban [Eliquis] 5 mg PO BID #0 tab 10/24/21 [Rx] Follow up Appointment(s)/Referral(s): Urbano Nunes DO [Doctor of Osteopathic Medicine] - 1 Week Odin Obrien MD [Primary Care Provider] - 10 Days Discharge Disposition: TRANSFER TO SNF/ECF
[2021-10-24] MEDS: FUROSEMIDE 20 MG TAB PO SCH (09:13)
[2021-10-24] MEDS: lisinopriL 10 MG TAB PO SCH (09:13)
[2021-10-24] MEDS: APIXABAN 5 MG TAB PO SCH ×2 (09:13→19:53)
[2021-10-24] MEDS: CLOPIDOGREL 75 MG TAB PO SCH (09:13)
[2021-10-24] MEDS: MULTIVITAMINS, THERA 1 EACH TAB PO SCH (09:13)
[2021-10-24] MEDS: AMIODARONE 200 MG TAB PO SCH (09:14)
[2021-10-24] MEDS: SODIUM CHLORIDE 0.9% 1,000 ML IV SCH (12:27)
--- NOTE | 2021-10-24 14:16 | PN ---
PROGRESS NOTE DATE OF SERVICE: 10/24/2021 REASON FOR FOLLOWUP: Right foot gangrene and a question of cellulitis. INTERVAL HISTORY: The patient is afebrile. The patient is breathing comfortably. No chest pain, shortness of breath or cough. No abdominal pain or any worsening pain in the right foot. PHYSICAL EXAMINATION: Blood pressure 163/79 with pulse of 58, temperature 97.5. He is 95% on room air. General description is a middle-aged male up in the chair in no distress. Respiratory system: Unlabored breathing. Clear to auscultation anteriorly. Heart S1, S2. Regular rate and rhythm. Abdomen soft, no tenderness. Right foot is currently covered with a wound V.A.C. LABS: No new labs have been obtained today. Blood cultures have been negative. DIAGNOSTIC IMPRESSION AND PLAN: Patient with right foot ischemia in this patient status post amputation of the right third, fourth and fifth toes with concern for possible cellulitis. No cultures were done. He is on Zosyn. Transition to a short course of oral Augmentin on discharge and close outpatient followup. MMODL / IJN: [id number] /
[2021-10-24] MEDS: ATORVASTATIN 10 MG TAB PO SCH (19:54)
[2021-10-25] MEDS: HYDROcodone/APAP 5-325MG 1 EACH TAB PO PRN ×6 (01:10→21:50)
[2021-10-25] MEDS: SODIUM CHLORIDE 0.9% 1,000 ML IV SCH ×2 (02:09→13:26)
[2021-10-25] MEDS: PIPERACILLIN-TAZOBACTAM 3.375 GM in SODIUM CHLORIDE 0.9% 100 ML IVPB SCH ×3 (05:05→20:42)
[2021-10-25] MEDS: METOPROLOL TARTRATE 50 MG TAB PO SCH ×3 (05:05→20:42)
--- NOTE | 2021-10-25 08:17 | P.PN ---
Subjective Principal diagnosis: Gangrene and cellulitis of the right foot The patient 65-year-old white male with PAD with element of gangrene and cellulitis. The patient is now postop day #6 for debridement with amputation we're essentially awaiting placement.. Objective - Vital Signs Vital signs: Vital Signs Temp 97.9 F 10/25/21 02:22 Pulse 66 10/25/21 02:22 Resp 17 10/25/21 02:22 BP 168/86 10/25/21 02:22 Pulse Ox 98 10/25/21 02:22 Intake & Output 10/24/21 10/25/21 10/25/21 18:59 06:59 18:59 Weight 79.379 kg Other: Voiding Method Urinal Urinal # Voids 3 2 - Constitutional General appearance: Present: average body habitus - EENT Eyes: Absent: abnormal pupil - Respiratory Respiratory: bilateral: diminished - Cardiovascular Rhythm: regular Heart sounds: normal: S1, S2 - Gastrointestinal General gastrointestinal: Present: soft. Absent: tenderness - Integumentary Integumentary Comment(s): Dorsolateral foot amputation with third and fourth and fifth digit removed. Wound VAC is noted. - Psychiatric Psychiatric: Present: A&O x's 3 - Labs CBC & Chem 7: 10/22/21 07:24 10/22/21 07:24 Labs: Microbiology - Last 24 Hours (Table) 10/18/21 20:31 Blood Culture - Final Blood No Growth after 144 hours 10/18/21 20:31 Blood Culture - Final Blood No Growth after 144 hours Assessment and Plan (1) Cellulitis of right foot Current Visit: Yes Status: Acute Code(s): L03.115 - CELLULITIS OF RIGHT LOWER LIMB SNOMED Code(s): 839869617 (2) Gangrene of right foot Current Visit: Yes Status: Acute Code(s): I96 - GANGRENE, NOT ELSEWHERE CLASSIFIED SNOMED Code(s): 04814006923332593 (3) Peripheral vascular disease Current Visit: Yes Status: Acute Code(s): I73.9 - PERIPHERAL VASCULAR DISEASE, UNSPECIFIED SNOMED Code(s): 533814896 (4) Arterial occlusion Current Visit: No Status: Acute Code(s): I70.90 - UNSPECIFIED ATHEROSCLEROSIS SNOMED Code(s): 3723651 (5) Atrial fibrillation Current Visit: No Status: Acute Code(s): I48.91 - UNSPECIFIED ATRIAL FIBRILLATION SNOMED Code(s): 37155321 (6) Foot ulcer, right Current Visit: No Status: Acute Code(s): L97.519 - NON-PRS CHRONIC ULCER OTH PRT RIGHT FOOT W UNSP SEVERITY SNOMED Code(s): 668213771 (7) Ischemia of right lower extremity Current Visit: No Status: Acute Code(s): I99.8 - OTHER DISORDER OF CIRCULATORY SYSTEM SNOMED Code(s): 959773405 Plan: Postop day #6 for debridement and amputation. Essentially awaiting placement to ECF. Anticipate discharge in next 24 hours
[2021-10-25] MEDS: APIXABAN 5 MG TAB PO SCH ×2 (09:09→20:42)
[2021-10-25] MEDS: CLOPIDOGREL 75 MG TAB PO SCH (09:10)
[2021-10-25] MEDS: AMIODARONE 200 MG TAB PO SCH (09:10)
[2021-10-25] MEDS: MULTIVITAMINS, THERA 1 EACH TAB PO SCH (09:10)
[2021-10-25] MEDS: FUROSEMIDE 20 MG TAB PO SCH (09:10)
[2021-10-25] MEDS: lisinopriL 10 MG TAB PO SCH (09:10)
--- NOTE | 2021-10-25 13:10 | PN ---
PROGRESS NOTE DATE OF SERVICE: 10/25/2021 REASON FOR FOLLOWUP: Right foot gangrene. INTERVAL HISTORY: The patient is afebrile. The patient is currently breathing comfortably. Denies any chest pain, shortness of breath or cough. No abdominal pain or any worsening pain to the right foot area. PHYSICAL EXAMINATION: Blood pressure 152/77 with a pulse of . Temperature 97.5. He is 95% on room air. General description is a middle-aged male lying in bed in no distress. Respiratory system: Unlabored breathing. Clear to auscultation anteriorly. Heart S1, S2. Regular rate and rhythm. Abdomen soft, no tenderness. Right foot wound is currently covered with a wound V.A.C. LABS: No new labs have been obtained today. Blood cultures have been negative. DIAGNOSTIC IMPRESSION AND PLAN: Patient with right foot ischemia, status post right third to fifth toe amputation. Culture not done. Blood culture negative. On empiric Zosyn. Transition to short course of oral Augmentin on discharge and close outpatient followup. MMODL / IJN: [id number] /
[2021-10-25] MEDS: ATORVASTATIN 10 MG TAB PO SCH (20:42)
[2021-10-26] MEDS: HYDROcodone/APAP 5-325MG 1 EACH TAB PO PRN ×3 (02:00→10:13)
[2021-10-26 02:07] VITALS: RESP 17
[2021-10-26] MEDS: SODIUM CHLORIDE 0.9% 1,000 ML IV SCH (03:39)
[2021-10-26] MEDS: PIPERACILLIN-TAZOBACTAM 3.375 GM in SODIUM CHLORIDE 0.9% 100 ML IVPB SCH (05:11)
[2021-10-26] MEDS: METOPROLOL TARTRATE 50 MG TAB PO SCH ×2 (05:11→08:26)
[2021-10-26 07:37] VITALS: PULSE 50
[2021-10-26] MEDS: CLOPIDOGREL 75 MG TAB PO SCH (08:26)
[2021-10-26] MEDS: lisinopriL 10 MG TAB PO SCH (08:26)
[2021-10-26] MEDS: MULTIVITAMINS, THERA 1 EACH TAB PO SCH (08:26)
[2021-10-26] MEDS: FUROSEMIDE 20 MG TAB PO SCH (08:26)
[2021-10-26] MEDS: APIXABAN 5 MG TAB PO SCH (08:26)
[2021-10-26] MEDS: AMIODARONE 200 MG TAB PO SCH (08:26)
--- NOTE | 2021-10-26 14:10 | P.DS ---
Providers Date of admission: 10/18/21 20:35 Attending physician: Odin Obrien Consults: 10/18/21 20:34 Consult Physician Urgent Consulting Provider: Tali Turner Consult Reason/Comments: Gangrene Do you want consulting provider notified?: Yes Primary care physician: Odin Obrien - Discharge Diagnosis(es) (1) Cellulitis of right foot Current Visit: Yes Status: Acute (2) Gangrene of right foot Current Visit: Yes Status: Acute (3) Peripheral vascular disease Current Visit: Yes Status: Acute (4) Arterial occlusion Current Visit: No Status: Acute (5) Atrial fibrillation Current Visit: No Status: Acute (6) Foot ulcer, right Current Visit: No Status: Acute (7) Ischemia of right lower extremity Current Visit: No Status: Acute Hospital Course: This is discharge summary 65-year-old white male Center admitted for gangrene and cellulitis of the right dorsum of the foot. Underlying history of PAD and he failed recent stent and ended up having femoral bypass recently. Pulse was good but because of the previous insult, he ended up having partial amputation of the foot including the third fourth and fifth digit. The patient stabilized and will be discharged on wound VAC with appropriate wound control. Home health is to be consult. Patient Condition at Discharge: Fair Plan - Discharge Summary Discharge Rx Participant: Yes New Discharge Prescriptions: New Amoxic-Pot Clav 875-125Mg [Augmentin 875-125] 1 tab PO Q12HR 7 Days #14 tab RX: Apixaban [Eliquis] 5 mg PO BID #0 tab Continue RX: Aspirin 325 mg PO DAILY tab RX: Amiodarone [Cordarone] 200 mg PO DAILY #30 tab RX: Apixaban [Eliquis] 5 mg PO BID 30 Days #60 tab RX: Furosemide [Lasix] 20 mg PO DAILY #30 tab RX: Multivitamins, Thera [Multivitamin (formulary)] 1 tab PO DAILY #30 tab RX: lisinopriL [Zestril] 10 mg PO DAILY #30 tab RX: HYDROcodone/APAP 5-325MG [[place] 5-325] 2 tab PO Q4HR PRN PRN Reason: Pain Scale 8 To 10 RX: Atorvastatin [Lipitor] 10 mg PO HS #90 tab RX: Clopidogrel [Plavix] 75 mg PO DAILY #30 tab RX: Metoprolol Tartrate [Lopressor] 100 mg PO TID@0500,1300,2100 Discharge Medication List RX: Amiodarone [Cordarone] 200 mg PO DAILY #30 tab 10/11/21 [Rx] RX: Apixaban [Eliquis] 5 mg PO BID 30 Days #60 tab 10/11/21 [Rx] RX: Aspirin 325 mg PO DAILY tab 10/11/21 [Rx] RX: Atorvastatin [Lipitor] 10 mg PO HS #90 tab 10/11/21 [Rx] RX: Clopidogrel [Plavix] 75 mg PO DAILY #30 tab 10/11/21 [Rx] RX: Furosemide [Lasix] 20 mg PO DAILY #30 tab 10/11/21 [Rx] RX: Multivitamins, Thera [Multivitamin (formulary)] 1 tab PO DAILY #30 tab 10/11/21 [Rx] RX: lisinopriL [Zestril] 10 mg PO DAILY #30 tab 10/11/21 [Rx] RX: HYDROcodone/APAP 5-325MG [[place] 5-325] 2 tab PO Q4HR PRN 10/18/21 [History] RX: Metoprolol Tartrate [Lopressor] 100 mg PO TID@0500,1300,2100 10/18/21 [History] Amoxic-Pot Clav 875-125Mg [Augmentin 875-125] 1 tab PO Q12HR 7 Days #14 tab 10/24/21 [Rx] RX: Apixaban [Eliquis] 5 mg PO BID #0 tab 10/24/21 [Rx] Follow up Appointment(s)/Referral(s): [facility], [NON-STAFF] - ([facility] will apply the wound vac on 10/28/21. They will call you to schedule the time for your visit. ) Odin Obrien MD [Primary Care Provider] - 11/02/21 10:45 am (F) Urbano Nunes DO [Doctor of Osteopathic Medicine] - 11/03/21 9:30 am Patient Instructions/Handouts: Toe Amputation (DC) Activity/Diet/Wound Care/Special Instructions: Please contact [facility]/ at [phone] if you have questions regarding the wound vac. Discharge Disposition: TRANSFER TO SNF/F
[2021-10-26 14:38] VITALS: BP 100/68; TEMP 97.7
--- NOTE | 2021-10-26 15:50 | PN ---
PROGRESS NOTE DATE OF SERVICE: 10/26/2021 REASON FOR FOLLOWUP: Right foot ischemia and a question of cellulitis. INTERVAL HISTORY: The patient is afebrile. The patient is currently breathing comfortably. The patient denies having any chest pain, shortness of breath or cough. Pain to the right foot is currently controlled. No diarrhea. PHYSICAL EXAMINATION: Blood pressure is 100/68 with a pulse of 60, temperature 97.7. He is 93% on room air. General description is a middle-aged male lying in bed in no distress. Respiratory system: Unlabored breathing. Clear to auscultation anteriorly. Heart S1, S2. Regular rate and rhythm. Abdomen soft, no tenderness. Right foot wound is currently covered with a wound V.A.C. LABS: No new labs have been obtained today. Blood culture has been negative. DIAGNOSTIC IMPRESSION AND PLAN: Patient with right foot ischemic wound and gangrene in this patient who is status post amputation of the right third to fifth toes with infected part removed. Patient on will discharge. MMODL / IJN: [id number] /
== END 2021-10-26 15:19 | disposition home health service (06) | DRG 256 ==
LOC: EC 16:48 → 4SSUR 20:35
PROVIDERS: ADMIT Family Medicine; ATTEND Family Medicine
PROC: 0Y6X0Z0 Detachment at Right 5th Toe, Complete, Open Approach (ICD-10-PCS; 2021-10-20)
PROC: 0Y6V0Z0 Detachment at Right 4th Toe, Complete, Open Approach (ICD-10-PCS; 2021-10-20)
PROC: 0Y6T0Z0 Detachment at Right 3rd Toe, Complete, Open Approach (ICD-10-PCS; principal; 2021-10-20 14:25)
DX: E11.52 Type 2 diabetes mellitus with diabetic peripheral angiopathy with gangrene (principal); L03.115 Cellulitis of right lower limb; L97.515 Non-pressure chronic ulcer of other part of right foot with muscle involvement without evidence of necrosis; E11.621 Type 2 diabetes mellitus with foot ulcer; E11.628 Type 2 diabetes mellitus with other skin complications; E78.5 Hyperlipidemia, unspecified; I10 Essential (primary) hypertension; I25.10 Atherosclerotic heart disease of native coronary artery without angina pectoris; Z20.822 Contact with and (suspected) exposure to COVID-19; I48.0 Paroxysmal atrial fibrillation; I70.235 Atherosclerosis of native arteries of right leg with ulceration of other part of foot; I74.5 Embolism and thrombosis of iliac artery; I70.221 Atherosclerosis of native arteries of extremities with rest pain, right leg; Z79.01 Long term (current) use of anticoagulants; Z79.4 Long term (current) use of insulin; Z79.02 Long term (current) use of antithrombotics/antiplatelets; Z79.82 Long term (current) use of aspirin; Z79.899 Other long term (current) drug therapy; Z80.8 Family history of malignant neoplasm of other organs or systems; Z85.828 Personal history of other malignant neoplasm of skin; Z87.891 Personal history of nicotine dependence; Z95.5 Presence of coronary angioplasty implant and graft
CPT/HCPCS: 36415; 80053; 83605; 85025; 85027; 85610; 85730; 86140; 87040; 87635; 99284

== ENCOUNTER → 2022-07-26 | Outpatient (CLI) | payer MEDICARE, OTHER ==
--- NOTE | 2022-07-26 14:20 | CT ---
EXAMINATION TYPE: CT angio abdomen pelvis DATE OF EXAM: 07/26/2022 COMPARISON: None available at this time. INDICATION: occlusion DLP: 998 mGycm, Automated exposure control for dose reduction was used. CONTRAST: 100 mL of Isovue 370. Study performed with Oral Contrast TECHNIQUE: Axial images were obtained from above the diaphragm to the pubic rami in the axial plane a t 5 mm thick sections. Reconstructed images are reviewed on the computer in the coronal plane. FINDINGS: Aorta: Vascular calcification is within the aorta. Celiac axis and superior mesenteric arteries are identified. There may be some plaquing at the origins of these vessels. The renal artery takeoffs are identified. Below the level of the renal arteries is abdominal aortic aneurysm with an AP dimension of 3.5 cm. Transverse dimension is 4.2 cm. This terminates above the bifurcation. Proximal Common alexandre ac arteries are patent. Vascular calcification is within the iliac vessels. The right distal common i liac artery appears to be occluded distal left common iliac artery is patent. There is some faint con trast present within the internal iliac vessels to the common femoral arteries. There is some aneury smal dilatation at the distal right common femoral artery measuring 2.3 x 1.4 cm. The superficial fem oral artery on the right appears to be occluded. Left superficial femoral artery appears to be occlud ed. Anterior to the distal common femoral artery is a low density collection with a transverse dimension 1.6 cm. A small seroma could be considered if there is been prior vascular access at this level. This is an interval finding. Iliofemoral stents appear to have been placed. Contrast within the femoral grafts are not identified. Consider potential occlusion through these vessels. Limited CT sections are obtained the lung bases. The lung bases are clear. CT ABDOMEN: Liver: Normal Spleen: Normal Pancreas: Normal Adrenal glands: The adrenal glands are normal. Gallbladder: Normal Kidneys: No masses are evident. No hydronephrosis is present. No cysts are present. Delayed images were obtained through the kidneys, which remain unremarkable. Inferior vena cava: Normal. CT PELVIS: Loops of bowel within the abdomen and pelvis are normal. The study is without oral contrast limit ing bowel evaluation. Appendix: Normal as visualized. Urinary bladder: Normal. Genitourinary structures: Prostate is prominent. Osseous structures: No suspicious lytic or sclerotic lesions. IMPRESSIONS: 1. Appears to be occlusion of the femoral artery bypass grafts. 2. Poor visualization of distal iliac and common femoral artery patency. Severe stenosis may be prese nt. 3. Abdominal aortic aneurysm appears stable from comparison. 4. Possible seroma anterior to the right distal common femoral vessels.
== END | disposition home or self-care (01) ==
LOC: RADCTMAIN 08:23
PROVIDERS: ATTEND Surgery
DX: I74.5 Embolism and thrombosis of iliac artery (principal); I71.4 Abdominal aortic aneurysm, without rupture
CPT/HCPCS: 82565; 84520; 36415; 74174; Q9967

== ENCOUNTER → 2022-12-08 | Outpatient (CLI) | payer MEDICARE ==
--- NOTE | 2022-12-08 09:11 | CT ---
EXAMINATION TYPE: CT soft tissue neck wo con DATE OF EXAM: 12/08/2022 HISTORY: Chronic pharyngitis. Sore throat is not improved on antibiotics. COMPARISON: Prior CTA neck but there are 31/03/2020 CT DLP: 473.7 mGycm. Automated Exposure Control for Dose Reduction was Utilized. TECHNIQUE: CT scan of the neck is performed without IV contrast, axial images are obtained, coronal and sagittal reformatted images are reviewed. FINDINGS: Lack of IV contrast noted to Limited evaluation of mucosal lesions and subcentimeter neck a denopathy. Airway: Mild to moderate underlying emphysematous change is again seen. Thyroid gland appears within normal limits. Airway grossly patent. No obvious mass identified. Parotid/submandibular glands: No gross abnormality seen. Carotid/Vascular Structures: There is new metallic stent at right carotid bulb extending into proxima l internal carotid artery. Focal moderate calcified plaque left carotid bulb is now present. Osseous Structures: Marked dextroconvex scoliosis centered in the thoracic spine is redemonstrated. Other: Nasal septum remains deviated to left of midline. Patchy cerumen in the deep right external au ditory canal is redemonstrated. Axial fat spaces are maintained bilaterally. There is no greater than 1 cm neck adenopathy clearly se en bilaterally. IMPRESSION: Suboptimal study without IV contrast. No obvious mass or abnormal neck adenopathy is seen .
== END | disposition home or self-care (01) ==
LOC: RADCTMAIN 06:41
PROVIDERS: ATTEND Family Medicine
DX: J31.2 Chronic pharyngitis (principal)
CPT/HCPCS: 70490

== ENCOUNTER → 2023-02-15 | Outpatient (CLI) | payer MEDICARE ==
--- NOTE | 2023-02-21 11:17 | CT ---
EXAMINATION TYPE: CT angio abd aorta w/Runoff DATE OF EXAM: 02/15/2023 COMPARISON: 10/07/2021 HISTORY: PERIPHERAL VASCULAR DISEASE. hx of 3 toes removed on rt side and hx of femoral bypass. CT DLP: 2312.40 mGycm CONTRAST: CTA thoracic and abdominal aorta with 3-D reconstruction is performed and without and with IV Contras t, patient injected with 100 mL of Isovue 370. Contrast CTA of the abdominal aorta with runoff of the lower extremity arterial system was performed from the lung bases through the ankles and feet. 3-D reconstruction imaging obtained at a separate wo rkstation. ABDOMINAL AORTA: Infrarenal abdominal aortic aneurysm measures 3.9 cm AP dimension unchanged from nat or study. Atheromatous changes of the take off of the celiac and SMA arteries however no significant stenosis appreciated. The renal arteries enhance symmetrically. Iliac vessels: There are bilateral external iliac stents noted which appear to be patent. Common mendel c arteries and internal iliac arteries opacify normally although there is a scattered calcific plaque . Runoff vessels Thrombosed right femoral artery stent. There is bypass graft noted extending medially which is patent throughout its course. There is aneurysm at the proximal anastomotic site measuring 2.6 cm with mura l thrombus. Distal anastomosis to the level of the trifurcation is patent. There is thrombosed left f emoral stent. There are collaterals noted from the profunda femoris with reconstitution at the level of the left popliteal artery and trifurcation. Nonvisualization of the right popliteal artery. Anteri or tibial arteries are thrombosed bilaterally with multifocal calcific disease. The right peroneal ar jimmy is visible to the distal one third of the right lower extremity while the left peroneal artery i s visible to the midportion of the left lower extremity. There is a patent posterior tibial artery on the left with multifocal calcific disease and high-grade stenosis right posterior tibial artery runo ff to the ankles and feet is limited. Below the knee arteries: Trifurcation is patent bilaterally. Peroneal, anterior and posterior tibial arteries demonstrate mild calcific disease without evidence for hemodynamically significant stenosis. Limited runoff of the ankles and feet given timing of the contrast bolus. LIVER/GB- No significant abnormality is seen. PANCREAS- No significant abnormality is seen. SPLEEN- No significant abnormality is seen. ADRENALS- No significant abnormality is seen. KIDNEYS/BLADDER- No significant abnormality is seen. BOWEL- No Significant abnormality GENITAL ORGANS: No gross abnormality seen. LYMPH NODES- No greater than 1cm abdominal or pelvic lymph nodes are appreciated. OSSEOUS STRUCTURES- No significant abnormality is seen. OTHER- No significant abnormality is seen. IMPRESSION- 1. Stable infrarenal abdominal aortic aneurysm. 2. Interval bypass graft right femoral artery to the trifurcation which is patent. Proximal aneurysm as noted above. Thrombosed right femoral stent. Lower extremity vessels as noted above. 3. Thrombosed left femoral stent with the collaterals arising from the profunda femoris with reconsti tution distally. Calf vessels as noted.
== END | disposition home or self-care (01) ==
LOC: RADCTMAIN 12:45
PROVIDERS: ATTEND Surgery
DX: I71.43 Infrarenal abdominal aortic aneurysm, without rupture (principal); T82.868A Thrombosis due to vascular prosthetic devices, implants and grafts, initial encounter; I73.9 Peripheral vascular disease, unspecified
CPT/HCPCS: 82565; 84520; 75635; 36415; Q9967

== ENCOUNTER 2023-03-01 11:36 | Day surgery (SDC) | payer MEDICARE ==
[2023-02-26 16:46] VITALS: BMI 25.7
[~2023-03-01 11:36] MED LIST changes: +ALPRAZolam 0.5 MG TAB PO PRN; +HEPARIN SODIUM,PORCINE 10,000 UNIT in SODIUM CHLORIDE 0.9% 1,000 ML IRRIGATION PRN; +HEPARIN SODIUM,PORCINE 2,500 UNIT in SODIUM CHLORIDE 0.9% 250 ML IRRIGATION PRN; +ZOLPIDEM 5 MG TAB PO PRN
[2023-03-01] MEDS ORDERED: SODIUM CHLORIDE 0.9% 1,000 ML IV ONE (12:03)
[2023-03-01 12:21] LABS: Basophils % (A) 0 %; Eosinophils # (A) 0.2 k/uL (0-0.7); Eosinophils % (A) 3 %; HCT 48.2 % (39.0-53.0); HGB 15.7 gm/dL (13.0-17.5); Lymphocytes # (A) 1.4 k/uL (1.0-4.8); Lymphocytes % (A) 19 %; MCH 32.4 pg (25.0-35.0); MCHC 32.6 g/dL (31.0-37.0); MCV 99.6 fL (80.0-100.0); Monocytes # (A) 0.5 k/uL (0-1.0); Monocytes % (A) 6 %; Neutrophils # (A) 5.3 k/uL (1.3-7.7); Neutrophils % (A) 70 %; Platelet Count 250 k/uL (150-450); RBC 4.84 m/uL (4.30-5.90); RDW 13.2 % (11.5-15.5); WBC 7.6 k/uL (3.8-10.6)
[2023-03-01 12:32] LABS: Potassium 4.2 mmol/L (3.5-5.1)
[2023-03-01] MEDS ORDERED: LIDOCAINE 1% INJ 10MG/ML (20 ML MDV) SQ ONE (13:45)
[2023-03-01] MEDS ORDERED: MIDAZOLAM 2 MG/2 ML VIAL IV ONE (13:46)
[2023-03-01] MEDS ORDERED: fentaNYL (PF) 50 MCG/ML 2 ML AMP IV ONE (13:46)
[2023-03-01] MEDS ORDERED: IOPAMIDOL-370 100ML BTL INJ ONE (14:46)
[2023-03-01] MEDS ORDERED: HYDROcodone/APAP 5-325MG 1 EACH TAB PO PRN (14:57)
[2023-03-01] MEDS ORDERED: NALOXONE 0.4 MG/ML 1 ML VIAL IVP PRN (14:57)
--- NOTE | 2023-03-01 14:57 | P.OP ---
Date of Procedure: 03/01/23 Preoperative Diagnosis: Decrease in MILAGROS, status post right femoral to tibial in situ vein bypass graft with concern for iliac stenosis. Postoperative Diagnosis: Same. Procedure(s) Performed: 1: Ultrasound-guided cannulation left femoral artery. 2: Abdominal/pelvic angiography. 3: Selective catheterization right iliac artery. Anesthesia: MAC, local Surgeon: Urbano Nunes Estimated Blood Loss (ml): 25 Urine output (ml): 0 Pathology: none sent Condition: stable Disposition: no change Indications for Procedure: Patient is a 67-year-old male status post right femoral tibial in situ vein bypass graft for limb threatening ischemia. In routine follow-up surveillance the patient's ankle brachial index decreased by 0.08. CT angiography demonstrated findings consistent with right iliac artery stenosis and was felt that percutaneous intervention would be appropriate to assist with graft maintenance. The procedure, risk and benefits were discussed with the patient. Patient wished to proceed. Description of Procedure: Patient was brought to the special procedure suite. The left groin was sterilely prepped and draped in usual manner. Utilizing ultrasound the common femoral artery was identified. 1% Xylocaine was utilized for local anesthesia of tissues overlying the femoral artery. Through this anesthetized area with the aid of ultrasound a multipurpose needle was utilized to cannulate the artery. Once cannulated Softip guidewire was advanced. The needle was withdrawn and a 5-Telugu sheath was placed. 5-Telugu pigtail catheter and guidewire were advanced into the aorta. The guidewire was withdrawn and abdominal aortogram was performed. Subsequently the catheter was pulled down the level aortic bifurcation and attempt at advancing a wire into the iliac system was complicated by previously placed stents in the common and external iliac system. Multiple guidewire and catheter combinations were utilized in this attempt however in spite of multiple attempts this could not be achieved and the procedure was abandoned. The sheath was withdrawn and pressure was held at the puncture site until all evidence of bleeding ceased. Findings: Left common iliac artery demonstrates areas of moderate stenosis which did not appear to be of hemodynamically significant. The right iliac system was patent however there appeared to be a moderate tapered stenosis of the common femoral artery on the right with good flow into the femoral to tibial bypass on the right. Plan - Discharge Summary Discharge Rx Participant: No New Discharge Prescriptions: No Action Amiodarone [Cordarone] 200 mg PO DAILY #30 tab lisinopriL [Zestril] 10 mg PO DAILY #30 tab amLODIPine [Norvasc] 5 mg PO DAILY Clopidogrel [Plavix] 75 mg PO DAILY #30 tab Apixaban [Eliquis] 5 mg PO BID #0 tab Rosuvastatin Calcium 20 mg PO DAILY Discharge Medication List Amiodarone [Cordarone] 200 mg PO DAILY #30 tab 10/11/21 [Rx] Clopidogrel [Plavix] 75 mg PO DAILY #30 tab 10/11/21 [Rx] lisinopriL [Zestril] 10 mg PO DAILY #30 tab 10/11/21 [Rx] Apixaban [Eliquis] 5 mg PO BID #0 tab 10/24/21 [Rx] Rosuvastatin Calcium 20 mg PO DAILY 02/26/23 [History] amLODIPine [Norvasc] 5 mg PO DAILY 02/26/23 [History] Follow up Appointment(s)/Referral(s): Urbano Nunes DO [Doctor of Osteopathic Medicine] - 1 Week () Patient Instructions/Handouts: Peripheral Vascular Disease (ED), Peripheral Artery Disease (ED), Moderate Sedation (DC)
--- NOTE | 2023-03-01 16:48 | IR ---
EXAMINATION TYPE: IR angio abdominal w runoff DATE OF EXAM: 03/01/2023 CLINICAL HISTORY: Right leg pain. TECHNIQUE: Fluoroscopy. COMPARISON: CTA with runoff 2 weeks ago.. FINDINGS: Fluoroscopic guidance was provided during procedure performed by Dr. Nunes. A total o f 28.4 minutes of fluoroscopic time was utilized during the procedure and 65 spot images was acquired . Please refer to procedure note for further details. IMPRESSION: As Above.
[2023-03-01 17:50] VITALS: BP 169/81; PULSE 69
[2023-03-01 18:53] VITALS: RESP 18; TEMP 97.8
== END 2023-03-01 20:49 | disposition home or self-care (01) ==
LOC: CATHCVL 11:36 → 6NMEDSUR 14:39 → CATHCVL 20:49
PROVIDERS: ATTEND Surgery
DX: I70.229 Atherosclerosis of native arteries of extremities with rest pain, unspecified extremity (principal); I10 Essential (primary) hypertension; E78.5 Hyperlipidemia, unspecified; I48.91 Unspecified atrial fibrillation; Z79.899 Other long term (current) drug therapy
CPT/HCPCS: 36200; 75625; 75716; 76937; 80048; 85025; C1894 ×2; C1769 ×6; C1887; J2250; J2001; J3010; Q9967

== ENCOUNTER 2023-04-25 11:38 | Day surgery (SDC) | payer MEDICARE ==
[2023-04-20 15:19] VITALS: BMI 27.0
[~2023-04-25 11:38] MED LIST changes: -ALPRAZolam 0.25 MG TAB PO PRN; -ALPRAZolam 0.5 MG TAB PO PRN; -ASPIRIN 325 MG TAB PO PRN; +DEXAMETHASONE SOD PHOSPHATE 4 MG/ML 1 ML VIAL IV ONE; +FAMOTIDINE 20 MG/2 ML VIAL IV PRN; -HEPARIN SODIUM,PORCINE 10,000 UNIT in SODIUM CHLORIDE 0.9% 1,000 ML IRRIGATION PRN; -HEPARIN SODIUM,PORCINE 2,500 UNIT in SODIUM CHLORIDE 0.9% 250 ML IRRIGATION PRN; +HYDROmorphone 0.5 MG/0.5 ML SYRINGE IVP PRN; +LACTATED RINGERS 1,000 ML IV SCH; +LIDOCAINE 1% (10MG/ML) FOR IV START INTRADERMA PRN; +MIDAZOLAM 2 MG/2 ML VIAL IV PRN; +ONDANSETRON 4 MG/2 ML VIAL IVP ONE; +ONDANSETRON 4 MG/2 ML VIAL IVP PRN; -SODIUM CHLORIDE 0.9% 1,000 ML in EMPTY BAG 1 BAG IV ONE; -ZOLPIDEM 5 MG TAB PO PRN
[2023-04-25 12:29] VITALS: RESP 16
[2023-04-25] MEDS ORDERED: LIDOCAINE 2% INJ 20 MG/ML (2 ML VIAL) ONE (13:02)
[2023-04-25] MEDS ORDERED: PROPOFOL 10 MG/ML 20 ML VIAL IV ONE (13:02)
[2023-04-25] MEDS ORDERED: PHENYLEPHRINE-0.9% NACL SYG 1,000 MCG/10 ML SYRINGE ONE (13:02)
[2023-04-25] MEDS ORDERED: fentaNYL (PF) 50 MCG/ML 2 ML AMP ONE (13:02)
[2023-04-25] MEDS ORDERED: MIDAZOLAM 2 MG/2 ML VIAL ONE (13:02)
[2023-04-25] MEDS ORDERED: SUCCINYLCHOLINE CHLORIDE 200 MG/10 ML VIAL IV ONE (13:02)
--- NOTE | 2023-04-25 13:48 | P.OP ---
Date of Procedure: 04/25/23 Preoperative Diagnosis: Chronic pharyngitis left throat, globus sensation Postoperative Diagnosis: Same Procedure(s) Performed: Direct microlaryngoscopy with biopsy left base of tongue cyst Anesthesia: OFELIA Surgeon: Dameon Ingram Estimated Blood Loss (ml): 1 Pathology: none sent Condition: stable Disposition: PACU Indications for Procedure: This 67-year-old white male whose had difficulties for several months with recurrent sore throats on the left side and globus sensation. Computed tomography scan with negative for any abnormalities and antibiotics did not seem to help with his symptoms although discussing this with him today he feels that his throat feels better and is asymptomatic. Operative Findings: There was a small approximate 3 mm cyst smooth rounded with white debris at the left base of tongue which was removed and biopsy but otherwise no abnormal masses or lesions in the hypopharynx or larynx noted Description of Procedure: The patient was brought in the operative suite and placed in a supine position. Patient underwent induction of general anesthesia with oral endotracheal intubation without difficulty. The patient was prepped and draped using aseptic fashion. Tooth guard was placed and Direct laryngoscopy was performed with systematic evaluation of the base of tongue vallecula both piriform sinuses post cricoid area and endolarynx. The only abnormality was noted at the left base of tongue with a small cyst. The laryngoscope was placed in suspension and this area was well visualized under microscopy and this cyst was removed/biopsied with microcup forceps. Hemostasis was noted to be excellent spontaneously. The laryngoscope and tooth guard were removed the patient was allowed to emerge from general anesthesia having tolerated procedure well was extubated in the operating suite and transferred to postop recovery area in satisfactory condition.
[2023-04-25 13:51] VITALS: TEMP 97.6
[2023-04-25 14:37] VITALS: BP 118/82; PULSE 64
== END 2023-04-25 14:52 | disposition home or self-care (01) ==
LOC: OR 11:38
PROVIDERS: ATTEND Otolaryngology
DX: J31.2 Chronic pharyngitis (principal); F45.8 Other somatoform disorders; I10 Essential (primary) hypertension; K21.9 Gastro-esophageal reflux disease without esophagitis; I73.9 Peripheral vascular disease, unspecified; Z95.5 Presence of coronary angioplasty implant and graft; Z79.01 Long term (current) use of anticoagulants; Z79.02 Long term (current) use of antithrombotics/antiplatelets; Z79.899 Other long term (current) drug therapy
CPT/HCPCS: 31536; J2250; J0330; J1100; J2405; J3010; J2370; J2704; J2001; 88305

== ENCOUNTER 2023-07-02 09:46 | Inpatient (IN) | payer MEDICARE ==
[2023-07-02] MEDS ORDERED: RX INFO: IV CONTRAST WAS GIVEN 1 EACH MISC MISCELLANE PRN (10:56)
[2023-07-02] MEDS ORDERED: SODIUM CHLORIDE 0.9% 1,000 ML IV ONE (10:59)
--- NOTE | 2023-07-02 11:45 | ED ---
General Adult HPI - General Chief complaint: Recheck/Abnormal Lab/Rx Stated complaint: R leg numbness Time Seen by Provider: 07/02/23 10:45 Source: patient, RN notes reviewed Mode of arrival: wheelchair Limitations: physical limitation - History of Present Illness Initial comments: 67-year-old male with past medical history significant for cardiac stents, diabetes mellitus, peripheral artery disease presents the emergency department with a chief complaint of right leg pain. He reports worsening right leg pain that started Sunday. He reports that it is painful to touch. He is established with Dr. Mendoza, vascular surgeon. He does report some shortness of breath with exertion however this is not new for him. He does report that he is currently on Eliquis. He's been taking his medications daily. He denies any cough, dyspnea, chest pain, nausea, vomiting, dizziness. Denies any injury or trauma. - Related Data Home Medications Medication Instructions Recorded Confirmed amLODIPine [Norvasc] 5 mg PO DAILY 02/26/23 07/02/23 Amiodarone [Cordarone] 100 mg PO DAILY 07/02/23 07/02/23 Famotidine [Pepcid] 40 mg PO HS 07/02/23 07/02/23 Metoprolol Tartrate [Lopressor] 100 mg PO TID-W/MEALS 07/02/23 07/02/23 Previous Rx's Medication Instructions Recorded Clopidogrel [Plavix] 75 mg PO DAILY #30 tab 10/11/21 lisinopriL [Zestril] 10 mg PO DAILY #30 tab 10/11/21 Apixaban [Eliquis] 5 mg PO BID #0 tab 10/24/21 Allergies Allergy/AdvReac Type Severity Reaction Status Date / Time No Known Allergies Allergy Verified 07/02/23 12:32 Review of Systems ROS Statement: Those systems with pertinent positive or pertinent negative responses have been documented in the HPI. ROS Other: All systems not noted in ROS Statement are negative. Past Medical History Past Medical History: Atrial Fibrillation, Cancer, Hyperlipidemia, Hypertension, Vascular Disorder Additional Past Medical History / Comment(s): SKIN CANCER. 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. 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 aortagram, Past Anesthesia/Blood Transfusion Reactions: No Reported Reaction Date of Last Stent Placement:: 08/18/2020 Past Psychological History: No Psychological Hx Reported Smoking Status: Former smoker Past Alcohol Use History: None Reported Past Drug Use History: None Reported - Past Family History Father Family Medical History: Cancer Additional Family Medical History / Comment(s): throat cancer Brother(s) Family Medical History: Cancer Additional Family Medical History / Comment(s): THROAT CANCER. Mother Family Medical History: Cancer General Exam - General Exam Comments Initial Comments: General: Alert, in no acute distress Head: atraumatic normocephalic. Eyes PERRL, EOMI intact, mucous membranes moist Respiratory: Lungs clear to auscultation bilaterally Cardiovascular: Heart rate regular rate and rhythm Abdominal: Soft without guarding or rebound Extremities: Normal inspection with full range of motion and normal capillary refill, right lower leg poikolothermic. Unable to palpate DP/PT pulses. Neuroogic: alert and oriented 3, CN II-XII intact, able to ambulate with steady gait Skin: warm dry and intact with normal color Limitations: physical limitation Course Vital Signs 07/02/23 07/02/23 07/02/23 09:47 11:56 14:13 Temperature 98.1 F Pulse Rate 120 H 98 93 Respiratory 22 18 20 Rate Blood Pressure 139/81 141/64 134/62 O2 Sat by Pulse 95 95 94 L Oximetry 07/02/23 07/02/23 16:05 17:05 Temperature Pulse Rate 88 90 Respiratory 20 20 Rate Blood Pressure 153/75 144/68 O2 Sat by Pulse 94 L 95 Oximetry - Reevaluation(s) Reevaluation #1: 07/02/23 12:[address] Nunes. Who advises to admit to medicine and put him on consult. EKG Findings - EKG Comments: EKG Findings:: I interpreted the following: EKG performed at 09:59 rate 110 bpm and sinus tachycardia MN interval 170, QRS duration 92 QT/QTc 309/374. Incomplete right bundle branch block with possible right ventricular hypertrophy Medical Decision Making - Medical Decision Making Was pt. sent in by a medical professional or institution (SHAYAN Martinez, PROTECTIVE SERVICES CASE WORKER, urgent care, hospital, or senior living...) When possible be specific @ -[No] Did you speak to anyone other than the patient for history (EMS, parent, family, police, friend...)? What history was obtained from this source @ -Patient's Did you review nursing and triage notes (agree or disagree)? Why? @ -[I reviewed and agree with nursing and triage notes] Were old charts reviewed (outside hosp., previous admission, EMS record, old EKG, old radiological studies, urgent care reports/EKG's, senior living records)? Report findings @ -[No old charts were reviewed] Differential Diagnosis (chest pain, altered mental status, abdominal pain women, abdominal pain men, vaginal bleeding, weakness, fever, dyspnea, syncope, headache, dizziness, GI bleed, back pain, seizure, CVA, palpatations, mental health, musculoskeletal)? @ -[not applicable] EKG interpreted by me (3pts min.). @ -[As above] X-rays interpreted by me (1pt min.). @ -[None done] CT interpreted by me (1pt min.). @ -See Below U/S interpreted by me (1pt. min.). @ -[None done] What testing was considered but not performed or refused? (CT, X-rays, U/S, labs)? Why? @ -[None] What meds were considered but not given or refused? Why? @ -[None] Did you discuss the management of the patient with other professionals (professionals i.e. SHAYAN Martinez, PROTECTIVE SERVICES CASE WORKER, lab, RT, psych nurse, social science research assistant, striping machine operator, teacher, special loan officer, director of casework)? Give summary @ -Case discussed with H who agrees and accepts the patient for admission. - Case discussed with Karl, vascular physician fiscal assistant who recommends starting the patient on heparin Was smoking cessation discussed for >3mins.? @ -[No] Was critical care preformed (if so, how long)? @ -[No] Were there social determinants of health that impacted care today? How? (Homelessness, low income, unemployed, alcoholism, drug addiction, transportation, low edu. Level, literacy, decrease access to med. care, alf, rehab)? @ -[No] Was there de-escalation of care discussed even if they declined (Discuss DNR or withdrawal of care, Hospice)? DNR status @ -[No] What co-morbidities impacted this encounter? (DM, HTN, Smoking, COPD, CAD, Cancer, CVA, ARF, Chemo, Hep., AIDS, mental health diagnosis, sleep apnea, morbid obesity)? @ -[None] Was patient admitted / discharged? Hospital course, mention meds given and r oute, prescriptions, significant lab abnormalities, going to OR and other pertinent info. @ -Admission. This is a pleasant 67-year-old male with a past medical history significant for arterial stents who presents the emergency department with right lower leg pain. Physical exam reveals right lower leg that is cool and cyanotic. No palpable DP/PT pulses. Patient had lab work and imaging which revealed: I interpreted the following: Right lower leg CT reveals right common and right external iliac artery stents there is new arterial occlusion of the proximal right common iliac artery just above the stent Labs remarkable for: WBC 10.5, hemoglobin 15.8 coags unremarkable sodium 135, potassium 5.1 CK 2919 I discussed the results in detail with the patient and the patient's who verbalized understanding and all questions were addressed. Patient was started on high-dose heparin They are agreeable with the plan for admission. Case discussed with sound who agrees and accepts the patient for admission. Consult to vascular surgery. Vascular surgeon Rossy DONWEY in the emergency department to evaluate the patient. Case discussed with JIMENA Woods who agrees with plan of care Undiagnosed new problem with uncertain prognosis? @ -[No] Drug Therapy requiring intensive monitoring for toxicity (Heparin, Nitro, Insulin, Cardizem)? @ -[No] Were any procedures done? @ -[No] Diagnosis/symptom? @ -Arterial Occlusion of Right Common Iliac Artery Acute, or Chronic, or Acute on Chronic? @ -Acute Uncomplicated (without systemic symptoms) or Complicated (systemic symptoms)? @ -Uncomplicated Side effects of treatment? @ -[No] Exacerbation, Progression, or Severe Exacerbation? @ -[No] Poses a threat to life or bodily function? How? (Chest pain, [place], CO, pneumonia, PE, COPD, DKA, ARF, appy, cholecystitis, CVA, Diverticulitis, Homicidal, Suicidal, threat to staff... and all critical care pts) @ -High Likelihood including - Lab Data Result diagrams: 07/03/23 06:14 07/03/23 08:44 Lab Results 07/02/23 07/02/23 07/02/23 Range/Units 11:53 11:53 11:53 WBC 10.5 (3.8-10.6) k/uL RBC 4.75 (4.30-5.90) m/uL Hgb 15.8 (13.0-17.5) gm/dL Hct 46.7 (39.0-53.0) % MCV 98.4 (80.0-100.0) fL MCH 33.2 (25.0-35.0) pg MCHC 33.7 (31.0-37.0) g/dL RDW 13.0 (11.5-15.5) % Plt Count 257 (150-450) k/uL MPV 8.0 Neutrophils % 82 % Lymphocytes % 10 % Monocytes % 7 % Eosinophils % 0 % Basophils % 0 % Neutrophils # 8.6 H (1.3-7.7) k/uL Lymphocytes # 1.0 (1.0-4.8) k/uL Monocytes # 0.8 (0-1.0) k/uL Eosinophils # 0.0 (0-0.7) k/uL Basophils # 0.0 (0-0.2) k/uL PT 10.4 (9.0-12.0) sec INR 1.0 (<1.2) APTT 24.5 (22.0-30.0) sec Sodium 135 L (137-145) mmol/L Potassium 5.1 (3.5-5.1) mmol/L Chloride 103 (98-107) mmol/L Carbon Dioxide 18 L (22-30) mmol/L Anion Gap 14 mmol/L BUN 17 (9-20) mg/dL Creatinine 1.36 H (0.66-1.25) mg/dL Est GFR (CKD-EPI)AfAm 62 (>60 ml/min/1.73 sqM) Est GFR (CKD-EPI)NonAf 54 (>60 ml/min/1.73 sqM) Glucose 96 (74-99) mg/dL Calcium 9.4 (8.4-10.2) mg/dL Total Bilirubin 1.1 (0.2-1.3) mg/dL AST 81 H (17-59) U/L ALT 30 (4-49) U/L Alkaline Phosphatase 153 H (38-126) U/L Creatine Kinase 2919 H* (55-170) U/L Total Protein 8.3 H (6.3-8.2) g/dL Albumin 4.3 (3.5-5.0) g/dL Blood Type Blood Type Recheck Bld Type Recheck Status Antibody Screen Spec Expiration Date 07/02/23 07/02/23 Range/Units 13:50 13:50 WBC (3.8-10.6) k/uL RBC (4.30-5.90) m/uL Hgb (13.0-17.5) gm/dL Hct (39.0-53.0) % MCV (80.0-100.0) fL MCH (25.0-35.0) pg MCHC (31.0-37.0) g/dL RDW (11.5-15.5) % Plt Count (150-450) k/uL MPV Neutrophils % % Lymphocytes % % Monocytes % % Eosinophils % % Basophils % % Neutrophils # (1.3-7.7) k/uL Lymphocytes # (1.0-4.8) k/uL Monocytes # (0-1.0) k/uL Eosinophils # (0-0.7) k/uL Basophils # (0-0.2) k/uL PT 10.9 (9.0-12.0) sec INR 1.0 (<1.2) APTT (22.0-30.0) sec Sodium (137-145) mmol/L Potassium (3.5-5.1) mmol/L Chloride (98-107) mmol/L Carbon Dioxide (22-30) mmol/L Anion Gap mmol/L BUN (9-20) mg/dL Creatinine (0.66-1.25) mg/dL Est GFR (CKD-EPI)AfAm (>60 ml/min/1.73 sqM) Est GFR (CKD-EPI)NonAf (>60 ml/min/1.73 sqM) Glucose (74-99) mg/dL Calcium (8.4-10.2) mg/dL Total Bilirubin (0.2-1.3) mg/dL AST (17-59) U/L ALT (4-49) U/L Alkaline Phosphatase (38-126) U/L Creatine Kinase (55-170) U/L Total Protein (6.3-8.2) g/dL Albumin (3.5-5.0) g/dL Blood Type A Negative Blood Type Recheck A Neg Bld Type Recheck Status No Antibody Screen NEGATIVE Spec Expiration Date 07/05/20232349 Critical Care Time Critical Care Time: Yes Total Critical Care Time: 45 Disposition Clinical Impression: Absence of left dorsalis pedis artery pulse, Arterial occlusion, Femoral artery occlusion, right Disposition: ADMITTED IP TO THIS [facility] Condition: Stable Time of Disposition: 12:50
[2023-07-02] MEDS ORDERED: MORPHINE SULFATE 4 MG/ML SYRINGE IVP STA (11:48)
[2023-07-02 12:11] LABS: Basophils % (A) 0 %; Eosinophils % (A) 0 %; HCT 46.7 % (39.0-53.0); HGB 15.8 gm/dL (13.0-17.5); Lymphocytes % (A) 10 %; MCH 33.2 pg (25.0-35.0); MCHC 33.7 g/dL (31.0-37.0); MCV 98.4 fL (80.0-100.0); Monocytes # (A) 0.8 k/uL (0-1.0); Monocytes % (A) 7 %; Neutrophils # (A) 8.6 k/uL (1.3-7.7); Neutrophils % (A) 82 %; Platelet Count 257 k/uL (150-450); RBC 4.75 m/uL (4.30-5.90); WBC 10.5 k/uL (3.8-10.6)
[2023-07-02 12:24] LABS: Partial Thromboplastin Time 24.5 sec (22.0-30.0); Prothrombin Time 10.4 sec (9.0-12.0)
[2023-07-02 12:29] LABS: ALT 30 U/L (4-49); AST 81 U/L (17-59); African American GFR (CKD) 62 (>60 ml/min/1.73 sqM); Albumin 4.3 g/dL (3.5-5.0); Alkaline Phosphatase 153 U/L (38-126); Anion Gap 14 mmol/L; Blood Urea Nitrogen 17 mg/dL (9-20); Calcium 9.4 mg/dL (8.4-10.2); Carbon Dioxide 18 mmol/L (22-30); Chloride 103 mmol/L (98-107); Glucose 96 mg/dL (74-99); Non-African American GFR(CKD) 54 (>60 ml/min/1.73 sqM); Potassium 5.1 mmol/L (3.5-5.1); Sodium 135 mmol/L (137-145); Total Bilirubin 1.1 mg/dL (0.2-1.3); Total Protein 8.3 g/dL (6.3-8.2)
[2023-07-02 12:45] LABS: Creatine Kinase 2919 U/L (55-170)
[2023-07-02] MEDS ORDERED: NALOXONE 0.4 MG/ML 1 ML VIAL IV PRN (12:45)
[2023-07-02] MEDS ORDERED: HEPARIN SODIUM 1,000 UN/ML (10ML VL) IV ONE (12:49)
[2023-07-02] MEDS ORDERED: HEPARIN SODIUM 1,000 UN/ML (10ML VL) IV PRN (12:49)
--- NOTE | 2023-07-02 13:35 | P.GSCN ---
History of Present Illness Consult date: 07/02/23 Reason for Consult: Arterial thrombus Requesting physician: Aleida Frederick History of present illness: This is a pleasant 67-year-old male with a history of peripheral arterial disease known to Dr. Mendoza. He presented to the emergency department today with complaints of right lower extremity pain from the knee down. He states he started having discomfort about 2 weeks ago, most of the pain at that time was in his foot. Over the last couple days the pain progressively got worse, he states on Sunday pain started going up as far as his knee. States yesterday his sister said his foot was starting to discolor. He has a past medical history of coronary artery disease, atrial fibrillation on Eliquis, last dose taken this morning, peripheral arterial disease status post right lower extremity femoral to tibial bypass, right third through fifth toe amputation, hyperlipidemia, and hypertension. He is on both eliquis and Plavix, states he has been taking his medication as directed. Patient without any palpable pulses. He currently denies any shortness breath or chest pain, no abdominal pain, fevers or chills. Review of Systems A 14 point review systems was completed all pertinent positives and negatives as stated in the HPI. Past Medical History Past Medical History: Atrial Fibrillation, Cancer, Hyperlipidemia, Hypertension, Vascular Disorder Additional Past Medical History / Comment(s): SKIN CANCER. 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. 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 aortagram, Past Anesthesia/Blood Transfusion Reactions: No Reported Reaction Date of Last Stent Placement:: 08/18/2020 Past Psychological History: No Psychological Hx Reported Smoking Status: Former smoker Past Alcohol Use History: None Reported Past Drug Use History: None Reported - Past Family History Father Family Medical History: Cancer Additional Family Medical History / Comment(s): throat cancer Brother(s) Family Medical History: Cancer Additional Family Medical History / Comment(s): THROAT CANCER. Mother Family Medical History: Cancer Medications and Allergies Home Medications Medication Instructions Recorded Confirmed Type Clopidogrel [Plavix] 75 mg PO DAILY #30 tab 10/11/21 07/02/23 Rx lisinopriL [Zestril] 10 mg PO DAILY #30 tab 10/11/21 07/02/23 Rx Apixaban [Eliquis] 5 mg PO BID #0 tab 10/24/21 07/02/23 Rx amLODIPine [Norvasc] 5 mg PO DAILY 02/26/23 07/02/23 History Amiodarone [Cordarone] 100 mg PO DAILY 07/02/23 07/02/23 History Famotidine [Pepcid] 40 mg PO HS 07/02/23 07/02/23 History Metoprolol Tartrate [Lopressor] 100 mg PO TID-W/MEALS 07/02/23 07/02/23 History Allergies Allergy/AdvReac Type Severity Reaction Status Date / Time No Known Allergies Allergy Verified 07/02/23 12:32 Surgical - Exam Vital Signs Temp Pulse Resp BP Pulse Ox 98.1 F 120 H 22 139/81 95 07/02/23 09:47 07/02/23 09:47 07/02/23 09:47 07/02/23 09:47 07/02/23 09:47 General appearance: The patient is alert, oriented, appears in no acute distress. HET: Head is normocephalic and atraumatic. Pupils are equal and reactive. Neck: Supple. Heart: Regular. Lungs: Equal expansion, normal respiratory effort. Abdomen: Soft, nontender, nondistended. Extremities: Right lower extremity without palpable pulses, no Doppler signal present, right foot purple in color with slow capillary refill, foot and calf tender to palpation. Left palpable femoral pulse. Good capillary refill. Neurological: No focal deficits. Alert and oriented 3. Results - Labs 07/02/23 11:53 07/02/23 11:53 Abnormal Lab Results - Last 24 Hours (Table) 07/02/23 07/02/23 Range/Units 11:53 11:53 Neutrophils # 8.6 H (1.3-7.7) k/uL Sodium 135 L (137-145) mmol/L Carbon Dioxide 18 L (22-30) mmol/L Creatinine 1.36 H (0.66-1.25) mg/dL AST 81 H (17-59) U/L Alkaline Phosphatase 153 H (38-126) U/L Creatine Kinase 2919 H* (55-170) U/L Total Protein 8.3 H (6.3-8.2) g/dL Diabetes panel 07/02/23 Range/Units 11:53 Sodium 135 L (137-145) mmol/L Potassium 5.1 (3.5-5.1) mmol/L Chloride 103 (98-107) mmol/L Carbon Dioxide 18 L (22-30) mmol/L BUN 17 (9-20) mg/dL Creatinine 1.36 H (0.66-1.25) mg/dL Glucose 96 (74-99) mg/dL Calcium 9.4 (8.4-10.2) mg/dL AST 81 H (17-59) U/L ALT 30 (4-49) U/L Alkaline Phosphatase 153 H (38-126) U/L Total Protein 8.3 H (6.3-8.2) g/dL Albumin 4.3 (3.5-5.0) g/dL Calcium panel 07/02/23 Range/Units 11:53 Calcium 9.4 (8.4-10.2) mg/dL Albumin 4.3 (3.5-5.0) g/dL Pituitary panel 07/02/23 Range/Units 11:53 Sodium 135 L (137-145) mmol/L Potassium 5.1 (3.5-5.1) mmol/L Chloride 103 (98-107) mmol/L Carbon Dioxide 18 L (22-30) mmol/L BUN 17 (9-20) mg/dL Creatinine 1.36 H (0.66-1.25) mg/dL Glucose 96 (74-99) mg/dL Calcium 9.4 (8.4-10.2) mg/dL Adrenal panel 07/02/23 Range/Units 11:53 Sodium 135 L (137-145) mmol/L Potassium 5.1 (3.5-5.1) mmol/L Chloride 103 (98-107) mmol/L Carbon Dioxide 18 L (22-30) mmol/L BUN 17 (9-20) mg/dL Creatinine 1.36 H (0.66-1.25) mg/dL Glucose 96 (74-99) mg/dL Calcium 9.4 (8.4-10.2) mg/dL Total Bilirubin 1.1 (0.2-1.3) mg/dL AST 81 H (17-59) U/L ALT 30 (4-49) U/L Alkaline Phosphatase 153 H (38-126) U/L Total Protein 8.3 H (6.3-8.2) g/dL Albumin 4.3 (3.5-5.0) g/dL - Imaging Comments: Right lower extremity CTA: Right common and right external iliac artery stents. There is new arterial occlusion of the proximal right common iliac artery just above the stent. Some reconstitution at the right profunda femoral artery. Nonvisualization of popliteal artery trifurcation vessel flow. The right SFA stent remains occluded. 2.0 cm nodularity along the superior margin of the right SFA stent is unchanged. Either postsurgical dilation or chronic pseudoaneurysm. Partially visualized infrarenal AAA measuring 4.6 cm versus 4.3 cm previously. Assessment and Plan Assessment: 1. Right lower extremity acute ischemia 2. Right common iliac artery occlusion 3. Peripheral arterial disease, previous right femoral to tibial bypass and stenting 4. Atrial fibrillation on eliquis 5. Coronary artery disease status post stenting Plan: 1. Right lower extremity CTA ordered and reviewed 2. Heparin drip 3. Keep nothing by mouth 4. Medical management per primary medical team 5. Patient scheduled for right lower extremity thrombolysis with TPA for right lower extremity today Thank you for this consultation. The impression and plan of care has been dictated as directed. I performed a history and examination of this patient, discussed the same with the dictator. I agree with the dictator's note ,documented as a scribe. Any additional findings or plans will be noted.
--- NOTE | 2023-07-02 13:55 | CT ---
EXAMINATION TYPE: CT angio lower extremity RT DATE OF EXAM: 07/02/2023 COMPARISON: 07/26/2022 HISTORY: 67-year-old male NO DP/PT pulse RT leg. Hx stenting, toe amputation, has vascular disease TECHNIQUE: Contiguous axial scanning of the right lower extremity performed with IV Contrast, patient injected with 80 mL of Isovue 370. Coronal/sagittal reconstructions performed. 3-D reconstructions g enerated on a dedicated independent workstation. CT DLP: 1341.8 mGycm Automated exposure control for dose reduction was used. FINDINGS: Partially visualized infrarenal AAA measuring up to 4.6 cm this is in comparison to 4.3 cm on 07/26/20 22. Moderate irregular atherosclerotic plaque within the visualized left common iliac artery with segment al moderate narrowing. Redemonstrated right common and right external iliac artery stents with interval new occlusion proxim al right common iliac artery just before the stent. Post surgical change at the right groin. A 1.9 cm well-defined fluid collection, possible seroma or c hronic hematoma. Redemonstrated occluded right SFA stent. Similar 2.0 cm nodularity along the superior margin of the s tent measuring possibly at the site of postsurgical dilatation or chronic pseudoaneurysm. There is so me continued reconstitution at the level of the profunda femoral arteries. However, we are unable to identify any significant flow within the popliteal artery or trifurcation vessels. Atherosclerotic ca lcifications are present throughout these vessels. Incidental prostatomegaly 5.7 cm wide. IMPRESSION: 1. PATIENT WITH RIGHT COMMON AND RIGHT EXTERNAL ILIAC ARTERY STENTS. THERE IS NEW ARTERIAL OCCLUSION OF THE PROXIMAL RIGHT COMMON ILIAC ARTERY JUST ABOVE THE STENT. 2. SOME RECONSTITUTION AT THE RIGHT PROFUNDA FEMORAL ARTERY. NONVISUALIZATION OF POPLITEAL ARTERY OR TRIFURCATION VESSEL FLOW. THE RIGHT SFA STENT REMAINS OCCLUDED. 3. 2.0 CM NODULARITY ALONG THE SUPERIOR MARGIN OF THE RIGHT SFA STENT IS UNCHANGED. EITHER POSTSURGIC AL DILATATION OR CHRONIC PSEUDOANEURYSM. 4. PARTIALLY VISUALIZED INFRARENAL AAA MEASURING 4.6 CM VERSUS 4.3 CM, PREVIOUSLY.
[2023-07-02] MEDS: HEPARIN SOD,PORK IN 0.45% NACL 25,000 UNIT in 0.45% NACL 1 250ML.BAG IV SCH (14:10)
[2023-07-02] MEDS: SODIUM CHLORIDE 0.9% 1,000 ML IV SCH (14:12)
[2023-07-02 14:21] LABS: Prothrombin Time 10.9 sec (9.0-12.0)
--- NOTE | 2023-07-02 14:34 | P.HPIM ---
History of Present Illness 67-year-old female came in with complaints of right lower extremity pain found to have acute right lower expertise ischemia patient has cerebrovascular disease. CT angios the right lower extremity showed a new arterial occlusion in the proximal right common iliac artery just above the stent patient had stents in the bypass surgery in the right lower extremity patient quit smoking 4 years ago popliteal artery on the right side it was not visualized the right superficial femoral artery stent is occluded and there is a 4.6 cm infrarenal abdominal aortic kidney disease and there may be a pseudoaneurysm about the margin of right SFA stent. Is on oral anti-correlation at home which is being held and the patient is being started on IV heparin and [place] surgery was consulted. Patient doesn't have any fever chills. Patient has admitted creatinine 1.36 baseline appears to 1.1 and patient was started on IV fluids. REVIEW OF SYSTEMS: CONSTITUTIONAL: No fever, no malaise, no fatigue. HEENT: No recent visual problems or hearing problems. Denied any sore throat. CARDIOVASCULAR: No chest pain, orthopnea, PND, no palpitations, no syncope. PULMONARY: No shortness of breath, no cough, no hemoptysis. GASTROINTESTINAL: No diarrhea, no nausea, no vomiting, no abdominal pain. NEUROLOGICAL: No headaches, no weakness, no numbness. HEMATOLOGICAL: Denies any bleeding or petechiae. GENITOURINARY: Denies any burning micturition, frequency, or urgency. MUSCULOSKELETAL/RHEUMATOLOGICAL: Pain in the right lower expecting ENDOCRINE: Denies any polyuria or polydipsia. The rest of the 14-point review of systems is negative. PHYSICAL EXAMINATION: GENERAL: The patient is alert and oriented x3, not in any acute distress. Well developed, well nourished. HEENT: Pupils are round and equally reacting to light. EOMI. No scleral icterus. No conjunctival pallor. Normocephalic, atraumatic. No pharyngeal erythema. No th yromegaly. CARDIOVASCULAR: S1 and S2 present. No murmurs, rubs, or gallops. PULMONARY: Chest is clear to auscultation, no wheezing or crackles. ABDOMEN: Soft, nontender, nondistended, normoactive bowel sounds. No palpable organomegaly. MUSCULOSKELETAL: No joint swelling or deformity. EXTREMITIES: No clubbing, or pedal edema. Extensive cyanosis of right lower extremity extending up to the midthigh area and patient had poor amputation on the right side of leaving due to intact toes NEUROLOGICAL: Gross neurological examination did not reveal any focal deficits. SKIN: Cyanosis of right lower extremity. Assessment and plan -Acute the right lower extremity ischemia: Continue with IV heparin high-dose vascular surgery evaluated the patient. -Severe peripheral vascular disease -COPD with mild acute exacerbation patient was started on Pulmicort and inhalational treatments -Atrial fibrillation on anti-correlation which is being held at and patient is on IV heparin at this time -Hyperlipidemia -Hypertension -Nicotine use history quit smoking 4 years ago DVT prophylaxis: On IV heparin next and having GI prophylaxis Pepcid Past Medical History Past Medical History: Atrial Fibrillation, Cancer, Hyperlipidemia, Hypertension, Vascular Disorder Additional Past Medical History / Comment(s): SKIN CANCER. 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. 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 aortagram, Past Anesthesia/Blood Transfusion Reactions: No Reported Reaction Date of Last Stent Placement:: 08/18/2020 Past Psychological History: No Psychological Hx Reported Smoking Status: Former smoker Past Alcohol Use History: None Reported Past Drug Use History: None Reported - Past Family History Father Family Medical History: Cancer Additional Family Medical History / Comment(s): throat cancer Brother(s) Family Medical History: Cancer Additional Family Medical History / Comment(s): THROAT CANCER. Mother Family Medical History: Cancer Medications and Allergies Home Medications Medication Instructions Recorded Confirmed Type Clopidogrel [Plavix] 75 mg PO DAILY #30 tab 10/11/21 07/02/23 Rx lisinopriL [Zestril] 10 mg PO DAILY #30 tab 10/11/21 07/02/23 Rx Apixaban [Eliquis] 5 mg PO BID #0 tab 10/24/21 07/02/23 Rx amLODIPine [Norvasc] 5 mg PO DAILY 02/26/23 07/02/23 History Amiodarone [Cordarone] 100 mg PO DAILY 07/02/23 07/02/23 History Famotidine [Pepcid] 40 mg PO HS 07/02/23 07/02/23 History Metoprolol Tartrate [Lopressor] 100 mg PO TID-W/MEALS 07/02/23 07/02/23 History Allergies Allergy/AdvReac Type Severity Reaction Status Date / Time No Known Allergies Allergy Verified 07/02/23 12:32 Physical Exam Vitals: Vital Signs Temp Pulse Resp BP Pulse Ox 07/02/23 14:13 93 20 134/62 94 L 07/02/23 11:56 98 18 141/64 95 07/02/23 09:47 98.1 F 120 H 22 139/81 95 Intake and Output 07/01/23 07/02/23 07/02/23 22:59 06:59 14:59 Other: Weight 90.718 kg Results CBC & Chem 7: 07/02/23 11:53 07/02/23 11:53 Labs: Abnormal Lab Results - Last 24 Hours (Table) 07/02/23 07/02/23 Range/Units 11:53 11:53 Neutrophils # 8.6 H (1.3-7.7) k/uL Sodium 135 L (137-145) mmol/L Carbon Dioxide 18 L (22-30) mmol/L Creatinine 1.36 H (0.66-1.25) mg/dL AST 81 H (17-59) U/L Alkaline Phosphatase 153 H (38-126) U/L Creatine Kinase 2919 H* (55-170) U/L Total Protein 8.3 H (6.3-8.2) g/dL
[2023-07-02] MEDS ORDERED: ALTEPLASE 2 MG VIAL (CATHFLO) MISCELLANE ONE (16:00)
[2023-07-02] MEDS ORDERED: ALTEPLASE 10 MG in SODIUM CHLORIDE 0.9% 90 ML IA ONE (16:00)
[2023-07-02] MEDS ORDERED: LIDOCAINE 1% INJ 10MG/ML (20 ML MDV) ONE (17:12)
[2023-07-02] MEDS ORDERED: fentaNYL (PF) 50 MCG/ML 2 ML AMP ONE (17:23)
[2023-07-02] MEDS ORDERED: LIDOCAINE 1% INJ 10MG/ML (30 ML VIAL-PF) SQ ONE (17:29)
[2023-07-02] MEDS ORDERED: MIDAZOLAM 2 MG/2 ML VIAL IVP ONE (17:32)
[2023-07-02] MEDS ORDERED: fentaNYL (PF) 50 MCG/1 ML VIAL IVP ONE (17:33)
[2023-07-02] MEDS ORDERED: IV FLUID CONTINUATION 800 ML IV ONE (18:27)
[2023-07-02] MEDS ORDERED: IOPAMIDOL-250 100ML BTL INTRAARTER ONE ×2 (18:38→18:39)
[2023-07-02 19:19] LABS: Glucose,Whole Blood 90 mg/dL (70-110)
--- NOTE | 2023-07-02 19:26 | P.OP ---
Date of Procedure: 07/02/23 Preoperative Diagnosis: Right iliac occlusion, occluded right femoral to tibial in situ vein bypass graft with ischemic changes of the right lower extremity. Postoperative Diagnosis: Same plus totally occluded left subclavian artery. Highly stenotic left common femoral artery. Total occlusion right common femoral and superficial femoral arteries. Procedure(s) Performed: 1: Ultrasound-guided cannulation left brachial artery. 2: Left subclavian angiogram. 3: Ultrasound-guided cannulation left common femoral artery. 4: Abdominal aortogram with failed attempt at cannulating the right common iliac artery. 5: Balloon dilation left common iliac artery. 6: Covered stent placement left common iliac artery Anesthesia: local, other (With 2 mg of Versed and a total of 50 g of fentanyl administered intravenously.) Surgeon: Urbano Nunes Estimated Blood Loss (ml): 20 Urine output (ml): 0 Pathology: none sent Condition: stable Disposition: ICU Indications for Procedure: Patient is a 67-year-old male long-standing history of peripheral vascular disea se who for the past 2 weeks has been experiencing right foot and lower extremity discomfort. Patient has previously undergone multiple vascular procedures in the past performed by multiple physicians. Most recently he had undergone a right femoral to posterior tibial in situ vein bypass graft which worked well for approximately year and a half. Attempt at balloon dilation of a stenotic right iliac artery met with failure and the plan at that time was continued to observe the patient and follow in 6 months. Unfortunately the patient did not notify anyone of his leg/foot pain and presented to the emergency room earlier today with ischemic changes of the right foot and calf areas. Physical examination revealed absent femoral, popliteal and pedal pulses. The foot and calf were mottled and cyanotic. In an effort to preserve the limb patient is offered angiography with possible intervention such a sterile [place]. The procedure, risk and benefits were discussed with the patient. Patient wished to proceed. He clearly understands the risks and the possibility of limb loss. Description of Procedure: Patient was brought to the Cardiac manufacturing lab technician. The left upper extremity sterilely prepped and draped in usual manner. He received 2 mg of Versed and 50 g of fentanyl supplemented by an an additional 50 g of fentanyl shortly thereafter. Utilizing ultrasound the left brachial artery was identified. 1% Xylocaine was lysed local anesthesia of the tissues overlying the brachial artery. Through this anesthetized area with the aid of ultrasound a multipurpose needle was utilized to cannulate the artery. Once cannulated Softip guidewire was advanced. The needle was withdrawn and a 5-Malian sheath was placed. Pigtail catheter and guidewire combination were advanced under fluoroscopic guidance however the pigtail and wire combination could not be advanced through the proximal subclavian artery. Angiography was performed which demonstrated occlusion of the proximal subclavian. After additional attempts of passing a wire through these occlusion this approach was abandoned. Attention was turned to the left inguinal area which was sterilely prepped and draped in usual manner. Utilizing ultrasound multipurpose needle was utilized to cannulate the artery. Once cannulated a Softip guidewire is advanced. The needle was withdrawn and a 6-Malian sheath was eventually placed. Angiography was performed. This demonstrated stenotic left common iliac artery and occluded right common, external and internal iliac segments. Attempt at cannulating the common iliac artery met with failure. Angiography of the femoral segment demonstrated the common femoral and superficial femoral arteries to be occluded with significant collateral flow coming from the left crossing over to the right. The profundus was diminutive in size although patent. In an effort to maintain blood flow to the left lower extremity and through collateral flows to the contralateral side and 8 mm balloon antroplasty catheter was utilized to balloon dilate the left common iliac artery. Completion angiography demonstrated no significant improvement and as such a 8 mm x 60 mm covered stent was selected and after exchanging the 6-Malian sheath for a 7- Malian sheath the stent was deployed. Completion angiography demonstrated excellent radiographic result with no flow-limiting lesion noted. With the above findings noted the sheath was withdrawn and the puncture site closed with a Angio-Seal device. Patient tolerated procedure well. Patient will require amputation due to the extent of his disease and late presentation. Total moderate conscious sedation time: Greater than 60 minutes.
[2023-07-02] MEDS: BUDESONIDE 0.5 MG/2 ML NEBU INHALATION SCH (19:39)
[2023-07-02] MEDS: IPRATROPIUM-ALBUTEROL 3 ML NEB INHALATION PRN (19:39)
[2023-07-02] MEDS: FAMOTIDINE 20 MG TAB PO SCH (21:38)
[2023-07-02] MEDS: HYDROmorphone 0.5 MG/0.5 ML SYRINGE IVP PRN (21:43)
[2023-07-03] MEDS: HYDROmorphone 0.5 MG/0.5 ML SYRINGE IVP PRN ×4 (02:08→20:34)
[2023-07-03] MEDS: SODIUM CHLORIDE 0.9% 1,000 ML IV SCH ×2 (05:10→16:57)
[2023-07-03 06:49] LABS: Basophils % (A) 1 %; Eosinophils # (A) 0.1 k/uL (0-0.7); Eosinophils % (A) 1 %; HCT 41.7 % (39.0-53.0); HGB 13.6 gm/dL (13.0-17.5); Lymphocytes # (A) 0.9 k/uL (1.0-4.8); Lymphocytes % (A) 14 %; MCH 33.2 pg (25.0-35.0); MCHC 32.6 g/dL (31.0-37.0); MCV 101.7 fL (80.0-100.0); Macrocytosis Slight; Mean Platelet Volume 7.7; Monocytes # (A) 0.6 k/uL (0-1.0); Monocytes % (A) 9 %; Neutrophils # (A) 4.9 k/uL (1.3-7.7); Neutrophils % (A) 74 %; Platelet Count 177 k/uL (150-450); RDW 12.9 % (11.5-15.5); WBC 6.7 k/uL (3.8-10.6)
[2023-07-03] MEDS: hydrALAZINE HCL 20 MG/ML 1 ML VIAL IVP PRN (06:50)
[2023-07-03] MEDS: HEPARIN SOD,PORK IN 0.45% NACL 25,000 UNIT in 0.45% NACL 1 250ML.BAG IV SCH (08:03)
[2023-07-03] MEDS: IPRATROPIUM-ALBUTEROL 3 ML NEB INHALATION PRN (08:38)
[2023-07-03] MEDS: BUDESONIDE 0.5 MG/2 ML NEBU INHALATION SCH ×2 (08:38→19:53)
--- NOTE | 2023-07-03 08:54 | P.PN ---
Subjective Progress Note Date: 07/03/23 Principal diagnosis: Right lower extremely pain This is a 67-year-old male who presented to the emergency room with complaints of right lower extremity pain. Patient has an extensive history of peripheral vascular disease and has undergone multiple vascular procedures in the past performed by multiple physicians. Most recently had a right femoral to posterior tibial in situ vein bypass graft which worked well for a year and a half. Patient reports pain and right leg has been increasing over the last 2 weeks and has resulted in cyanotic and mottled skin on right lower extremity. Dr Mendoza performed an angiogram yesterday and stenting was not possible, patient will require amputation due to the extent of his disease and late presentation. Amputation is scheduled for later today with Dr. Mendoza. Patient is seen this morning sitting up in bed alert and oriented. He denies any current complaints other than right lower leg pain. Patient did have some elevated blood pressures through the night, 1 dose of hydralazine given per Dr. Obrien. Objective - Vital Signs Vital signs: Vital Signs Temp 98.1 F 07/03/23 08:00 Pulse 85 07/03/23 08:39 Resp 15 07/03/23 08:00 BP 166/83 07/03/23 08:00 Pulse Ox 95 07/03/23 08:00 FiO2 Intake & Output 07/02/23 07/03/23 07/03/23 18:59 06:59 18:59 Intake Total 200 987.088 150 Output Total 900 Balance 200 87.088 150 Weight 90.718 kg 91.9 kg Intake: IV 200 900 150 Sodium Chloride 0.9% 1, 900 150 000 ml @ 75 mls/hr IV . [id number] AVELINO Rx#:[id number] Intake, IV Titration 87.088 Amount Heparin Sod,Pork in 0.45% 87.088 NaCl 25,000 unit In 0.45 % NaCl 1 250ml.bag @ 18 UNITS/KG/HR 16.329 mls/hr IV .[id number] AVELNIO Rx#: [id number] Output: Urine 900 Other: Voiding Method Urinal # Voids 1 - Constitutional General appearance: Present: cooperative, no acute distress - EENT Eyes: Present: PERRLA - Neck Neck: Present: normal ROM. Absent: lymphadenopathy, rigidity - Respiratory Respiratory: bilateral: CTA - Cardiovascular Rhythm: regular - Gastrointestinal General gastrointestinal: Present: soft. Absent: tenderness - Integumentary Integumentary Comment(s): Cyanosis of right lower extremity - Psychiatric Psychiatric: Present: A&O x's 3, appropriate affect, intact judgment & insight - Labs CBC & Chem 7: 07/03/23 06:14 07/02/23 11:53 Labs: Abnormal Lab Results - Last 24 Hours (Table) 07/02/23 07/02/23 07/03/23 Range/Units 11:53 11:53 06:14 RBC 4.10 L (4.30-5.90) m/uL MCV 101.7 H (80.0-100.0) fL Neutrophils # 8.6 H (1.3-7.7) k/uL Lymphocytes # 0.9 L (1.0-4.8) k/uL Sodium 135 L (137-145) mmol/L Carbon Dioxide 18 L (22-30) mmol/L Creatinine 1.36 H (0.66-1.25) mg/dL AST 81 H (17-59) U/L Alkaline Phosphatase 153 H (38-126) U/L Creatine Kinase 2919 H* (55-170) U/L Total Protein 8.3 H (6.3-8.2) g/dL Assessment and Plan (1) Ischemia of right lower extremity Current Visit: No Status: Acute Code(s): I99.8 - OTHER DISORDER OF CIRCULATORY SYSTEM SNOMED Code(s): 281018059 (2) Peripheral vascular disease Current Visit: No Status: Acute Code(s): I73.9 - PERIPHERAL VASCULAR DISEASE, UNSPECIFIED SNOMED Code(s): 469143333 (3) Hypertension Current Visit: Yes Status: Acute Code(s): I10 - ESSENTIAL (PRIMARY) HYPERTENSION SNOMED Code(s): 14569459 (4) Hyperlipidemia Current Visit: Yes Status: Acute Code(s): E78.5 - HYPERLIPIDEMIA, UNSPECIFIE D SNOMED Code(s): 35476409 (5) Arterial occlusion Current Visit: Yes Status: Acute Code(s): I70.90 - UNSPECIFIED ATHEROSCLEROSIS SNOMED Code(s): 1056097 (6) Atrial fibrillation Current Visit: No Status: Acute Code(s): I48.91 - UNSPECIFIED ATRIAL FIBRIL LATION SNOMED Code(s): 17509517 Plan: Patient nothing by mouth until surgery later today. Check CBC and CMP in the morning. Patient seen and evaluated by nurse practitioner, physician in agreement with plan
--- NOTE | 2023-07-03 09:03 | IR ---
EXAMINATION TYPE: IR stent intravas non coronary DATE OF EXAM: 07/02/2023 COMPARISON: NONE HISTORY: Fluoroscopy time. Fluoroscopy was provided to the referring clinician.
[2023-07-03 09:11] LABS: African American GFR (CKD) >90 (>60 ml/min/1.73 sqM); Anion Gap 10 mmol/L; Blood Urea Nitrogen 12 mg/dL (9-20); Calcium 8.5 mg/dL (8.4-10.2); Carbon Dioxide 22 mmol/L (22-30); Chloride 104 mmol/L (98-107); Glucose 105 mg/dL (74-99); Non-African American GFR(CKD) 78 (>60 ml/min/1.73 sqM); Potassium 4.1 mmol/L (3.5-5.1); Sodium 136 mmol/L (137-145)
--- NOTE | 2023-07-03 09:52 | P.PN ---
Subjective Progress Note Date: 07/03/23 Principal diagnosis: Ischemic leg, peripheral arterial disease Patient was seen and examined today as a follow-up in the ICU. Yesterday he underwent angiogram, abdominal aortogram failed attempt at cannulating right common iliac artery, balloon dilation left common iliac artery and covered stent placement left common iliac artery. Unfortunately unable to improve blood flow to the right lower extremity. Patient is unable to move his foot today. He has pain down the right lower extremity. He denies any shortness of breath or chest pain. He's has no pain in the left upper extremity. No signs of bleeding. Objective - Vital Signs Vital signs: Vital Signs Temp 98.1 F 07/03/23 08:00 Pulse 81 07/03/23 08:00 Resp 15 07/03/23 08:00 BP 166/83 07/03/23 08:00 Pulse Ox 95 07/03/23 08:00 FiO2 Intake & Output 07/02/23 07/03/23 07/03/23 18:59 06:59 18:59 Intake Total 200 987.088 150 Output Total 900 Balance 200 87.088 150 Weight 90.718 kg 91.9 kg Intake: IV 200 900 150 Sodium Chloride 0.9% 1, 900 150 000 ml @ 75 mls/hr IV . [id number] [facility] Rx#:[id number] Intake, IV Titration 87.088 Amount Heparin Sod,Pork in 0.45% 87.088 NaCl 25,000 unit In 0.45 % NaCl 1 250ml.bag @ 18 UNITS/KG/HR 16.329 mls/hr IV .[id number] [facility] Rx#: [id number] Output: Urine 900 Other: Voiding Method Urinal # Voids 1 - Exam General appearance: The patient is alert, oriented, appears in no acute distress. HET: Head is normocephalic and atraumatic. Pupils are equal and reactive. Neck: Supple. Heart: Regular. Lungs: Equal expansion, normal respiratory effort. Abdomen: Soft, nondistended. Extremities: Lower extremity normal skin color and turgor. Warm to the touch with good capillary refill. Palpable femoral pulse. Right lower extremity and nonpalpable pulses, from the knee down leg is mottled and cool. Sensorimotor diminished. Neurological: - Labs CBC & Chem 7: 07/03/23 06:14 07/03/23 08:44 Labs: Abnormal Lab Results - Last 24 Hours (Table) 07/02/23 07/02/23 07/03/23 Range/Units 11:53 11:53 06:14 RBC 4.10 L (4.30-5.90) m/uL MCV 101.7 H (80.0-100.0) fL Neutrophils # 8.6 H (1.3-7.7) k/uL Lymphocytes # 0.9 L (1.0-4.8) k/uL Sodium 135 L (137-145) mmol/L Carbon Dioxide 18 L (22-30) mmol/L Creatinine 1.36 H (0.66-1.25) mg/dL AST 81 H (17-59) U/L Alkaline Phosphatase 153 H (38-126) U/L Creatine Kinase 2919 H* (55-170) U/L Total Protein 8.3 H (6.3-8.2) g/dL Assessment and Plan Assessment: 1. Right iliac occlusion, occluded right femoral to tibial in situ bypass graft. Highly stenotic left common femoral artery, total occlusion right common femoral and superficial femoral arteries 2. Right lower extremity acute ischemia 3. Occluded left subclavian artery 4. Peripheral arterial disease, previous right femoral to tibial bypass and stenting 5. Atrial fibrillation on eliquis 6. Coronary artery disease status post stenting Plan: 1. Right lower extremity CTA ordered and reviewed 2. Patient is status post angiogram, abdominal aortogram with failed revascularization 3. Patient may have a light breakfast, then nothing by mouth 4. Plan for cvjje-lti-fgyh amputation this afternoon. Procedure was discussed with patient and he is willing to proceed. 5. Medical management per primary medical team Thank you for this consultation. The impression and plan of care has been dictated as directed. I performed a history and examination of this patient, discussed the same with the dictator. I agree with the dictator's note ,documented as a scribe. Any additional findings or plans will be noted.
[2023-07-03] MEDS: FAMOTIDINE 20 MG TAB PO SCH ×2 (10:05→20:34)
[2023-07-03] MEDS ORDERED: fentaNYL (PF) 50 MCG/ML 2 ML AMP ONE (16:14)
[2023-07-03] MEDS ORDERED: SUCCINYLCHOLINE CHLORIDE 200 MG/10 ML VIAL IV ONE (16:14)
[2023-07-03] MEDS ORDERED: ONDANSETRON 4 MG/2 ML VIAL ONE (16:14)
[2023-07-03] MEDS ORDERED: DEXAMETHASONE SOD PHOSPHATE 4 MG/ML 1 ML VIAL ONE (16:14)
[2023-07-03] MEDS ORDERED: PHENYLEPHRINE-0.9% NACL SYG 1,000 MCG/10 ML SYRINGE ONE (16:14)
[2023-07-03] MEDS ORDERED: HYDROmorphone (PF) 1 MG/ML ONE (16:14)
[2023-07-03] MEDS ORDERED: LIDOCAINE 2% INJ 20 MG/ML (2 ML VIAL) ONE (16:14)
[2023-07-03] MEDS ORDERED: MIDAZOLAM 2 MG/2 ML VIAL ONE (16:14)
[2023-07-03] MEDS ORDERED: PROPOFOL 10 MG/ML 20 ML VIAL IV ONE (16:14)
[2023-07-03] MEDS ORDERED: LACTATED RINGERS 1,000 ML IV ONE (16:19)
[2023-07-03] MEDS ORDERED: SODIUM CHLORIDE 0.9% 100 ML with ceFAZolin 2,000 MG IV ONE ×2 (16:19)
[2023-07-03] MEDS ORDERED: ceFAZolin 3,000 MG in SODIUM CHLORIDE 0.9% IRRIGATIO 3,000 ML IRRIGATION ONE (16:45)
[2023-07-03] MEDS: LACTATED RINGERS 1,000 ML IV SCH (16:58)
--- NOTE | 2023-07-03 18:41 | P.OP ---
Date of Procedure: 07/03/23 Preoperative Diagnosis: Right lower extremity acute critical limb ischemia Right femoral artery occlusion Postoperative Diagnosis: Same Procedure(s) Performed: Right above knee amputation Anesthesia: LATHAA Surgeon: Angel Ramirez Estimated Blood Loss (ml): 15 Pathology: other Condition: stable Disposition: PACU Indications for Procedure: 67 year old gentleman with acute right lower extremity arterial occlusion with attempt at revascularization that failed. He has been mottled and has no blood flow to the foot and presents to the OR for above knee amputation. Description of Procedure: After written and informed consent was obtained from the patient and all risks, benefits, and complications were described the patient was brought to the OR and laid in a supine position after appropriate anesthesia. The area of the right leg was prepped and draped in the usual sterile fashion. A fishmouth incision was then created just above the knee with a 10 blade scalpel and dissection was carried down through the fascia, and muscle to the femur. The femur was dissected free and encircled with a lap sponge. Using an oscillating saw the femur was resected. The femoral artery and vein were located and suture ligated in normal fashion as well as the femoral nerve. The posterior flap was then created with a scalpel and the leg was removed. The area was then copiously irrigated with antibiotic solution and closed in a multi-layer fashion with 2-0 Vicryl for the fascia, 3-0 Vicryl for the deep dermal and samantha for the skin. The skin was cleansed and dressings placed. The patient tolerated the procedure well and was sent to PACU for recovery.
[2023-07-03] MEDS: APIXABAN 5 MG TAB PO SCH (20:34)
[2023-07-04] MEDS: HYDROmorphone 0.5 MG/0.5 ML SYRINGE IVP PRN ×7 (00:04→21:32)
[2023-07-04] MEDS: SODIUM CHLORIDE 0.9% 1,000 ML IV SCH ×2 (05:21→18:15)
[2023-07-04 05:39] LABS: HGB 13.1 gm/dL (13.0-17.5); MCH 33.5 pg (25.0-35.0); MCHC 33.5 g/dL (31.0-37.0); MCV 100.2 fL (80.0-100.0); Mean Platelet Volume 7.8; Platelet Count 199 k/uL (150-450); RDW 12.9 % (11.5-15.5); WBC 7.9 k/uL (3.8-10.6)
[2023-07-04 05:51] LABS: ALT 31 U/L (4-49); AST 68 U/L (17-59); African American GFR (CKD) >90 (>60 ml/min/1.73 sqM); Albumin 3.7 g/dL (3.5-5.0); Alkaline Phosphatase 103 U/L (38-126); Anion Gap 7 mmol/L; Blood Urea Nitrogen 10 mg/dL (9-20); Calcium 8.9 mg/dL (8.4-10.2); Carbon Dioxide 27 mmol/L (22-30); Chloride 98 mmol/L (98-107); Glucose 114 mg/dL (74-99); Non-African American GFR(CKD) 88 (>60 ml/min/1.73 sqM); Potassium 5.3 mmol/L (3.5-5.1); Sodium 132 mmol/L (137-145); Total Bilirubin 0.8 mg/dL (0.2-1.3); Total Protein 7.2 g/dL (6.3-8.2)
[2023-07-04] MEDS: hydrALAZINE HCL 20 MG/ML 1 ML VIAL IVP PRN (06:15)
[2023-07-04] MEDS ORDERED: HYDROmorphone 0.5 MG/0.5 ML SYRINGE IVP PRN (07:00)
[2023-07-04] MEDS: BUDESONIDE 0.5 MG/2 ML NEBU INHALATION SCH ×2 (08:32→20:22)
[2023-07-04] MEDS: CLOPIDOGREL 75 MG TAB PO SCH (09:25)
[2023-07-04] MEDS: APIXABAN 5 MG TAB PO SCH ×2 (09:25→21:31)
[2023-07-04] MEDS: FAMOTIDINE 20 MG TAB PO SCH ×2 (09:25→21:31)
--- NOTE | 2023-07-04 10:01 | P.PN ---
Subjective Progress Note Date: 07/04/23 Principal diagnosis: Ischemic leg, peripheral arterial disease Patient is seen and examined today as a follow up. He is postop day #1 for right etiqw-zqr-xcfu amputation. He states pain has been well controlled with pain medication. He ate breakfast this morning, initially an upset stomach but feeling better now. No other complaints at this time. He is afebrile. Objective - Vital Signs Vital signs: Vital Signs Temp 97.8 F 07/04/23 07:54 Pulse 102 H 07/04/23 07:54 Resp 19 07/04/23 07:54 BP 149/72 07/04/23 07:54 Pulse Ox 91 L 07/04/23 07:54 FiO2 Intake & Output 07/03/23 07/04/23 07/04/23 18:59 06:59 18:59 Intake Total 1651 160 Output Total 1015 925 Balance 636 -765 Intake: IV 1651 160 LR 160 Sodium Chloride 0.9% 1, 750 000 ml @ 75 mls/hr IV . [id number] [facility] Rx#:[id number] Output: Urine 1000 925 Estimated Blood Loss 15 Other: Voiding Method Urinal Indwelling Catheter - Exam General appearance: The patient is alert, oriented, appears in no acute distre ss. HET: Head is normocephalic and atraumatic. Neck: Supple. Heart: Regular. Lungs: Equal expansion, normal respiratory effort. Abdomen: Soft, nondistended. Extremities: Left lower extremity normal skin color and turgor. Warm to the touch with good capillary refill. Palpable femoral pulse. Right lower extremity umqcc-iju-jgmp amputation with dressing in place and Vel wrap, clean dry and intact. Neurological: Alert and oriented 3 - Labs CBC & Chem 7: 07/04/23 05:15 07/04/23 05:15 Labs: Abnormal Lab Results - Last 24 Hours (Table) 07/04/23 07/04/23 Range/Units 05:15 05:15 RBC 3.90 L (4.30-5.90) m/uL MCV 100.2 H (80.0-100.0) fL Sodium 132 L (137-145) mmol/L Potassium 5.3 H (3.5-5.1) mmol/L Glucose 114 H (74-99) mg/dL AST 68 H (17-59) U/L Assessment and Plan Assessment: 1. Right lower extremity acute critical limb ischemia status post right tjbud-pbu-orfa amputation 2. Right iliac occlusion, occluded right femoral to tibial in situ bypass graft. Right femoral artery occlusion. 3. Occluded left subclavian artery 4. Peripheral arterial disease, previous right femoral to tibial bypass and stenting 5. Atrial fibrillation on eliquis 6. Coronary artery disease status post stenting Plan: 1. Right lower extremity CTA ordered and reviewed 2. Patient is status post angiogram, abdominal aortogram with failed revascularization 3. Consult to physical therapy and occupational therapy for right AKA 4. Order for stump display manager and rigid dressing given to outpatient case manager, contact comfort prosthetics 5. Discontinue Brown catheter 6. Medical management per primary medical team 7. Anticipate discharge in the next 48 hours Thank you for this consultation. The impression and plan of care has been dictated as directed. Dr. Brown I performed a history and examination of this patient, discussed the same with the dictator. I agree with the dictator's note ,documented as a scribe. Any additional findings or plans will be noted.
[2023-07-04] MEDS: LACTATED RINGERS 1,000 ML IV SCH (17:20)
--- NOTE | 2023-07-04 18:53 | P.PN ---
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 The patient is seemingly less pain. No fever or chills. No sick nausea, vomiting or diarrhea. No chest pain. No voiding difficulty stated. Objective - Vital Signs Vital signs: Vital Signs Temp 98.0 F 07/04/23 15:18 Pulse 82 07/04/23 15:18 Resp 19 07/04/23 15:18 BP 153/79 07/04/23 15:18 Pulse Ox 94 L 07/04/23 15:18 FiO2 Intake & Output 07/03/23 07/04/23 07/04/23 18:59 06:59 18:59 Intake Total 1651 160 Output Total 1015 925 Balance 636 -765 Intake: IV 1651 160 LR 160 Sodium Chloride 0.9% 1, 750 000 ml @ 75 mls/hr IV . [id number] [facility] Rx#:[id number] Output: Urine 1000 925 Estimated Blood Loss 15 Other: Voiding Method Urinal Indwelling Catheter - Constitutional General appearance: Present: average body habitus - EENT Eyes: Absent: abnormal pupil - Neck Neck: Absent: lymphadenopathy - Respiratory Respiratory: bilateral: diminished - Cardiovascular Rhythm: regular Heart sounds: normal: S1, S2 Abnormal Heart Sounds: Absent: S3 Gallop - Gastrointestinal General gastrointestinal: Present: soft. Absent: tenderness - Integumentary Integumentary: Absent: cellulitis - Psychiatric Psychiatric: Present: A&O x's 3 - Labs CBC & Chem 7: 07/04/23 05:15 07/04/23 05:15 Labs: Abnormal Lab Results - Last 24 Hours (Table) 07/04/23 07/04/23 Range/Units 05:15 05:15 RBC 3.90 L (4.30-5.90) m/uL MCV 100.2 H (80.0-100.0) fL Sodium 132 L (137-145) mmol/L Potassium 5.3 H (3.5-5.1) mmol/L Glucose 114 H (74-99) mg/dL AST 68 H (17-59) U/L Assessment and Plan (1) History of below knee amputation Current Visit: Yes Status: Acute Code(s): Z89.519 - ACQUIRED ABSENCE OF UNSPECIFIED LEG BELOW KNEE SNOMED Code(s): 237997371 (2) Arterial occlusion Current Visit: Yes Status: Acute Code(s): I70.90 - UNSPECIFIED ATHEROSCLEROSIS SNOMED Code(s): 4841977 (3) Femoral artery occlusion, right Current Visit: Yes Status: Acute Code(s): I70.201 - UNSP ATHSCL [place] ARTERIES OF EXTREMITIES, RIGHT LEG SNOMED Code(s): 13104982313434904 (4) Hyperlipidemia Current Visit: Yes Status: Acute Code(s): E78.5 - HYPERLIPIDEMIA, UNS PECIFIED SNOMED Code(s): 56351306 (5) Hypertension Current Visit: Yes Status: Acute Code(s): I10 - ESSENTIAL (PRIMARY) HYPERTENSION SNOMED Code(s): 69747350 (6) Atrial fibrillation Current Visit: No Status: Acute Code(s): I48.91 - UNSPECIFIED ATRIAL FI BRILLATION SNOMED Code(s): 83094296 Plan: We will continue postoperative protocols for amputation. Pain control per vascular surgery. CBC and CMP in a.m. Improving prognosis with appropriate support. See orders otherwise.
[2023-07-05] MEDS: HYDROcodone/APAP 5-325MG 1 EACH TAB PO PRN ×5 (00:09→20:02)
[2023-07-05] MEDS: HYDROmorphone 0.5 MG/0.5 ML SYRINGE IVP PRN ×5 (00:09→21:10)
[2023-07-05] MEDS: LACTATED RINGERS 1,000 ML IV SCH (08:07)
[2023-07-05] MEDS: SODIUM CHLORIDE 0.9% 1,000 ML IV SCH ×2 (08:10→20:04)
[2023-07-05] MEDS: BUDESONIDE 0.5 MG/2 ML NEBU INHALATION SCH ×2 (08:33→20:39)
[2023-07-05] MEDS: CLOPIDOGREL 75 MG TAB PO SCH (08:46)
[2023-07-05] MEDS: lisinopriL 10 MG TAB PO SCH (08:46)
[2023-07-05] MEDS: FAMOTIDINE 20 MG TAB PO SCH ×2 (08:46→20:02)
[2023-07-05] MEDS: amLODIPine 5 MG TAB PO SCH (08:46)
[2023-07-05] MEDS: APIXABAN 5 MG TAB PO SCH ×2 (08:46→20:02)
--- NOTE | 2023-07-05 09:07 | P.PN ---
Subjective Progress Note Date: 07/05/23 Principal diagnosis: Right lower extremely pain This is a 67-year-old male who presented to the emergency room with complaints of right lower extremity pain. Patient has an extensive history of peripheral vascular disease and has undergone multiple vascular procedures in the past performed by multiple physicians. Most recently had a right femoral to posterior tibial in situ vein bypass graft which worked well for a year and a half. Patient reports pain and right leg has been increasing over the last 2 weeks and has resulted in cyanotic and mottled skin on right lower extremity. Dr Mendoza performed an angiogram yesterday and stenting was not possible, patient will require amputation due to the extent of his disease and late presentation. Amputation is scheduled for later today with Dr. Mendoza. Patient is seen this morning sitting up in bed alert and oriented. He denies any current complaints other than right lower leg pain. Patient did have some elevated blood pressures through the night, 1 dose of hydralazine given per Dr. Obrien. 07/05/2023 Patient is postop day #2 right above the knee amputation. Patient states pain is well-controlled. Dressing will be changed today. Case management is working on rehab placement for patient. Blood pressure still elevated, however all medications had not been reordered, will restart home meds today. Objective - Vital Signs Vital signs: Vital Signs Temp 97.4 F L 07/05/23 07:18 Pulse 74 07/05/23 08:41 Resp 16 07/05/23 08:41 BP 162/100 07/05/23 07:18 Pulse Ox 98 07/05/23 08:35 FiO2 Intake & Output 07/04/23 07/05/23 07/05/23 18:59 06:59 18:59 Output Total 100 675 200 Balance -100 -675 -200 Output: Urine 100 675 200 Other: Voiding Method Urinal - Constitutional General appearance: Present: cooperative, no acute distress - EENT Eyes: Present: PERRLA - Neck Neck: Present: normal ROM. Absent: lymphadenopathy, rigidity - Respiratory Respiratory: bilateral: CTA - Cardiovascular Rhythm: regular Heart sounds: normal: S1, S2 - Gastrointestinal General gastrointestinal: Present: soft. Absent: tenderness - Integumentary Integumentary: Present: normal - Musculoskeletal Musculoskeletal: Present: generalized weakness - Psychiatric Psychiatric: Present: A&O x's 3, appropriate affect, intact judgment & insight - Labs CBC & Chem 7: 07/04/23 05:15 07/04/23 05:15 Assessment and Plan (1) Ischemia of right lower extremity Current Visit: No Status: Acute Code(s): I99.8 - OTHER DISORDER OF CIRCULATORY SYSTEM SNOMED Code(s): 989664515 (2) Peripheral vascular disease Current Visit: No Status: Acute Code(s): I73.9 - PERIPHERAL VASCULAR DISEASE, UNSPECIFIED SNOMED Code(s): 495331006 (3) Hypertension Current Visit: Yes Status: Acute Code(s): I10 - ESSENTIAL (PRIMARY) HYPERTENSION SNOMED Code(s): 43618721 (4) Hyperlipidemia Current Visit: Yes Status: Acute Code(s): E78.5 - HYPERLIPIDEMIA, UNSPECIFIED SNOMED Code(s): 18269552 (5) Arterial occlusion Current Visit: Yes Status: Acute Code(s): I70.90 - UNSPECIFIED ATHEROSCLEROSIS SNOMED Code(s): 0401249 (6) Atrial fibrillation Current Visit: No Status: Acute Code(s): I48.91 - UNSPECIFIED ATRIAL FIBRILLATION SNOMED Code(s): 45965383 (7) History of right above knee amputation Current Visit: Yes Status: Acute Code(s): Z89.611 - ACQUIRED ABSENCE OF RIGH T LEG ABOVE KNEE SNOMED Code(s): 464430961858373 Plan: Check CBC and CMP in the morning. Will restart home blood pressure medications. Discharge planning to continue work on placement for patient for discharge. Patient seen and evaluated by nurse practitioner, physician in agreement with plan
[2023-07-05] MEDS: AMIODARONE 100 MG TAB PO SCH (10:12)
--- NOTE | 2023-07-05 10:26 | P.PN ---
Subjective Progress Note Date: 07/05/23 Principal diagnosis: Ischemic leg, peripheral arterial disease Patient is seen and examined today as a follow-up. He is postop day #2 for kkevi-tus-ecnb amputation. Comfort prosthetics is at the bedside to fit patient for stump concrete vibrator operator and rigid dressing. He states pain has been well-managed. Awaiting physical therapy and occupational therapy to evaluate patient. He has been afebrile. Objective - Vital Signs Vital signs: Vital Signs Temp 97.4 F L 07/05/23 07:18 Pulse 74 07/05/23 08:41 Resp 16 07/05/23 08:41 BP 162/100 07/05/23 07:18 Pulse Ox 98 07/05/23 08:35 FiO2 Intake & Output 07/04/23 07/05/23 07/05/23 18:59 06:59 18:59 Output Total 100 675 200 Balance -100 -675 -200 Output: Urine 100 675 200 Other: Voiding Method Urinal - Exam General appearance: The patient is alert, oriented, appears in no acute distress. HET: Head is normocephalic and atraumatic. Neck: Supple. Heart: Regular. Lungs: Equal expansion, normal respiratory effort. Abdomen: Soft, nondistended. Extremities: Left lower extremity normal skin color and turgor. Right spgsk-yls-cfku amputation surgical site well approximated with samantha, minimal serosanguineous drainage. Warm to the touch, pain. Neurological: Alert and oriented 3 - Labs CBC & Chem 7: 07/04/23 05:15 07/04/23 05:15 Assessment and Plan Assessment: 1. Right lower extremity acute critical limb ischemia status post right koiav-vhi-iljg amputation 2. Right iliac occlusion, occluded right femoral to tibial in situ bypass graft. Right femoral artery occlusion. 3. Occluded left subclavian artery 4. Peripheral arterial disease, previous right femoral to tibial bypass and stenting 5. Atrial fibrillation on eliquis 6. Coronary artery disease status post stenting Plan: 1. Consult to physical therapy and occupational therapy for right AKA 2. Stump concrete vibrator operator and rigid dressing ordered and applied, comfort prosthetics at bedside 3. Continue with pain management as ordered 4. Patient is clear from vascular surgery for discharge. Recommend subacute rehab await recommendations from PT and OT 5. Medical management per primary medical team Thank you for this consultation. The impression and plan of care has been dictated as directed. Dr. Brown I performed a history and examination of this patient, discussed the same with the dictator. I agree with the dictator's note ,documented as a scribe. Any additional findings or plans will be noted.
[2023-07-05] MEDS: METOPROLOL TARTRATE 50 MG TAB PO SCH ×2 (12:15→17:33)
[2023-07-05 14:29] LABS: HCT 37.8 % (39.6-50.0); HGB 12.6 d/dL (13.0-17.0); MCH 33.2 pg (27.0-32.0); MCHC 33.3 d/dL (32.0-37.0); MCV 99.5 FL (80.0-97.0); Mean Platelet Volume 9.6 FL (9.5-12.2); NRBC Per 100 WBC 0 X 10*3/uL (0.00-0.01); Platelet Count 207 X 10*3/uL (140-440); RDW 12.8 % (11.5-14.5)
[2023-07-05] MEDS: IPRATROPIUM-ALBUTEROL 3 ML NEB INHALATION PRN (20:39)
[2023-07-06] MEDS: HYDROcodone/APAP 5-325MG 1 EACH TAB PO PRN ×3 (01:38→10:48)
[2023-07-06] MEDS: HYDROmorphone 0.5 MG/0.5 ML SYRINGE IVP PRN ×3 (03:27→13:07)
[2023-07-06] MEDS: METOPROLOL TARTRATE 50 MG TAB PO SCH ×2 (06:39→12:11)
[2023-07-06] MEDS: amLODIPine 5 MG TAB PO SCH (07:42)
[2023-07-06] MEDS: FAMOTIDINE 20 MG TAB PO SCH (07:42)
[2023-07-06] MEDS: AMIODARONE 100 MG TAB PO SCH (07:42)
[2023-07-06] MEDS: lisinopriL 10 MG TAB PO SCH (07:42)
[2023-07-06] MEDS: APIXABAN 5 MG TAB PO SCH (07:42)
[2023-07-06] MEDS: CLOPIDOGREL 75 MG TAB PO SCH (07:42)
[2023-07-06] MEDS: IPRATROPIUM-ALBUTEROL 3 ML NEB INHALATION PRN (07:55)
[2023-07-06] MEDS: BUDESONIDE 0.5 MG/2 ML NEBU INHALATION SCH (07:55)
--- NOTE | 2023-07-06 08:34 | P.PN ---
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 The patient is seemingly less pain. No fever or chills. No sick nausea, vomiting or diarrhea. No chest pain. No voiding difficulty stated. Objective - Vital Signs Vital signs: Vital Signs Temp 97.8 F 07/06/23 07:41 Pulse 72 07/06/23 08:08 Resp 17 07/06/23 07:41 BP 151/76 07/06/23 07:41 Pulse Ox 92 L 07/06/23 07:55 FiO2 Intake & Output 07/05/23 07/06/23 07/06/23 18:59 06:59 18:59 Output Total 900 1000 Balance -900 -1000 Output: Urine 900 1000 Other: Voiding Method Urinal - Constitutional General appearance: Present: average body habitus - EENT Eyes: Absent: abnormal pupil - Respiratory Respiratory: bilateral: diminished - Cardiovascular Rhythm: regular Heart sounds: normal: S1, S2 Abnormal Heart Sounds: Absent: S3 Gallop - Gastrointestinal General gastrointestinal: Present: soft. Absent: tenderness - Musculoskeletal Musculoskeletal Comment(s): Amputation noted of the right lower extremity - Psychiatric Psychiatric: Present: A&O x's 3 - Labs CBC & Chem 7: 07/05/23 05:14 07/04/23 05:15 Labs: Abnormal Lab Results - Last 24 Hours (Table) 07/05/23 Range/Units 05:14 RBC 3.80 L (4.40-5.60) X 10*6/uL Hgb 12.6 L (13.0-17.0) d/dL Hct 37.8 L (39.6-50.0) % MCV 99.5 H (80.0-97.0) FL MCH 33.2 H (27.0-32.0) pg Assessment and Plan (1) History of below knee amputation Current Visit: Yes Status: Acute Code(s): Z89.519 - ACQUIRED ABSENCE OF UNSPECIFIED LEG BELOW KNEE SNOMED Code(s): 940820997 (2) Arterial occlusion Current Visit: Yes Status: Acute Code(s): I70.90 - UNSPECIFIED ATHEROSCLEROS IS SNOMED Code(s): 9261566 (3) Femoral artery occlusion, right Current Visit: Yes Status: Acute Code(s): I70.201 - UNSP ATHSCL [place] ARTERIES OF EXTREMITIES, RIGHT LEG SNOMED Code(s): 69125628380712840 (4) Hyperlipidemia Current Visit: Yes Status: Acute Code(s): E78.5 - HYPERLIPIDEMIA, UNSPECIFIED SNOMED Code(s): 65264838 (5) Hypertension Current Visit: Yes Status: Acute Code(s): I10 - ESSENTIAL (PRIMARY) HYPERTENSION SNOMED Code(s): 31513725 (6) Atrial fibrillation Current Visit: No Status: Acute Code(s): I48.91 - UNSPECIFIED ATRIAL FIBRILLATION SNOMED Code(s): 39632816 Plan: We will continue postoperative protocols for amputation. Pain control per vascular surgery. Improving prognosis with appropriate support. See orders otherwise. Await transfer to [facility].
[2023-07-06] MEDS: SODIUM CHLORIDE 0.9% 1,000 ML IV SCH (09:12)
[2023-07-06] MEDS: LACTATED RINGERS 1,000 ML IV SCH (09:12)
--- NOTE | 2023-07-06 09:48 | P.PN ---
Subjective Progress Note Date: 07/06/23 Principal diagnosis: Ischemic leg, peripheral arterial disease Patient is seen and examined today as a follow-up. He is postop day #3 for fdkbp-dbc-nmsu amputation. She was fitted yesterday with a stump auto transmission specialist and rigid dressing. Currently has in place. States some increased pain since that is been placed. He otherwise has no acute changes or complaints. Plan is for discharge to [facility]. Patient got up to the chair yesterday with assistance from physical therapy. Objective - Vital Signs Vital signs: Vital Signs Temp 97.6 F 07/06/23 08:38 Pulse 66 07/06/23 08:38 Resp 16 07/06/23 08:38 BP 146/81 07/06/23 08:38 Pulse Ox 94 L 07/06/23 08:38 FiO2 Intake & Output 07/05/23 07/06/23 07/06/23 18:59 06:59 18:59 Output Total 900 1000 Balance -900 -1000 Output: Urine 900 1000 Other: Voiding Method Urinal - Exam General appearance: The patient is alert, oriented, appears in no acute distress. HET: Head is normocephalic and atraumatic. Neck: Supple. Heart: Regular. Lungs: Equal expansion, normal respiratory effort. Abdomen: Soft, nondistended. Extremities: Left lower extremity normal skin color and turgor. Right fejbb-qht-rgzd amputation stump with stump auto transmission specialist and rigid dressing Neurological: Alert and oriented 3 - Labs CBC & Chem 7: 07/05/23 05:14 07/04/23 05:15 Labs: Abnormal Lab Results - Last 24 Hours (Table) 07/05/23 Range/Units 05:14 RBC 3.80 L (4.40-5.60) X 10*6/uL Hgb 12.6 L (13.0-17.0) d/dL Hct 37.8 L (39.6-50.0) % MCV 99.5 H (80.0-97.0) FL MCH 33.2 H (27.0-32.0) pg Assessment and Plan Assessment: 1. Right lower extremity acute critical limb ischemia status post right fgtdc-xxl-sgtx amputation 2. Right iliac occlusion, occluded right femoral to tibial in situ bypass graft. Right femoral artery occlusion. 3. Occluded left subclavian artery 4. Peripheral arterial disease, previous right femoral to tibial bypass and stenting 5. Atrial fibrillation on eliquis 6. Coronary artery disease status post stenting Plan: 1. Consult to physical therapy and occupational therapy for right AKA 2. Stump auto transmission specialist and rigid dressing in place 3. Continue with pain management as ordered 4. Patient is clear from vascular surgery for discharge. Recommend subacute rehab. 5. Dressing change daily and or as needed with Adaptic, 4 x 4 and Kerlix 6. Medical management per primary medical team Thank you for this consultation. We will sign off at this time. The impression and plan of care has been dictated as directed. Dr. Brown I performed a history and examination of this patient, discussed the same with the dictator. I agree with the dictator's note ,documented as a scribe. Any additional findings or plans will be noted.
[2023-07-06 10:04] LABS: Anion Gap 10.7 mmol/L (4.0-12.0); BUN/Creat Ratio 15.22 Ratio (12.00-20.00); Blood Urea Nitrogen 13.7 mg/dL (9.0-27.0); Calcium 8.7 mg/dL (8.7-10.3); Carbon Dioxide 26.3 mmol/L (21.6-31.8); Chloride 101 mmol/L (96-109); Glucose 94 mg/dL (70-110); Potassium 4.2 mmol/L (3.5-5.5); Sodium 138 mmol/L (135-145)
[2023-07-06 10:52] LABS: ALT 34 U/L (10-49); AST 68 U/L (14-35); Albumin 3.5 d/dL (3.8-4.9); Albumin/Globulin Ratio 1.35 Ratio (1.60-3.17); Alkaline Phosphatase 95 U/L (41-126); Globulin 2.6 d/dL (1.6-3.3); Total Bilirubin 0.5 mg/dL (0.3-1.2); Total Protein 6.1 d/dL (6.2-8.2)
[2023-07-06 11:06] LABS: HCT 40.7 % (39.6-50.0); HGB 13.4 d/dL (13.0-17.0); MCH 32.2 pg (27.0-32.0); MCHC 32.9 d/dL (32.0-37.0); MCV 97.8 FL (80.0-97.0); Mean Platelet Volume 9.7 FL (9.5-12.2); NRBC Per 100 WBC 0 X 10*3/uL (0.00-0.01); Platelet Count 255 X 10*3/uL (140-440); RBC 4.16 X 10*6/uL (4.40-5.60); RDW 12.6 % (11.5-14.5); WBC 10.42 X 10*3/uL (4.50-10.00)
[2023-07-06 11:13] LABS: ALT 64 U/L (10-49); AST 200 U/L (14-35); Albumin 3.7 d/dL (3.8-4.9); Albumin/Globulin Ratio 1.16 Ratio (1.60-3.17); Alkaline Phosphatase 104 U/L (41-126); BUN/Creat Ratio 14.67 Ratio (12.00-20.00); Blood Urea Nitrogen 13.2 mg/dL (9.0-27.0); Calcium 9.3 mg/dL (8.7-10.3); Carbon Dioxide 24.1 mmol/L (21.6-31.8); Chloride 95 mmol/L (96-109); Globulin 3.2 d/dL (1.6-3.3); Glucose 95 mg/dL (70-110); Potassium 4.2 mmol/L (3.5-5.5); Sodium 132 mmol/L (135-145); Total Bilirubin 1.1 mg/dL (0.3-1.2); Total Protein 6.9 d/dL (6.2-8.2)
[2023-07-06 15:28] VITALS: BP 184/69; PULSE 65; RESP 20; TEMP 97.9
== END 2023-07-06 16:07 | DRG 240 ==
LOC: EC 09:46 → 3SCARD 13:53 → 2SICU 14:59 → 4SSUR 07-04 06:11
PROVIDERS: ADMIT Surgery; ATTEND Surgery
PROC: 047D3DZ Dilation of Left Common Iliac Artery with Intraluminal Device, Percutaneous Approach (ICD-10-PCS; 2023-07-02)
PROC: B3121ZZ Fluoroscopy of Left Subclavian Artery using Low Osmolar Contrast (ICD-10-PCS; 2023-07-02)
PROC: B4101ZZ Fluoroscopy of Abdominal Aorta using Low Osmolar Contrast (ICD-10-PCS; 2023-07-02)
PROC: 0Y6C0Z3 Detachment at Right Upper Leg, Low, Open Approach (ICD-10-PCS; principal; 2023-07-03 16:49)
DX: I70.391 Other atherosclerosis of unspecified type of bypass graft(s) of the extremities, right leg (principal); I74.5 Embolism and thrombosis of iliac artery; J44.1 Chronic obstructive pulmonary disease with (acute) exacerbation; N17.9 Acute kidney failure, unspecified; I12.9 Hypertensive chronic kidney disease with stage 1 through stage 4 chronic kidney disease, or unspecified chronic kidney disease; I48.91 Unspecified atrial fibrillation; E78.5 Hyperlipidemia, unspecified; I25.10 Atherosclerotic heart disease of native coronary artery without angina pectoris; N18.2 Chronic kidney disease, stage 2 (mild); Z79.01 Long term (current) use of anticoagulants; Z79.02 Long term (current) use of antithrombotics/antiplatelets; Z79.899 Other long term (current) drug therapy; Z80.8 Family history of malignant neoplasm of other organs or systems; Z85.828 Personal history of other malignant neoplasm of skin; Z89.519 Acquired absence of unspecified leg below knee; Z95.5 Presence of coronary angioplasty implant and graft; Z87.891 Personal history of nicotine dependence
CPT/HCPCS: 36415; 37221; 80048; 80053; 82550; 85025; 85027; 85610; 85730; 86850; 86900; 86901; 93005; 94640; 94760; 96361; 96365; 96366; 96375; 99291

== ENCOUNTER 2023-08-07 11:01 | Inpatient (IN) | payer MEDICARE ==
--- NOTE | 2023-08-07 11:34 | ED ---
Extremity Problem HPI - General Source: patient, family, RN notes reviewed Mode of arrival: wheelchair Limitations: no limitations <Fay Aguilar - Last Filed: 08/07/23 11:03> - General Source: patient, family, RN notes reviewed Limitations: no limitations <Frandy Spencer - Last Filed: 08/07/23 13:55> - General Chief complaint: Extremity Problem,Nontraumatic Stated complaint: Post Op R Leg Infection Time Seen by Provider: 08/07/23 11:03 - History of Present Illness Initial comments: This is a 67 year old male who presents to the emergency department for concerns of a postoperative infection. 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 Wound ca re said that there was exposed bone. He is currently living at [facility] for rehab and is receiving Unasyn IV q6h via PICC line. (Fay Aguilar) Patient is a pleasant 67-year-old male presents emergency Department with concern for wound to the right leg. Patient did have leg amputation done a couple months ago by . Patient did have to go back to the OR with Dr. Fu for debridement just over a week ago. Patient is having discomfort rated 5/10. No fevers. (Frandy Spencer) - Related Data Home Medications Medication Instructions Recorded Confirmed amLODIPine [Norvasc] 5 mg PO DAILY@0800 02/26/23 07/22/23 Amiodarone [Cordarone] 100 mg PO DAILY@0800 07/02/23 07/22/23 Famotidine [Pepcid] 40 mg PO HS 07/02/23 07/22/23 Metoprolol Tartrate [Lopressor] 100 mg PO TID@0800,1400,2000 07/02/23 07/22/23 Apixaban [Eliquis] 5 mg PO BID@0800,1700 07/22/23 07/22/23 Clopidogrel [Plavix] 75 mg PO DAILY@0800 07/22/23 07/22/23 HYDROcodone/APAP 5-325MG [[place] 1 tab PO Q4HR PRN 07/22/23 07/22/23 5-325] Magnesium Hydroxide [Milk of 7,200 mg PO Q2D PRN 07/22/23 07/22/23 Magnesia Concentrate] Na Phos,M-B/Na Phos,Di-Ba [Fleet 133 ml RECTAL DAILY PRN 07/22/23 07/22/23 Adult] bisacodyL [Dulcolax] 10 mg RECTAL DAILY PRN 07/22/23 07/22/23 lisinopriL [Zestril] 10 mg PO DAILY@0800 07/22/23 07/22/23 Previous Rx's Medication Instructions Recorded Ampicillin Sodium/Sulbactam Na 3 gm IVPB Q6HR #120 each 07/30/23 [Unasyn 3 gm Vial] Allergies Allergy/AdvReac Type Severity Reaction Status Date / Time No Known Allergies Allergy Verified 08/07/23 11:19 Review of Systems ROS Other: All systems not noted in ROS Statement are negative. <Fay Aguilar - Last Filed: 08/07/23 11:03> ROS Other: All systems not noted in ROS Statement are negative. Constitutional: Denies: fever, chills Eyes: Denies: eye pain Respiratory: Denies: cough Gastrointestinal: Denies: abdominal pain Genitourinary: Denies: dysuria Musculoskeletal: Reports: as per HPI. Denies: back pain Skin: Reports: as per HPI, rash Neurological: Denies: weakness <Frandy Spencer - Last Filed: 08/07/23 13:55> ROS Statement: Those systems with pertinent positive or pertinent negative responses have been documented in the HPI. Past Medical History Past Medical History: Atrial Fibrillation, Cancer, Hyperlipidemia, Hypertension, Vascular Disorder Additional Past Medical History / Comment(s): SKIN CANCER. 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. 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 aortagram, right leg above knee amputation Past Anesthesia/Blood Transfusion Reactions: No Reported Reaction Date of Last Stent Placement:: 08/18/2020 Past Psychological History: No Psychological Hx Reported Smoking Status: Former smoker Past Alcohol Use History: None Reported Past Drug Use History: None Reported - Past Family History Father Family Medical History: Cancer Additional Family Medical History / Comment(s): throat cancer Brother(s) Family Medical History: Cancer Additional Family Medical History / Comment(s): THROAT CANCER. Mother Family Medical History: Cancer <Fay Aguilar - Last Filed: 08/07/23 11:03> General Exam <Fay Aguilar - Last Filed: 08/07/23 11:03> Limitations: no limitations General appearance: alert, in no apparent distress Head exam: Present: normocephalic Eye exam: Present: normal appearance Neck exam: Present: normal inspection Respiratory exam: Present: normal lung sounds bilaterally Cardiovascular Exam: Present: regular rate, normal rhythm GI/Abdominal exam: Present: soft. Absent: tenderness Extremities exam: Present: other (Right lower leg amputation with open wounds with some minimal black discoloration and drainage and follow older. There is dehiscence.) Neurological exam: Present: alert Psychiatric exam: Present: normal affect, normal mood Skin exam: Present: other (Right lower leg wound with drainage of purulent discharge and black discoloration and dehiscence) <Frandy Spencer - Last Filed: 08/07/23 13:55> - General Exam Comments Initial Comments: Visual Physical Exam Vital signs reviewed General: Well-appearing, nontoxic, no acute distress. Head: Normocephalic, atraumatic Eyes: PERRLA, EOMI ENT: Airway patent Chest: Nonlabored breathing Skin: No visual rash, normal skin tone Neuro: Alert and oriented 3 Musculoskeletal: No gross abnormalities I performed the QuickNote portion of this chart. Signed Fay Aguilar PA-C. (Fay Aguilar) Course Vital Signs 08/07/23 11:20 Temperature 97.5 F L Pulse Rate 54 L Respiratory 16 Rate Blood Pressure 154/74 O2 Sat by Pulse 97 Oximetry Medical Decision Making - Lab Data Result diagrams: 08/07/23 12:34 <Frandy Spencer Filed: 09/26/23 13:55> - Medical Decision Making Was pt. sent in by a medical professional or institution (, SHAYAN, ELECTRONIC DESIGN ENGINEER, urgent care, hospital, or half-way...) When possible be specific @ -Patient was sent from wound center Did you speak to anyone other than the patient for history (EMS, parent, family, police, friend...)? What history was obtained from this source @ -Sisters present and helps provide history. She is a better historian and helps provide timeline. Did you review nursing and triage notes (agree or disagree)? Why? @ -I reviewed and agree with nursing and triage notes Were old charts reviewed (outside hosp., previous admission, EMS record, old EKG, old radiological studies, urgent care reports/EKG's, half-way records)? Report findings @ -No old charts were reviewed Differential Diagnosis (chest pain, altered mental status, abdominal pain women, abdominal pain men, vaginal bleeding, weakness, fever, dyspnea, syncope, headache, dizziness, GI bleed, back pain, seizure, CVA, palpatations, mental health, musculoskeletal)? @ -Differential Fever: Pneumonia, viral URI, endocarditis, myocarditis, pericarditis, otitis, sinusitis, peritonsillar Abscess, retropharyngeal Abscess, epiglottitis, peritonitis, appendicitis, Mariel cystitis, diverticulitis, hepatitis, colitis, UTI, PID, TOA, pyelonephritis, prostatitis, epididymitis, meningitis, encephalitis, pulmonary embolism, CVA, thyroid storm, pancreatitis, adrenal crisis, cavernous sinus thrombosis, this is not meant to be an all-inclusive list. EKG interpreted by me (3pts min.). @ -As above X-rays interpreted by me (1pt min.). @ -Right femur x-ray shows previous amputations. There is soft tissue changes. CT interpreted by me (1pt min.). @ -None done U/S interpreted by me (1pt. min.). @ -None done What testing was considered but not performed or refused? (CT, X-rays, U/S, labs)? Why? @ -None What meds were considered but not given or refused? Why? @ -None Did you discuss the management of the patient with other professionals (professionals i.e. , SHAYAN, ELECTRONIC DESIGN ENGINEER, lab, RT, psych nurse, oncology social worker, ski molder, teacher, sea air land officer, case reviewer)? Give summary @ -Case was discussed with Dr. Obrien who is mostly with this patient and will admit with consult for vascular as well as infectious disease Was smoking cessation discussed for >3mins.? @ -No Was critical care preformed (if so, how long)? @ -No Were there social determinants of health that impacted care today? How? (Homelessness, low income, unemployed, alcoholism, drug addiction, transp ortation, low edu. Level, literacy, decrease access to med. care, long term, rehab)? @ -No Was there de-escalation of care discussed even if they declined (Discuss DNR or withdrawal of care, Hospice)? DNR status @ -No What co-morbidities impacted this encounter? (DM, HTN, Smoking, COPD, CAD, Cancer, CVA, ARF, Chemo, Hep., AIDS, mental health diagnosis, sleep apnea, morbid obesity)? @ -None Was patient admitted / discharged? Hospital course, mention meds given and route, prescriptions, significant lab abnormalities, going to OR and other pertinent info. @ -Patient and family made aware of plan. Patient will be admitted. Admission orders written. Consult placed. IV antibiotics started. Blood culture and lactic acid have been ordered. Undiagnosed new problem with uncertain prognosis? @ -No Drug Therapy requiring intensive monitoring for toxicity (Heparin, Nitro, Insulin, Cardizem)? @ -No Were any procedures done? @ -Wound infection right leg Diagnosis/symptom? @ -Acute Acute, or Chronic, or Acute on Chronic? @ -default Uncomplicated (without systemic symptoms) or Complicated (systemic symptoms)? @ -default Side effects of treatment? @ -No Exacerbation, Progression, or Severe Exacerbation? @ -No Poses a threat to life or bodily function? How? (Chest pain, [place], [place], pneumonia, PE, COPD, DKA, ARF, appy, cholecystitis, CVA, Diverticulitis, Homicidal, Suicidal, threat to staff... and all critical care pts) @ -No (rFandy Spencer) - Lab Data Lab Results 08/07/23 08/07/23 Range/Units 12:34 12:34 WBC 8.4 (3.8-10.6) k/uL RBC 3.69 L (4.30-5.90) m/uL Hgb 11.7 L (13.0-17.5) gm/dL Hct 36.5 L (39.0-53.0) % MCV 98.8 (80.0-100.0) fL MCH 31.8 (25.0-35.0) pg MCHC 32.2 (31.0-37.0) g/dL RDW 13.6 (11.5-15.5) % Plt Count 472 H (150-450) k/uL MPV 7.9 Neutrophils % 75 % Lymphocytes % 18 % Monocytes % 3 % Eosinophils % 3 % Basophils % 0 % Neutrophils # 6.3 (1.3-7.7) k/uL Lymphocytes # 1.5 (1.0-4.8) k/uL Monocytes # 0.3 (0-1.0) k/uL Eosinophils # 0.3 (0-0.7) k/uL Basophils # 0.0 (0-0.2) k/uL Plasma Lactic Acid Alex 1.4 (0.7-2.0) mmol/L Disposition <Fay Aguilar - Last Filed: 08/07/23 11:03> Is patient prescribed a controlled substance at d/c from ED?: No Time of Disposition: 13:55 <Frandy Spencer - Last Filed: 08/07/23 13:55> Clinical Impression: Wound infection Disposition: ADMITTED IP TO THIS HOSP Condition: Serious Referrals: Odin Obrien MD [Primary Care Provider] - 1-2 days
[2023-08-07 12:49] LABS: Basophils % (A) 0 %; Eosinophils # (A) 0.3 k/uL (0-0.7); Eosinophils % (A) 3 %; HCT 36.5 % (39.0-53.0); HGB 11.7 gm/dL (13.0-17.5); Lymphocytes # (A) 1.5 k/uL (1.0-4.8); Lymphocytes % (A) 18 %; MCH 31.8 pg (25.0-35.0); MCHC 32.2 g/dL (31.0-37.0); MCV 98.8 fL (80.0-100.0); Mean Platelet Volume 7.9; Monocytes # (A) 0.3 k/uL (0-1.0); Monocytes % (A) 3 %; Neutrophils # (A) 6.3 k/uL (1.3-7.7); Neutrophils % (A) 75 %; Platelet Count 472 k/uL (150-450); RBC 3.69 m/uL (4.30-5.90); RDW 13.6 % (11.5-15.5); WBC 8.4 k/uL (3.8-10.6)
--- NOTE | 2023-08-07 13:27 | XR ---
EXAMINATION TYPE: XR femur RT DATE OF EXAM: 08/07/2023 COMPARISON: 07/22/2023 HISTORY: Postop fever possible infection TECHNIQUE: 4 views submitted FINDINGS: A mild concentric narrowing of the hip joint with diffuse osteopenia. Hypertrophic changes along the lateral margin of the acetabulum correlate for femoral acetabular impingement. Surgical cli ps are vascular stents are noted. There is soft tissue air and surgical samantha and clips distally. N o destructive bony changes. IMPRESSION: Post amputation with soft tissue edema and soft tissue emphysema. Presence of air suggest s possible infectious etiology. No destructive osseous changes.
[2023-08-07] MEDS ORDERED: SODIUM CHLORIDE 0.9% 1,000 ML IV STA (13:46)
[2023-08-07] MEDS ORDERED: VANCOMYCIN IV PER PHARMACY 1 EACH MISC MISCELLANE PRN (13:46)
[2023-08-07] MEDS ORDERED: AMPICILLIN-SULBACTAM 3 GM in SODIUM CHLORIDE 0.9% 100 ML IVPB STA (13:46)
[2023-08-07 13:49] LABS: ALT 18 U/L (4-49); AST 22 U/L (17-59); African American GFR (CKD) 85 (>60 ml/min/1.73 sqM); Albumin 3.1 g/dL (3.5-5.0); Alkaline Phosphatase 113 U/L (38-126); Anion Gap 8 mmol/L; Blood Urea Nitrogen 22 mg/dL (9-20); C Reactive Protein 1.5 mg/dL (<1.0); Calcium 8.9 mg/dL (8.4-10.2); Carbon Dioxide 25 mmol/L (22-30); Chloride 104 mmol/L (98-107); Glucose 136 mg/dL (74-99); Non-African American GFR(CKD) 73 (>60 ml/min/1.73 sqM); Potassium 3.6 mmol/L (3.5-5.1); Sodium 137 mmol/L (137-145); Total Bilirubin 0.5 mg/dL (0.2-1.3); Total Protein 6.8 g/dL (6.3-8.2)
[2023-08-07] MEDS ORDERED: VANCOMYCIN 1,500 MG in SODIUM CHLORIDE 0.9% 500 ML 500 ML IVPB STA (13:50)
[2023-08-07] MEDS ORDERED: ACETAMINOPHEN TAB 325 MG TAB PO PRN (13:55)
[2023-08-07] MEDS ORDERED: NALOXONE 0.4 MG/ML 1 ML VIAL IV PRN (13:55)
[2023-08-07] MEDS ORDERED: traMADol 50 MG TAB PO PRN (13:55)
[2023-08-07 14:39] LABS: Erythrocyte Sedimentation Rate 75 mm/hr (0-15)
--- NOTE | 2023-08-07 16:10 | P.PN ---
Progress Note - Text Progress Note Date: 08/07/23 Consult was placed to Dr. Brown for wound infection. The patient is status post right lhejj-[id number] amputation done 07/03/[address] Ramirez, followed by fem-fem bypass and right otzxk-yxz-ahqz amputation debridement on 07/26/2023 with wound VAC placement by Dr. Nunes. Patient was discharged on 07/31/2023 to [facility] Went to see patient in the emergency room. Patient apparently was at wound clinic for wound care and was sent to the emergency department for further evaluation. Patient and his sister who is currently at the bedside declined evaluation and consultation. They are requesting a second opinion. Dr. Ramirez notified. Dr. Obrien notified per Perfect serve. The impression and plan of care has been dictated as directed. I performed a history and examination of this patient, discussed the same with the dictator. I agree with the dictator's note ,documented as a scribe. Any additional findings or plans will be noted.
[2023-08-07] MEDS: MORPHINE SULFATE 4 MG/ML SYRINGE IV PRN ×2 (16:45→23:46)
[2023-08-07] MEDS: AMPICILLIN-SULBACTAM 3 GM in SODIUM CHLORIDE 0.9% 100 ML IVPB SCH ×2 (18:40→23:48)
[2023-08-07] MEDS ORDERED: MAGNESIUM HYDROXIDE 2,400 MG/30 ML CUP PO PRN (20:49)
[2023-08-07] MEDS ORDERED: bisacodyL 10 MG SUPP RECTAL PRN (20:49)
[2023-08-07] MEDS ORDERED: FAMOTIDINE 20 MG TAB PO SCH (21:00)
[2023-08-07] MEDS: FAMOTIDINE 20 MG TAB PO SCH (21:25)
--- NOTE | 2023-08-07 21:47 | P.CONS ---
History of Present Illness - Reason for Consult Consult date: 08/07/23 Leg wound Requesting physician: Frandy Spencer - Chief Complaint worsening of Right AKA stump wpiund x days - History of Present Illness Patient is a 67-year male with a past medical history difficult for hypertension hyperlipidemia atrial fibrillation peripheral arterial disease in this patient who recently did have a right xtwce-kwd-zrob amputation subsequently readmitted to the hospital with skin necrosis of the right AKA stump the patient s/p surgical debridement and culture positive for Klebsiella Enterococcus faecalis that was penicillin sensitive along with anaerobic gram- positive cocci patient did get a PICC line and the patient was advised 6-week course of IV Unasyn with the patient was receiving at the local [facility] patient did went to the wound care center today for evaluation of his right AKA stump wound patient was noticed to have a worsening of the wound with the bone exposed and the patient was sent to the ER for further evaluation patient denies having any fever or any chills he is breathing comfortably on room air denies any chest pain shortness of the cough no nausea no vomiting no abdominal pain patient has been complaining of some dull aching pain 4-5 out of 10 and No radiation or any foul-smelling drainage from the his right AKA stump wound on presentation to hospital the patient was afebrile and no fever has been recorded subsequently patient is normal white count 8.4 sed rate was 75 creatinine 1.06 and it was abnormal CRP is 1.5 patient did have x-ray of the fever. Additional soft tissue edema and soft tissue emphysema present [place] suggest possible infectious etiology and no destructive osseous changes patient has been continued on Unasyn vancomycin was added infectious disease was consulted for further management of antibiotic therapy Review of Systems Positive point has been mentioned in HPI rest of the systems are negative Past Medical History Past Medical History: Atrial Fibrillation, Cancer, Hyperlipidemia, Hypertension, Vascular Disorder Additional Past Medical History / Comment(s): SKIN CANCER. 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. 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 aortagram, right leg above knee amputation Past Anesthesia/Blood Transfusion Reactions: No Reported Reaction Date of Last Stent Placement:: 08/18/2020 Past Psychological History: No Psychological Hx Reported Smoking Status: Former smoker Past Alcohol Use History: None Reported Past Drug Use History: None Reported - Past Family History Father Family Medical History: Cancer Additional Family Medical History / Comment(s): throat cancer Brother(s) Family Medical History: Cancer Additional Family Medical History / Comment(s): THROAT CANCER. Mother Family Medical History: Cancer Medications and Allergies Home Medications Medication Instructions Recorded Confirmed Type amLODIPine [Norvasc] 5 mg PO DAILY@0800 02/26/23 08/07/23 History Amiodarone [Cordarone] 100 mg PO DAILY@0800 07/02/23 08/07/23 History Famotidine [Pepcid] 40 mg PO HS 07/02/23 08/07/23 History Metoprolol Tartrate [Lopressor] 100 mg PO TID@0800,1400,199907/02/23 08/07/23 History Apixaban [Eliquis] 5 mg PO BID@0800,1700 07/22/23 08/07/23 History Clopidogrel [Plavix] 75 mg PO DAILY@0800 07/22/23 08/07/23 History HYDROcodone/APAP 5-325MG [[place] 1 tab PO Q4HR PRN 07/22/23 08/07/23 History 5-325] Magnesium Hydroxide [Milk of 7,200 mg PO Q2D PRN 07/22/23 08/07/23 History Magnesia Concentrate] Na Phos,M-B/Na Phos,Di-Ba [Fleet 133 ml RECTAL DAILY PRN 07/22/23 08/07/23 History Adult] bisacodyL [Dulcolax] 10 mg RECTAL DAILY PRN 07/22/23 08/07/23 History lisinopriL [Zestril] 10 mg PO DAILY@0800 07/22/23 08/07/23 History Ampicillin Sodium/Sulbactam Na 3 gm IVPB Q6HR #120 each 07/30/23 08/07/23 Rx [Unasyn 3 gm Vial] Allergies Allergy/AdvReac Type Severity Reaction Status Date / Time No Known Allergies Allergy Verified 08/07/23 14:49 Physical Exam Vitals: Vital Signs Temp Pulse Resp BP Pulse Ox 08/07/23 11:20 97.5 F L 54 L 16 154/74 97 Intake and Output 08/06/23 08/07/23 08/07/23 22:59 06:59 14:59 Other: Weight 77.111 kg GENERAL DESCRIPTION: Elderly male lying in bed, no distress. No tachypnea or accessory muscle of respiration use. HEENT: Shows Pallor , no scleral icterus. Oral mucous membrane is dry. NECK: Trachea central, no thyromegaly. LUNGS: Unlabored breathing. Clear to auscultation anteriorly. No wheeze or crackle. HEART: S1, S2, regular rate and rhythm. ABDOMEN: Soft, no tenderness , guarding or rigidity EXTREMITIES: Right AKA stump wound with some necrotic tissue bone is exposed minimal foul-smelling SKIN: No rash, no masses palpable. NEUROLOGICAL: The patient is awake, alert, oriented x3, mood and affect normal. Results CBC & Chem 7: 08/07/23 12:34 08/07/23 12:34 Labs: Abnormal Lab Results - Last 24 Hours (Table) 08/07/23 08/07/23 Range/Units 12:34 12:34 RBC 3.69 L (4.30-5.90) m/uL Hgb 11.7 L (13.0-17.5) gm/dL Hct 36.5 L (39.0-53.0) % Plt Count 472 H (150-450) k/uL ESR 75 H (0-15) mm/hr BUN 22 H (9-20) mg/dL Glucose 136 H (74-99) mg/dL C-Reactive Protein 1.5 H (<1.0) mg/dL Albumin 3.1 L (3.5-5.0) g/dL Assessment and Plan (1) Osteomyelitis of right femur Current Visit: Yes Status: Acute Code(s): M86.9 - OSTEOMYELITIS, UNSPECIFIED SNOMED Code(s): 3088958529844400 (2) Wound infection Current Visit: Yes Status: Acute Code(s): T14.8XXA - OTHER INJURY OF UNSPECI FIED BODY REGION, INITIAL ENCOUNTER; L08.9 - LOCAL INFECTION OF THE SKIN AND SUBCUTANEOUS TISSUE, UNSP SNOMED Code(s): 85941593 Plan: 1patient with right AKA stump wound infection and concern for underlying osteomyelitis with recent culture positive for Klebsiella and Enterococcus faecalis and anaerobes that was sensitive to Unasyn and now being admitted to the hospital with worsening wound evidence of some necrotic tissue and the femur bone is exposed with a clinical osteomyelitis x-ray did show some soft tissue air concerning for infection. 2patient benefit from further surgical debridement and deep culture 3-patient to be broadly covered with the vancomycin and Unasyn while waiting for the work-up to be completed Sister at the bedside multiple questions concern answered We will follow on clinical condition and cultures to further adjust medication if needed Thank you for this consultation we will follow the patient along with you Dictation was produced using [employer] dictation software. please excuse any grammatical, word or spelling errors. Time with Patient: Greater than 30
[2023-08-08] MEDS: VANCOMYCIN 1,500 MG in SODIUM CHLORIDE 0.9% 500 ML 500 ML IVPB SCH ×2 (02:44→14:23)
[2023-08-08] MEDS: HYDROcodone/APAP 5-325MG 1 EACH TAB PO PRN ×3 (02:53→23:26)
[2023-08-08] MEDS: MORPHINE SULFATE 4 MG/ML SYRINGE IV PRN ×4 (03:58→20:11)
[2023-08-08] MEDS: AMPICILLIN-SULBACTAM 3 GM in SODIUM CHLORIDE 0.9% 100 ML IVPB SCH ×4 (06:14→23:42)
[2023-08-08 06:56] LABS: ALT 15 U/L (4-49); AST 17 U/L (17-59); African American GFR (CKD) >90 (>60 ml/min/1.73 sqM); Albumin 2.7 g/dL (3.5-5.0); Albumin/Globulin Ratio 0.8; Alkaline Phosphatase 104 U/L (38-126); Anion Gap 5 mmol/L; Blood Urea Nitrogen 12 mg/dL (9-20); Calcium 8.3 mg/dL (8.4-10.2); Carbon Dioxide 26 mmol/L (22-30); Chloride 107 mmol/L (98-107); Globulin 3.4 g/dL; Glucose 94 mg/dL (74-99); Non-African American GFR(CKD) 89 (>60 ml/min/1.73 sqM); Potassium 3.7 mmol/L (3.5-5.1); Sodium 138 mmol/L (137-145); Total Bilirubin 0.4 mg/dL (0.2-1.3); Total Protein 6.1 g/dL (6.3-8.2)
--- NOTE | 2023-08-08 08:18 | P.HPIM ---
History of Present Illness H&P Date: 08/08/23 Chief Complaint: Right lower ctyro-icw-pbsp agitation stump dehiscence infection This is a 67-year-old white male with known history of PAD who has been struggling since having xnzed-hcd-xtli amputation related to PAD. The patient has had poor wound healing and last week had femoral-femoral bypass done. He went home to the senior living for appropriate treatment and the wound did not heal properly. He went to wound clinic and even with wound vacuum, it was felt not to be as effective as necessary. He is now here for appropriate treatment. We will go ahead and consult infectious disease and vascular surgery. The patient does not wish at this time, to have the current [place] team treat him given his current outcome. I advised patient that he might need more of an agitation versus some type of other revascularization procedure. Review of Systems Constitutional: Denies chills, Denies fever Eyes: denies blurred vision, denies pain Ears, nose, mouth and throat: Denies headache, Denies sore throat Cardiovascular: Denies chest pain, Denies shortness of breath Respiratory: Denies cough Past Medical History Past Medical History: Atrial Fibrillation, Cancer, Hyperlipidemia, Hypertension, Vascular Disorder Additional Past Medical History / Comment(s): SKIN CANCER. 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. 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 aortagram, right leg above knee amputation Past Anesthesia/Blood Transfusion Reactions: No Reported Reaction Date of Last Stent Placement:: 08/18/2020 Past Psychological History: No Psychological Hx Reported Smoking Status: Former smoker Past Alcohol Use History: None Reported Past Drug Use History: None Reported - Past Family History Father Family Medical History: Cancer Additional Family Medical History / Comment(s): throat cancer Brother(s) Family Medical History: Cancer Additional Family Medical History / Comment(s): THROAT CANCER. Mother Family Medical History: Cancer Medications and Allergies Home Medications Medication Instructions Recorded Confirmed Type amLODIPine [Norvasc] 5 mg PO DAILY@0800 02/26/23 08/07/23 History Amiodarone [Cordarone] 100 mg PO DAILY@0800 07/02/23 08/07/23 History Famotidine [Pepcid] 40 mg PO HS 07/02/23 08/07/23 History Metoprolol Tartrate [Lopressor] 100 mg PO TID@0800,1400,199907/02/23 08/07/23 History Apixaban [Eliquis] 5 mg PO BID@0800,1700 07/22/23 08/07/23 History Clopidogrel [Plavix] 75 mg PO DAILY@0800 07/22/23 08/07/23 History HYDROcodone/APAP 5-325MG [[place] 1 tab PO Q4HR PRN 07/22/23 08/07/23 History 5-325] Magnesium Hydroxide [Milk of 7,200 mg PO Q2D PRN 07/22/23 08/07/23 History Magnesia Concentrate] Na Phos,M-B/Na Phos,Di-Ba [Fleet 133 ml RECTAL DAILY PRN 07/22/23 08/07/23 History Adult] bisacodyL [Dulcolax] 10 mg RECTAL DAILY PRN 07/22/23 08/07/23 History lisinopriL [Zestril] 10 mg PO DAILY@0800 07/22/23 08/07/23 History Ampicillin Sodium/Sulbactam Na 3 gm IVPB Q6HR #120 each 07/30/23 08/07/23 Rx [Unasyn 3 gm Vial] Allergies Allergy/AdvReac Type Severity Reaction Status Date / Time No Known Allergies Allergy Verified 08/07/23 14:49 Physical Exam Vitals: Vital Signs Temp Pulse Pulse Resp BP BP Pulse Ox 08/08/23 04:38 98.2 F 58 L 18 138/66 97 08/08/23 01:32 97.9 F 62 18 128/66 95 08/07/23 19:52 97.9 F 55 L 16 134/67 96 08/07/23 16:36 98.5 F 69 18 175/79 95 08/07/23 11:20 97.5 F L 54 L 16 154/74 97 Intake and Output 08/07/23 08/08/23 08/08/23 22:59 06:59 14:59 Intake Total 760 Balance 760 Intake: Intake, IV Titration 760 Amount Sodium Chloride 0.9% 1, 260 000 ml @ 130 mls/hr IV . Q7H42M [facility] Rx#:[id number] Vancomycin 1,500 mg In 500 Sodium Chloride 0.9% 500 ml 500 ml @ 167 mls/hr IVPB ONCE STA Rx#: [id number] Other: Weight 77.111 kg - Constitutional General appearance: no acute distress - EENT Eyes: EOMI - Neck Neck: no lymphadenopathy - Respiratory Respiratory: bilateral: diminished - Cardiovascular Rhythm: regular Heart sounds: normal: S1, S2 Abnormal Heart Sounds: no S3 Gallop - Gastrointestinal General gastrointestinal: soft, no tenderness - Integumentary Wound dehiscence. Of the right above-knee and petition area. Integumentary: cellulitis - Psychiatric Psychiatric: A&O x's 3 Results CBC & Chem 7: 08/07/23 12:34 08/08/23 06:05 Labs: Abnormal Lab Results - Last 24 Hours (Table) 08/07/23 08/07/23 08/08/23 Range/Units 12:34 12:34 06:05 RBC 3.69 L (4.30-5.90) m/uL Hgb 11.7 L (13.0-17.5) gm/dL Hct 36.5 L (39.0-53.0) % Plt Count 472 H (150-450) k/uL ESR 75 H (0-15) mm/hr BUN 22 H (9-20) mg/dL Glucose 136 H (74-99) mg/dL Calcium 8.3 L (8.4-10.2) mg/dL C-Reactive Protein 1.5 H (<1.0) mg/dL Total Protein 6.1 L (6.3-8.2) g/dL Albumin 3.1 L 2.7 L (3.5-5.0) g/dL Microbiology - Last 24 Hours (Table) 08/07/23 14:10 Gram Stain - Preliminary Leg - Right Thrombosis Risk Factor Assmnt - Choose All That Apply Any of the Below Risk Factors Present?: Yes Each Factor Represents 1 point: Age 41-60 years Other Risk Factors: Yes Each Risk Factor Represents 2 Points: Malignancy Thrombosis Risk Factor Assessment Total Risk Factor Score: 3 Thrombosis Risk Factor Assessment Level: Moderate Risk Assessment and Plan (1) Osteomyelitis of right femur Current Visit: Yes Status: Acute Code(s): M86.9 - OSTEOMYELITIS, UNSPECIFIED SNOMED Code(s): 5648105697296869 (2) Wound infection Current Visit: Yes Status: Acute Code(s): T14.8XXA - OTHER INJURY OF UNSPECIFIED BODY REGION, INITIAL ENCOUNTER; L08.9 - LOCAL INFECTION OF THE SKIN AND SUBCUTANEOUS TISSUE, UNSP SNOMED Code(s): 52714336 (3) Atrial fibrillation Current Visit: No Status: Acute Code(s): I48.91 - UNSPECIFIED ATRIAL FIBRILLATION SNOMED Code(s): 49471321 (4) Hyperlipidemia Current Visit: No Status: Acute Code(s): E78.5 - HYPERLIPIDEMIA, UNSPECIFIED SNOMED Code(s): 92972259 (5) Hypertension Current Visit: No Status: Acute Code(s): I10 - ESSENTIAL (PRIMARY) HY PERTENSION SNOMED Code(s): 66214378 (6) Ischemia of right lower extremity Current Visit: No Status: Acute Code(s): I99.8 - OTHER DISORDER OF CIRCULATORY SYSTEM SNOMED Code(s): 233753336 (7) Peripheral vascular disease Current Visit: No Status: Acute Code(s): I73.9 - PERIPHERAL VASCULAR DISEASE, UNSPECIFIED SNOMED Code(s): 788506973 (8) Surgical site infection Current Visit: No Status: Acute Code(s): T81.49XA - INFECTION FOLLOWING A PROCEDURE, OTHER SURGICAL SITE, INIT SNOMED Code(s): 57672095 Plan: Appropriate infectious disease consult for wound care. Vascular surgery consult. Appropriate empiric antibiotic treatment. Wound care. Restart home medications. Check CBC and CMP in a.m. Gnosis is guarded. Time with Patient: Greater than 30
[2023-08-08] MEDS: AMIODARONE 100 MG TAB PO SCH (10:19)
[2023-08-08] MEDS: CLOPIDOGREL 75 MG TAB PO SCH (10:19)
[2023-08-08] MEDS: lisinopriL 10 MG TAB PO SCH (10:19)
[2023-08-08] MEDS: amLODIPine 5 MG TAB PO SCH (10:19)
[2023-08-08] MEDS: METOPROLOL TARTRATE 50 MG TAB PO SCH ×3 (10:20→20:19)
--- NOTE | 2023-08-08 11:46 | P.PN ---
Subjective Progress Note Date: 08/08/23 Principal diagnosis: Right AKA stump wound and osteomyelitis Patient is a 67-year male with a past medical history difficult for hypertension hyperlipidemia atrial fibrillation peripheral arterial disease in this patient who recently did have a right jiaxz-xsg-vvqg amputation subsequently readmitted to the hospital with skin necrosis of the right AKA stump the patient s/p surgical debridement and culture positive for Klebsiella Enterococcus faecalis that was penicillin sensitive along with anaerobic gram- positive cocci patient did get a PICC line and was getting outpatient IV Unasyn readmitted from the wound care center concerning for worsening wound to the righ t AKA stump. On today's evaluation that is08/08/2023, the patient denies any fever or any chills, , the patient is breathing comfortably on room air , the patient denies chest pain and no significant cough, patient denies nausea / vomiting or diarrhea and no abdominal pain , the patient denies any worsening pain to the right AKA stump Patient did have a creatinine of 0.90 white count was normal as of yesterday Objective - Vital Signs Vital signs: Vital Signs Temp 97.5 F L 08/08/23 08:00 Pulse 58 L 08/08/23 04:38 Resp 16 08/08/23 08:00 BP 161/95 08/08/23 08:00 Pulse Ox 97 08/08/23 04:38 FiO2 Intake & Output 08/07/23 08/08/23 08/08/23 18:59 06:59 18:59 Intake Total 760 Balance 760 Weight 77.111 kg Intake: Intake, IV Titration 760 Amount Sodium Chloride 0.9% 1, 260 000 ml @ 130 mls/hr IV . Q7H42M STA Rx#:[id number] Vancomycin 1,500 mg In 500 Sodium Chloride 0.9% 500 ml 500 ml @ 167 mls/hr IVPB ONCE STA Rx#: [id number] - Exam GENERAL DESCRIPTION: An elderly male lying in bed in no distress RESPIRATORY SYSTEM: Unlabored breathing , decreased breath sounds at bases HEART: S1 S2 regular rate and rhythm , ABDOMEN: Soft , no tenderness EXTREMITIES: Right AK stump is currently dressed - Labs CBC & Chem 7: 08/07/23 12:34 08/08/23 06:05 Labs: Abnormal Lab Results - Last 24 Hours (Table) 08/07/23 08/07/23 08/08/23 Range/Units 12:34 12:34 06:05 RBC 3.69 L (4.30-5.90) m/uL Hgb 11.7 L (13.0-17.5) gm/dL Hct 36.5 L (39.0-53.0) % Plt Count 472 H (150-450) k/uL ESR 75 H (0-15) mm/hr BUN 22 H (9-20) mg/dL Glucose 136 H (74-99) mg/dL Calcium 8.3 L (8.4-10.2) mg/dL C-Reactive Protein 1.5 H (<1.0) mg/dL Total Protein 6.1 L (6.3-8.2) g/dL Albumin 3.1 L 2.7 L (3.5-5.0) g/dL Microbiology - Last 24 Hours (Table) 08/07/23 14:10 Gram Stain - Preliminary Leg - Right Assessment and Plan (1) Osteomyelitis of right femur Current Visit: Yes Status: Acute Code(s): M86.9 - OSTEOMYELITIS, UNSPECIFIED SNOMED Code(s): 9526064221590940 (2) Wound infection Current Visit: Yes Status: Acute Code(s): T14.8XXA - OTHER INJURY OF UNSPECIFIED BODY REGION, INITIAL ENCOUNTER; L08.9 - LOCAL INFECTION OF THE SKIN AND SUBCUTANEOUS TISSUE, UNSP SNOMED Code(s): 49127483 Plan: 1patient with right AKA stump wound infection and concern for underlying osteomyelitis with recent culture positive for Klebsiella and Enterococcus faecalis and anaerobes that was sensitive to Unasyn and now being admitted to the hospital with worsening wound evidence of some necrotic tissue and the femur bone is exposed with a clinical osteomyelitis x-ray did show some soft tissue air concerning for infection. 2patient is currently waiting for risk of surgical evaluation and will benefit from further surgical debridement and deep culture 3-patient to continue with the vancomycin and Unasyn while waiting for the work- up to be completed Dictation was produced using [employer] dictation software. please excuse any grammatical, word or spelling errors. Time with Patient: Less than 30
[2023-08-08] MEDS: FAMOTIDINE 20 MG TAB PO SCH (20:21)
[2023-08-09] MEDS: MORPHINE SULFATE 4 MG/ML SYRINGE IV PRN ×3 (02:03→12:11)
[2023-08-09] MEDS: VANCOMYCIN 1,500 MG in SODIUM CHLORIDE 0.9% 500 ML 500 ML IVPB SCH ×2 (02:03→15:41)
[2023-08-09] MEDS: HYDROcodone/APAP 5-325MG 1 EACH TAB PO PRN ×3 (04:20→22:18)
[2023-08-09] MEDS: AMPICILLIN-SULBACTAM 3 GM in SODIUM CHLORIDE 0.9% 100 ML IVPB SCH ×3 (06:34→19:50)
[2023-08-09] MEDS: lisinopriL 10 MG TAB PO SCH (07:43)
[2023-08-09] MEDS: METOPROLOL TARTRATE 50 MG TAB PO SCH ×3 (07:43→20:03)
[2023-08-09] MEDS: AMIODARONE 100 MG TAB PO SCH (07:43)
[2023-08-09] MEDS: amLODIPine 5 MG TAB PO SCH (07:44)
[2023-08-09] MEDS: CLOPIDOGREL 75 MG TAB PO SCH (07:44)
--- NOTE | 2023-08-09 08:31 | P.DS ---
Providers Date of admission: 08/07/23 13:55 Attending physician: Odin Obrien Consults: 08/07/23 13:55 Consult Physician Routine Consulting Provider: Yolanda Brwon Consult Reason/Comments: wound infection Do you want consulting provider notified?: Yes Consult Physician Routine Consulting Provider: Tali Turner Consult Reason/Comments: leg wound Do you want consulting provider notified?: Yes 08/07/23 18:18 Consult Physician Routine Consulting Provider: Paco Barajas Consult Reason/Comments: Stump wound infection and dehiscence. Severe PAD Do you want consulting provider notified?: Yes Primary care physician: Odin Obrien [place] [facility] Course: This is a 67-year-old male with a known history of PAD who has been struggling with poor wound healing since recent femoralfemoral bypass and right above the knee amputation. He was in a fci and wound has not been healing property, he went to wound care and they sent him here for further evaluation. Wound is now open. Patient was seen and evaluated again by surgeons here at [facility], he would prefer a second opinion. We will attempt to transfer patient to [facility] or [facility]. Patient in agreement with plan. Patient seen and evaluated by nurse practitioner, physician in agreement with plan Patient Condition at Discharge: Serious Plan - Discharge Summary Discharge Rx Participant: No New Discharge Prescriptions: Continue amLODIPine [Norvasc] 5 mg PO DAILY@0800 Metoprolol Tartrate [Lopressor] 100 mg PO TID@0800,1400,2000 Magnesium Hydroxide [Milk of Magnesia Concentrate] 7,200 mg PO Q2D PRN PRN Reason: 2 days no BM Na Phos,M-B/Na Phos,Di-Ba [Fleet Adult] 133 ml RECTAL DAILY PRN PRN Reason: Constipation Ampicillin Sodium/Sulbactam Na [Unasyn 3 gm Vial] 3 gm IVPB Q6HR #120 each Amiodarone [Cordarone] 100 mg PO DAILY@0800 Famotidine [Pepcid] 40 mg PO HS Apixaban [Eliquis] 5 mg PO BID@0800,1700 bisacodyL [Dulcolax] 10 mg RECTAL DAILY PRN PRN Reason: Constipation Clopidogrel [Plavix] 75 mg PO DAILY@0800 lisinopriL [Zestril] 10 mg PO DAILY@0800 HYDROcodone/APAP 5-325MG [[place] 5-325] 1 tab PO Q4HR PRN PRN Reason: Pain Discharge Medication List amLODIPine [Norvasc] 5 mg PO DAILY@0800 02/26/23 [History] Amiodarone [Cordarone] 100 mg PO DAILY@0800 07/02/23 [History] Famotidine [Pepcid] 40 mg PO HS 07/02/23 [History] Metoprolol Tartrate [Lopressor] 100 mg PO TID@0800,1400,2000 07/02/23 [History] Apixaban [Eliquis] 5 mg PO BID@0800,1700 07/22/23 [History] Clopidogrel [Plavix] 75 mg PO DAILY@0800 07/22/23 [History] HYDROcodone/APAP 5-325MG [[place] 5-325] 1 tab PO Q4HR PRN 07/22/23 [History] Magnesium Hydroxide [Milk of Magnesia Concentrate] 7,200 mg PO Q2D PRN 07/22/23 [History] Na Phos,M-B/Na Phos,Di-Ba [Fleet Adult] 133 ml RECTAL DAILY PRN 07/22/23 [History] bisacodyL [Dulcolax] 10 mg RECTAL DAILY PRN 07/22/23 [History] lisinopriL [Zestril] 10 mg PO DAILY@0800 07/22/23 [History] Ampicillin Sodium/Sulbactam Na [Unasyn 3 gm Vial] 3 gm IVPB Q6HR #120 each 07/30/23 [Rx] Follow up Appointment(s)/Referral(s): Odin Obrien MD [Primary Care Provider] - 1-2 days Discharge Disposition: OTHER INSTITUTION NOT DEFINED
[2023-08-09 12:36] VITALS: BMI 23.0
[2023-08-09 13:49] LABS: HCT 36.4 % (39.6-50.0); HGB 11.1 d/dL (13.0-17.0); MCH 31.9 pg (27.0-32.0); MCHC 30.5 d/dL (32.0-37.0); MCV 104.6 FL (80.0-97.0); Mean Platelet Volume 10.1 FL (9.5-12.2); NRBC Per 100 WBC 0 X 10*3/uL (0.00-0.01); Platelet Count 332 X 10*3/uL (140-440); RBC 3.48 X 10*6/uL (4.40-5.60); RDW 13.7 % (11.5-14.5); WBC 5.71 X 10*3/uL (4.50-10.00)
[2023-08-09] MEDS ORDERED: VANCOMYCIN TROUGH DUE 1 EACH MISC MISCELLANE ONE (14:00)
--- NOTE | 2023-08-09 14:19 | P.PN ---
Subjective Progress Note Date: 08/09/23 Principal diagnosis: Right AKA stump wound and osteomyelitis Patient is a 67-year male with a past medical history difficult for hypertension hyperlipidemia atrial fibrillation peripheral arterial disease in this patient who recently did have a right pnfpu-cbk-cerw amputation subsequently readmitted to the hospital with skin necrosis of the right AKA stump the patient s/p surgical debridement and culture positive for Klebsiella Enterococcus faecalis that was penicillin sensitive along with anaerobic gram- positive cocci patient did get a PICC line and was getting outpatient IV Unasyn readmitted from the wound care center concerning for worsening wound to the righ t AKA stump. On today's evaluation that is 08/09/2023, the patient remains to be afebrile, , the patient is breathing comfortably on room air , the patient denies chest pain shortness of breath or cough, patient denies nausea / vomiting and no abdominal pain , no diarrhea reported, the patient pain to the right AKA stump is controlled with the current medication Patient did have a creatinine of 0.90, white count is 5.71 as of yesterday cultures are pending Objective - Vital Signs Vital signs: Vital Signs Temp 98.1 F 08/09/23 06:54 Pulse 58 L 08/09/23 06:54 Resp 17 08/09/23 06:54 BP 160/78 08/09/23 06:54 Pulse Ox 97 08/09/23 06:54 FiO2 Intake & Output 08/08/23 08/09/23 08/09/23 18:59 06:59 18:59 Intake Total 720 Output Total 600 375 700 Balance -600 345 -700 Weight 77.111 kg Intake: IV 600 Ampicillin-Sulbactam 3 gm 100 In Sodium Chloride 0.9% 100 ml @ 200 mls/hr IVPB Q6HR [facility] Rx#:[id number] Vancomycin 1,500 mg In 500 Sodium Chloride 0.9% 500 ml 500 ml @ 167 mls/hr IVPB Q12H [facility] Rx#: [id number] Oral 120 Output: Urine 600 375 700 - Exam GENERAL DESCRIPTION: An elderly male lying in bed in no distress RESPIRATORY SYSTEM: Unlabored breathing , decreased breath sounds at bases HEART: S1 S2 regular rate and rhythm , ABDOMEN: Soft , no tenderness EXTREMITIES: Right AK stump is currently dressed - Labs CBC & Chem 7: 08/08/23 06:05 08/08/23 06:05 Labs: Microbiology - Last 24 Hours (Table) 08/07/23 13:45 Blood Culture - Preliminary Blood 08/07/23 13:55 Blood Culture - Preliminary Blood Assessment and Plan (1) Osteomyelitis of right femur Current Visit: Yes Status: Acute Code(s): M86.9 - OSTEOMYELITIS, UNSPECIFIED SNOMED Code(s): 5929537936145910 (2) Wound infection Current Visit: Yes Status: Acute Code(s): T14.8XXA - OTHER INJURY OF UNSPECIFIED BODY REGION, INITIAL ENCOUNTER; L08.9 - LOCAL INFECTION OF THE SKIN AND SUBCUTANEOUS TISSUE, UNSP SNOMED Code(s): 37130752 Plan: 1patient with right AKA stump wound infection and concern for underlying oste omyelitis with recent culture positive for Klebsiella and Enterococcus faecalis and anaerobes that was sensitive to Unasyn and now being admitted to the hospital with worsening wound evidence of some necrotic tissue and the femur bone is exposed with a clinical osteomyelitis x-ray did show some soft tissue air concerning for infection. 2patient is currently waiting for transfer to tertiary care for further surgical care of his right AKA stump wound 3-patient to continue with the vancomycin and Unasyn and monitor clinical course closely Dictation was produced using [employer] dictation software. please excuse any grammatical, word or spelling errors.
[2023-08-09 16:20] LABS: African American GFR (CKD) 68 (>60 ml/min/1.73 sqM); Non-African American GFR(CKD) 59 (>60 ml/min/1.73 sqM)
[2023-08-09] MEDS: FAMOTIDINE 20 MG TAB PO SCH (20:03)
[2023-08-10] MEDS: AMPICILLIN-SULBACTAM 3 GM in SODIUM CHLORIDE 0.9% 100 ML IVPB SCH ×5 (00:18→23:59)
[2023-08-10] MEDS: VANCOMYCIN 1,250 MG in SODIUM CHLORIDE 0.9% 250 ML IVPB SCH ×2 (06:35→18:29)
[2023-08-10 06:53] LABS: African American GFR (CKD) >90 (>60 ml/min/1.73 sqM); Non-African American GFR(CKD) 90 (>60 ml/min/1.73 sqM)
[2023-08-10] MEDS: CLOPIDOGREL 75 MG TAB PO SCH (08:10)
[2023-08-10] MEDS: METOPROLOL TARTRATE 50 MG TAB PO SCH ×2 (08:11→14:07)
[2023-08-10] MEDS: HYDROcodone/APAP 5-325MG 1 EACH TAB PO PRN ×4 (08:12→22:13)
[2023-08-10] MEDS: lisinopriL 10 MG TAB PO SCH (08:12)
[2023-08-10] MEDS: amLODIPine 5 MG TAB PO SCH (08:12)
[2023-08-10] MEDS: AMIODARONE 100 MG TAB PO SCH (08:12)
--- NOTE | 2023-08-10 08:43 | P.PN ---
Subjective Progress Note Date: 08/10/23 Principal diagnosis: Right lower extremity wound is not healing properly. Vascular surgery input is expected. The patient was attentive be transferred yesterday but no institution with except the patient at this time due to the level of care. The patient does not complain of significant pain. No fever or chills. No sniffing nausea, vomiting or diarrhea. Patient on room air. Objective - Vital Signs Vital signs: Vital Signs Temp 97.9 F 08/10/23 07:29 Pulse 92 08/10/23 07:29 Resp 19 08/10/23 07:29 BP 159/74 08/10/23 07:29 Pulse Ox 95 08/10/23 07:29 FiO2 Intake & Output 08/09/23 08/10/23 08/10/23 18:59 06:59 18:59 Intake Total 930 Output Total 700 750 Balance -700 180 Weight 77.111 kg Intake: Intake, IV Titration 450 Amount Ampicillin-Sulbactam 3 gm 200 In Sodium Chloride 0.9% 100 ml @ 200 mls/hr IVPB Q6HR [facility] Rx#:[id number] Vancomycin 1,250 mg In 250 Sodium Chloride 0.9% 250 ml @ 125 mls/hr IVPB Q12H [facility] Rx#:[id number] Oral 480 Output: Urine 700 750 Other: # Voids 0 # Bowel Movements 1 - Constitutional General appearance: Present: average body habitus - EENT Eyes: Absent: abnormal pupil - Respiratory Respiratory: bilateral: CTA - Cardiovascular Rhythm: regular Heart sounds: normal: S1, S2 Abnormal Heart Sounds: Absent: S3 Gallop - Gastrointestinal General gastrointestinal: Present: soft. Absent: tenderness - Integumentary Integumentary Comment(s): Poor wound with femoral shaft seen. Question necrosis. - Labs CBC & Chem 7: 08/08/23 06:05 08/10/23 06:08 Labs: Abnormal Lab Results - Last 24 Hours (Table) 08/08/23 08/09/23 Range/Units 06:05 15:22 RBC 3.48 L (4.40-5.60) X 10*6/uL Hgb 11.1 L (13.0-17.0) d/dL Hct 36.4 L (39.6-50.0) % MCV 104.6 H (80.0-97.0) FL MCHC 30.5 L (32.0-37.0) d/dL Creatinine 1.27 H (0.66-1.25) mg/dL Microbiology - Last 24 Hours (Table) 08/07/23 13:45 Blood Culture - Preliminary Blood 08/07/23 13:55 Blood Culture - Preliminary Blood 08/07/23 14:10 Gram Stain - Final Leg - Right Wound Culture - Final Assessment and Plan (1) Osteomyelitis of right femur Current Visit: Yes Status: Acute Code(s): M86.9 - OSTEOMYELITIS, UNSPECIFIED SNOMED Code(s): 0285263611508339 (2) Wound infection Current Visit: Yes Status: Acute Code(s): T14.8XXA - OTHER INJURY OF UNSPECIFIED BODY REGION, INITIAL ENCOUNTER; L08.9 - LOCAL INFECTION OF THE SKIN AND SUBCUTANEOUS TISSUE, UNSP SNOMED Code(s): 55557742 (3) Atrial fibrillation Current Visit: No Status: Acute Code(s): I48.91 - UNSPECIFIED ATRIAL FIBRILLATION SNOMED Code(s): 99746504 (4) Hyperlipidemia Current Visit: No Status: Acute Code(s): E78.5 - HYPERLIPIDEMIA, UNSPECIFIED SNOMED Code(s): 05975893 (5) Hypertension Current Visit: No Status: Acute Code(s): I10 - ESSENTIAL (PRIMARY) HYPERTENS ION SNOMED Code(s): 15639414 (6) Ischemia of right lower extremity Current Visit: No Status: Acute Code(s): I99.8 - OTHER DISORDER OF CIRCULATORY SYSTEM SNOMED Code(s): 307096958 (7) Peripheral vascular disease Current Visit: No Status: Acute Code(s): I73.9 - PERIPHERAL VASCULAR DISEASE, UNSPECIFIED SNOMED Code(s): 973116936 (8) Surgical site infection Current Visit: No Status: Acute Code(s): T81.49XA - INFECTION FOLLOWING A PROCEDURE, OTHER SURGICAL SITE, INIT SNOMED Code(s): 04034811 Plan: Appropriate infectious disease consult for wound care. Vascular surgery consult expected today. Question debridement versus the need for further agitation of the leg. Appropriate empiric antibiotic treatment. Wound care. Restart home medications. Check CBC and CMP in a.m. proGnosis is guarded.
--- NOTE | 2023-08-10 11:32 | P.GSCN ---
History of Present Illness Consult date: 08/10/23 Reason for Consult: Infected right qivgg-uec-iaxo amputation site Requesting physician: Odin Obrien History of present illness: This is a pleasant 67-year-old male with significant peripheral arterial disease well-known to our vascular surgery group. Patient had initial right lower extremity femoral to tibial bypass 2-[address] Mendoza. He was recently admitted in June right lower extremity pain from the knee down. As CT angiogram of the lower extremities at that time that showed a right iliac occ lusion, occluded right femoral to tibial bypass graft plus occluded left subclavian artery highly stenotic left common femoral artery and total occlusion of the right common femoral and SFAs. At that time he underwent balloon dilation of the left common iliac artery with covered stent placement to left common iliac artery. He still had right lower extremity Q critical limb ischemia with right femoral artery occlusion and underwent a right wziki-uoj-umfa amputation on 07/03/2023 and was subsequently discharged on 07/06/2023. He was then readmitted on 07/22/2023 for concerns of surgical site infection and ischemia. He had right common and external iliac artery occlusion and right common and SFAs artery occlusion with breakdown of the pkltq-bhn-abic amputation wound. On 07/26/2023 he underwent femoral to femoral bypass graft and debridement of the right vcpcr-iyh-mfzq amputation with wound VAC application place. He was then discharged on 07/31/2023 to [facility] with wound VAC in place. He went to wound care clinic on 08/07/2023 and they sent patient to the emergency department for concerns for nonhealing wound and possible wound infection. Vascular surgery was consulted, patient and sister was seen on 08/07/2023 however they decline consultation at that time. Plan was for con sultation to Dr. Barajas and possible transfer to tertiary facility with other vascular surgery services per patient request for second opinion. Patient was not accepted as a transfer and patient and family agreed to vascular surgery consult at this facility. Patient states he does not have much pain to the right lower extremity, overall he is feeling well. He denies any fevers, chills, abdominal pain, shortness of breath or chest pain. He has been afebrile this entire admission. No leukocytosis. Infectious disease was consulted as well he is currently on Unasyn and vancomycin. Wound culture without any growth, negative blood culture. Femur x-ray reports post amputation with soft tissue edema and soft tissue emphysema. Presence of air suggest possible infectious etiology. No destructive osseous changes. Review of Systems A 14 point review systems was completed all pertinent positives and negatives as stated in the HPI. Past Medical History Past Medical History: Atrial Fibrillation, Cancer, Hyperlipidemia, Hypertension, Vascular Disorder Additional Past Medical History / Comment(s): SKIN CANCER. 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. 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 aortagram, right leg above knee amputatio n Past Anesthesia/Blood Transfusion Reactions: No Reported Reaction Date of Last Stent Placement:: 08/18/2020 Past Psychological History: No Psychological Hx Reported Smoking Status: Former smoker Past Alcohol Use History: None Reported Past Drug Use History: None Reported - Past Family History Father Family Medical History: Cancer Additional Family Medical History / Comment(s): throat cancer Brother(s) Family Medical History: Cancer Additional Family Medical History / Comment(s): THROAT CANCER. Mother Family Medical History: Cancer Medications and Allergies Home Medications Medication Instructions Recorded Confirmed Type amLODIPine [Norvasc] 5 mg PO DAILY@0800 02/26/23 08/07/23 History Amiodarone [Cordarone] 100 mg PO DAILY@0800 07/02/23 08/07/23 History Famotidine [Pepcid] 40 mg PO HS 07/02/23 08/07/23 History Metoprolol Tartrate [Lopressor] 100 mg PO TID@0800,1400,2000 07/02/23 08/07/23 History Apixaban [Eliquis] 5 mg PO BID@0800,1700 07/22/23 08/07/23 History Clopidogrel [Plavix] 75 mg PO DAILY@0800 09/10/23 09/26/23 History HYDROcodone/APAP 5-325MG [[place] 1 tab PO Q4HR PRN 07/22/23 08/07/23 History 5-325] Magnesium Hydroxide [Milk of 7,200 mg PO Q2D PRN 07/22/23 08/07/23 History Magnesia Concentrate] Na Phos,M-B/Na Phos,Di-Ba [Fleet 133 ml RECTAL DAILY PRN 07/22/23 08/07/23 Histo ry Adult] bisacodyL [Dulcolax] 10 mg RECTAL DAILY PRN 07/22/23 08/07/23 History lisinopriL [Zestril] 10 mg PO DAILY@0800 07/22/23 08/07/23 History Ampicillin Sodium/Sulbactam Na 3 gm IVPB Q6HR #120 each 07/30/23 08/07/23 Rx [Unasyn 3 gm Vial] Allergies Allergy/AdvReac Type Severity Reaction Status Date / Time No Known Allergies Allergy Verified 08/07/23 14:49 Surgical - Exam Vital Signs Temp Pulse Resp BP Pulse Ox 97.5 F L 54 L 16 154/74 97 08/07/23 11:20 08/07/23 11:20 08/07/23 11:20 08/07/23 11:20 08/07/23 11:20 General appearance: The patient is alert, oriented, appears in no acute distress. HET: Head is normocephalic and atraumatic. Pupils are equal and reactive. Neck: Supple. Heart: Regular. Lungs: Equal expansion, normal respiratory effort. Abdomen: Soft, nontender, nondistended. Extremities: Right lower extremity warm to touch no erythema AKA wound with ischemic tissue and muscle, femur bone exposed, no significant foul odor. Neurological: No focal deficits. Results - Labs 08/08/23 06:05 08/10/23 06:08 Abnormal Lab Results - Last 24 Hours (Table) 08/08/23 08/09/23 Range/Units 06:05 15:22 RBC 3.48 L (4.40-5.60) X 10*6/uL Hgb 11.1 L (13.0-17.0) d/dL Hct 36.4 L (39.6-50.0) % MCV 104.6 H (80.0-97.0) FL MCHC 30.5 L (32.0-37.0) d/dL Creatinine 1.27 H (0.66-1.25) mg/dL Microbiology - Last 24 Hours (Table) 08/07/23 13:45 Blood Culture - Preliminary Blood 08/07/23 13:55 Blood Culture - Preliminary Blood 08/07/23 14:10 Gram Stain - Final Leg - Right Wound Culture - Final Diabetes panel 08/09/23 08/10/23 Range/Units 15:22 06:08 Creatinine 1.27 H 0.88 (0.66-1.25) mg/dL Pituitary panel 08/09/23 08/10/23 Range/Units 15:22 06:08 Creatinine 1.27 H 0.88 (0.66-1.25) mg/dL Adrenal panel 08/09/23 08/10/23 Range/Units 15:22 06:08 Creatinine 1.27 H 0.88 (0.66-1.25) mg/dL Assessment and Plan Assessment: 1. Nonhealing Right above the knee amputation open wound with bone exposure 2. 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 History atrial fibrillation 4. History of hypertension hyperlipidemia Plan: 1. CT angiogram with runoff ordered 2. Heart healthy diet 3. Continue Plavix and Eliquis 4. Continue local wound care with wet-to-dry dressing 5. Further recommendations forthcoming based on CT angiogram results 6. Continue with recommendations from infectious disease Thank you for this consultation, we will continue to follow The impression and plan of care has been dictated as directed. I performed a history and examination of this patient, discussed the same with the dictator. I agree with the dictator's note ,documented as a scribe. Any additional findings or plans will be noted.
--- NOTE | 2023-08-10 11:56 | P.PN ---
Subjective Progress Note Date: 08/10/23 Principal diagnosis: Right AKA stump wound and osteomyelitis Patient is a 67-year male with a past medical history difficult for hypertension hyperlipidemia atrial fibrillation peripheral arterial disease in this patient who recently did have a right cffbd-wmo-lzxo amputation subsequently readmitted to the hospital with skin necrosis of the right AKA stump the patient s/p surgical debridement and culture positive for Klebsiella Enterococcus faecalis that was penicillin sensitive along with anaerobic gram- positive cocci patient did get a PICC line and was getting outpatient IV Unasyn readmitted from the wound care center concerning for worsening wound to the righ t AKA stump. On today's evaluation that is 08/10/2023, the patient continues to be afebrile, , the patient is breathing comfortably on room air , the patient denies chest pain shortness or cough, patient denies nausea / vomiting and no diarrhea, denies having any abdominal pain, the patient pain to the right AKA stump is controlled with the current medication, patient has been evaluated by vascular surgery and Danna with a lot of has been ordered Patient did have a creatinine of 0.88, white count is 5.71 as of 08/08/2023, cultures are pending Objective - Vital Signs Vital signs: Vital Signs Temp 97.9 F 08/10/23 07:29 Pulse 92 08/10/23 07:29 Resp 19 08/10/23 07:29 BP 159/74 08/10/23 07:29 Pulse Ox 95 08/10/23 07:29 FiO2 Intake & Output 08/09/23 08/10/23 08/10/23 18:59 06:59 18:59 Intake Total 930 Output Total 700 750 Balance -700 180 Weight 77.111 kg Intake: Intake, IV Titration 450 Amount Ampicillin-Sulbactam 3 gm 200 In Sodium Chloride 0.9% 100 ml @ 200 mls/hr IVPB Q6HR [facility] Rx#:[id number] Vancomycin 1,250 mg In 250 Sodium Chloride 0.9% 250 ml @ 125 mls/hr IVPB Q12H [facility] Rx#:[id number] Oral 480 Output: Urine 700 750 Other: # Voids 0 # Bowel Movements 1 - Exam GENERAL DESCRIPTION: An elderly male lying in bed in no distress RESPIRATORY SYSTEM: Unlabored breathing , decreased breath sounds at bases HEART: S1 S2 regular rate and rhythm , ABDOMEN: Soft , no tenderness EXTREMITIES: Right AK stump is currently dressed - Labs CBC & Chem 7: 08/08/23 06:05 08/10/23 06:08 Labs: Abnormal Lab Results - Last 24 Hours (Table) 08/08/23 08/09/23 Range/Units 06:05 15:22 RBC 3.48 L (4.40-5.60) X 10*6/uL Hgb 11.1 L (13.0-17.0) d/dL Hct 36.4 L (39.6-50.0) % MCV 104.6 H (80.0-97.0) FL MCHC 30.5 L (32.0-37.0) d/dL Creatinine 1.27 H (0.66-1.25) mg/dL Microbiology - Last 24 Hours (Table) 08/07/23 13:45 Blood Culture - Preliminary Blood 08/07/23 13:55 Blood Culture - Preliminary Blood 08/07/23 14:10 Gram Stain - Final Leg - Right Wound Culture - Final Assessment and Plan (1) Osteomyelitis of right femur Current Visit: Yes Status: Acute Code(s): M86.9 - OSTEOMYELITIS, UNSPECIFIED SNOMED Code(s): 1073274369273863 (2) Wound infection Current Visit: Yes Status: Acute Code(s): T14.8XXA - OTHER INJURY OF UNSPECIFIED BODY REGION, INITIAL ENCOUNTER; L08.9 - LOCAL INFECTION OF THE SKIN AND SUBCUTANEOUS TISSUE, UNSP SNOMED Code(s): 85813839 Plan: 1patient with right AKA stump wound infection and concern for underlying osteomyelitis with recent culture positive for Klebsiella and Enterococcus faecalis and anaerobes that was sensitive to Unasyn and now being admitted to the hospital with worsening wound evidence of some necrotic tissue and the femur bone is exposed with a clinical osteomyelitis x-ray did show some soft tissue air concerning for infection. 2patient has been evaluated by vascular surgery angiogram with runoff has been ordered reports will be followed 3-patient to continue with the vancomycin and Unasyn and monitor clinical course closely Dictation was produced using [employer] dictation software. please excuse any grammatical, word or spelling errors. Time with Patient: Less than 30
[2023-08-10] MEDS: FAMOTIDINE 20 MG TAB PO SCH (20:38)
[2023-08-11] MEDS: METOPROLOL TARTRATE 50 MG TAB PO SCH ×4 (00:04→20:19)
[2023-08-11] MEDS: AMPICILLIN-SULBACTAM 3 GM in SODIUM CHLORIDE 0.9% 100 ML IVPB SCH ×3 (05:38→17:11)
[2023-08-11] MEDS: VANCOMYCIN 1,250 MG in SODIUM CHLORIDE 0.9% 250 ML IVPB SCH ×2 (06:18→18:42)
[2023-08-11 07:52] LABS: HCT 35.8 % (39.0-53.0); HGB 11.7 gm/dL (13.0-17.5); MCH 32.4 pg (25.0-35.0); MCHC 32.6 g/dL (31.0-37.0); MCV 99.4 fL (80.0-100.0); Mean Platelet Volume 8.2; Platelet Count 265 k/uL (150-450); RBC 3.61 m/uL (4.30-5.90); RDW 14.1 % (11.5-15.5); WBC 6.3 k/uL (3.8-10.6)
[2023-08-11 08:08] LABS: ALT 20 U/L (4-49); AST 21 U/L (17-59); African American GFR (CKD) >90 (>60 ml/min/1.73 sqM); Albumin 2.8 g/dL (3.5-5.0); Albumin/Globulin Ratio 0.8; Alkaline Phosphatase 107 U/L (38-126); Anion Gap 8 mmol/L; Blood Urea Nitrogen 8 mg/dL (9-20); Calcium 8.3 mg/dL (8.4-10.2); Carbon Dioxide 26 mmol/L (22-30); Chloride 105 mmol/L (98-107); Globulin 3.3 g/dL; Glucose 85 mg/dL (74-99); Non-African American GFR(CKD) >90 (>60 ml/min/1.73 sqM); Potassium 3.8 mmol/L (3.5-5.1); Sodium 139 mmol/L (137-145); Total Bilirubin 0.5 mg/dL (0.2-1.3); Total Protein 6.1 g/dL (6.3-8.2)
[2023-08-11] MEDS: amLODIPine 5 MG TAB PO SCH (08:49)
[2023-08-11] MEDS: lisinopriL 10 MG TAB PO SCH (08:49)
[2023-08-11] MEDS: AMIODARONE 100 MG TAB PO SCH (08:49)
[2023-08-11] MEDS: HYDROcodone/APAP 5-325MG 1 EACH TAB PO PRN ×4 (08:49→22:32)
--- NOTE | 2023-08-11 12:49 | P.PN ---
Subjective Progress Note Date: 08/11/23 Patient seen and examined. No complaints or concerns. No changes overnight Objective - Vital Signs Vital signs: Vital Signs Temp 98.0 F 08/11/23 08:00 Pulse 70 08/11/23 08:00 Resp 16 08/11/23 08:00 BP 174/75 08/11/23 08:00 Pulse Ox 97 08/11/23 08:00 FiO2 Intake & Output 08/10/23 08/11/23 08/11/23 18:59 06:59 18:59 Output Total 550 Balance -550 Output: Urine 550 Other: # Voids 2 2 - Exam Patient no acute distress, resting comfortably. Heart appears regular. Lungs are clear. Abdomen is soft Right lower extremity dressing clean, dry, intact. Normal mood and affect. - Labs CBC & Chem 7: 08/11/23 05:59 08/11/23 05:59 Labs: Abnormal Lab Results - Last 24 Hours (Table) 08/11/23 08/11/23 Range/Units 05:59 05:59 RBC 3.61 L (4.30-5.90) m/uL Hgb 11.7 L (13.0-17.5) gm/dL Hct 35.8 L (39.0-53.0) % BUN 8 L (9-20) mg/dL Calcium 8.3 L (8.4-10.2) mg/dL Total Protein 6.1 L (6.3-8.2) g/dL Albumin 2.8 L (3.5-5.0) g/dL Microbiology - Last 24 Hours (Table) 08/07/23 13:45 Blood Culture - Preliminary Blood 08/07/23 13:55 Blood Culture - Preliminary Blood Assessment and Plan Assessment: 1. Nonhealing Right above the knee amputation open wound with bone exposure 2. 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 History atrial fibrillation 4. History of hypertension hyperlipidemia Plan: Long discussion had with patient and his sister. At this time unfortunately unable to see images from this morning, contacted radiology and so they're working on this. Only have images of the left lower extremity at this time, unable to discern patency of the femoral-femoral bypass graft. We will await further findings to make further recommendations. If the graft is patent, patient will need revision of his above-knee amputation versus if the graft is occluded, patient would need revascularization attempts. Fortunately this time the patient is not overtly symptomatic from this nor septic. It does need to occur but does not need to be done emergently. Multiple options were discussed. I conclusion of the discussion with he and his sister, we'll plan to remain at this hospital for appropriate interventions when recommended and available. Also discussion had regarding initiallydiscussion of perfuse consult and the sister made it clear that she was only asking for a second opinion and that she is frustrated overall for her brother's sake but at no point are the refusing care by anyone from [facility]. She is amenable on board with the plan at this time. We will await further evaluation of imaging.
--- NOTE | 2023-08-11 12:54 | P.PN ---
Subjective Progress Note Date: 08/11/23 Principal diagnosis: Right AKA stump wound and osteomyelitis Patient is a 67-year male with a past medical history difficult for hypertension hyperlipidemia atrial fibrillation peripheral arterial disease in this patient who recently did have a right reoza-dfx-tbeo amputation subsequently readmitted to the hospital with skin necrosis of the right AKA stump the patient s/p surgical debridement and culture positive for Klebsiella Enterococcus faecalis that was penicillin sensitive along with anaerobic gram- positive cocci patient did get a PICC line and was getting outpatient IV Unasyn readmitted from the wound care center concerning for worsening wound to the righ t AKA stump. On today's evaluation that is 08/11/2023, the patient remains to be afebrile, , the patient is breathing comfortably on room air , the patient denies chest pain and no significant cough, patient denies abdominal pain, nausea or vomiting and no diarrhea has been reported by the nursing staff, the patient pain to the right AKA stump is controlled with the current medication Patient did have white count is 6.3, creatinine 0.86 Objective - Vital Signs Vital signs: Vital Signs Temp 98.0 F 08/11/23 08:00 Pulse 70 08/11/23 08:00 Resp 16 08/11/23 08:00 BP 174/75 08/11/23 08:00 Pulse Ox 97 08/11/23 08:00 FiO2 Intake & Output 08/10/23 08/11/23 08/11/23 18:59 06:59 18:59 Output Total 550 Balance -550 Output: Urine 550 Other: # Voids 2 2 - Exam GENERAL DESCRIPTION: An elderly male lying in bed in no distress RESPIRATORY SYSTEM: Unlabored breathing , decreased breath sounds at bases HEART: S1 S2 regular rate and rhythm , ABDOMEN: Soft , no tenderness EXTREMITIES: Right AK stump is currently dressed - Labs CBC & Chem 7: 08/11/23 05:59 08/11/23 05:59 Labs: Abnormal Lab Results - Last 24 Hours (Table) 08/11/23 08/11/23 Range/Units 05:59 05:59 RBC 3.61 L (4.30-5.90) m/uL Hgb 11.7 L (13.0-17.5) gm/dL Hct 35.8 L (39.0-53.0) % BUN 8 L (9-20) mg/dL Calcium 8.3 L (8.4-10.2) mg/dL Total Protein 6.1 L (6.3-8.2) g/dL Albumin 2.8 L (3.5-5.0) g/dL Microbiology - Last 24 Hours (Table) 08/07/23 13:45 Blood Culture - Preliminary Blood 08/07/23 13:55 Blood Culture - Preliminary Blood Assessment and Plan (1) Osteomyelitis of right femur Current Visit: Yes Status: Acute Code(s): M86.9 - OSTEOMYELITIS, UNSPECIFIED SNOMED Code(s): 5566159028674400 (2) Wound infection Current Visit: Yes Status: Acute Code(s): T14.8XXA - OTHER INJURY OF UNSPECIFIED BODY REGION, INITIAL ENCOUNTER; L08.9 - LOCAL INFECTION OF THE SKIN AND SUBCUTANEOUS TISSUE, UNSP SNOMED Code(s): 92381029 Plan: 1patient with right AKA stump wound infection and concern for underlying osteomyelitis with recent culture positive for Klebsiella and Enterococcus faecalis and anaerobes that was sensitive to Unasyn and now being admitted to the hospital with worsening wound evidence of some necrotic tissue and the femur bone is exposed with a clinical osteomyelitis x-ray did show some soft tissue air concerning for infection. 2patient has been evaluated by vascular surgery angiogram with runoff has been completely reports are currently pending 3-patient to continue with the vancomycin and Unasyn and await further recommendation from vascular surgery Dictation was produced using [employer] dictation software. please excuse any grammatical, word or spelling errors. Time with Patient: Less than 30
--- NOTE | 2023-08-11 14:06 | P.PN ---
Subjective Progress Note Date: 08/11/23 Patient is a 67-year male with a past medical history difficult for hypertension hyperlipidemia atrial fibrillation peripheral arterial disease in this patient who recently did have a right bxawo-int-nhgk amputation subsequently readmitted to the hospital with skin necrosis of the right AKA stum p the patient s/p surgical debridement and culture positive for Klebsiella Enterococcus faecalis that was penicillin sensitive along with anaerobic gram- positive cocci patient did get a PICC line and was getting outpatient IV Unasyn readmitted from the wound care center concerning for worsening wound to the right AKA stump. 08/11. Patient seen and examined. No acute issues overnight. Vital signs stable REVIEW OF SYSTEMS: CONSTITUTIONAL: No fever, no malaise,. CARDIOVASCULAR: No chest pain, no palpitations, no syncope. PULMONARY: No shortness of breath, no cough, GASTROINTESTINAL: No diarrhea, no nausea, no vomiting, no abdominal pain. NEUROLOGICAL: No headaches, no weakness, PHYSICAL EXAMINATION: GENERAL: The patient is alert and oriented x3, not in any acute distress. Well developed, well nourished. HEENT: Pupils are round and equally reacting to light. EOMI. No scleral icterus. No conjunctival pallor. Normocephalic, atraumatic. No pharyngeal erythema. No thyromegaly. CARDIOVASCULAR: S1 and S2 present. No murmurs, rubs, or gallops. PULMONARY: Chest is clear to auscultation, no wheezing or crackles. ABDOMEN: Soft, nontender, nondistended, normoactive bowel sounds. No palpable organomegaly. MUSCULOSKELETAL: Right AKA stump, bandage in place EXTREMITIES: No cyanosis, clubbing, or pedal edema. NEUROLOGICAL: Gross neurological examination did not reveal any focal deficits. SKIN: No rashes. Assessment and plan Ostial mellitus of right femur Wound infection Atrial fibrillation ablation Hyperlipidemia Hypertension Ischemia of right lower extremity Peripheral vascular disease Surgical site infection Monitor vital signs Monitor CBC Monitor CMP Continue wound care Continue amiodarone, Norvasc Continue Lopressor Continue pain management Continue IV vancomycin and Unasyn ID following Vascular surgery planning for procedure tomorrow Labs and medication were reviewed.. Continue same treatment. Continue with symptomatic treatment. Resume home medication. Monitor labs and vitals. DVT and GI prophylaxis. Further recommendations as per clinical course of the patient Dictation was produced using [employer] dictation software. please excuse any grammatical, word or spelling errors. Objective - Vital Signs Vital signs: Vital Signs Temp 98.0 F 08/11/23 08:00 Pulse 70 08/11/23 08:00 Resp 16 08/11/23 08:00 BP 174/75 08/11/23 08:00 Pulse Ox 97 08/11/23 08:00 FiO2 Intake & Output 08/10/23 08/11/23 08/11/23 18:59 06:59 18:59 Output Total 550 Balance -550 Output: Urine 550 Other: # Voids 2 2 - Labs CBC & Chem 7: 08/11/23 05:59 08/11/23 05:59 Labs: Abnormal Lab Results - Last 24 Hours (Table) 08/11/23 08/11/23 Range/Units 05:59 05:59 RBC 3.61 L (4.30-5.90) m/uL Hgb 11.7 L (13.0-17.5) gm/dL Hct 35.8 L (39.0-53.0) % BUN 8 L (9-20) mg/dL Calcium 8.3 L (8.4-10.2) mg/dL Total Protein 6.1 L (6.3-8.2) g/dL Albumin 2.8 L (3.5-5.0) g/dL Microbiology - Last 24 Hours (Table) 08/07/23 13:45 Blood Culture - Preliminary Blood 08/07/23 13:55 Blood Culture - Preliminary Blood
--- NOTE | 2023-08-11 19:24 | CT ---
EXAMINATION TYPE: CT angio abd aorta w/Runoff DATE OF EXAM: 08/11/2023 COMPARISON: 02/15/2023 HISTORY: 67-year-old male CAD, right lower ischemia, qoiug-hae-fdng amputation TECHNIQUE: Contiguous axial scanning of the abdomen and pelvis without IV contrast. Subsequent postco ntrast CT with bilateral lower extremity runoff. The patient injected with 100 mL of Isovue 370. Fabienne yed coronal/sagittal MIP reconstructions performed. 3-D reconstructions generated on a dedicated work station. CT DLP: 2058.3 mGycm Automated exposure control for dose reduction was used. FINDINGS: The heart is borderline enlarged. Coronary calcifications are present throughout. No pericardial effu chas. Atelectasis and emphysematous change in the lower lungs. Arterial phase imaging of the liver show some vascular shunting along the anterior margin. Some gallb ladder sludge is suggested. Adrenal glands, right kidney, spleen, and pancreas within normal limits. 1.2 cm posterior renal cortical cyst on the left. No dilated small bowel, free fluid, or free air. Mild aborted. Scattered colonic diverticulosis. No p ericolic inflammatory change. Bladder is urine distended. No abnormal fluid collection in the pelvis or pelvic lymphadenopathy. Moderate atherosclerotic calcifications throughout. Moderate stenosis origin of the celiac axis and m ild proximal SMA. Bilateral renal artery origins are patent. Infrarenal fusiform abdominal aortic aneurysm measuring up to 4.5 cm, not significantly changed. Ther e is prominent crescentic plaque narrowing the lumen down to 2.3 cm. There are bilateral iliac artery stents but with occlusion on the right. The left is patent. Mild atherosclerotic narrowing left [employer]. There is a left femoral to right femoral bypass that is patel nt and allows for enhancement of the PFA on the right. Some foci of air and soft tissue swelling park g the bypass. The stented right SFA is occluded. There is extensive soft tissue loss distally at the right wsble-oex-anls amputation with exposed dist al femoral shaft osteotomy and foci of soft tissue air. Fluid around the right [employer]INTER measuring up to 4.8 cm probably postoperative hematoma. Left: Occlusion of the stented SFA. PFA is patent. Reconstitution of a diminutive popliteal artery. The anterior tibial artery is patent. Trifurcation vessels are diminutive. The peroneal artery and anterior tibial arteries both enhancemen t at the distal third leg level. Single vessel runoff via diminutive posterior tibial artery. IMPRESSION: 1. INFRARENAL AAA SIMILAR AT 4.5 CM. 2. Bilateral common iliac artery stents with the right being occluded. 3. Left femoral to right femoral artery bypass graft is patent. Suspect some postsurgical hematoma at the right-sided anastomosis measuring 4.8 cm. Some soft tissue edema and couple small foci of air al maryann the bypass graft probably relates to recent surgery. Clinically correlate to exclude infection as an etiology. 4. Right AKA. There is extensive soft tissue loss at the stump and exposed distal femoral shaft osteo robert. Foci of soft tissue air. Unclear if this relates to recent operation or infection. 5. The stented right SFA is occluded. The right PFA is patent. 6. The stented left SFA is also occluded. The PFA is patent and there is reconstitution of a diminuti ve popliteal artery. 7. Left-sided trifurcation vessels are diminutive. The peroneal artery and anterior tibial artery los e enhancement at the distal third leg level. Single vessel runoff via a diminutive posterior tibial a rtery.
[2023-08-11] MEDS: FAMOTIDINE 20 MG TAB PO SCH (20:19)
[2023-08-12] MEDS: AMPICILLIN-SULBACTAM 3 GM in SODIUM CHLORIDE 0.9% 100 ML IVPB SCH ×4 (00:36→17:08)
[2023-08-12] MEDS: VANCOMYCIN 1,250 MG in SODIUM CHLORIDE 0.9% 250 ML IVPB SCH ×2 (06:28→18:11)
[2023-08-12] MEDS: amLODIPine 5 MG TAB PO SCH (08:34)
[2023-08-12] MEDS: lisinopriL 10 MG TAB PO SCH (08:34)
[2023-08-12] MEDS: METOPROLOL TARTRATE 50 MG TAB PO SCH ×3 (08:34→20:25)
[2023-08-12] MEDS: AMIODARONE 100 MG TAB PO SCH (08:34)
[2023-08-12] MEDS: HYDROcodone/APAP 5-325MG 1 EACH TAB PO PRN ×3 (09:32→23:09)
[2023-08-12 09:46] LABS: HCT 35.7 % (39.6-50.0); HGB 11.3 d/dL (13.0-17.0); MCH 31.7 pg (27.0-32.0); MCHC 31.7 d/dL (32.0-37.0); Mean Platelet Volume 9.7 FL (9.5-12.2); NRBC Per 100 WBC 0 X 10*3/uL (0.00-0.01); Platelet Count 267 X 10*3/uL (140-440); RBC 3.57 X 10*6/uL (4.40-5.60); RDW 13.8 % (11.5-14.5); WBC 5.51 X 10*3/uL (4.50-10.00)
[2023-08-12 09:53] LABS: ALT 19 U/L (10-49); AST 13 U/L (14-35); Albumin/Globulin Ratio 1.03 Ratio (1.60-3.17); Alkaline Phosphatase 103 U/L (41-126); BUN/Creat Ratio 10.22 Ratio (12.00-20.00); Blood Urea Nitrogen 9.2 mg/dL (9.0-27.0); Calcium 8.7 mg/dL (8.7-10.3); Carbon Dioxide 26.2 mmol/L (21.6-31.8); Chloride 105 mmol/L (96-109); Globulin 2.9 d/dL (1.6-3.3); Glucose 91 mg/dL (70-110); Potassium 3.7 mmol/L (3.5-5.5); Sodium 140 mmol/L (135-145); Total Bilirubin 0.3 mg/dL (0.3-1.2); Total Protein 5.9 d/dL (6.2-8.2)
--- NOTE | 2023-08-12 12:36 | P.PN ---
Subjective Progress Note Date: 08/12/23 Patient is a 67-year male with a past medical history difficult for hypertension hyperlipidemia atrial fibrillation peripheral arterial disease in this patient who recently did have a right vtenk-kpp-kwaw amputation subsequently readmitted to the hospital with skin necrosis of the right AKA stum p the patient s/p surgical debridement and culture positive for Klebsiella Enterococcus faecalis that was penicillin sensitive along with anaerobic gram- positive cocci patient did get a PICC line and was getting outpatient IV Unasyn readmitted from the wound care center concerning for worsening wound to the right AKA stump. 08/11. Patient seen and examined. No acute issues overnight. Vital signs stable 08/12. Patient seen and examined. Level done this morning showed WBC 5.5, hemoglobin 11.3, platelet count 267, sodium 140, potassium 3.7, BUN 9.2, creatinine 0.9,. REVIEW OF SYSTEMS: CONSTITUTIONAL: No fever, no malaise,. CARDIOVASCULAR: No chest pain, no palpitations, no syncope. PULMONARY: No shortness of breath, no cough, GASTROINTESTINAL: No diarrhea, no nausea, no vomiting, no abdominal pain. NEUROLOGICAL: No headaches, no weakness, PHYSICAL EXAMINATION: GENERAL: The patient is alert and oriented x3, not in any acute distress. Well developed, well nourished. HEENT: Pupils are round and equally reacting to light. EOMI. No scleral icterus. No conjunctival pallor. Normocephalic, atraumatic. No pharyngeal erythema. No thyromegaly. CARDIOVASCULAR: S1 and S2 present. No murmurs, rubs, or gallops. PULMONARY: Chest is clear to auscultation, no wheezing or crackles. ABDOMEN: Soft, nontender, nondistended, normoactive bowel sounds. No palpable or ganomegaly. MUSCULOSKELETAL: Right AKA stump, bandage in place EXTREMITIES: No cyanosis, clubbing, or pedal edema. NEUROLOGICAL: Gross neurological examination did not reveal any focal deficits. SKIN: No rashes. Assessment and plan Osteomyelitis of right femur Wound infection Atrial fibrillation ablation Hyperlipidemia Hypertension Ischemia of right lower extremity Peripheral vascular disease Surgical site infection Monitor vital signs Monitor CBC Monitor CMP Continue wound care Continue amiodarone, Norvasc Continue Lopressor Continue pain management Continue IV vancomycin and Unasyn ID following Vascular surgery planning for procedure today Labs and medication were reviewed.. Continue same treatment. Continue with symptomatic treatment. Resume home medication. Monitor labs and vitals. DVT and GI prophylaxis. Further recommendations as per clinical course of the patient Dictation was produced using [employer] dictation software. please excuse any grammatical, word or spelling errors. Objective - Vital Signs Vital signs: Vital Signs Temp 97.9 F 08/12/23 07:56 Pulse 53 L 08/12/23 07:56 Resp 17 08/12/23 07:56 BP 102/69 08/12/23 07:56 Pulse Ox 94 L 08/12/23 07:56 FiO2 Intake & Output 08/11/23 08/12/23 08/12/23 18:59 06:59 18:59 Other: # Voids 4 - Labs CBC & Chem 7: 08/12/23 05:30 08/12/23 05:30 Labs: Abnormal Lab Results - Last 24 Hours (Table) 08/12/23 08/12/23 Range/Units 05:30 05:30 RBC 3.57 L (4.40-5.60) X 10*6/uL Hgb 11.3 L (13.0-17.0) d/dL Hct 35.7 L (39.6-50.0) % MCV 100.0 H (80.0-97.0) FL MCHC 31.7 L (32.0-37.0) d/dL BUN/Creatinine Ratio 10.22 L (12.00-20.00) Ratio AST 13 L (14-35) U/L Total Protein 5.9 L (6.2-8.2) d/dL Albumin 3.0 L (3.8-4.9) d/dL Albumin/Globulin Ratio 1.03 L (1.60-3.17) Ratio
[2023-08-12] MEDS ORDERED: ePHEDrine 50 MG/ML 1 ML VIAL ONE (12:49)
[2023-08-12] MEDS ORDERED: PROPOFOL 10 MG/ML 20 ML VIAL IV ONE (12:49)
[2023-08-12] MEDS ORDERED: fentaNYL (PF) 50 MCG/ML 2 ML AMP ONE (12:49)
[2023-08-12] MEDS ORDERED: MIDAZOLAM 2 MG/2 ML VIAL ONE (12:49)
[2023-08-12] MEDS ORDERED: LIDOCAINE 1% INJ 10MG/ML (20 ML MDV) ONE (12:49)
[2023-08-12] MEDS ORDERED: IV FLUID CONTINUATION 1,000 ML IV ONE (12:52)
--- NOTE | 2023-08-12 14:14 | P.PN ---
Subjective Progress Note Date: 08/12/23 Patient seen and examined. No complaints or concerns. No changes overnight Objective - Vital Signs Vital signs: Vital Signs Temp 97.9 F 08/12/23 07:56 Pulse 53 L 08/12/23 07:56 Resp 17 08/12/23 07:56 BP 102/69 08/12/23 07:56 Pulse Ox 94 L 08/12/23 07:56 FiO2 Intake & Output 08/11/23 08/12/23 08/12/23 18:59 06:59 18:59 Intake Total 600 Output Total 75 Balance 525 Intake: IV 600 Output: Estimated Blood Loss 75 Other: # Voids 4 - Exam Patient no acute distress, resting comfortably. Heart appears regular. Lungs are clear. Abdomen is soft Right lower extremity dressing clean, dry, intact. Normal mood and affect. - Labs CBC & Chem 7: 08/12/23 05:30 08/12/23 05:30 Labs: Abnormal Lab Results - Last 24 Hours (Table) 08/12/23 08/12/23 Range/Units 05:30 05:30 RBC 3.57 L (4.40-5.60) X 10*6/uL Hgb 11.3 L (13.0-17.0) d/dL Hct 35.7 L (39.6-50.0) % MCV 100.0 H (80.0-97.0) FL MCHC 31.7 L (32.0-37.0) d/dL BUN/Creatinine Ratio 10.22 L (12.00-20.00) Ratio AST 13 L (14-35) U/L Total Protein 5.9 L (6.2-8.2) d/dL Albumin 3.0 L (3.8-4.9) d/dL Albumin/Globulin Ratio 1.03 L (1.60-3.17) Ratio Assessment and Plan Assessment: 1. Nonhealing Right above the knee amputation open wound with bone exposure 2. 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 History atrial fibrillation 4. History of hypertension hyperlipidemia Plan: Plan for right terky-bar-vbyn amputation today. Questions are answered. Patient seemingly understands.
--- NOTE | 2023-08-12 14:17 | P.OP ---
Date of Procedure: 08/12/23 Description of Procedure: Preoperative diagnosis: Nonhealing right lower extremity wound, previous above- knee amputation, previous femoral-femoral bypass Postoperative diagnosis: Same Procedure: Revision of right Above-knee amputation Surgeon: Yolanda Brown D.O. Anesthesia: Gen. LMA EBL: 75 mL IV fluids: See records Urine output: Not measured Drains: None Complications: None immediately apparent Condition: Stable to recovery Operative indication and findings patient is a 67-year-old male has extensive history of peripheral arterial disease and subsequently underwent a right above- knee amputation followed by a femoral-femoral bypass. He has had nonhealing of the wound with worsening with bone exposure. This time he is offered a revision of his right above-knee amputation. Risks and benefits were discussed including but not limited to bleeding, infection and injury. He seemingly understood and was willing to proceed. Procedure in detail: The patient was taken to the operative suite and placed in supine position. After adequate anesthesia, the right lower extremity was prepped and draped in usual sterile fashion. A preprocedure timeout was performed, all parties were in agreement. Skin marker was utilized and the incision was marked at a high amputation site proximal to the necrotic-appearing skin Skin incision was performed and deepened through the subcutaneous tissues to the muscular fascia. The saphenous vein bypass was identified and thrombosed. The muscle groups of the anterior and medial thigh were divided with electrocautery at the same level of the skin incision. The neurovascular bundle was identified on the medial aspect of the thigh. The artery and veins were isolated and suture ligated using 2-0 silk ligature. The artery had multiple stents which were transected. The femur was then cleared of its periosteal tissue is elevated roughly 5 cm proximally and was divided with the oscillating saw. The posterior thigh muscles were then divided with electrocautery. The proximal end of the transected femur was smoothed with a rasp. The amputation site was then copiously irrigated. Hemostasis was controlled with electrocautery. The periosteum was reapproximated using interrupted sutures of 2-0 Vicryl. The fascia was reapproximated with interrupted widhcd-td-kwsjz sutures of 2-0 Vicryl. The skin was reapproximated with samantha. A dressing with gauze, Kerlix and a bandage were placed. The patient tolerated the procedure well and was transported to PACU in stable condition
[2023-08-12] MEDS: MORPHINE SULFATE 4 MG/ML SYRINGE IV PRN ×2 (15:06→20:25)
[2023-08-12] MEDS: FAMOTIDINE 20 MG TAB PO SCH (20:25)
--- NOTE | 2023-08-12 21:49 | P.PN ---
Subjective Progress Note Date: 08/12/23 Principal diagnosis: Right AKA stump wound and osteomyelitis Patient is a 67-year male with a past medical history difficult for hypertension hyperlipidemia atrial fibrillation peripheral arterial disease in this patient who recently did have a right zzcha-amy-zkbr amputation subsequently readmitted to the hospital with skin necrosis of the right AKA stump the patient s/p surgical debridement and culture positive for Klebsiella Enterococcus faecalis that was penicillin sensitive along with anaerobic gram- positive cocci patient did get a PICC line and was getting outpatient IV Unasyn readmitted from the wound care center concerning for worsening wound to the righ t AKA stump.Pt is s/p revision and closure of Right AKA wound on 08/12/2023 On today's evaluation that is 08/12/2023, the patient continues to be afebrile, , the patient is breathing comfortably on room air, the patient denies chest pain shortness of breath or cough, patient denies nausea or vomiting abdominal pain, and no diarrhea has been reported , the patient is c/o pain to the right AKA stump and asking for more medication Patient labs reviewed Objective - Vital Signs Vital signs: Vital Signs Temp 97.8 F 08/12/23 19:19 Pulse 72 08/12/23 19:19 Resp 16 08/12/23 19:19 BP 124/78 08/12/23 19:19 Pulse Ox 98 08/12/23 19:19 FiO2 Intake & Output 08/12/23 08/12/23 08/13/23 06:59 18:59 06:59 Intake Total 1140 Output Total 75 Balance 1065 Weight 77.111 kg Intake: IV 600 Oral 540 Output: Estimated Blood Loss 75 - Exam GENERAL DESCRIPTION: An elderly male lying in bed in no distress RESPIRATORY SYSTEM: Unlabored breathing , decreased breath sounds at bases HEART: S1 S2 regular rate and rhythm , ABDOMEN: Soft , no tenderness EXTREMITIES: Right AK stump is currently dressed - Labs CBC & Chem 7: 08/12/23 05:30 08/12/23 05:30 Labs: Abnormal Lab Results - Last 24 Hours (Table) 08/12/23 08/12/23 Range/Units 05:30 05:30 RBC 3.57 L (4.40-5.60) X 10*6/uL Hgb 11.3 L (13.0-17.0) d/dL Hct 35.7 L (39.6-50.0) % MCV 100.0 H (80.0-97.0) FL MCHC 31.7 L (32.0-37.0) d/dL BUN/Creatinine Ratio 10.22 L (12.00-20.00) Ratio AST 13 L (14-35) U/L Total Protein 5.9 L (6.2-8.2) d/dL Albumin 3.0 L (3.8-4.9) d/dL Albumin/Globulin Ratio 1.03 L (1.60-3.17) Ratio Microbiology - Last 24 Hours (Table) 08/07/23 13:45 Blood Culture - Final Blood 08/07/23 13:55 Blood Culture - Final Blood Assessment and Plan (1) Osteomyelitis of right femur Current Visit: Yes Status: Acute Code(s): M86.9 - OSTEOMYELITIS, UNSPECIFIED SNOMED Code(s): 2927695573109601 (2) Wound infection Current Visit: Yes Status: Acute Code(s): T14.8XXA - OTHER INJURY OF UNSPECIFIED BODY REGION, INITIAL ENCOUNTER; L08.9 - LOCAL INFECTION OF THE SKIN AND SUBCUTANEOUS TISSUE, UNSP SNOMED Code(s): 01111353 Plan: 1patient with right AKA stump wound infection and concern for underlying osteomyelitis with recent culture positive for Klebsiella and Enterococcus faecalis and anaerobes that was sensitive to Unasyn and now being admitted to the hospital with worsening wound evidence of some necrotic tissue and the femur bone is exposed with a clinical osteomyelitis x-ray did show some soft tissue air concerning for infection. 2patient has been evaluated by vascular surgery angiogram with runoff has been done and the pt is s/p revision of the Right AKA stump and closure of the wound 3-patient to continue with the vancomycin and Unasyn and monitor clinical course closely Dictation was produced using [employer] dictation software. please excuse any grammatical, word or spelling errors. Time with Patient: Less than 30
[2023-08-13] MEDS: AMPICILLIN-SULBACTAM 3 GM in SODIUM CHLORIDE 0.9% 100 ML IVPB SCH ×5 (00:06→23:50)
[2023-08-13] MEDS: MORPHINE SULFATE 4 MG/ML SYRINGE IV PRN ×3 (01:17→19:41)
[2023-08-13] MEDS: HYDROcodone/APAP 5-325MG 1 EACH TAB PO PRN ×4 (05:42→21:05)
[2023-08-13] MEDS: VANCOMYCIN 1,250 MG in SODIUM CHLORIDE 0.9% 250 ML IVPB SCH (06:18)
[2023-08-13 06:28] LABS: ALT 19 U/L (4-49); AST 18 U/L (17-59); African American GFR (CKD) 55 (>60 ml/min/1.73 sqM); Albumin 2.7 g/dL (3.5-5.0); Albumin/Globulin Ratio 0.9; Alkaline Phosphatase 91 U/L (38-126); Anion Gap 7 mmol/L; Blood Urea Nitrogen 16 mg/dL (9-20); Calcium 8.3 mg/dL (8.4-10.2); Carbon Dioxide 24 mmol/L (22-30); Chloride 107 mmol/L (98-107); Globulin 2.9 g/dL; Glucose 119 mg/dL (74-99); Non-African American GFR(CKD) 48 (>60 ml/min/1.73 sqM); Potassium 4.1 mmol/L (3.5-5.1); Sodium 138 mmol/L (137-145); Total Bilirubin 0.5 mg/dL (0.2-1.3); Total Protein 5.6 g/dL (6.3-8.2)
[2023-08-13] MEDS: lisinopriL 10 MG TAB PO SCH (08:27)
[2023-08-13] MEDS: METOPROLOL TARTRATE 50 MG TAB PO SCH ×3 (08:28→21:05)
[2023-08-13] MEDS: AMIODARONE 100 MG TAB PO SCH (08:28)
[2023-08-13] MEDS: amLODIPine 5 MG TAB PO SCH (08:28)
--- NOTE | 2023-08-13 08:47 | P.PN ---
Subjective Progress Note Date: 08/13/23 Principal diagnosis: nonhealing wound This is a 67-year-old male with a known history of PAD has been struggling with poor wound healing since recent femoralfemoral bypass and right qjaue-bgt-ijsp amputation. On admission patient did want to be transferred to another hospital, but no institution with except him at this time due to his level of care. Yesterday patient underwent a revision of right csrkf-fcm-mtxm amputation with Dr. Brown. Patient tolerated procedure well. He is seen laying in bed this morning, reports pain is well-controlled. Objective - Vital Signs Vital signs: Vital Signs Temp 98.1 F 08/13/23 07:22 Pulse 65 08/13/23 07:22 Resp 17 08/13/23 07:22 BP 160/65 08/13/23 07:22 Pulse Ox 97 08/13/23 07:22 FiO2 Intake & Output 08/12/23 08/13/23 08/13/23 18:59 06:59 18:59 Intake Total 1140 Output Total 75 250 Balance 1065 -250 Weight 77.111 kg Intake: IV 600 Oral 540 Output: Urine 250 Estimated Blood Loss 75 Other: # Voids 0 - Constitutional General appearance: Present: cooperative, no acute distress - EENT Eyes: Present: PERRLA - Neck Neck: Present: normal ROM. Absent: lymphadenopathy, rigidity - Respiratory Respiratory: bilateral: CTA - Cardiovascular Rhythm: regular Heart sounds: normal: S1, S2 - Gastrointestinal General gastrointestinal: Present: soft. Absent: tenderness - Integumentary Integumentary Comment(s): Right rvlof-sjr-gcwp amputation dressing dry and intact - Musculoskeletal Musculoskeletal: Present: generalized weakness - Psychiatric Psychiatric: Present: A&O x's 3, appropriate affect, intact judgment & insight - Labs CBC & Chem 7: 08/12/23 05:30 08/13/23 04:48 Labs: Abnormal Lab Results - Last 24 Hours (Table) 08/12/23 08/12/23 08/13/23 Range/Units 05:30 05:30 04:48 RBC 3.57 L (4.40-5.60) X 10*6/uL Hgb 11.3 L (13.0-17.0) d/dL Hct 35.7 L (39.6-50.0) % MCV 100.0 H (80.0-97.0) FL MCHC 31.7 L (32.0-37.0) d/dL Creatinine 1.51 H (0.66-1.25) mg/dL BUN/Creatinine Ratio 10.22 L (12.00-20.00) Ratio Glucose 119 H (74-99) mg/dL Calcium 8.3 L (8.4-10.2) mg/dL AST 13 L (14-35) U/L Total Protein 5.9 L 5.6 L (6.2-8.2) d/dL Albumin 3.0 L 2.7 L (3.8-4.9) d/dL Albumin/Globulin Ratio 1.03 L (1.60-3.17) Ratio Microbiology - Last 24 Hours (Table) 08/07/23 13:45 Blood Culture - Final Blood 08/07/23 13:55 Blood Culture - Final Blood Assessment and Plan (1) Osteomyelitis of right femur Current Visit: Yes Status: Acute Code(s): M86.9 - OSTEOMYELITIS, UNSPECIFIED SNOMED Code(s): 5871059550516817 (2) Wound infection Current Visit: Yes Status: Acute Code(s): T14.8XXA - OTHER INJURY OF UNSPECIFIED BODY REGION, INITIAL ENCOUNTER; L08.9 - LOCAL INFECTION OF THE SKIN AND SUBCUTANEOUS TISSUE, UNSP SNOMED Code(s): 96231216 (3) Atrial fibrillation Current Visit: No Status: Acute Code(s): I48.91 - UNSPECIFIED ATRIAL F IBRILLATION SNOMED Code(s): 20033775 (4) Hyperlipidemia Current Visit: No Status: Acute Code(s): E78.5 - HYPERLIPIDEMIA, UNSPECIFIED SNOMED Code(s): 90495424 (5) Hypertension Current Visit: No Status: Acute Code(s): I10 - ESSENTIAL (PRIMARY) HYPERTENSION SNOMED Code(s): 55607021 (6) Ischemia of right lower extremity Current Visit: No Status: Acute Code(s): I99.8 - OTHER DISORDER OF CIRCULATORY SYSTEM SNOMED Code(s): 635980433 (7) Peripheral vascular disease Current Visit: No Status: Acute Code(s): I73.9 - PERIPHERAL VASCULAR DISEASE, UNSPECIFIED SNOMED Code(s): 034656581 (8) Surgical site infection Current Visit: No Status: Acute Code(s): T81.49XA - INFECTION FOLLOWING A PROCEDURE, OTHER SURGICAL SITE, INIT SNOMED Code(s): 61783611 Plan: continue to follow appropriate postop care. Check CBC and CMP in the morning. Patient seen and evaluated by nurse practitioner, physician in agreement with plan
[2023-08-13 08:53] LABS: Basophils # (A) 0.05 X 10*3/uL (0.00-0.10); Basophils % (A) 0.5 %; Eosinophils # (A) 0.03 X 10*3/uL (0.04-0.35); Eosinophils % (A) 0.3 %; HCT 28.5 % (39.6-50.0); Lymphocytes # (A) 1.33 X 10*3/uL (0.90-5.00); Lymphocytes % (A) 12.9 %; MCH 32.1 pg (27.0-32.0); MCHC 31.6 d/dL (32.0-37.0); MCV 101.8 FL (80.0-97.0); Mean Platelet Volume 10.2 FL (9.5-12.2); Monocytes # (A) 1.02 X 10*3/uL (0.20-1.00); Monocytes % (A) 9.9 %; NRBC Per 100 WBC 0 X 10*3/uL (0.00-0.01); Neutrophils % (A) 75.9 %; Platelet Count 263 X 10*3/uL (140-440); RDW 14.1 % (11.5-14.5); WBC 10.28 X 10*3/uL (4.50-10.00)
--- NOTE | 2023-08-13 11:05 | P.PN ---
Subjective Progress Note Date: 08/13/23 Patient is seen and examined today with follow-up. Yesterday he underwent revision of the right udsld-iyi-tvaz amputation. He states that he does have some discomfort however is being well managed with pain medication. He denies any acute changes through the night. He has been afebrile. WBC 10.2 hemoglobin 9.0. Objective - Vital Signs Vital signs: Vital Signs Temp 98.1 F 08/13/23 07:22 Pulse 65 08/13/23 07:22 Resp 17 08/13/23 07:22 BP 160/65 08/13/23 07:22 Pulse Ox 97 08/13/23 07:22 FiO2 Intake & Output 08/12/23 08/13/23 08/13/23 18:59 06:59 18:59 Intake Total 1140 Output Total 75 250 Balance 1065 -250 Weight 77.111 kg Intake: IV 600 Oral 540 Output: Urine 250 Estimated Blood Loss 75 Other: # Voids 0 - Exam General appearance: The patient is alert, oriented, appears in no acute distress. HET: Head is normocephalic and atraumatic. Pupils are equal and reactive. Neck: Supple. Heart: Regular. Lungs: Equal expansion, normal respiratory effort. Abdomen: Soft, nondistended. Extremities: Right omgsv-xem-epgv amputation with dressing clean dry and intact. Neurological: No focal deficits. Alert and oriented 3. - Labs CBC & Chem 7: 08/13/23 04:48 08/13/23 04:48 Labs: Abnormal Lab Results - Last 24 Hours (Table) 08/13/23 08/13/23 Range/Units 04:48 04:48 WBC 10.28 H (4.50-10.00) X 10*3/uL RBC 2.80 L (4.40-5.60) X 10*6/uL Hgb 9.0 L (13.0-17.0) d/dL Hct 28.5 L (39.6-50.0) % MCV 101.8 H (80.0-97.0) FL MCH 32.1 H (27.0-32.0) pg MCHC 31.6 L (32.0-37.0) d/dL Neutrophils # 7.80 H (1.80-7.70) X 10*3/uL Monocytes # 1.02 H (0.20-1.00) X 10*3/uL Eosinophils # 0.03 L (0.04-0.35) X 10*3/uL Creatinine 1.51 H (0.66-1.25) mg/dL Glucose 119 H (74-99) mg/dL Calcium 8.3 L (8.4-10.2) mg/dL Total Protein 5.6 L (6.3-8.2) g/dL Albumin 2.7 L (3.5-5.0) g/dL Microbiology - Last 24 Hours (Table) 08/07/23 13:45 Blood Culture - Final Blood 08/07/23 13:55 Blood Culture - Final Blood Assessment and Plan Assessment: 1. 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 History atrial fibrillation 4. History of hypertension hyperlipidemia Plan: 1. Plan for dressing change tomorrow 08/14/2023 2. Continue with PT/OT 3. May resume Plavix and Eliquis 4. Anticipate discharge in next 24 hours Thank you for this consultation, we will continue to follow The impression and plan of care has been dictated as directed. Dr. Nunes I performed a history and examination of this patient, discussed the same with the dictator. I agree with the dictator's note ,documented as a scribe. Any additional findings or plans will be noted.
[2023-08-13] MEDS: CLOPIDOGREL 75 MG TAB PO SCH (11:48)
[2023-08-13] MEDS ORDERED: VANCOMYCIN TROUGH DUE 1 EACH MISC MISCELLANE ONE (17:00)
[2023-08-13] MEDS: FAMOTIDINE 20 MG TAB PO SCH (21:05)
[2023-08-13] MEDS: APIXABAN 5 MG TAB PO SCH (21:05)
[2023-08-14] MEDS: MORPHINE SULFATE 4 MG/ML SYRINGE IV PRN ×2 (00:13→08:07)
[2023-08-14] MEDS: HYDROcodone/APAP 5-325MG 1 EACH TAB PO PRN ×2 (02:00→06:22)
[2023-08-14] MEDS: AMPICILLIN-SULBACTAM 3 GM in SODIUM CHLORIDE 0.9% 100 ML IVPB SCH ×4 (06:21→23:09)
[2023-08-14] MEDS: METOPROLOL TARTRATE 50 MG TAB PO SCH ×3 (08:07→20:16)
[2023-08-14] MEDS: VANCOMYCIN 1,250 MG in SODIUM CHLORIDE 0.9% 250 ML IVPB SCH (08:07)
[2023-08-14] MEDS: CLOPIDOGREL 75 MG TAB PO SCH (08:07)
[2023-08-14] MEDS: APIXABAN 5 MG TAB PO SCH ×2 (08:07→20:16)
[2023-08-14] MEDS: lisinopriL 10 MG TAB PO SCH (08:07)
[2023-08-14] MEDS: amLODIPine 5 MG TAB PO SCH (08:07)
[2023-08-14] MEDS: AMIODARONE 100 MG TAB PO SCH (08:11)
[2023-08-14 09:12] LABS: HCT 25.7 % (39.6-50.0); MCH 31.5 pg (27.0-32.0); MCHC 31.1 d/dL (32.0-37.0); MCV 101.2 FL (80.0-97.0); Mean Platelet Volume 10.1 FL (9.5-12.2); NRBC Per 100 WBC 0 X 10*3/uL (0.00-0.01); Platelet Count 204 X 10*3/uL (140-440); RBC 2.54 X 10*6/uL (4.40-5.60); RDW 14.5 % (11.5-14.5); WBC 7.54 X 10*3/uL (4.50-10.00)
--- NOTE | 2023-08-14 09:18 | P.PN ---
Subjective Progress Note Date: 08/14/23 Principal diagnosis: nonhealing wound This is a 67-year-old male with a known history of PAD has been struggling with poor wound healing since recent femoralfemoral bypass and right niplh-xlw-aels amputation. On admission patient did want to be transferred to another hospital, but no institution with except him at this time due to his level of care. Yesterday patient underwent a revision of right msmyh-xoa-fmvc amputation with Dr. Brown. Patient tolerated procedure well. He is seen laying in bed this morning, reports pain is well-controlled. 08/14/2023 Patient seen and evaluated laying in bed this morning. He is postop day #2 of right pzvln-xtn-rvbn amputation revision with Dr. Brown. He is complaining of more breakthrough pain today, and is more uncomfortable. Objective - Vital Signs Vital signs: Vital Signs Temp 98.0 F 08/14/23 08:00 Pulse 71 08/14/23 08:00 Resp 19 08/14/23 08:00 BP 157/77 08/14/23 08:00 Pulse Ox 95 08/14/23 08:00 FiO2 Intake & Output 08/13/23 08/14/23 08/14/23 18:59 06:59 18:59 Output Total 250 675 200 Balance -250 -675 -200 Weight 77.111 kg Output: Urine 250 675 200 - Constitutional General appearance: Present: cooperative, no acute distress - EENT Eyes: Present: PERRLA - Neck Neck: Present: normal ROM. Absent: lymphadenopathy, rigidity - Respiratory Respiratory: bilateral: CTA - Cardiovascular Heart sounds: normal: S1, S2 - Gastrointestinal General gastrointestinal: Present: soft. Absent: tenderness - Integumentary Integumentary Comment(s): dressing dry clean and intact Integumentary: Present: normal, normal turgor - Musculoskeletal Musculoskeletal: Present: generalized weakness - Psychiatric Psychiatric: Present: A&O x's 3, appropriate affect, intact judgment & insight - Labs CBC & Chem 7: 08/14/23 05:06 08/13/23 04:48 Labs: Abnormal Lab Results - Last 24 Hours (Table) 08/14/23 Range/Units 05:06 RBC 2.54 L (4.40-5.60) X 10*6/uL Hgb 8.0 L (13.0-17.0) d/dL Hct 25.7 L (39.6-50.0) % MCV 101.2 H (80.0-97.0) FL MCHC 31.1 L (32.0-37.0) d/dL Assessment and Plan (1) Osteomyelitis of right femur Current Visit: Yes Status: Acute Code(s): M86.9 - OSTEOMYELITIS, UNSPECIFIED SNOMED Code(s): 3220623359819655 (2) Wound infection Current Visit: Yes Status: Acute Code(s): T14.8XXA - OTHER INJURY OF UNSPECIFIED BODY REGION, INITIAL ENCOUNTER; L08.9 - LOCAL INFECTION OF THE SKIN AND SUBCUTANEOUS TISSUE, UNSP SNOMED Code(s): 98063874 (3) Atrial fibrillation Current Visit: No Status: Acute Code(s): I48.91 - UNSPECIFIED ATRIAL FIBRILLATION SNOMED Code(s): 51823713 (4) Hyperlipidemia Current Visit: No Status: Acute Code(s): E78.5 - HYPERLIPIDEMIA, UNSPECIFIED SNOMED Code(s): 79423559 (5) Hypertension Current Visit: No Status: Acute Code(s): I10 - ESSENTIAL (PRIMARY) HYPERTENSION SNOMED Code(s): 81478536 (6) Ischemia of right lower extremity Current Visit: No Status: Acute Code(s): I99.8 - OTHER DISORDER OF CIRCULATORY SYSTEM SNOMED Code(s): 473911043 (7) Peripheral vascular disease Current Visit: No Status: Acute Code(s): I73.9 - PERIPHERAL VASCULAR DISEASE, UNSPECIFIED SNOMED Code(s): 279446127 (8) Surgical site infection Current Visit: No Status: Acute Code(s): T81.49XA - INFECTION FOLLOWING A PROCEDURE, OTHER SURGICAL SITE, INIT SNOMED Code(s): 04940018 Plan: Will increase Corbett to 7.5 every 4 for better pain management Check CBC and CMP in the morning. Patient seen and evaluated by nurse practitioner, physician in agreement with plan
[2023-08-14 09:52] LABS: ALT 13 U/L (10-49); AST 17 U/L (14-35); Albumin 2.8 d/dL (3.8-4.9); Albumin/Globulin Ratio 1.12 Ratio (1.60-3.17); Alkaline Phosphatase 90 U/L (41-126); BUN/Creat Ratio 15.36 Ratio (12.00-20.00); Blood Urea Nitrogen 16.9 mg/dL (9.0-27.0); Calcium 8.4 mg/dL (8.7-10.3); Carbon Dioxide 26.1 mmol/L (21.6-31.8); Chloride 107 mmol/L (96-109); Globulin 2.5 d/dL (1.6-3.3); Glucose 97 mg/dL (70-110); Potassium 3.7 mmol/L (3.5-5.5); Sodium 142 mmol/L (135-145); Total Bilirubin 0.4 mg/dL (0.3-1.2); Total Protein 5.3 d/dL (6.2-8.2)
--- NOTE | 2023-08-14 10:31 | P.PN ---
Subjective Progress Note Date: 08/14/23 Patient seen and examined and is postop day #2 for revision of right jfcok-sxz-peub amputation. Pain a little increased today. He's been afebrile. He remains on IV antibiotics. Objective - Vital Signs Vital signs: Vital Signs Temp 98.0 F 08/14/23 08:00 Pulse 71 08/14/23 08:00 Resp 19 08/14/23 08:00 BP 157/77 08/14/23 08:00 Pulse Ox 95 08/14/23 08:00 FiO2 Intake & Output 08/13/23 08/14/23 08/14/23 18:59 06:59 18:59 Output Total 250 675 200 Balance -250 -675 -200 Weight 77.111 kg Output: Urine 250 675 200 - Exam General appearance: The patient is alert, oriented, appears in no acute distress. HET: Head is normocephalic and atraumatic. Pupils are equal and reactive. Neck: Supple. Heart: Regular. Lungs: Equal expansion, normal respiratory effort. Abdomen: Soft, nondistended. Extremities: Right ktdde-gky-ghzx amputation site well approximated with samantha, surrounding tissue pink and warm to the touch. Minimal serosanguineous drainage. Dressing reapplied with Adaptic, 4 x 4, Kerlix and stump floriculturist applied. Neurological: No focal deficits. Alert and oriented 3. - Labs CBC & Chem 7: 08/14/23 05:06 08/14/23 05:06 Labs: Abnormal Lab Results - Last 24 Hours (Table) 08/14/23 08/14/23 Range/Units 05:06 05:06 RBC 2.54 L (4.40-5.60) X 10*6/uL Hgb 8.0 L (13.0-17.0) d/dL Hct 25.7 L (39.6-50.0) % MCV 101.2 H (80.0-97.0) FL MCHC 31.1 L (32.0-37.0) d/dL Calcium 8.4 L (8.7-10.3) mg/dL Total Protein 5.3 L (6.2-8.2) d/dL Albumin 2.8 L (3.8-4.9) d/dL Albumin/Globulin Ratio 1.12 L (1.60-3.17) Ratio Assessment and Plan Assessment: 1. 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 History atrial fibrillation 4. History of hypertension hyperlipidemia 5. Anemia Plan: 1. Dressing changed and stump floriculturist applied. Please change dressing daily with Adaptic, 4 x 4, Kerlix and stump floriculturist 2. Continue with PT/OT 3. May resume Plavix and Eliquis 4. Repeat CBC tomorrow. If stable patient is clear from vascular for discharge. Thank you for this consultation, we will continue to follow The impression and plan of care has been dictated as directed. Dr. Ramirez I performed a history and examination of this patient, discussed the same with the dictator. I agree with the dictator's note ,documented as a scribe. Any additional findings or plans will be noted.
[2023-08-14] MEDS: HYDROcodone/APAP 7.5-325MG 1 EACH TAB PO PRN ×2 (11:01→20:16)
--- NOTE | 2023-08-14 13:05 | P.PN ---
Subjective Progress Note Date: 08/13/23 Principal diagnosis: Right AKA stump wound and osteomyelitis Patient is a 67-year male with a past medical history difficult for hypertension hyperlipidemia atrial fibrillation peripheral arterial disease in this patient who recently did have a right avbzq-tfs-pzpk amputation subsequently readmitted to the hospital with skin necrosis of the right AKA stump the patient s/p surgical debridement and culture positive for Klebsiella Enterococcus faecalis that was penicillin sensitive along with anaerobic gram- positive cocci patient did get a PICC line and was getting outpatient IV Unasyn readmitted from the wound care center concerning for worsening wound to the righ t AKA stump.Pt is s/p revision and closure of Right AKA wound on 08/12/2023 On today's evaluation that is 08/13/2023, the patient denies any fever or any chills , the patient is breathing comfortably on room air , the patient denies chest pain or cough, patient denies ausea or vomiting and no abdominal pain, no diarrhea , the patient pain to the right AKA stump is currently controlled Patient did have a white count of 10.28, creatinine is 1.51 Objective - Vital Signs Vital signs: Vital Signs Temp 97.5 F L 08/13/23 13:27 Pulse 60 08/13/23 13:27 Resp 17 08/13/23 13:27 BP 114/58 08/13/23 13:27 Pulse Ox 100 08/13/23 13:27 FiO2 Intake & Output 08/12/23 08/13/23 08/13/23 18:59 06:59 18:59 Intake Total 1140 Output Total 75 250 Balance 1065 -250 Weight 77.111 kg 77.111 kg Intake: IV 600 Oral 540 Output: Urine 250 Estimated Blood Loss 75 Other: # Voids 0 - Exam GENERAL DESCRIPTION: An elderly male lying in bed in no distress RESPIRATORY SYSTEM: Unlabored breathing , decreased breath sounds at bases HEART: S1 S2 regular rate and rhythm , ABDOMEN: Soft , no tenderness EXTREMITIES: Right AK stump is currently dressed - Labs CBC & Chem 7: 08/14/23 05:06 08/14/23 05:06 Labs: Abnormal Lab Results - Last 24 Hours (Table) 08/13/23 08/13/23 Range/Units 04:48 04:48 WBC 10.28 H (4.50-10.00) X 10*3/uL RBC 2.80 L (4.40-5.60) X 10*6/uL Hgb 9.0 L (13.0-17.0) d/dL Hct 28.5 L (39.6-50.0) % MCV 101.8 H (80.0-97.0) FL MCH 32.1 H (27.0-32.0) pg MCHC 31.6 L (32.0-37.0) d/dL Neutrophils # 7.80 H (1.80-7.70) X 10*3/uL Monocytes # 1.02 H (0.20-1.00) X 10*3/uL Eosinophils # 0.03 L (0.04-0.35) X 10*3/uL Creatinine 1.51 H (0.66-1.25) mg/dL Glucose 119 H (74-99) mg/dL Calcium 8.3 L (8.4-10.2) mg/dL Total Protein 5.6 L (6.3-8.2) g/dL Albumin 2.7 L (3.5-5.0) g/dL Microbiology - Last 24 Hours (Table) 08/07/23 13:45 Blood Culture - Final Blood 08/07/23 13:55 Blood Culture - Final Blood Assessment and Plan (1) Osteomyelitis of right femur Current Visit: Yes Status: Acute Code(s): M86.9 - OSTEOMYELITIS, UNSPECIFIED SNOMED Code(s): 7186198110402090 (2) Wound infection Current Visit: Yes Status: Acute Code(s): T14.8XXA - ; L08.9 - LOCAL INFECTION OF THE SKIN AND SUBCUTANEOUS TISSUE, UNSP SNOMED Code(s): 65089820 Plan: 1patient with right AKA stump wound infection and concern for underlying osteom yelitis with recent culture positive for Klebsiella and Enterococcus faecalis and anaerobes that was sensitive to Unasyn and now being admitted to the hospital with worsening wound evidence of some necrotic tissue and the femur bone is exposed with a clinical osteomyelitis x-ray did show some soft tissue air concerning for infection. 2patient is status post angiogram with runoff followed by revision of the Right AKA stump and closure of the wound 3-patient to continue with the vancomycin and Unasyn while watching his kidney function closely Dictation was produced using dragon dictation software. please excuse any grammatical, word or spelling errors. Time with Patient: Less than 30
--- NOTE | 2023-08-14 16:40 | P.PN ---
Subjective Progress Note Date: 08/14/23 Principal diagnosis: Right AKA stump wound and osteomyelitis Patient is a 67-year male with a past medical history difficult for hypertension hyperlipidemia atrial fibrillation peripheral arterial disease in this patient who recently did have a right jlwir-djy-pdzf amputation subsequently readmitted to the hospital with skin necrosis of the right AKA stump the patient s/p surgical debridement and culture positive for Klebsiella Enterococcus faecalis that was penicillin sensitive along with anaerobic gram- positive cocci patient did get a PICC line and was getting outpatient IV Unasyn readmitted from the wound care center concerning for worsening wound to the righ t AKA stump.Pt is s/p revision and closure of Right AKA wound on 08/12/2023 On today's evaluation that is 08/14/2023, the patient remains to be afebrile, the patient is breathing comfortably without need for supplemental oxygen , the patient denies chest pain and no significant cough, patient denies nausea/vomiting /diarrhea and denies abdominal pain, patient pain to the right AKA stump is currently controlled Patient did have a white count normalized to 7.54, creatinine is 1.1 Objective - Vital Signs Vital signs: Vital Signs Temp 98.0 F 08/14/23 08:00 Pulse 71 08/14/23 08:00 Resp 19 08/14/23 08:00 BP 157/77 08/14/23 08:00 Pulse Ox 95 08/14/23 08:00 FiO2 Intake & Output 08/13/23 08/14/23 08/14/23 18:59 06:59 18:59 Output Total 250 675 500 Balance -250 -675 -500 Weight 77.111 kg Output: Urine 250 675 500 - Exam GENERAL DESCRIPTION: An elderly male lying in bed in no distress RESPIRATORY SYSTEM: Unlabored breathing , decreased breath sounds at bases HEART: S1 S2 regular rate and rhythm , ABDOMEN: Soft , no tenderness EXTREMITIES: Right AK stump is currently dressed, incision looks clean 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 - Labs CBC & Chem 7: 08/14/23 05:06 08/14/23 05:06 Labs: Abnormal Lab Results - Last 24 Hours (Table) 08/14/23 08/14/23 Range/Units 05:06 05:06 RBC 2.54 L (4.40-5.60) X 10*6/uL Hgb 8.0 L (13.0-17.0) d/dL Hct 25.7 L (39.6-50.0) % MCV 101.2 H (80.0-97.0) FL MCHC 31.1 L (32.0-37.0) d/dL Calcium 8.4 L (8.7-10.3) mg/dL Total Protein 5.3 L (6.2-8.2) d/dL Albumin 2.8 L (3.8-4.9) d/dL Albumin/Globulin Ratio 1.12 L (1.60-3.17) Ratio Assessment and Plan (1) Osteomyelitis of right femur Current Visit: Yes Status: Acute Code(s): M86.9 - OSTEOMYELITIS, UNSPECIFIED SNOMED Code(s): 3923793240340679 (2) Wound infection Current Visit: Yes Status: Acute Code(s): T14.8XXA - OTHER INJURY OF UNSPECIFIED BODY REGION, INITIAL ENCOUNTER; L08.9 - LOCAL INFECTION OF THE SKIN AND SUBCUTANEOUS TISSUE, UNSP SNOMED Code(s): 24498524 Plan: 1patient with right AKA stump wound infection and concern for underlying osteomyelitis with recent culture positive for Klebsiella and Enterococcus faecalis and anaerobes that was sensitive to Unasyn and now being admitted to the hospital with worsening wound evidence of some necrotic tissue and the femur bone is exposed with a clinical osteomyelitis x-ray did show some soft tissue air concerning for infection. 2patient is status post angiogram with runoff followed by revision of the Right AKA stump and closure of the wound 3-patient to continue with current treatment of vancomycin pharmacy to dose and Unasyn and monitor his clinical course closely Dictation was produced using [email or web address] dictation software. please excuse any grammatical, word or spelling errors. Time with Patient: Less than 30
[2023-08-14] MEDS: FAMOTIDINE 20 MG TAB PO SCH (20:16)
[2023-08-15] MEDS: HYDROcodone/APAP 7.5-325MG 1 EACH TAB PO PRN ×4 (01:52→20:04)
[2023-08-15] MEDS: AMPICILLIN-SULBACTAM 3 GM in SODIUM CHLORIDE 0.9% 100 ML IVPB SCH ×3 (06:06→17:16)
[2023-08-15 06:45] LABS: ALT 15 U/L (4-49); AST 22 U/L (17-59); African American GFR (CKD) >90 (>60 ml/min/1.73 sqM); Albumin 2.5 g/dL (3.5-5.0); Albumin/Globulin Ratio 0.8; Alkaline Phosphatase 94 U/L (38-126); Anion Gap 8 mmol/L; Blood Urea Nitrogen 15 mg/dL (9-20); Calcium 8.2 mg/dL (8.4-10.2); Carbon Dioxide 24 mmol/L (22-30); Chloride 105 mmol/L (98-107); Glucose 103 mg/dL (74-99); Non-African American GFR(CKD) 89 (>60 ml/min/1.73 sqM); Potassium 3.8 mmol/L (3.5-5.1); Sodium 137 mmol/L (137-145); Total Bilirubin 0.6 mg/dL (0.2-1.3); Total Protein 5.5 g/dL (6.3-8.2)
[2023-08-15] MEDS ORDERED: VANCOMYCIN TROUGH DUE 1 EACH MISC MISCELLANE ONE (08:00)
[2023-08-15] MEDS: lisinopriL 10 MG TAB PO SCH (08:09)
[2023-08-15] MEDS: METOPROLOL TARTRATE 50 MG TAB PO SCH ×3 (08:09→22:09)
[2023-08-15] MEDS: APIXABAN 5 MG TAB PO SCH ×2 (08:09→22:09)
[2023-08-15] MEDS: amLODIPine 5 MG TAB PO SCH (08:09)
[2023-08-15] MEDS: AMIODARONE 100 MG TAB PO SCH (08:09)
[2023-08-15] MEDS: CLOPIDOGREL 75 MG TAB PO SCH (08:10)
[2023-08-15] MEDS: MORPHINE SULFATE 4 MG/ML SYRINGE IV PRN (08:13)
[2023-08-15 08:51] LABS: HCT 23.8 % (39.6-50.0); HGB 7.4 d/dL (13.0-17.0); MCH 31.8 pg (27.0-32.0); MCHC 31.1 d/dL (32.0-37.0); MCV 102.1 FL (80.0-97.0); Mean Platelet Volume 10.4 FL (9.5-12.2); NRBC Per 100 WBC 0 X 10*3/uL (0.00-0.01); Platelet Count 233 X 10*3/uL (140-440); RBC 2.33 X 10*6/uL (4.40-5.60); RDW 14.6 % (11.5-14.5); WBC 7.95 X 10*3/uL (4.50-10.00)
--- NOTE | 2023-08-15 09:00 | P.PN ---
Subjective Principal diagnosis: Postop revision. The patient is doing well except for postop pain. No fever or chills. No sniffing nausea, vomiting or diarrhea. Patient on room air. Objective - Vital Signs Vital signs: Vital Signs Temp 97.9 F 08/15/23 07:17 Pulse 68 08/15/23 07:17 Resp 20 08/15/23 07:17 BP 149/65 08/15/23 07:17 Pulse Ox 98 08/15/23 07:17 FiO2 Intake & Output 08/14/23 08/15/23 08/15/23 18:59 06:59 18:59 Output Total 500 Balance -500 Output: Urine 500 Other: Voiding Method Urinal # Voids 2 - Constitutional General appearance: Present: cooperative, no acute distress - Neck Neck: Absent: lymphadenopathy - Respiratory Respiratory: bilateral: diminished - Cardiovascular Rhythm: regular Heart sounds: normal: S1, S2 Abnormal Heart Sounds: Absent: S3 Gallop - Gastrointestinal General gastrointestinal: Present: soft. Absent: tenderness - Labs CBC & Chem 7: 08/15/23 05:24 08/15/23 05:24 Labs: Abnormal Lab Results - Last 24 Hours (Table) 08/14/23 08/14/23 08/15/23 Range/Units 05:06 05:06 05:24 RBC 2.54 L (4.40-5.60) X 10*6/uL Hgb 8.0 L (13.0-17.0) d/dL Hct 25.7 L (39.6-50.0) % MCV 101.2 H (80.0-97.0) FL MCHC 31.1 L (32.0-37.0) d/dL RDW (11.5-14.5) % Glucose 103 H (74-99) mg/dL Calcium 8.4 L 8.2 L (8.7-10.3) mg/dL Total Protein 5.3 L 5.5 L (6.2-8.2) d/dL Albumin 2.8 L 2.5 L (3.8-4.9) d/dL Albumin/Globulin Ratio 1.12 L (1.60-3.17) Ratio 08/15/23 Range/Units 05:24 RBC 2.33 L (4.40-5.60) X 10*6/uL Hgb 7.4 L (13.0-17.0) d/dL Hct 23.8 L (39.6-50.0) % MCV 102.1 H (80.0-97.0) FL MCHC 31.1 L (32.0-37.0) d/dL RDW 14.6 H (11.5-14.5) % Glucose (74-99) mg/dL Calcium (8.7-10.3) mg/dL Total Protein (6.2-8.2) d/dL Albumin (3.8-4.9) d/dL Albumin/Globulin Ratio (1.60-3.17) Ratio Assessment and Plan (1) Osteomyelitis of right femur Current Visit: Yes Status: Acute Code(s): M86.9 - OSTEOMYELITIS, UNSPECIFIED SNOMED Code(s): 4087289665259093 (2) Wound infection Current Visit: Yes Status: Acute Code(s): T14.8XXA - OTHER INJURY OF UNSPECIFIED BODY REGION, INITIAL ENCOUNTER; L08.9 - LOCAL INFECTION OF THE SKIN AND SUBCUTANEOUS TISSUE, UNSP SNOMED Code(s): 95747534 (3) Atrial fibrillation Current Visit: No Status: Acute Code(s): I48.91 - UNSPECIFIED ATRIAL FIBRILLATION SNOMED Code(s): 17077685 (4) Hyperlipidemia Current Visit: No Status: Acute Code(s): E78.5 - HYPERLIPIDEMIA, UNSPECIFIED SNOMED Code(s): 72388819 (5) Hypertension Current Visit: No Status: Acute Code(s): I10 - ESSENTIAL (PRIMARY) H YPERTENSION SNOMED Code(s): 78546958 (6) Ischemia of right lower extremity Current Visit: No Status: Acute Code(s): I99.8 - OTHER DISORDER OF CIRCULATORY SYSTEM SNOMED Code(s): 047797787 (7) Peripheral vascular disease Current Visit: No Status: Acute Code(s): I73.9 - PERIPHERAL VASCULAR DISEASE, UNSPECIFIED SNOMED Code(s): 083780917 (8) Surgical site infection Current Visit: No Status: Acute Code(s): T81.49XA - INFECTION FOLLOWING A PROCEDURE, OTHER SURGICAL SITE, INIT SNOMED Code(s): 56162696 Plan: Appropriate infectious disease consult for wound care. Continue postoperative wound care. Check CBC and CMP in a.m. Anticipate discharge/transfer in the next 24-40 hours if okay with surgery..
[2023-08-15] MEDS: VANCOMYCIN 1,250 MG in SODIUM CHLORIDE 0.9% 250 ML IVPB SCH (10:03)
[2023-08-15] MEDS: GABAPENTIN 300 MG CAP PO SCH ×2 (10:04→22:10)
--- NOTE | 2023-08-15 10:22 | P.PN ---
Subjective Progress Note Date: 08/15/23 Patient seen and examined and is postop day #3 for revision of right zxqlh-mie-dmrd amputation. Continues to complain of pain at the right surgical site. Denies any other acute changes. He's been afebrile. He remains on IV antibiotics. Hemoglobin has been trending down, repeat today 7.4. Objective - Vital Signs Vital signs: Vital Signs Temp 97.9 F 08/15/23 07:17 Pulse 68 08/15/23 08:11 Resp 20 08/15/23 08:11 BP 149/65 08/15/23 07:17 Pulse Ox 98 08/15/23 07:17 FiO2 Intake & Output 08/14/23 08/15/23 08/15/23 18:59 06:59 18:59 Output Total 500 500 Balance -500 -500 Output: Urine 500 500 Other: Voiding Method Urinal Urinal # Voids 2 - Exam General appearance: The patient is alert, oriented, appears in no acute distress. HET: Head is normocephalic and atraumatic. Pupils are equal and reactive. Neck: Supple. Heart: Regular. Lungs: Equal expansion, normal respiratory effort. Abdomen: Soft, nondistended. Extremities: Right kzwmx-zkw-mhdy amputation site with dressing and stump pen and pencil repairer in place, or sanguinous drainage. Dressing changed, incision well approximated with samantha. There is a small amount of serosanguineous drainage/oozing from the middle aspect of the incision line small amount of clot noted as well. The surrounding tissue pink and warm. Neurological: No focal deficits. Alert and oriented 3. - Labs CBC & Chem 7: 08/15/23 05:24 08/15/23 05:24 Labs: Abnormal Lab Results - Last 24 Hours (Table) 08/15/23 08/15/23 Range/Units 05:24 05:24 RBC 2.33 L (4.40-5.60) X 10*6/uL Hgb 7.4 L (13.0-17.0) d/dL Hct 23.8 L (39.6-50.0) % MCV 102.1 H (80.0-97.0) FL MCHC 31.1 L (32.0-37.0) d/dL RDW 14.6 H (11.5-14.5) % Glucose 103 H (74-99) mg/dL Calcium 8.2 L (8.4-10.2) mg/dL Total Protein 5.5 L (6.3-8.2) g/dL Albumin 2.5 L (3.5-5.0) g/dL Assessment and Plan Assessment: 1. 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 History atrial fibrillation 4. History of hypertension hyperlipidemia 5. Anemia Plan: 1. Change dressing daily 2. Continue with PT/OT 3. Add gabapentin for neuropathic pain 4. Discontinue Plavix, hold Eliquis for now 5. Iron studies ordered, stool for occult blood ordered 6. Type and screen with 1 unit PRBC ordered 7. Repeat CBC tomorrow. If stable patient is clear from vascular for discharge. Thank you for this consultation, we will continue to follow The impression and plan of care has been dictated as directed. Dr. Brown I performed a history and examination of this patient, discussed the same with the dictator. I agree with the dictator's note ,documented as a scribe. Any additional findings or plans will be noted.
--- NOTE | 2023-08-15 11:54 | P.PN ---
Subjective Progress Note Date: 08/15/23 Principal diagnosis: Right AKA stump wound and osteomyelitis Patient is a 67-year male with a past medical history difficult for hypertension hyperlipidemia atrial fibrillation peripheral arterial disease in this patient who recently did have a right wxulo-xma-lkjp amputation subsequently readmitted to the hospital with skin necrosis of the right AKA stump the patient s/p surgical debridement and culture positive for Klebsiella Enterococcus faecalis that was penicillin sensitive along with anaerobic gram- positive cocci patient did get a PICC line and was getting outpatient IV Unasyn readmitted from the wound care center concerning for worsening wound to the righ t AKA stump.Pt is s/p revision and closure of Right AKA wound on 08/12/2023 On today's evaluation that is 08/15/2023, the patient continues to be afebrile, the patient is breathing on room air, the patient denies chest pain and no cough, patient denies abdominal pain, no nausea/vomiting /diarrhea , patient pain to the right AKA stump is currently controlled Patient did have a white count of 7.95, creatinine 0.89, Vanco trough on low at 10 culture has been negative Objective - Vital Signs Vital signs: Vital Signs Temp 97.9 F 08/15/23 07:17 Pulse 68 08/15/23 08:11 Resp 20 08/15/23 08:11 BP 149/65 08/15/23 07:17 Pulse Ox 98 08/15/23 07:17 FiO2 Intake & Output 08/14/23 08/15/23 08/15/23 18:59 06:59 18:59 Output Total 500 500 Balance -500 -500 Output: Urine 500 500 Other: Voiding Method Urinal Urinal # Voids 2 - Exam GENERAL DESCRIPTION: An elderly male lying in bed in no distress RESPIRATORY SYSTEM: Unlabored breathing , decreased breath sounds at bases HEART: S1 S2 regular rate and rhythm , ABDOMEN: Soft , no tenderness EXTREMITIES: Right AK stump incision is intact with minimal bleeding and no redness or foul-smelling drainage - Labs CBC & Chem 7: 08/15/23 05:24 08/15/23 05:24 Labs: Abnormal Lab Results - Last 24 Hours (Table) 08/15/23 08/15/23 Range/Units 05:24 05:24 RBC 2.33 L (4.40-5.60) X 10*6/uL Hgb 7.4 L (13.0-17.0) d/dL Hct 23.8 L (39.6-50.0) % MCV 102.1 H (80.0-97.0) FL MCHC 31.1 L (32.0-37.0) d/dL RDW 14.6 H (11.5-14.5) % Glucose 103 H (74-99) mg/dL Calcium 8.2 L (8.4-10.2) mg/dL Total Protein 5.5 L (6.3-8.2) g/dL Albumin 2.5 L (3.5-5.0) g/dL Assessment and Plan (1) Osteomyelitis of right femur Current Visit: Yes Status: Acute Code(s): M86.9 - OSTEOMYELITIS, UNSPECIFIED SNOMED Code(s): 3323191227861453 (2) Wound infection Current Visit: Yes Status: Acute Code(s): T14.8XXA - OTHER INJURY OF UNSPECIFIED BODY REGION, INITIAL ENCOUNTER; L08.9 - LOCAL INFECTION OF THE SKIN AND SUBCUTANEOUS TISSUE, UNSP SNOMED Code(s): 80281398 Plan: 1patient with right AKA stump wound infection and concern for underlying osteomyelitis with recent culture positive for Klebsiella and Enterococcus faecalis and anaerobes that was sensitive to Unasyn and now being admitted to the hospital with worsening wound evidence of some necrotic tissue and the femur bone is exposed with a clinical osteomyelitis x-ray did show some soft tissue air concerning for infection. 2patient is status post angiogram with runoff followed by revision of the Right AKA stump and closure of the wound 3-patient to continue with Unasyn however discontinue vancomycin with infected part removed and the patient not bacteremic he will not need to continue on IV antibiotics on discharge Dictation was produced using [employer] dictation software. please excuse any grammatical, word or spelling errors. Time with Patient: Less than 30
[2023-08-15 16:13] LABS: % Iron Saturation 17.75 (15.00-50.00)
[2023-08-15] MEDS: FAMOTIDINE 20 MG TAB PO SCH (22:09)
[2023-08-16] MEDS ORDERED: VANCOMYCIN 1,250 MG in SODIUM CHLORIDE 0.9% 250 ML IVPB SCH (02:00)
[2023-08-16] MEDS: HYDROcodone/APAP 7.5-325MG 1 EACH TAB PO PRN ×2 (06:22→11:44)
[2023-08-16] MEDS: AMPICILLIN-SULBACTAM 3 GM in SODIUM CHLORIDE 0.9% 100 ML IVPB SCH ×4 (06:22→11:44)
[2023-08-16] MEDS: lisinopriL 10 MG TAB PO SCH (07:48)
[2023-08-16] MEDS: amLODIPine 5 MG TAB PO SCH (07:48)
[2023-08-16] MEDS: APIXABAN 5 MG TAB PO SCH (07:48)
[2023-08-16] MEDS: GABAPENTIN 300 MG CAP PO SCH (07:48)
[2023-08-16] MEDS: AMIODARONE 100 MG TAB PO SCH (07:48)
[2023-08-16] MEDS: METOPROLOL TARTRATE 50 MG TAB PO SCH ×2 (07:48→14:44)
--- NOTE | 2023-08-16 08:59 | P.DS ---
Providers Date of admission: 08/07/23 13:55 Attending physician: Odin Obrien Consults: 08/07/23 13:55 Consult Physician Routine Consulting Provider: Yolanda Brown Consult Reason/Comments: wound infection Do you want consulting provider notified?: Yes Consult Physician Routine Consulting Provider: Tali Turner Consult Reason/Comments: leg wound Do you want consulting provider notified?: Yes 08/09/23 13:46 Consult Physician Routine Consulting Provider: Angel Ramirez Consult Reason/Comments: post R AKA Do you want consulting provider notified?: Already Contacted Primary care physician: Odin Obrien - Discharge Diagnosis(es) (1) Osteomyelitis of right femur Current Visit: Yes Status: Acute (2) Wound infection Current Visit: Yes Status: Acute (3) Atrial fibrillation Current Visit: No Status: Acute (4) Hyperlipidemia Current Visit: No Status: Acute (5) Hypertension Current Visit: No Status: Acute (6) Ischemia of right lower extremity Current Visit: No Status: Acute (7) Peripheral vascular disease Current Visit: No Status: Acute (8) Surgical site infection Current Visit: No Status: Acute Hospital Course: This is a 67-year-old male with a known history of PAD who has been struggling with poor wound healing since recent femoralfemoral bypass and right qxjts-bdh-xxlf amputation. Patient was in rehab at [facility]. On Sunday Dr. Brown performed a revision of right ligkc-njz-rkri amputation and patient tolerated well. Dressing changes have been going well, with no excessive drainage noted. Patient's hemoglobin did drop down to 7.4, awaiting recheck today. If hemoglobin is stable patient is cleared by medical and surgeon for discharge back to [facility]. Patient is to hold Eliquis for tomorrow, may restart on August 18. Patient to recheck of CBC on Sunday. Will be sent home on Augmentin for 10 days. Patient seen and evaluated by nurse practitioner, physician in agreement with plan Patient Condition at Discharge: Serious Plan - Discharge Summary Discharge Rx Participant: No New Discharge Prescriptions: New Amoxic-Pot Clav 500-125 mg [Augmentin 500-125 mg] 1 tab PO Q12HR 10 Days #20 tab Gabapentin [Neurontin] 300 mg PO BID cap HYDROcodone/APAP 7.5-325MG [[place] 7.5-325] 1 each PO Q4HR PRN tab PRN Reason: Pain HYDROcodone/APAP 7.5-325MG [[place] 7.5-325] 1 each PO Q4HR PRN #150 tab PRN Reason: Pain Continue amLODIPine [Norvasc] 5 mg PO DAILY@0800 Metoprolol Tartrate [Lopressor] 100 mg PO TID@0800,1400,1999 Magnesium Hydroxide [Milk of Magnesia Concentrate] 7,200 mg PO Q2D PRN PRN Reason: 2 days no BM Na Phos,M-B/Na Phos,Di-Ba [Fleet Adult] 133 ml RECTAL DAILY PRN PRN Reason: Constipation Amiodarone [Cordarone] 100 mg PO DAILY@0800 Famotidine [Pepcid] 40 mg PO HS Apixaban [Eliquis] 5 mg PO BID@0800,1700 bisacodyL [Dulcolax] 10 mg RECTAL DAILY PRN PRN Reason: Constipation Clopidogrel [Plavix] 75 mg PO DAILY@0800 lisinopriL [Zestril] 10 mg PO DAILY@0800 Discontinued Ampicillin Sodium/Sulbactam Na [Unasyn 3 gm Vial] 3 gm IVPB Q6HR #120 each HYDROcodone/APAP 5-325MG [[place] 5-325] 1 tab PO Q4HR PRN PRN Reason: Pain Discharge Medication List amLODIPine [Norvasc] 5 mg PO DAILY@0800 02/26/23 [History] Amiodarone [Cordarone] 100 mg PO DAILY@0800 07/02/23 [History] Famotidine [Pepcid] 40 mg PO HS 07/02/23 [History] Metoprolol Tartrate [Lopressor] 100 mg PO TID@0800,1400,199907/02/23 [History] Apixaban [Eliquis] 5 mg PO BID@0800,1700 07/22/23 [History] Clopidogrel [Plavix] 75 mg PO DAILY@0800 07/22/23 [History] Magnesium Hydroxide [Milk of Magnesia Concentrate] 7,200 mg PO Q2D PRN 07/22/23 [History] Na Phos,M-B/Na Phos,Di-Ba [Fleet Adult] 133 ml RECTAL DAILY PRN 07/22/23 [History] bisacodyL [Dulcolax] 10 mg RECTAL DAILY PRN 07/22/23 [History] lisinopriL [Zestril] 10 mg PO DAILY@0800 07/22/23 [History] Amoxic-Pot Clav 500-125 mg [Augmentin 500-125 mg] 1 tab PO Q12HR 10 Days #20 tab 08/16/23 [Rx] Gabapentin [Neurontin] 300 mg PO BID cap 08/16/23 [Rx] HYDROcodone/APAP 7.5-325MG [[place] 7.5-325] 1 each PO Q4HR PRN tab 08/16/23 [Rx] HYDROcodone/APAP 7.5-325MG [[place] 7.5-325] 1 each PO Q4HR PRN #150 tab 08/16/23 [Rx] Follow up Appointment(s)/Referral(s): Odin Obrien MD [Primary Care Provider] - 1-2 days Urbano Nunes DO [Doctor of Osteopathic Medicine] - 1 Week Activity/Diet/Wound Care/Special Instructions: hold eliquis for 1 day, restart Sunday08/18/2023 Recheck CBC on 08/20/2023 Discharge Disposition: TRANSFER TO SNF/ECF
--- NOTE | 2023-08-16 09:59 | P.PN ---
Subjective Progress Note Date: 08/16/23 Freddy is seen and examined today as a follow-up. He is postop day #4 for right AKA stump revision. States still has pain in that area however better controlled with pain medication. Yesterday patient underwent 1 unit of PRBC transfusion, today currently waiting on repeat hemoglobin. Reported that preeti shin had to change his dressing through the night that there was some blood noted on his dressing. He states he has not had a bowel movement in 3-4 days, denies any GI blood loss. Plavix has been discontinued. Objective - Vital Signs Vital signs: Vital Signs Temp 97.9 F 08/16/23 07:05 Pulse 69 08/16/23 07:48 Resp 17 08/16/23 07:48 BP 159/99 08/16/23 07:05 Pulse Ox 95 08/16/23 07:05 FiO2 Intake & Output 08/15/23 08/16/23 08/16/23 18:59 06:59 18:59 Intake Total 310 Output Total 1300 Balance -990 Intake: Blood Product 310 Rc As-1 Unit 310 [id number] Output: Urine 1300 Other: Voiding Method Urinal Urinal # Voids 1 - Exam General appearance: The patient is alert, oriented, appears in no acute distress. HET: Head is normocephalic and atraumatic. Pupils are equal and reactive. Neck: Supple. Abdomen: Soft, nondistended. Extremities: Right rqgcn-gwt-dbxb amputation site with dressing in place with some serosanguineous drainage. Dressing changed, incision well approximated with samantha. There is a small amount of serosanguineous drainage/oozing from the middle aspect of the incision line. The surrounding tissue pink and warm. Neurological: No focal deficits. Alert and oriented 3. - Labs CBC & Chem 7: 08/15/23 05:24 08/15/23 05:24 Labs: Abnormal Lab Results - Last 24 Hours (Table) 08/15/23 08/15/23 Range/Units 11:16 11:16 Iron 30 L (65-175) UG/DL TIBC 169 L (228-460) UG/DL Transferrin 121.0 L (204.0-354.0) mg/dL Crossmatch See Detail Assessment and Plan Assessment: 1. 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 History atrial fibrillation 4. History of hypertension hyperlipidemia 5. Anemia Plan: 1. Change dressing daily 2. Continue with PT/OT 3. Continue gabapentin 4. Discontinue Plavix 5. Iron studies ordered, will consider outpatient iron supplementation. We'll defer to primary medical team 6. Dressing changed, normal amount of postop bleeding noted. Vel wrap applied. I discussed with primary medical team patient is cleared from vascular surgery for discharge. Thank you for this consultation. Follow-up with vascular surgery in the next 1- 2 weeks. The impression and plan of care has been dictated as directed. Dr. Nunes I performed a history and examination of this patient, discussed the same with the dictator. I agree with the dictator's note ,documented as a scribe. Any additional findings or plans will be noted.
[2023-08-16 11:23] LABS: HCT 25.6 % (39.6-50.0); HGB 8.3 d/dL (13.0-17.0); MCHC 32.4 d/dL (32.0-37.0); MCV 98.8 FL (80.0-97.0); Mean Platelet Volume 10.1 FL (9.5-12.2); NRBC Per 100 WBC 0.02 X 10*3/uL (0.00-0.01); Platelet Count 246 X 10*3/uL (140-440); RBC 2.59 X 10*6/uL (4.40-5.60); RDW 15.7 % (11.5-14.5); WBC 6.56 X 10*3/uL (4.50-10.00)
[2023-08-16 11:46] LABS: ALT 11 U/L (10-49); AST 19 U/L (14-35); Albumin 2.8 d/dL (3.8-4.9); Albumin/Globulin Ratio 1.12 Ratio (1.60-3.17); Alkaline Phosphatase 92 U/L (41-126); BUN/Creat Ratio 14.56 Ratio (12.00-20.00); Blood Urea Nitrogen 13.1 mg/dL (9.0-27.0); Calcium 8.4 mg/dL (8.7-10.3); Carbon Dioxide 24.9 mmol/L (21.6-31.8); Chloride 107 mmol/L (96-109); Globulin 2.5 d/dL (1.6-3.3); Glucose 99 mg/dL (70-110); Potassium 3.6 mmol/L (3.5-5.5); Sodium 141 mmol/L (135-145); Total Bilirubin 0.5 mg/dL (0.3-1.2); Total Protein 5.3 d/dL (6.2-8.2)
[2023-08-16] MEDS: MORPHINE SULFATE 4 MG/ML SYRINGE IV PRN (14:44)
--- NOTE | 2023-08-16 14:54 | P.PN ---
Subjective Progress Note Date: 08/16/23 Principal diagnosis: Right AKA stump wound and osteomyelitis Patient is a 67-year male with a past medical history difficult for hypertension hyperlipidemia atrial fibrillation peripheral arterial disease in this patient who recently did have a right dpgyg-run-wuga amputation subsequently readmitted to the hospital with skin necrosis of the right AKA stump the patient s/p surgical debridement and culture positive for Klebsiella Enterococcus faecalis that was penicillin sensitive along with anaerobic gram- positive cocci patient did get a PICC line and was getting outpatient IV Unasyn readmitted from the wound care center concerning for worsening wound to the righ t AKA stump.Pt is s/p revision and closure of Right AKA wound on 08/12/2023 On today's evaluation that is 08/16/2023, the patient remains to be afebrile, the patient is breathing comfortably on room air , the patient denies chest pain shortness of breath or cough, patient denies nausea/vomiting /diarrhea and no abdominal pain, patient pain to the right AKA stump is controlled with the current medication Patient did have a white count of 6.56, creatinine 0.5 Objective - Vital Signs Vital signs: Vital Signs Temp 97.9 F 08/16/23 07:05 Pulse 69 08/16/23 07:48 Resp 17 08/16/23 07:48 BP 159/99 08/16/23 07:05 Pulse Ox 95 08/16/23 07:05 FiO2 Intake & Output 08/15/23 08/16/23 08/16/23 18:59 06:59 18:59 Intake Total 310 Output Total 1300 Balance -990 Intake: Blood Product 310 Rc As-1 Unit 310 [id number] Output: Urine 1300 Other: Voiding Method Urinal Urinal # Voids 1 - Exam GENERAL DESCRIPTION: An elderly male lying in bed in no distress RESPIRATORY SYSTEM: Unlabored breathing , decreased breath sounds at bases HEART: S1 S2 regular rate and rhythm , ABDOMEN: Soft , no tenderness EXTREMITIES: Right AK stump is dressed no drainage on the dressing - Labs CBC & Chem 7: 08/16/23 06:22 08/16/23 06:22 Labs: Abnormal Lab Results - Last 24 Hours (Table) 08/15/23 08/15/23 08/16/23 Range/Units 11:16 11:16 06:22 RBC 2.59 L (4.40-5.60) X 10*6/uL Hgb 8.3 L (13.0-17.0) d/dL Hct 25.6 L (39.6-50.0) % MCV 98.8 H (80.0-97.0) FL RDW 15.7 H (11.5-14.5) % NRBC/100 WBC Diff 0.02 H (0.00-0.01) X 10*3/uL Calcium (8.7-10.3) mg/dL Iron 30 L (65-175) UG/DL TIBC 169 L (228-460) UG/DL Transferrin 121.0 L (204.0-354.0) mg/dL Total Protein (6.2-8.2) d/dL Albumin (3.8-4.9) d/dL Albumin/Globulin Ratio (1.60-3.17) Ratio Crossmatch See Detail 08/16/23 Range/Units 06:22 RBC (4.40-5.60) X 10*6/uL Hgb (13.0-17.0) d/dL Hct (39.6-50.0) % MCV (80.0-97.0) FL RDW (11.5-14.5) % NRBC/100 WBC Diff (0.00-0.01) X 10*3/uL Calcium 8.4 L (8.7-10.3) mg/dL Iron (65-175) UG/DL TIBC (228-460) UG/DL Transferrin (204.0-354.0) mg/dL Total Protein 5.3 L (6.2-8.2) d/dL Albumin 2.8 L (3.8-4.9) d/dL Albumin/Globulin Ratio 1.12 L (1.60-3.17) Ratio Crossmatch Assessment and Plan (1) Osteomyelitis of right femur Current Visit: Yes Status: Acute Code(s): M86.9 - OSTEOMYELITIS, UNSPECIFIED SNOMED Code(s): 6641573749880508 (2) Wound infection Current Visit: Yes Status: Acute Code(s): T14.8XXA - OTHER INJURY OF UNSPECIFIED BODY REGION, INITIAL ENCOUNTER; L08.9 - LOCAL INFECTION OF THE SKIN AND SUBCUTANEOUS TISSUE, UNSP SNOMED Code(s): 77933133 Plan: 1patient with right AKA stump wound infection and concern for underlying osteomyelitis with recent culture positive for Klebsiella and Enterococcus faecalis and anaerobes that was sensitive to Unasyn and now being admitted to the hospital with worsening wound evidence of some necrotic tissue and the femur bone is exposed with a clinical osteomyelitis x-ray did show some soft tissue air concerning for infection. 2patient is status post angiogram with runoff followed by revision of the Right AKA stump and closure of the wound 3-patient to continue with Unasyn while inpatient consider short course of oral Augmentin on discharge Dictation was produced using [email or web address] software. please excuse any grammatical, word or spelling errors.
[2023-08-16 16:01] VITALS: BP 120/57; PULSE 63; RESP 18; TEMP 97.7
--- NOTE | 2023-08-21 10:06 | CDI ---
Documentation Clarification Form Date: 08/21/2023 09:58:21 AM From: Mariela Saenz Phone: Admit Date: 08/07/2023 01:55:00 PM Patient Name: Cezar Terry Visit Number: [id number] Discharge Date: 08/16/2023 04:38:00 PM ATTENTION: The Clinical Documentation Specialists (CDI) and [facility] Coding Staff appreciate your assistance in clarifying documentation. Please respond to the clarification below the line at the bottom and electronically sign. The CDI & [facility] Coding staff will review the response and follow-up if needed. Please note: Queries are made part of the Legal Health Record. If you have any questions, please contact the author of this message via ITS. Dr. Yolanda Brown Unspecified anemia is documented per your 08/15 Progress Note. Additional specificity regarding the type and acuity of anemia is requested. History/Risk Factors: 67yo M, infected/nonhealing RAKAwith boneexposure, PAD, A Fib, HTN, HLD, anemia Clinical indicators: Hemoglobin: 08/07 11.7 08/10 11.1 08/13 9.0 08/14 8.0 08/15 7.4 Hematocrit: 08/07 36.5 08/10 36.4 08/13 35.7 08/14 25.7 08/15 23.8 Treatment: 1 unit PRBCordered Please clarify the type and acuity of anemia: [ ] Acute blood loss anemia [ x ] Acute on chronic blood loss anemia [ ] Chronic blood loss anemia [ ] Unable to determine [ ] Other, please specify (Template Last Revised: December 2020) MTDD
== END 2023-08-16 16:38 | DRG 475 ==
LOC: EC 11:01 → 5NMEDONC 13:55 → 1SOBS 08-08 10:34 → 4SSUR 08-09 17:15
PROVIDERS: ADMIT Family Medicine; ATTEND Family Medicine
PROC: 0Y6C0Z1 Detachment at Right Upper Leg, High, Open Approach (ICD-10-PCS; principal; 2023-08-12 13:00)
PROC: 30233N1 Transfusion of Nonautologous Red Blood Cells into Peripheral Vein, Percutaneous Approach (ICD-10-PCS; 2023-08-15)
DX: T87.43 Infection of amputation stump, right lower extremity (principal); D62 Acute posthemorrhagic anemia; L97.116 Non-pressure chronic ulcer of right thigh with bone involvement without evidence of necrosis; M86.8X5 Other osteomyelitis, thigh; T87.81 Dehiscence of amputation stump; I70.231 Atherosclerosis of native arteries of right leg with ulceration of thigh; I48.91 Unspecified atrial fibrillation; I11.9 Hypertensive heart disease without heart failure; I70.8 Atherosclerosis of other arteries; E78.5 Hyperlipidemia, unspecified; G62.9 Polyneuropathy, unspecified; I25.10 Atherosclerotic heart disease of native coronary artery without angina pectoris; T81.82XA Emphysema (subcutaneous) resulting from a procedure, initial encounter; B96.1 Klebsiella pneumoniae [K. pneumoniae] as the cause of diseases classified elsewhere; B95.2 Enterococcus as the cause of diseases classified elsewhere; Y83.5 Amputation of limb(s) as the cause of abnormal reaction of the patient, or of later complication, without mention of misadventure at the time of the procedure; Z95.820 Peripheral vascular angioplasty status with implants and grafts; Z95.828 Presence of other vascular implants and grafts; Z79.01 Long term (current) use of anticoagulants; Z79.02 Long term (current) use of antithrombotics/antiplatelets; Z79.899 Other long term (current) drug therapy; Z85.828 Personal history of other malignant neoplasm of skin; Z87.891 Personal history of nicotine dependence; Z86.14 Personal history of Methicillin resistant Staphylococcus aureus infection; Z95.5 Presence of coronary angioplasty implant and graft
CPT/HCPCS: 36415; 75635; 80053; 80202; 82565; 82728; 83540; 83550; 83605; 85025; 85027; 85652; 86140; 86850; 86900; 86901; 86920; 87040; 87070; 87205; 96361; 96365; 96366; 99285

== ENCOUNTER 2023-09-26 10:59 | Inpatient (IN) | payer MEDICARE ==
[2023-09-26 12:21] LABS: Basophils % (A) 0 %; Eosinophils # (A) 0.2 k/uL (0-0.7); Eosinophils % (A) 2 %; HCT 36.8 % (39.0-53.0); Hypochromasia Slight; Lymphocytes # (A) 1.3 k/uL (1.0-4.8); Lymphocytes % (A) 12 %; MCH 30.4 pg (25.0-35.0); MCHC 32.6 g/dL (31.0-37.0); Mean Platelet Volume 8.5; Monocytes # (A) 0.7 k/uL (0-1.0); Monocytes % (A) 7 %; Neutrophils # (A) 7.9 k/uL (1.3-7.7); Neutrophils % (A) 78 %; Platelet Count 361 k/uL (150-450); RBC 3.95 m/uL (4.30-5.90); RDW 13.7 % (11.5-15.5); WBC 10.2 k/uL (3.8-10.6)
[2023-09-26 12:26] LABS: ALT 11 U/L (4-49); AST 15 U/L (17-59); African American GFR (CKD) >90 (>60 ml/min/1.73 sqM); Albumin 3.1 g/dL (3.5-5.0); Alkaline Phosphatase 101 U/L (38-126); Anion Gap 7 mmol/L; Blood Urea Nitrogen 10 mg/dL (9-20); Calcium 8.9 mg/dL (8.4-10.2); Carbon Dioxide 29 mmol/L (22-30); Chloride 101 mmol/L (98-107); Glucose 108 mg/dL (74-99); Non-African American GFR(CKD) 90 (>60 ml/min/1.73 sqM); Potassium 3.9 mmol/L (3.5-5.1); Sodium 137 mmol/L (137-145); Total Bilirubin 0.4 mg/dL (0.2-1.3); Total Protein 6.8 g/dL (6.3-8.2)
[2023-09-26 12:29] LABS: MCV 93.2 fL (80.0-100.0)
[2023-09-26] MEDS ORDERED: NALOXONE 0.4 MG/ML 1 ML VIAL IV PRN (13:21)
--- NOTE | 2023-09-26 13:35 | ED ---
General Adult HPI - General Chief complaint: Skin/Abscess/Foreign Body Stated complaint: wound infection Time Seen by Provider: 09/26/23 11:15 Source: patient, RN notes reviewed, old records reviewed Mode of arrival: ambulatory Limitations: no limitations - History of Present Illness Initial comments: 67 male sent in from wound care for nonhealing decubitus ulcer. Patient has history of upzwp-rlf-sjgk" on the right. His been seeing wound care regarding the patient's side however he developed decubitus ulcer on the right issue prominence. The patient denies fever. He has been attempting wound care at home between him and his sister but the wound continues to enlarge. - Related Data Home Medications Medication Instructions Recorded Confirmed amLODIPine [Norvasc] 5 mg PO DAILY 02/26/23 09/26/23 Amiodarone [Cordarone] 100 mg PO DAILY 07/02/23 09/26/23 Metoprolol Tartrate [Lopressor] 100 mg PO TID 07/02/23 09/26/23 Apixaban [Eliquis] 5 mg PO BID 07/22/23 09/26/23 lisinopriL [Zestril] 10 mg PO DAILY 07/22/23 09/26/23 Amiodarone [Cordarone] 200 mg PO DIRECTED 09/26/23 09/26/23 Atorvastatin (Unknown Strength) 1 dose PO DIRECTED 09/26/23 09/26/23 HYDROcodone/APAP 7.5-325MG [[place] 1 tab PO Q4HR PRN 09/26/23 09/26/23 7.5-325] Allergies Allergy/AdvReac Type Severity Reaction Status Date / Time No Known Allergies Allergy Verified 09/26/23 13:09 Review of Systems ROS Statement: Those systems with pertinent positive or pertinent negative responses have been documented in the HPI. ROS Other: All systems not noted in ROS Statement are negative. Past Medical History Past Medical History: Atrial Fibrillation, Cancer, Hyperlipidemia, Hypertension, Vascular Disorder Additional Past Medical History / Comment(s): SKIN CANCER. 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. 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 aortagram, right leg above knee amputation Past Anesthesia/Blood Transfusion Reactions: No Reported Reaction Date of Last Stent Placement:: 08/18/2020 Past Psychological History: No Psychological Hx Reported Smoking Status: Former smoker Past Alcohol Use History: None Reported Past Drug Use History: None Reported - Past Family History Father Family Medical History: Cancer Additional Family Medical History / Comment(s): throat cancer Brother(s) Family Medical History: Cancer Additional Family Medical History / Comment(s): THROAT CANCER. Mother Family Medical History: Cancer General Exam Limitations: no limitations General appearance: alert, in no apparent distress Head exam: Present: atraumatic, normocephalic Eye exam: Present: normal appearance, PERRL ENT exam: Present: normal exam Neck exam: Present: normal inspection Respiratory exam: Present: normal lung sounds bilaterally. Absent: respiratory distress Cardiovascular Exam: Present: regular rate, normal rhythm GI/Abdominal exam: Present: soft. Absent: distended Extremities exam: Present: other (Right fgyxq-exj-vljc of dictation, decubitus ulcer rt ischial prominence) Neurological exam: Present: alert Psychiatric exam: Present: normal affect, normal mood Skin exam: Present: warm, dry Course Vital Signs 09/26/23 11:07 Temperature 98.0 F Pulse Rate 57 L Respiratory 18 Rate Blood Pressure 126/72 O2 Sat by Pulse 96 Oximetry Medical Decision Making - Medical Decision Making Was pt. sent in by a medical professional or institution (, PA, ELECTRICAL SOFTWARE ENGINEER, urgent care, hospital, or fpc...) When possible be specific @ -No Did you speak to anyone other than the patient for history (EMS, parent, family, police, friend...)? What history was obtained from this source @ -No Did you review nursing and triage notes (agree or disagree)? Why? @ -I reviewed and agree with nursing and triage notes Were old charts reviewed (outside hosp., previous admission, EMS record, old EKG, old radiological studies, urgent care reports/EKG's, fpc records)? Report findings @ -No old charts were reviewed Differential Diagnosis (chest pain, altered mental status, abdominal pain women, abdominal pain men, vaginal bleeding, weakness, fever, dyspnea, syncope, headache, dizziness, GI bleed, back pain, seizure, CVA, palpatations, mental health, musculoskeletal)? @ -Nonhealing decubitus wound EKG interpreted by me (3pts min.). @ -As above X-rays interpreted by me (1pt min.). @ -None done CT interpreted by me (1pt min.). @ -None done U/S interpreted by me (1pt. min.). @ -None done What testing was considered but not performed or refused? (CT, X-rays, U/S, labs)? Why? @ -None What meds were considered but not given or refused? Why? @ -None Did you discuss the management of the patient with other professionals (professionals i.e. , PA, ELECTRICAL SOFTWARE ENGINEER, lab, RT, psych nurse, social and political studies professor, police superintendent, teacher, radio electronics officer, welfare case worker)? Give summary @ -No Was smoking cessation discussed for >3mins.? @ -No Was critical care preformed (if so, how long)? @ -No Were there social determinants of health that impacted care today? How? (Homelessness, low income, unemployed, alcoholism, drug addiction, transportation, low edu. Level, literacy, decrease access to med. care, nursing home, rehab)? @ -No Was there de-escalation of care discussed even if they declined (Discuss DNR or withdrawal of care, Hospice)? DNR status @ -No What co-morbidities impacted this encounter? (DM, HTN, Smoking, COPD, CAD, Cancer, CVA, ARF, Chemo, Hep., AIDS, mental health diagnosis, sleep apnea, morbid obesity)? @ -Peripheral vascular disease, and mobility Was patient admitted / discharged? Hospital course, mention meds given and route, prescriptions, significant lab abnormalities, going to OR and other pertinent info. @ -[Patient admitted for IV antibiotics, wound care and likely fpc placement for continued care. Case discussed with Dr. Obrien who will admit Undiagnosed new problem with uncertain prognosis? @ -No Drug Therapy requiring intensive monitoring for toxicity (Heparin, Nitro, Insulin, Cardizem)? @ -No Were any procedures done? @ -No Diagnosis/symptom? @ -[Nonhealing decubitus Wound Acute, or Chronic, or Acute on Chronic? @ -[Acute Uncomplicated (without systemic symptoms) or Complicated (systemic symptoms)? @ -Complicated Side effects of treatment? @ -No Exacerbation, Progression, or Severe Exacerbation? @ -No Poses a threat to life or bodily function? How? (Chest pain, [place], [place], pneumonia, PE, COPD, DKA, ARF, appy, cholecystitis, CVA, Diverticulitis, Homicidal, Suicidal, threat to staff... and all critical care pts) @ Yes, sepsis - Lab Data Result diagrams: 09/26/23 11:41 09/26/23 11:41 Lab Results 09/26/23 09/26/23 09/26/23 Range/Units 11:41 11:41 11:41 WBC 10.2 (3.8-10.6) k/uL RBC 3.95 L (4.30-5.90) m/uL Hgb 12.0 L (13.0-17.5) gm/dL Hct 36.8 L (39.0-53.0) % MCV 93.2 D (80.0-100.0) fL MCH 30.4 (25.0-35.0) pg MCHC 32.6 (31.0-37.0) g/dL RDW 13.7 (11.5-15.5) % Plt Count 361 (150-450) k/uL MPV 8.5 Neutrophils % 78 % Lymphocytes % 12 % Monocytes % 7 % Eosinophils % 2 % Basophils % 0 % Neutrophils # 7.9 H (1.3-7.7) k/uL Lymphocytes # 1.3 (1.0-4.8) k/uL Monocytes # 0.7 (0-1.0) k/uL Eosinophils # 0.2 (0-0.7) k/uL Basophils # 0.0 (0-0.2) k/uL Hypochromasia Slight Sodium 137 (137-145) mmol/L Potassium 3.9 (3.5-5.1) mmol/L Chloride 101 (98-107) mmol/L Carbon Dioxide 29 (22-30) mmol/L Anion Gap 7 mmol/L BUN 10 (9-20) mg/dL Creatinine 0.88 (0.66-1.25) mg/dL Est GFR (CKD-EPI)AfAm >90 (>60 ml/min/1.73 sqM) Est GFR (CKD-EPI)NonAf 90 (>60 ml/min/1.73 sqM) Glucose 108 H (74-99) mg/dL Plasma Lactic Acid Alex 1.0 (0.7-2.0) mmol/L Calcium 8.9 (8.4-10.2) mg/dL Magnesium 2.0 (1.6-2.3) mg/dL Total Bilirubin 0.4 (0.2-1.3) mg/dL AST 15 L (17-59) U/L ALT 11 (4-49) U/L Alkaline Phosphatase 101 (38-126) U/L Total Protein 6.8 (6.3-8.2) g/dL Albumin 3.1 L (3.5-5.0) g/dL Disposition Clinical Impression: Peripheral vascular disease, Decubitus ulcer of ischium Disposition: ADMITTED IP TO THIS HOSP Condition: Stable Is patient prescribed a controlled substance at d/c from ED?: No Referrals: Odin Obrien MD [Primary Care Provider] - 1-2 days Time of Disposition: 13:35
[2023-09-26] MEDS ORDERED: HYDROcodone/APAP 7.5-325MG 1 EACH TAB PO PRN (19:27)
[2023-09-26] MEDS: APIXABAN 5 MG TAB PO SCH (21:25)
[2023-09-26] MEDS: METOPROLOL TARTRATE 50 MG TAB PO SCH (21:25)
[2023-09-27] MEDS: HYDROcodone/APAP 7.5-325MG 1 EACH TAB PO PRN ×3 (05:38→20:52)
[2023-09-27] MEDS: lisinopriL 10 MG TAB PO SCH (07:52)
[2023-09-27] MEDS: AMIODARONE 100 MG TAB PO SCH (07:52)
[2023-09-27] MEDS: amLODIPine 5 MG TAB PO SCH (07:52)
[2023-09-27] MEDS: METOPROLOL TARTRATE 50 MG TAB PO SCH ×3 (07:52→20:51)
[2023-09-27] MEDS: APIXABAN 5 MG TAB PO SCH ×2 (07:52→20:51)
--- NOTE | 2023-09-27 08:34 | P.HPIM ---
History of Present Illness H&P Date: 09/27/23 Chief Complaint: wound infection This is a 67-year-old male who was sent from wound care with Dr. Pelaez for nonhealing decubitus ulcer. Patient has a history of a right [id number] amputation, which did require recent revision because it was not healing properly. He was at [facility] for wound care and discharged to home. Him and his sister have been managing wound care at home but the ulcer continues to enlarge. Patient seen this morning sitting up in bed. He denies any pain. He is tolerating diet. Further medical history as noted below. Review of Systems Constitutional: Denies chills, Denies fever Cardiovascular: Denies chest pain, Denies dyspnea on exertion Respiratory: Denies cough, Denies dyspnea Gastrointestinal: Denies abdominal pain, Denies nausea, Denies vomiting Integumentary: Reports wounds (decubitus ulcer ) Neurological: Denies headaches, Denies weakness Past Medical History Past Medical History: Atrial Fibrillation, Cancer, Hyperlipidemia, Hypertension, Vascular Disorder Additional Past Medical History / Comment(s): SKIN CANCER. 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. 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 aortagram, right leg above knee amputa tion Past Anesthesia/Blood Transfusion Reactions: No Reported Reaction Date of Last Stent Placement:: 08/18/2020 Past Psychological History: No Psychological Hx Reported Smoking Status: Former smoker Past Alcohol Use History: None Reported Additional Past Alcohol Use History / Comment(s): STARTED SMOKING AT AGE 17 QUIT 2019 SMOKED 1/2 - 1 PPD Past Drug Use History: None Reported - Past Family History Father Family Medical History: Cancer Additional Family Medical History / Comment(s): throat cancer Brother(s) Family Medical History: Cancer Additional Family Medical History / Comment(s): THROAT CANCER. Mother Family Medical History: Cancer Medications and Allergies Home Medications Medication Instructions Recorded Confirmed Type amLODIPine [Norvasc] 5 mg PO DAILY 02/26/23 09/26/23 History Amiodarone [Cordarone] 100 mg PO DAILY 07/02/23 09/26/23 History Metoprolol Tartrate [Lopressor] 100 mg PO TID 07/02/23 09/26/23 History Apixaban [Eliquis] 5 mg PO BID 07/22/23 09/26/23 History lisinopriL [Zestril] 10 mg PO DAILY 07/22/23 09/26/23 History Amiodarone [Cordarone] 200 mg PO DIRECTED 09/26/23 09/26/23 History Atorvastatin (Unknown Strength) 1 dose PO DIRECTED 09/26/23 09/26/23 History HYDROcodone/APAP 7.5-325MG [[place] 1 tab PO Q4HR PRN 09/26/23 09/26/23 History 7.5-325] Allergies Allergy/AdvReac Type Severity Reaction Status Date / Time No Known Allergies Allergy Verified 09/26/23 13:09 Physical Exam Vitals: Vital Signs Temp Pulse Pulse Resp BP BP Pulse Ox 09/27/23 07:08 97.9 F 79 19 153/72 92 L 09/27/23 00:47 98 F 56 L 18 132/69 95 09/26/23 19:32 97.8 F 64 18 134/66 92 L 09/26/23 14:24 97.7 F 65 119/66 09/26/23 11:07 98.0 F 57 L 18 126/72 96 Intake and Output 09/26/23 09/27/23 09/27/23 22:59 06:59 14:59 Output Total 250 Balance -250 Output: Urine 250 Other: # Voids 1 - Constitutional General appearance: cooperative, no acute distress - EENT Eyes: PERRLA - Neck Neck: no lymphadenopathy, normal ROM, no rigidity - Respiratory Respiratory: bilateral: CTA - Cardiovascular Heart sounds: normal: S1, S2 - Gastrointestinal General gastrointestinal: soft, no tenderness - Integumentary decubitis ulcer right ischial prominence - Psychiatric Psychiatric: A&O x's 3, appropriate affect, intact judgment & insight Results CBC & Chem 7: 09/26/23 11:41 09/26/23 11:41 Labs: Abnormal Lab Results - Last 24 Hours (Table) 09/26/23 09/26/23 Range/Units 11:41 11:41 RBC 3.95 L (4.30-5.90) m/uL Hgb 12.0 L (13.0-17.5) gm/dL Hct 36.8 L (39.0-53.0) % Neutrophils # 7.9 H (1.3-7.7) k/uL Glucose 108 H (74-99) mg/dL AST 15 L (17-59) U/L Albumin 3.1 L (3.5-5.0) g/dL Thrombosis Risk Factor Assmnt - Choose All That Apply Any of the Below Risk Factors Present?: No Other Risk Factors: Yes Each Risk Factor Represents 2 Points: Age 61-74 years Other congenital or acquired thrombophilia - If yes, enter type in comment: No Thrombosis Risk Factor Assessment Total Risk Factor Score: 2 Thrombosis Risk Factor Assessment Level: Low Risk Assessment and Plan (1) Decubitus ulcer of ischium Current Visit: Yes Status: Acute Code(s): L89.309 - PRESSURE ULCER OF UNSPECIFIED BUTTOCK, UNSPECIFIED STAGE SNOMED Code(s): 577520688 (2) Peripheral vascular disease Current Visit: Yes Status: Acute Code(s): I73.9 - PERIPHERAL VASCULAR DISE ASE, UNSPECIFIED SNOMED Code(s): 105681545 (3) Atrial fibrillation Current Visit: No Status: Acute Code(s): I48.91 - UNSPECIFIED ATRIAL FIBRILLATION SNOMED Code(s): 83892497 (4) History of right above knee amputation Current Visit: No Status: Acute Code(s): Z89.611 - ACQUIRED ABSENCE OF RIGHT LEG ABOVE KNEE SNOMED Code(s): 498049465386362 (5) Hyperlipidemia Current Visit: No Status: Acute Code(s): E78.5 - HYPERLIPIDEMIA, UNSPECIFIED SNOMED Code(s): 23214765 (6) Hypertension Current Visit: No Status: Acute Code(s): I10 - ESSENTIAL (PRIMARY) HYPERTENSION SNOMED Code(s): 50069881 Plan: Continue home medications. Continue Rocephin 2 g daily. Wound care has been consulted. Patient may need referral to plastic surgeon. Plan for IV antibiotics today with possible discharge in the next 24-48 hours to then see a plastic surgeon at another facility. CBC and CMP in the morning Patient seen and evaluated by nurse practitioner, physician in agreement with plan
--- NOTE | 2023-09-27 10:33 | P.CONS ---
History of Present Illness - Reason for Consult Consult date: 09/27/23 wound care - History of Present Illness This is a 67-year-old gentleman who is known to the wound care center. Patient previously had a [id number]-afi-[id number] amputation and revision. He was then an extended care facility until he went home with his sister. Patient has a decubitus ulcer to the right ischium and left calcaneus. Patient denies diabetes. He has history of arterial vascular disease and neuropathy. Patient was seen yesterday in the wound care center and was sent to the emergency department for evaluation. Patient would benefit from a plastic consult and admission to an extended care facility to assist and offloading the ulceration. Original cause of wound was Pressure Injury. The date acquired was: 08/22/2023. The wound is currently classified as a Full Thickness Without Exposed Support Structures wound with etiologies of Arterial Insufficiency Ulcer and Pressure Ulcer and is located on the Left Calcaneus. The wound measures 0.4cm length x 0.5cm width x 0.2cm depth; 0.157cm^2 area and 0.031cm^3 volume. There is no tunneling or undermining noted. There is a small amount of sanguinous drainage noted. The wound margin is flat and intact. There is small (1-33%) red granulation within the wound bed. There is a large (67-100%) amount of necrotic tissue within the wound bed including Adherent Slough. The periwound skin appearance exhibited: Callus, Dry/Scaly. The periwound skin appearance did not exhibit: Crepitus, Excoriation, Induration, Rash, Scarring, Maceration, Atrophie Leslie, Cyanosis, Ecchymosis, Hemosiderin Staining, Mottled, Pallor, Rubor, Erythema. Periwound temperature was noted as No Abnormality. Original cause of wound was Pressure Injury. The date acquired was: 08/12/2023. The wound is currently classified as a Category/Stage III wound with etiology of Pressure Ulcer and is located on the Right Ischium. The wound measures 1.7cm length x 1.5cm width x 3cm depth; 2.003cm^2 area and 6.008cm^3 volume. There is Fat Layer (Subcutaneous Tissue) exposed. There is no tunneling noted, however, there is undermining starting at 12:00 and ending at 8:00 with a maximum distance of 2cm. There is a large amount of serosanguineous drainage noted. The wound margin is distinct with the outline attached to the wound base. There is no granulation within the wound bed. There is a large (67-100%) amount of necrotic tissue within the wound bed including Adherent Slough. The periwound skin appearance exhibited: Excoriation, Scarring, Erythema. The periwound skin appearance did not exhibit: Callus, Crepitus, Induration, Rash, Dry/Scaly, Maceration, Atrophie Leslie, Cyanosis, Ecchymosis, Hemosiderin Staining, Mottled, Pallor, Rubor. The surrounding wound skin color is noted with erythema which is circumferential. Periwound temperature was noted as No Abnormality. The periwound has tenderness on palpation. Review Of Systems: Constitutional: No fever, no chills, no night sweats. No weight change. No weakness, fatigue or lethargy. No daytime sleepiness. Integumentary:reports wounds, no lesions. No rash or pruritus. No unusual bruising. No change in hair or nails. Physical exam: General Appearance: Alert, cooperative, no distress, appears stated age. Skin: See HPI all other Skin color, texture, tugor normal, no rashes or lesions. Neurologic: Alert oriented x3 Assessment: 1. Stage III pressure ulcer right ischium 2. Stage II pressure ulcer left calcaneus 3. Peripheral vascular disease Plan: 1. Apply absorptive silver rope, absorptive silver if needed, dry. An abortive foam. Change Sunday. Left calcaneus ulceration. Apply honey gel and abortive foam. Changing to states there is a Sunday. Utilizing air-filled cushion the patient is sitting. Consider consult for plastics and referral for an extended care facility to assist and offloading. Thank you for the consultation any questions contact the wound care center DNP note has been reviewed and discussed with Dr. Pelaez and the impression and plan of care has been directed as dictated. Past Medical History Past Medical History: Atrial Fibrillation, Cancer, Hyperlipidemia, Hypertension, Vascular Disorder Additional Past Medical History / Comment(s): SKIN CANCER. 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. 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 aortagram, right leg above knee amputation Past Anesthesia/Blood Transfusion Reactions: No Reported Reaction Date of Last Stent Placement:: 08/18/2020 Past Psychological History: No Psychological Hx Reported Smoking Status: Former smoker Past Alcohol Use History: None Reported Additional Past Alcohol Use History / Comment(s): STARTED SMOKING AT AGE 17 QUIT 2019 SMOKED 1/2 - 1 PPD Past Drug Use History: None Reported - Past Family History Father Family Medical History: Cancer Additional Family Medical History / Comment(s): throat cancer Brother(s) Family Medical History: Cancer Additional Family Medical History / Comment(s): THROAT CANCER. Mother Family Medical History: Cancer Medications and Allergies Home Medications Medication Instructions Recorded Confirmed Type amLODIPine [Norvasc] 5 mg PO DAILY 02/26/23 09/26/23 History Amiodarone [Cordarone] 100 mg PO DAILY 07/02/23 09/26/23 History Metoprolol Tartrate [Lopressor] 100 mg PO TID 07/02/23 09/26/23 History Apixaban [Eliquis] 5 mg PO BID 07/22/23 09/26/23 History lisinopriL [Zestril] 10 mg PO DAILY 07/22/23 09/26/23 History Amiodarone [Cordarone] 200 mg PO DIRECTED 09/26/23 09/26/23 History Atorvastatin (Unknown Strength) 1 dose PO DIRECTED 09/26/23 09/26/23 History HYDROcodone/APAP 7.5-325MG [[place] 1 tab PO Q4HR PRN 09/26/23 09/26/23 History 7.5-325] Allergies Allergy/AdvReac Type Severity Reaction Status Date / Time No Known Allergies Allergy Verified 09/26/23 13:09 Physical Exam Vitals: Vital Signs Temp Pulse Pulse Resp BP BP Pulse Ox 09/27/23 10:03 20 09/27/23 07:08 97.9 F 79 19 153/72 92 L 09/27/23 00:47 98 F 56 L 18 132/69 95 09/26/23 19:32 97.8 F 64 18 134/66 92 L 09/26/23 14:24 97.7 F 65 119/66 09/26/23 11:07 98.0 F 57 L 18 126/72 96 Intake and Output 09/26/23 09/27/23 09/27/23 22:59 06:59 14:59 Output Total 250 Balance -250 Output: Urine 250 Other: Voiding Method Urinal # Voids 1 Results CBC & Chem 7: 09/26/23 11:41 09/26/23 11:41 Labs: Abnormal Lab Results - Last 24 Hours (Table) 09/26/23 09/26/23 Range/Units 11:41 11:41 RBC 3.95 L (4.30-5.90) m/uL Hgb 12.0 L (13.0-17.5) gm/dL Hct 36.8 L (39.0-53.0) % Neutrophils # 7.9 H (1.3-7.7) k/uL Glucose 108 H (74-99) mg/dL AST 15 L (17-59) U/L Albumin 3.1 L (3.5-5.0) g/dL Assessment and Plan (1) Pressure ulcer of right hip, stage 3 Current Visit: Yes Status: Acute Code(s): L89.213 - PRESSURE ULCER OF RIGHT HIP, STAGE 3 SNOMED Code(s): 35600111842418 (2) Pressure ulcer of left heel, stage 2 Current Visit: Yes Status: Acute Code(s): L89.622 - PRESSURE ULCER OF LEFT HEEL, STAGE 2 SNOMED Code(s): 12978783086726 (3) Peripheral vascular disease of extremity with claudication Current Visit: Yes Status: Acute Code(s): I73.9 - PERIPHERAL VASCULAR DISEASE, UNSPECIFIED SNOMED Code(s): 999451078
[2023-09-27 13:06] VITALS: BMI 22.4
[2023-09-28 02:32] VITALS: PULSE 52
[2023-09-28] MEDS: AMIODARONE 100 MG TAB PO SCH (07:53)
[2023-09-28] MEDS: lisinopriL 10 MG TAB PO SCH (07:53)
[2023-09-28] MEDS: HYDROcodone/APAP 7.5-325MG 1 EACH TAB PO PRN (07:54)
[2023-09-28] MEDS: APIXABAN 5 MG TAB PO SCH (07:54)
[2023-09-28] MEDS: amLODIPine 5 MG TAB PO SCH (07:54)
[2023-09-28] MEDS: METOPROLOL TARTRATE 50 MG TAB PO SCH (08:07)
[2023-09-28 08:16] VITALS: BP 166/74; RESP 18; TEMP 97.6
--- NOTE | 2023-09-28 09:02 | P.DS ---
Providers Date of admission: 09/26/23 13:28 Attending physician: Odin Obrien Primary care physician: Odin Obrien [facility] Course: The patient is 67-year-old white male who has developed decubitus ulcer after having postoperative complications related to [id number] petition. He was in the intermediate and has developed hip ulcer. After being evaluated by wound care, [facility] surgery/wound care is requesting transfer to [facility] for plastic surgery for evaluation for possible flap procedure. The sisters going to take him to [facility]. I've advised try [facility] for immediate evaluation. The patient will be taken by the sister to the next institution. The patient is stable for transfer tolerating diet afebrile vital signs are stable. The patient is agreeable. Patient Condition at Discharge: Stable Plan - Discharge Summary Discharge Rx Participant: No New Discharge Prescriptions: New Amoxic-Pot Clav 875-125Mg [Augmentin 875-125] 1 tab PO Q12HR 10 Days #20 tab Continue amLODIPine [Norvasc] 5 mg PO DAILY Metoprolol Tartrate [Lopressor] 100 mg PO TID Amiodarone [Cordarone] 200 mg PO DIRECTED HYDROcodone/APAP 7.5-325MG [[place] 7.5-325] 1 tab PO Q4HR PRN PRN Reason: Pain Atorvastatin (Unknown Strength) 1 dose PO DIRECTED Amiodarone [Cordarone] 100 mg PO DAILY Apixaban [Eliquis] 5 mg PO BID lisinopriL [Zestril] 10 mg PO DAILY Discharge Medication List amLODIPine [Norvasc] 5 mg PO DAILY 02/26/23 [History] Amiodarone [Cordarone] 100 mg PO DAILY 07/02/23 [History] Metoprolol Tartrate [Lopressor] 100 mg PO TID 07/02/23 [History] Apixaban [Eliquis] 5 mg PO BID 07/22/23 [History] lisinopriL [Zestril] 10 mg PO DAILY 07/22/23 [History] Amiodarone [Cordarone] 200 mg PO DIRECTED 09/26/23 [History] Atorvastatin (Unknown Strength) 1 dose PO DIRECTED 09/26/23 [History] HYDROcodone/APAP 7.5-325MG [[place] 7.5-325] 1 tab PO Q4HR PRN 09/26/23 [History] Amoxic-Pot Clav 875-125Mg [[place] 875-125] 1 tab PO Q12HR 10 Days #20 tab 09/28/23 [Rx] Follow up Appointment(s)/Referral(s): [facility], [NON-STAFF] - 1-2 Days Odin Obrien MD [Primary Care Provider] - 1 Week Discharge Disposition: DC/TRNS HOME W/PLND IP CONNOR
--- NOTE | 2023-09-28 10:31 | CDI ---
Documentation Clarification Form Date: 09/28/2023 10:21:01 AM From: Atiya Hsieh RN, CCDS Admit Date: 09/26/2023 01:28:00 PM Patient Name: Cezar Terry Visit Number: [id number] Discharge Date: ATTENTION: The Clinical Documentation Specialists (CDI) and [facility] Coding Staff appreciate your assistance in clarifying documentation. Please respond to the clarification below the line at the bottom and electronically sign. The CDI & [facility] Coding staff will review the response and follow-up if needed. Please note: Queries are made part of the Legal Health Record. If you have any questions, please contact the author of this message via ITS. Dr. Odin Obrien Atrial Fibrillation is documented in the past medical history, H/P with ongoing treatment. Additional clarification regarding the type of atrial fibrillation is requested. History/Risk Factors: Atrial Fibrillation, Cancer, Hyperlipidemia, Hypertension, Vascular Disorder, Former smoker Clinical Indicators: 67-year-old male who was sent from wound care with Dr. Pelaez for nonhealing decubitus ulcer. Past medical history has atrial fibrillation, and he is on Eliquis. 09/26 VS: 126/72 57 18 98.0 96% RA Treatment: Eliquis 5 MG PO BID 09/26-09/28 Cordarone 100MG PO Daily 09/27-09/28 Please clarify the type of atrial fibrillation, if known: [x ] Chronic [ ] Permanent [ ] Paroxysmal [ ] Persistent [ ] Other, please specify [ ] Unable to determine (Template Last Revised: March 2021) MTDD
[2023-09-28 10:53] LABS: HGB 11.7 g/dL (13.0-17.0); MCH 29.4 pg (27.0-32.0); MCHC 30.8 g/dL (32.0-37.0); MCV 95.5 FL (80.0-97.0); Mean Platelet Volume 9.9 FL (9.5-12.2); NRBC Per 100 WBC 0 X 10*3/uL (0.00-0.01); Platelet Count 357 X 10*3/uL (140-440); RBC 3.98 X 10*6/uL (4.40-5.60); RDW 13.2 % (11.5-14.5); WBC 5.34 X 10*3/uL (4.50-10.00)
[2023-09-28 11:58] LABS: ALT 11 U/L (10-49); AST 13 U/L (14-35); Albumin/Globulin Ratio 0.91 Ratio (1.60-3.17); Alkaline Phosphatase 96 U/L (41-126); BUN/Creat Ratio 12.56 Ratio (12.00-20.00); Blood Urea Nitrogen 11.3 mg/dL (9.0-27.0); Calcium 8.7 mg/dL (8.7-10.3); Carbon Dioxide 24.1 mmol/L (21.6-31.8); Chloride 104 mmol/L (96-109); Globulin 3.3 g/dL (1.6-3.3); Glucose 96 mg/dL (70-110); Potassium 4.3 mmol/L (3.5-5.5); Sodium 138 mmol/L (135-145); Total Bilirubin <0.2 mg/dL (0.3-1.2); Total Protein 6.3 g/dL (6.2-8.2)
== END 2023-09-28 10:39 | disposition home or self-care (01) | DRG 594 ==
LOC: EC 10:59 → 4SSUR 13:28
PROVIDERS: ADMIT Family Medicine; ATTEND Family Medicine
DX: L89.213 Pressure ulcer of right hip, stage 3 (principal); L89.313 Pressure ulcer of right buttock, stage 3; L89.622 Pressure ulcer of left heel, stage 2; E78.5 Hyperlipidemia, unspecified; I73.9 Peripheral vascular disease, unspecified; I10 Essential (primary) hypertension; F10.20 Alcohol dependence, uncomplicated; I48.91 Unspecified atrial fibrillation; Z79.01 Long term (current) use of anticoagulants; Z79.899 Other long term (current) drug therapy; Z85.828 Personal history of other malignant neoplasm of skin; Z87.891 Personal history of nicotine dependence; Z89.611 Acquired absence of right leg above knee; G62.9 Polyneuropathy, unspecified
CPT/HCPCS: 36415; 80053; 83605; 83735; 85025; 85027; 87040; 96365; 99285